=== PATIENT | female | born 1940 | race Asian ===

== ENCOUNTER 2019-08-12 13:37 | Emergency (ER) | payer MEDICARE, OTHER, SELFPAY ==
--- NOTE | 2019-08-12 13:52 | DI.RAD.S_ITS ---
PROCEDURE: XR KNEE LT 3V INDICATIONS: knee pain TECHNIQUE: 3 views of the knee were acquired. COMPARISON: None. FINDINGS: Bones: No fractures or dislocations. No suspicious bony lesions. There is a moderate-sized enthesophyte at the quadriceps tendon insertion onto the patella. No significant degenerative changes of the left knee are evident. Soft tissues: No joint effusion. No suspicious soft tissue calcifications. Vascular calcifications on the posterior thigh are present. IMPRESSION: No acute fracture of the left knee. Dictated by: Ronn Rodríguez M.D. on 08/12/2019 at 14:34 Approved by: Ronn Rodríguez M.D. on 08/12/2019 at 14:34
[2019-08-12 13:59] VITALS: BP 196/82; PULSE 79; RESP 16; TEMP 36.4; O2SAT 96; BMI 20.2
--- NOTE | 2019-08-12 14:02 | PC.NURSE ---
Pt denies injury. Pt has had left knee pain for 3 weeks,no swelling noted on exam. Pt able to bear weight
[2019-08-12] MEDS: ACETAMINOPHEN 325 MG TABLET 650 MG PO (14:13)
--- NOTE | 2019-08-12 14:14 | ED.LOWEXIN ---
HPI - Extremity Injury (Lower) General Chief Complaint: Extremity Injury, Lower Stated Complaint: Left knee pain Time Seen by Provider: 08/12/19 13:46 Source: patient and family Mode of arrival: Ambulatory Limitations: no limitations History of Present Illness HPI Narrative: 78-year-old female nonsmoker with noncontributory medical history presents with a few weeks of gradually worsening left knee pain. 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 It is entirely possible that she may have twisted her knee during transfers with him. She has increased pain with motion and improvement with rest. She denies any fever chills. She has no redness, swelling or pinpoint tenderness. MD complaint: knee injury Onset (ago): week(s) Type of Injury: unknown Place: home Severity: moderate Relieving factors: rest Exacerbating factors: movement Associated symptoms: ambulatory Other symptoms: none Related Data Allergies Allergy/AdvReac Type Severity Reaction Status Date / Time No Known Drug Allergies Allergy Verified 08/12/19 13:59 Review of Systems Constitutional Constitutional: Denies chills, Denies fatigue, Denies fever(s), Denies frequent falls, Denies lethargy and Denies weakness Eyes Eyes: Denies change in vision, Denies eye discharge, Denies irritation and Denies loss of vision ENT Ears, Nose, Mouth, and Throat: Denies change in voice, Denies dizziness, Denies neck pain, Denies sore throat and Denies throat swelling Cardiovascular Cardiovascular: Denies chest pain, Denies irregular heart rhythm, Denies lightheadedness, Denies palpitations, Denies dyspnea, Denies dyspnea on exertion and Denies orthopnea Respiratory Respiratory: Denies cough, Denies dyspnea, Denies dyspnea on exertion and Denies wheezing Gastrointestinal Gastrointestinal: Denies abdominal pain, Denies change in bowel habits, Denies diarrhea, Denies nausea and Denies vomiting Genitourinary Genitourinary: Denies hematuria, Denies flank pain, Denies urinary incontinence and Denies urinary urgency Musculoskeletal Musculoskeletal: Denies back pain, Denies muscle weakness, Denies neck pain, Denies numbness and Denies tingling Integumentary/Breasts Skin/Breast: Denies pruritus, Denies erythema, Denies rash and Denies wounds Neurologic Neurologic: Denies behavioral changes, Denies confusion, Denies dizziness, Denies frequent falls, Denies loss of vision, Denies numbness, Denies tingling and Denies weakness Psychiatric Psychiatric: Denies anxiety, Denies behavioral changes, Denies confusion, Denies depression, Denies homicidal ideation and Denies suicidal ideation Endocrine Endocrine: Denies fatigue, Denies flushing and Denies palpitations Hematologic/Lymphatic Hematologic/Lymphatic: Denies easy bruising Allergic/Immunologic Allergic/Immunologic: Denies urticaria, Denies throat swelling and Denies wheezing Patient History Social History Smoking Status: Never smoker Substance Use Type: does not use Exam Narrative Exam Narrative: GEN: AOx3 and in mild distress EYES: Pupils are equal, round, and reactive to light and accommodation. Extraoccular muscles are intact bilaterally. There is no subconjunctival hemorrhage or exudate. CHEST: Lungs are clear to auscultation bilaterally and free of wheezes, rales, or rhonchi. Heart rate is regular rhythm, there are no murmurs, clicks, rubs, or gallops. There is no chest wall tenderness. ABD: Abdomen is soft and nontender. There is no guarding or rebound. Bowel sounds are normal in all 4 quadrants. There is no mass or organomegaly. EXT: Full painless ROM of all extremities with no loss of sensation or strength. No redness, swelling or warmth. No bony point tenderness, patient points to the entire knee. SKIN: Warm, pink, and dry. No erythema or rash Initial Vital Signs Initial Vital Signs: Vital Signs Temperature 97.5 F L 08/12/19 13:59 Pulse Rate 79 08/12/19 13:59 Respiratory Rate 16 08/12/19 13:59 Blood Pressure 196/82 H 08/12/19 13:59 Pulse Oximetry 96 08/12/19 13:59 Course Orders Ordered: ED Orders 08/12/19 13:52 XR knee LT 3V Stat Discontinued Medications Acetaminophen (Tylenol) 650 mg PO NOW ONE Stop: 08/12/19 13:56 Last Admin: 08/12/19 14:13 Dose: 650 mg Documented by: KAMRON Vital Signs Vital signs: Vital Signs - 8 hr 08/12/19 13:59 08/12/19 14:43 Temperature 97.5 F L Pulse Rate 79 61 Respiratory Rate 16 Blood Pressure 196/82 H 185/75 H Pulse Oximetry 96 MDM - Extremity Injury (Lower) Imaging Data Knee Xray: Radiologist's impression: Deja Gee 78 F [address] [address] XRay Report Signed Patient: Deja GeeMR#: [id number] : 1940cct:[id number] Age/Sex: 78 / FDate of Service: 08/12/19 Loc: ED Accession Number: [id number] Procedure: XR knee LT 3V Ordering Provider: Jimy Gamboa D.O. PROCEDURE: XR KNEE LT 3V INDICATIONS: knee pain TECHNIQUE: 3 views of the knee were acquired. COMPARISON: None. FINDINGS: Bones: No fractures or dislocations. No suspicious bony lesions. There is a moderate-sized enthesophyte at the quadriceps tendon insertion onto the patella. No significant degenerative changes of the left knee are evident. Soft tissues: No joint effusion. No suspicious soft tissue calcifications. Vascular calcifications on the posterior thigh are present. IMPRESSION: No acute fracture of the left knee. Dictated by: Ronn Rodríguez M.D. on 08/12/2019 at 14:34 Approved by: Ronn Rodríguez M.D. on 08/12/2019 at 14:34 Discharge Plan Departure Patient Disposition: Home Clinical Impression: Chronic pain of left knee Discharge Date/Time: 08/12/19 14:43 Instructions: DI for Knee Pain Activity Restrictions/Additional Instructions: *You have been diagnosed with [chronic left knee pain, reassuring physical exam and x-ray] *What to do: *Take medications as directed: Tylenol and Motrin for aches and pain *Follow up with your primary care provider in 2-3 days, call for an appointment. Let them know you were seen in the Emergency Department and that we ask that you be seen in follow up *Return to ER if you should have any new, worsening or concerning symptoms Referrals: [facility] [Outside]
[2019-08-12 14:43] VITALS: BP 185/75; PULSE 61
== END 2019-08-12 14:43 | disposition home or self-care (01) ==
PROVIDERS: Emergency Provider Emergency Medicine
DX: M25.562 Pain in left knee (principal)
CPT/HCPCS: 73562; 99282; 99283

== ENCOUNTER 2020-12-24 10:30 | Outpatient (RCR) | payer MEDICARE, OTHER, SELFPAY ==
--- NOTE | 2020-11-08 14:30 | OT.OP.EVAL ---
Visit Care Team Role Provider Type Kelsi Rosado MD Attending Provider Non-Staff Primary Care Provider Referring Provider Specialty: Family Practice Address: [address] [place] [address], [place], [address] Email: Occupational Therapy Initial Evaluation OT Outpatient Adult Evaluation Start: 11/08/20 13:20 Freq: Status: Active Protocol: Document 11/08/20 13:23 AMS (Rec: 11/08/20 14:10 AMS [id number]) General Information Visit Start Time 13:30 Visit Stop Time 14:20 Total Visit Minutes 50 Visit Number 10/06 Plan of Care Dates 11/08/20-01/31/21 Insurance Information Medicare Treatment Setting Outpatient Care Note Type Initial Evaluation Goals Long-Term Goals 1. Patient will be modified independent with execution of home exercise program utilizing provided written and visual instructions from therapist. 2. Patient will report increased success with active engagement in meaningful activities secondary to increased R UE strength with reduced/or no complaints of weakness (e.g., meal preparation); this will be evidenced by increased strength found with right shoulder and elbow strengthening. 5/5 MMT for R sh flex, R sh ext, R sh abd and 5/5 MMT for R elbow flex/ ext. 3. Patient will present with improved fine motor coordination which will support success in day-to-day life tasks with small object manipulation; this will be evidenced by Deja completing 9 Hole Peg Test in < 25.0 seconds. Assessment/Plan Treatment Assessment Patient is a 79 year-old female referred to outpatient OT secondary to L CVA. Deja resides with her daughter, Criss, in [place], [place] who is her primary caregiver. Deja was hospitalized for almost 4 days at [facility] and 2 weeks at [facility] ([facility] she received PT/OT 2 x per day while hospitalized at [facility]. Deja was d/c to home w/ support of daughter. She had home health therapy thru [facility]. HEP recommendations included: theraputty strengthening exercises w/ up to green theraputty and other activities: scissoring; buttering bread or equivalent; baking tasks; working w/ beads; peeling fruit/ vegetables; shoe tying. [facility] instructed her in UE PNF diagonals as well. Deja has a treadmill, stationary bike, 3# weights/ dumbbells. PMH: Significant for arthritis, back pain, diabetes II, hearing problems, stroke PLOF: Deja was independent will all BADLS and IADLS; she prefers an active life style. Patient Goals: Address R hand abilities. Evaluation Findings: Patient arrived ambulating w/ SPC. She is receiving outpatient PT. Modified independent with bathing; utilizing a tub bench in one bathroom and a shower stool in the shower stall. She reported modified independence with dressing; she is able to manage zippers but reports increased difficulty w/ managing buttons. 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 She was able to oppose thumb to each digit pad without errors w/ eyes open; errors w/ opposition task with eyes closed (ulnar side - 4th and 5th digit differentiation). Dynamometer II Testing Results : avg R ingredient handler 30# of force; avg L ingredient handler 31# of force. WFL AROM shoulder. AROM Shoulder ROM Measurements: 0-137 R sh flex; 0-153 L sh flex; 0-130 R sh abd; 0-130 L sh abd; 0-45 R sh ext; 0-50 L sh ext; 0-70 R ER; 0-70 L ER; B IR WNL; B sh elbow flex and ext WNL; B forearm sup/pron WNL; 0-75 R wrist ext; 0-60 L wrist ext; B wrist flex WNL; B wrist RD/UD WNL. 4/5 MMT R sh flex; 5/5 MMT L sh flex; 4+/5 MMT R sh ext; 5/5 MMT L sh ext; 4+/5 MMT R sh abd; 5/5 MMT L sh abd ; 4+/5 MMT R sh add; 5/5 MMT L sh add; 4+/5 MMT R elbow flex ; 4+/5 MMT R elbow ext; 5/5 MMT L elbow flex; 5/5 MMT L elbow ext. 9-Hole Peg Test: Dominant R hand = 35.5 seconds . Non-dominant L hand = 24.3 seconds. Pain Assessment Grid completed; significant for pain of right hand 3 out of 10 on Pain Scale; pain also indicated in lower back and bilateral knees 2 out of 10. Outpatient OT is recommended to address R UE AROM, R UE strength, and R UE motor planning to support Deja's success w/ active participation in meaningful activities in a variety of environments. Comment 12 weeks Treatment Frequency Once a Week Therapeutic Contents Active Range of Motion, Adaptive Equipment Education, Client Education,Cognitive Skills Development,Functional Activities,Home Exercise Program,Joint Protection, Education,Neurodevelopment Treatment,Neuromuscular Re- Education,Self-Care,Stretching /Flexibility Activities, Therapeutic Activities, Therapeutic Exercises, Modalities Modalities As Needed,As Prescribed
--- NOTE | 2020-11-12 11:36 | OT.OP.TRT ---
Visit Care Team Role Provider Type Kelsi Rosado MD Attending Provider Non-Staff Primary Care Provider Referring Provider Specialty: Family Practice Address: [address] [place] [address], [place], [address] Email: Occupational Therapy Treatment Note OT Outpatient Treatment Note - Adult Start: 11/08/20 13:20 Freq: Status: Active Protocol: Document 11/12/20 11:22 AMS (Rec: 11/12/20 11:35 AMS [id number]) OT Outpatient Adult Treatment Note Session Time Visit Start Time 10:30 Visit Stop Time 11:15 Total Visit Minutes 45 Visit Information Visit Number 11/06 Plan of Care Dates 11/08/20-01/31/21 Insurance Information Medicare Setting Treatment Setting Outpatient Care Visit Type Note Type Treatment Note General Information General Information Patient is a 79 year-old female referred to outpatient OT secondary to L CVA. Deja resides with her daughter, Criss, in [place], [place] who is her primary caregiver. Deja was hospitalized for almost 4 days at [facility] and 2 weeks at [facility] ([facility]); she received PT/OT 2 x per day while hospitalized at [facility]. Deja was d/c to home w/ support of daughter. She had home health therapy thru [facility]. HEP recommendations included: theraputty strengthening exercises w/ up to green theraputty and other activities: scissoring; buttering bread or equivalent; baking tasks; working w/ beads; peeling fruit/ vegetables; shoe tying. [facility] instructed her in UE PNF diagonals as well. Deja has a treadmill, stationary bike, 3# weights/ dumbbells. PMH: Significant for arthritis, back pain, diabetes II, hearing problems, stroke - Subjective Identification Type Name Identification Reconciled With Medical Record Observations Deja reported practicing at home with the 'pennies' and that she prepared 2 different items without 'any trouble'. Patient/Caregiver Compliance with Home Excellent Exercise Program - Objective Objective Measurements Please refer to below for progress towards meeting established OT goals. Wringer Operator Goals 1. Patient will be modified independent with execution of home exercise program utilizing provided written and visual instructions from therapist. 2. Patient will report increased success with active engagement in meaningful activities secondary to increased R UE strength with reduced/or no complaints of weakness (e.g., meal preparation); this will be evidenced by increased strength found with right shoulder and elbow strengthening. 5/5 MMT for R sh flex, R sh ext, R sh abd and 5/5 MMT for R elbow flex/ ext. 3. Patient will present with improved fine motor coordination which will support success in day-to-day life tasks with small object manipulation; this will be evidenced by Deja completing 9 Hole Peg Test in < 25.0 seconds. - Treatment 1 Descriptor In-hand manipulation skills. Fine motor coordination. R hand. Get-a-senior recruiter (x 1 placed in palm at a time). Buttons (3-4 placed in palm at a time). Small pegs w/ pegboard (3-4 placed in palm at a time). Miniature pegs w/ pegboard. Exercises 2 Descriptor Finger/Hand strengthening exercises. Resistant clothespins R hand. x 49 reps w/ placement on vertical dowel; x 49 reps w/ removal from horizontal dowel above head. 1 Descriptor UEB. x 10 min. Seated. - Assessment Assessment of Improvement Deja actively participated in all activities; she arrived utilizing SPC w/ ambulation. Request for condensing of schedule given commute/at patient request. Collaborated w/ senior front end engineer staff to determine if additional changes could be made based on patient request. Patient to follow-up w/ senior front end engineer staff post- PT outpatient treatment session. Based on self-report, Deja is carrying over home recommendations and staying active with day-to-day participation in ADLs/IADLs, including meal preparation. Deja inquired about return to driving; therapist recommended that she follow-up w/ PCP at upcoming appointment given that this therapist has only seen her x 2 appointments; Deja denied having NEUROLOGY PHYSICIAN and has denied any difficulties w/ meal preparation or light house cleaning duties. Use of visual feedback to support fine motor manipulation given impaired sensation without cueing; min cueing to avoid use of compensatory strategies (e.g., use of contra hand/use of tables/surfaces to support rotation/translation) initially. However, post- cueing/recommendations increased effort by Deja was observed to complete skills without compensatory strategies. Based on observations, progress is being made relative to fine motor/in-hand manipulation abilities. Continued outpatient OT is recommended to address R UE AROM, R UE strength, and R UE motor planning to support Deja's success w/ active participation in meaningful activities in a variety of environments. Home Exercise Program Recommended carry-over of toothpicks, buttons, clothespins as able/based on availability of items within the home. - Plan Therapy Recommendations Continue with Current Program, Advance per Rehabilitation Protocol
--- NOTE | 2020-11-20 13:53 | OT.OP.TRT ---
Visit Care Team Role Provider Type Kelsi Rosado MD Attending Provider Non-Staff Primary Care Provider Referring Provider Specialty: Family Practice Address: [address] [place] [address], [place], [address] Email: Occupational Therapy Treatment Note OT Outpatient Treatment Note - Adult Start: 11/08/20 13:20 Freq: Status: Active Protocol: Document 11/20/20 13:44 AMS (Rec: 11/20/20 13:53 AMS [id number]) OT Outpatient Adult Treatment Note Session Time Visit Start Time 12:30 Visit Stop Time 13:15 Total Visit Minutes 45 Visit Information Visit Number 12/04 Plan of Care Dates 11/08/20-01/31/21 Insurance Information Medicare Setting Treatment Setting Outpatient Care Visit Type Note Type Treatment Note General Information General Information Patient is a 79 year-old female referred to outpatient OT secondary to L CVA. Deja resides with her daughter, Criss, in [place], [place] who is her primary caregiver. Deja was hospitalized for almost 4 days at [facility] and 2 weeks at [facility] ([facility]); she received PT/OT 2 x per day while hospitalized at [facility]. Deja was d/c to home w/ support of daughter. She had home health therapy thru [facility]. HEP recommendations included: theraputty strengthening exercises w/ up to green theraputty and other activities: scissoring; buttering bread or equivalent; baking tasks; working w/ beads; peeling fruit/ vegetables; shoe tying. [facility] instructed her in UE PNF diagonals as well. Deja has a treadmill, stationary bike, 3# weights/ dumbbells. PMH: Significant for arthritis, back pain, diabetes II, hearing problems, stroke - Subjective Identification Type Name Identification Reconciled With Medical Record Observations I have been practicing at home per Deja. Patient/Caregiver Compliance with Home Excellent Exercise Program - Objective Objective Measurements Please refer to below for progress towards meeting established OT goals. Snf Goals 1. Patient will be modified independent with execution of home exercise program utilizing provided written and visual instructions from therapist. 2. Patient will report increased success with active engagement in meaningful activities secondary to increased R UE strength with reduced/or no complaints of weakness (e.g., meal preparation); this will be evidenced by increased strength found with right shoulder and elbow strengthening. 5/5 MMT for R sh flex, R sh ext, R sh abd and 5/5 MMT for R elbow flex/ ext. 3. Patient will present with improved fine motor coordination which will support success in day-to-day life tasks with small object manipulation; this will be evidenced by Deja completing 9 Hole Peg Test in < 25.0 seconds. - Treatment 1 Descriptor In-hand manipulation skills. Fine motor coordination. R hand. Get-a-artillery meteorological man (transfer TT --> vertical board R hand). Purdue Pegboard - pegs, washers, collars. Exercises 2 Descriptor Finger/Hand strengthening exercises. Resistant clothespins R hand. x 49 reps w/ placement on vertical dowel; x 49 reps w/ removal from horizontal dowel above head. 1 Descriptor UEB. x 10 min. Seated. - Assessment Assessment of Improvement Deja actively participated in all activities; she arrived utilizing SPC w/ ambulation. Based on self-report, Deja is carrying over home recommendations and staying active including using theraputty and personal weight /dumbbell. She also reported that her PCP did not clear her for return to driving which she agrees on given worry about managing gas and brake of personal car w/ R LE. Therapist continues to reduce size of objects to challenge Deja's FM abilities; she is demonstrating improving speed and efficiency with rotational abilities w/ R hand w/ picking up items from TT. Deja does prefer to chart picker objects from TT if permitted and/or place item an item on table in order to rotate it if other items are in her hand; she will also utilize L hand to support R handed obj manipulation. Thus, recommend challenging translational and rotational abilities of the hand and separation of the 2 sides of her hand. Based on reduced size of objects that Deja is able to manipulate, progress is being made relative to fine motor/in-hand manipulation abilities. Continued outpatient OT is recommended to address R UE AROM, R UE strength, and R UE motor planning to support Deja's success w/ active participation in meaningful activities in a variety of environments. Home Exercise Program No new changes were made on this date to HEP/POC. - Plan Therapy Recommendations Continue with Current Program, Advance per Rehabilitation Protocol
--- NOTE | 2020-11-26 15:30 | OT.OP.TRT ---
Visit Care Team Role Provider Type Kelsi Rosado MD Attending Provider Non-Staff Primary Care Provider Referring Provider Specialty: Family Practice Address: [address] [place] [address], [place], [address] Email: Occupational Therapy Treatment Note OT Outpatient Treatment Note - Adult Start: 11/08/20 13:20 Freq: Status: Active Protocol: Document 11/26/20 15:30 AMS (Rec: 11/27/20 13:51 AMS [id number]) OT Outpatient Adult Treatment Note Session Time Visit Start Time 10:30 Visit Stop Time 11:15 Total Visit Minutes 45 Visit Information Visit Number 01/04 Plan of Care Dates 11/08/20-01/31/21 Insurance Information Medicare Setting Treatment Setting Outpatient Care Visit Type Note Type Treatment Note General Information General Information Patient is a 79 year-old female referred to outpatient OT secondary to L CVA. Deja resides with her daughter, Criss, in [place], [place] who is her primary caregiver. Deja was hospitalized for almost 4 days at [facility] and 2 weeks at [facility] ([facility]); she received PT/OT 2 x per day while hospitalized at [facility]. Deja was d/c to home w/ support of daughter. She had home health therapy thru [facility]. HEP recommendations included: theraputty strengthening exercises w/ up to green theraputty and other activities: scissoring; buttering bread or equivalent; baking tasks; working w/ beads; peeling fruit/ vegetables; shoe tying. [facility] instructed her in UE PNF diagonals as well. Deja has a treadmill, stationary bike, 3# weights/ dumbbells. PMH: Significant for arthritis, back pain, diabetes II, hearing problems, stroke - Subjective Identification Type Name Identification Reconciled With Medical Record Observations I have been doing all my exercises at home per Deja . Patient/Caregiver Compliance with Home Excellent Exercise Program - Objective Objective Measurements Please refer to below for progress towards meeting established OT goals. Processing Operator Goals 1. Patient will be modified independent with execution of home exercise program utilizing provided written and visual instructions from therapist. 2. Patient will report increased success with active engagement in meaningful activities secondary to increased R UE strength with reduced/or no complaints of weakness (e.g., meal preparation); this will be evidenced by increased strength found with right shoulder and elbow strengthening. 5/5 MMT for R sh flex, R sh ext, R sh abd and 5/5 MMT for R elbow flex/ ext. 3. Patient will present with improved fine motor coordination which will support success in day-to-day life tasks with small object manipulation; this will be evidenced by Deja completing 9 Hole Peg Test in < 25.0 seconds. - Treatment 1 Descriptor In-hand manipulation skills. Fine motor coordination. R hand. Get-a-supervisor specialty plant (transfer TT --> vertical board R hand). Purdue Pegboard - pegs, washers, collars. Exercises 3 Descriptor Theraband Sh Strengthening Sh flexion. TB #2. 2x10. Seated. Sh hor abd. TB #2. 2x10. Seated. Sh PNF D2. TB #2. 2x10. Seated . 2 Descriptor Finger/Hand strengthening exercises. Resistant clothespins R hand. x 49 reps w/ placement on vertical dowel; x 49 reps w/ removal from horizontal dowel above head. 1 Descriptor UEB. x 10 min. Seated. - Assessment Assessment of Improvement Deja actively participated in all activities; she arrived utilizing [facility] w/ ambulation. Based on self-report, Deja is carrying over home recommendations and staying active. Upgraded UE home exercises and provided TB #2 for home use. Improving speed and efficiency with object manipulation; able to appropriately grade force with tweezers placed in preferred hand with small object transfer. Denied h/o use of chopsticks. Progress is being made. Continued outpatient OT is recommended to address R UE AROM, R UE strength, and R UE motor planning to support Deja's success w/ active participation in meaningful activities in a variety of environments. Home Exercise Program Provided with personal TB #2 for home use. Provided written and visual instructions for new exercises with use of TB. All questions were answered. - Plan Therapy Recommendations Continue with Current Program, Advance per Rehabilitation Protocol
--- NOTE | 2020-12-04 14:18 | OT.OP.TRT ---
Visit Care Team Role Provider Type Kelsi Rosado MD Attending Provider Non-Staff Primary Care Provider Referring Provider Specialty: Family Practice Address: [address] [place] [address], [id number], [place], [address] Email: Occupational Therapy Treatment Note OT Outpatient Treatment Note - Adult Start: 11/08/20 13:20 Freq: Status: Active Protocol: Document 12/04/20 13:19 AMS (Rec: 12/04/20 14:18 AMS [id number]) OT Outpatient Adult Treatment Note Session Time Visit Start Time 13:20 Visit Stop Time 14:05 Total Visit Minutes 45 Visit Information Visit Number 02/03 Plan of Care Dates 11/08/20-01/31/21 Insurance Information Medicare Setting Treatment Setting Outpatient Care Visit Type Note Type Treatment Note General Information General Information Patient is a 79 year-old female referred to outpatient OT secondary to L CVA. Deja resides with her daughter, Criss, in [place], [place] who is her primary caregiver. Deja was hospitalized for almost 4 days at [facility] and 2 weeks at [facility] ([facility]); she received PT/OT 2 x per day while hospitalized at [facility]. Deja was d/c to home w/ support of daughter. She had home health therapy thru [facility]. HEP recommendations included: theraputty strengthening exercises w/ up to green theraputty and other activities: scissoring; buttering bread or equivalent; baking tasks; working w/ beads; peeling fruit/ vegetables; shoe tying. [facility] instructed her in UE PNF diagonals as well. Deja has a treadmill, stationary bike, 3# weights/ dumbbells. PMH: Significant for arthritis, back pain, diabetes II, hearing problems, stroke - Subjective Identification Type Name Identification Reconciled With Medical Record Observations I woke up last night at 2:00 in the morning. I couldn't go back to sleep. Ever since I had my stroke, my sleep has been messed up per Deja. Patient/Caregiver Compliance with Home Excellent Exercise Program - Objective Objective Measurements Please refer to below for progress towards meeting established OT goals. Group Home Goals 1. Patient will be modified independent with execution of home exercise program utilizing provided written and visual instructions from therapist. 2. Patient will report increased success with active engagement in meaningful activities secondary to increased R UE strength with reduced/or no complaints of weakness (e.g., meal preparation); this will be evidenced by increased strength found with right shoulder and elbow strengthening. 5/5 MMT for R sh flex, R sh ext, R sh abd and 5/5 MMT for R elbow flex/ ext. 3. Patient will present with improved fine motor coordination which will support success in day-to-day life tasks with small object manipulation; this will be evidenced by Deja completing 9 Hole Peg Test in < 25.0 seconds. - Treatment 1 Descriptor In-hand manipulation skills. Fine motor coordination. R hand. Get-a-horse trainer (transfer TT --> vertical board R hand). Purdue Pegboard - pegs, washers, collars. Exercises 3 Descriptor Theraband Sh Strengthening Sh flexion. TB #2. 2x10. Seated. Sh hor abd. TB #2. 2x10. Seated. Sh PNF D2. TB #2. 2x10. Seated . 2 Descriptor Finger/Hand strengthening exercises. Resistant clothespins R hand. x 49 reps w/ placement on vertical dowel; x 49 reps w/ removal from horizontal dowel above head. 1 Descriptor UEB. x 10 min. Seated. - Assessment Assessment of Improvement Deja arrived utilizing SPC w/ ambulation. Deja reported fatigue d/t poor night's sleep; she also indicated that she was tired from previous day's PT treatment session. She presented with decreased efficiency with object manipulation; however, she had good effort and completed all activities. She is also actively carrying over recommendations/completing HEP . Continued outpatient OT is recommended to address R UE AROM, R UE strength, and R UE motor planning to support Deja's success w/ active participation in meaningful activities in a variety of environments. - Plan Therapy Recommendations Continue with Current Program, Advance per Rehabilitation Protocol
--- NOTE | 2020-12-10 11:25 | OT.OP.TRT ---
Visit Care Team Role Provider Type Kelsi Rosado MD Attending Provider Non-Staff Primary Care Provider Referring Provider Specialty: Family Practice Address: [address] [place] [address], [id number], [place], [address] Email: Occupational Therapy Treatment Note OT Outpatient Treatment Note - Adult Start: 11/08/20 13:20 Freq: Status: Active Protocol: Document 12/10/20 11:20 AMS (Rec: 12/10/20 11:25 AMS [id number]) OT Outpatient Adult Treatment Note Session Time Visit Start Time 10:30 Visit Stop Time 11:15 Total Visit Minutes 45 Visit Information Visit Number 03/06 Plan of Care Dates 11/08/20-01/31/21 Insurance Information Medicare Setting Treatment Setting Outpatient Care Visit Type Note Type Treatment Note General Information General Information Patient is a 79 year-old female referred to outpatient OT secondary to L CVA. Deja resides with her daughter, Criss, in [place], [place] who is her primary caregiver. Deja was hospitalized for almost 4 days at [facility] and 2 weeks at [facility] ([facility]); she received PT/OT 2 x per day while hospitalized at [facility]. Deja was d/c to home w/ support of daughter. She had home health therapy thru [facility]. HEP recommendations included: theraputty strengthening exercises w/ up to green theraputty and other activities: scissoring; buttering bread or equivalent; baking tasks; working w/ beads; peeling fruit/ vegetables; shoe tying. [facility] instructed her in UE PNF diagonals as well. Deja has a treadmill, stationary bike, 3# weights/ dumbbells. PMH: Significant for arthritis, back pain, diabetes II, hearing problems, stroke - Subjective Identification Type Name Identification Reconciled With Medical Record Observations I woke up last night at 1:00 in the morning. I couldn't go back to sleep. I am going to see my doctor this afternoon about my sleep per Deja. Patient/Caregiver Compliance with Home Excellent Exercise Program Comment w/ referencing of visual/ written instructions - Objective Objective Measurements Please refer to below for progress towards meeting established OT goals. 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 Patient will be modified independent with execution of home exercise program utilizing provided written and visual instructions from therapist. 2. Patient will report increased success with active engagement in meaningful activities secondary to increased R UE strength with reduced/or no complaints of weakness (e.g., meal preparation); this will be evidenced by increased strength found with right shoulder and elbow strengthening. 5/5 MMT for R sh flex, R sh ext, R sh abd and 5/5 MMT for R elbow flex/ ext. 3. Patient will present with improved fine motor coordination which will support success in day-to-day life tasks with small object manipulation; this will be evidenced by Deja completing 9 Hole Peg Test in < 25.0 seconds. - Treatment 1 Descriptor In-hand manipulation skills. Fine motor coordination. R hand. Get-a-oil well gun perforator operator (transfer TT --> vertical board R hand). Purdue Pegboard - pegs, washers, collars. Exercises 4 Descriptor Shoulder ROM. Sh flexion wall. 1 x 20 sec. Sh abd/snow angels. 1 x 3. Sh hor abd --> shoulder press. 1 x 3. 2 Descriptor Finger/Hand strengthening exercises. Resistant clothespins R hand. x 49 reps w/ placement on vertical dowel; x 49 reps w/ removal from horizontal dowel above head. 1 Descriptor UEB. x 10 min. Seated. - Assessment Assessment of Improvement Deja arrived utilizing SPC w/ ambulation. Deja reported fatigue d/t poor night's sleep; she stated that she is seeing her PCP this afternoon in re: sleep. (+) carry-over of HEP; (+) request of visual and written instructions to support carry- over. Upgraded HEP w/ inclusion of ROM exercises; tendency towards R shoulder elevation w/ above sh manipulation. Consider incorporating prone exercises d/t compensatory strategies being observed w/ R UE motor planning/use. Deja reports ability to complete all tasks in the home without difficulty , including cleaning bathtub, floors. Continued outpatient OT is recommended to address R UE AROM, R UE strength, and R UE motor planning to support Deja's success w/ active participation in meaningful activities in a variety of environments. Home Exercise Program Written and visual instructions were provided. Sh abd/snow angels and hor abd w / press at wall. Patient denied questions. - Plan Therapy Recommendations Continue with Current Program, Advance per Rehabilitation Protocol
--- NOTE | 2020-12-24 11:27 | OT.OP.DC ---
Visit Care Team Role Provider Type Kelsi Rosado MD Attending Provider Non-Staff Primary Care Provider Referring Provider Address: [address] [place] [address], [id number], [place], [address] Email: OT Outpatient OT Outpatient Adult Evaluation Start: 11/08/20 13:20 Freq: Status: Active Protocol: Document 11/08/20 13:23 AMS (Rec: 11/08/20 14:10 AMS [id number]) General Information Session Time Visit Start Time 13:30 Visit Stop Time 14:20 Total Visit Minutes 50 Visit Information Visit Number 10/06 Plan of Care Dates 11/08/20-01/31/21 Insurance Information Medicare Setting Treatment Setting Outpatient Care Visit Type Note Type Initial Evaluation Goals Usp Goals Usp Goals 1. Patient will be modified independent with execution of home exercise program utilizing provided written and visual instructions from therapist. 2. Patient will report increased success with active engagement in meaningful activities secondary to increased R UE strength with reduced/or no complaints of weakness (e.g., meal preparation); this will be evidenced by increased strength found with right shoulder and elbow strengthening. 5/5 MMT for R sh flex, R sh ext, R sh abd and 5/5 MMT for R elbow flex/ ext. 3. Patient will present with improved fine motor coordination which will support success in day-to-day life tasks with small object manipulation; this will be evidenced by Deja completing 9 Hole Peg Test in < 25.0 seconds. Assessment/Plan Assessment Treatment Assessment Patient is a 79 year-old female referred to outpatient OT secondary to L CVA. Deja resides with her daughter, Criss, in [place], [place] who is her primary caregiver. Deja was hospitalized for almost 4 days at [facility] and 2 weeks at [facility] ([facility]); she received PT/OT 2 x per day while hospitalized at [facility]. Deja was d/c to home w/ support of daughter. She had home health therapy thru [facility]. HEP recommendations included: theraputty strengthening exercises w/ up to green theraputty and other activities: scissoring; buttering bread or equivalent; baking tasks; working w/ beads; peeling fruit/ vegetables; shoe tying. [facility] instructed her in UE PNF diagonals as well. Deja has a treadmill, stationary bike, 3# weights/ dumbbells. PMH: Significant for arthritis, back pain, diabetes II, hearing problems, stroke PLOF: Deja was independent will all BADLS and IADLS; she prefers an active life style. Patient Goals: Address R hand abilities. Evaluation Findings: Patient arrived ambulating w/ SPC. She is receiving outpatient PT. Modified independent with bathing; utilizing a tub bench in one bathroom and a shower stool in the shower stall. She reported modified independence with dressing; she is able to manage zippers but reports increased difficulty w/ managing buttons. 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 She was able to oppose thumb to each digit pad without errors w/ eyes open; errors w/ opposition task with eyes closed (ulnar side - 4th and 5th digit differentiation). Dynamometer II Testing Results : avg R brush worker 30# of force; avg L brush worker 31# of force. WFL AROM shoulder. AROM Shoulder ROM Measurements: 0-137 R sh flex; 0-153 L sh flex; 0-130 R sh abd; 0-130 L sh abd; 0-45 R sh ext; 0-50 L sh ext; 0-70 R ER; 0-70 L ER; B IR WNL; B sh elbow flex and ext WNL; B forearm sup/pron WNL; 0-75 R wrist ext; 0-60 L wrist ext; B wrist flex WNL; B wrist RD/UD WNL. 4/5 MMT R sh flex; 5/5 MMT L sh flex; 4+/5 MMT R sh ext; 5/5 MMT L sh ext; 4+/5 MMT R sh abd; 5/5 MMT L sh abd ; 4+/5 MMT R sh add; 5/5 MMT L sh add; 4+/5 MMT R elbow flex ; 4+/5 MMT R elbow ext; 5/5 MMT L elbow flex; 5/5 MMT L elbow ext. 9-Hole Peg Test: Dominant R hand = 35.5 seconds . Non-dominant L hand = 24.3 seconds. Pain Assessment Grid completed; significant for pain of right hand 3 out of 10 on Pain Scale; pain also indicated in lower back and bilateral knees 2 out of 10. Outpatient OT is recommended to address R UE AROM, R UE strength, and R UE motor planning to support Deja's success w/ active participation in meaningful activities in a variety of environments. Plan Comment 12 weeks Treatment Frequency Once a Week Therapeutic Contents Active Range of Motion, Adaptive Equipment Education, Client Education,Cognitive Skills Development,Functional Activities,Home Exercise Program,Joint Protection, Education,Neurodevelopment Treatment,Neuromuscular Re- Education,Self-Care,Stretching /Flexibility Activities, Therapeutic Activities, Therapeutic Exercises, Modalities Modalities As Needed,As Prescribed Sensory Assessment Sensory Profile2 Functional Wrist/Hand Scan Hand Side OT Outpatient Treatment Note - Adult Start: 11/08/20 13:20 Freq: Status: Active Protocol: Document 12/24/20 10:41 AMS (Rec: 12/24/20 11:27 AMS [id number]) OT Outpatient Adult Treatment Note Session Time Visit Start Time 10:30 Visit Stop Time 11:15 Total Visit Minutes 45 Visit Information Visit Number 04/05 Plan of Care Dates 11/08/20-01/31/21 Insurance Information Medicare Setting Treatment Setting Outpatient Care Visit Type Note Type Treatment Note General Information General Information Patient is a 79 year-old female referred to outpatient OT secondary to L CVA. Deja resides with her daughter, Criss, in [place], [place] who is her primary caregiver. Deja was hospitalized for almost 4 days at [facility] and 2 weeks at [facility] ([facility]); she received PT/OT 2 x per day while hospitalized at [facility]. Deja was d/c to home w/ support of daughter. She had home health therapy thru [facility]. HEP recommendations included: theraputty strengthening exercises w/ up to green theraputty and other activities: scissoring; buttering bread or equivalent; baking tasks; working w/ beads; peeling fruit/ vegetables; shoe tying. [facility] instructed her in UE PNF diagonals as well. Deja has a treadmill, stationary bike, 3# weights/ dumbbells. PMH: Significant for arthritis, back pain, diabetes II, hearing problems, stroke - Subjective Identification Type Name Identification Reconciled With Medical Record Observations I am doing everything at home per Deja. Deja completed QuickDASH UE Outcome Measure; obtained a score of 0. Patient/Caregiver Compliance with Home Excellent Exercise Program Comment w/ referencing of visual/ written instructions - Objective Objective Measurements Please refer to below for progress towards meeting established OT goals. Usp Goals ALL GOALS MET OF 12/24/20 Patient will be modified independent with execution of home exercise program utilizing provided written and visual instructions from therapist. Patient will report increased success with active engagement in meaningful activities secondary to increased R UE strength with reduced/or no complaints of weakness (e.g., meal preparation); this will be evidenced by increased strength found with right shoulder and elbow strengthening. 5/5 MMT for R sh flex, R sh ext, R sh abd and 5/5 MMT for R elbow flex/ ext. Patient will present with improved fine motor coordination which will support success in day-to-day life tasks with small object manipulation; this will be evidenced by Deja completing 9 Hole Peg Test in < 25.0 seconds. - Treatment 1 Descriptor In-hand manipulation skills. Fine motor coordination. R hand. Get-a-brush worker (transfer TT --> vertical board R hand). Purdue Pegboard - pegs, washers, collars. Exercises 4 Descriptor Shoulder ROM. Sh flexion wall. 1 x 20 sec. Sh abd/snow angels. 1 x 3. Sh hor abd --> shoulder press. 1 x 3. 3 Descriptor Theraband Sh Strengthening Sh flexion. TB #2. 2x10. Seated. Sh hor abd. TB #2. 2x10. Seated. Sh PNF D2. TB #2. 2x10. Seated . 2 Descriptor Finger/Hand strengthening exercises. Resistant clothespins R hand. x 49 reps w/ placement on vertical dowel; x 49 reps w/ removal from horizontal dowel above head. 1 Descriptor UEB. x 8 min. Seated. - Assessment Assessment of Improvement Deja has met all correction goals with outpatient OT. She is modified independent with execution of home exercise program referencing provided written and visual instructions from therapist. She denies any additional concerns; however, she would like to return to driving to maintain her independence. She plans on going to her local [facility] to ensure that she is safe to return. No further need for outpatient OT at this time . - Plan Therapy Recommendations Discharge from Occupational Therapy
== END 2021-01-02 09:52 | disposition home or self-care (01) ==
LOC: OT 10:30
PROVIDERS: PCP Family Medicine; Referring Provider Family Medicine; Visit Provider Family Medicine
DX: I63.9 Cerebral infarction, unspecified (principal); R27.8 Other lack of coordination; R53.1 Weakness
CPT/HCPCS: 97110; 97112; 97165; 97530

== ENCOUNTER 2020-12-27 08:15 | Outpatient (RCR) | payer MEDICARE, OTHER, SELFPAY ==
--- NOTE | 2020-10-31 16:30 | PT.OIE ---
Current Diagnoses Cerebral infarction, unspecified (10/31/20) Muscle weakness (generalized) (10/31/20) Unsteadiness on feet (10/31/20) Other reduced mobility (10/31/20) Visit Care Team Role Provider Type Kelsi Rosado MD Attending Provider Non-Staff Referring Provider Specialty: Family Practice Address: [address] [place] [address], [place], [address] Email: Physical Therapy Initial Evaluation PT-OP-A Visit Information Start: 10/29/20 16:50 Freq: Status: Active Protocol: Document 10/31/20 12:50 LRN (Rec: 10/31/20 13:45 LRN [id number]) Out-Patient Physical Therapy Visit Information Visit Information Visit Type Initial Evaluation Visit Start Time 12:50 Visit Stop Time 13:40 Total Visit Minutes 50 Visit Number 1 Evaluation Information Evaluation Date 10/31/20 Precautions Precautions Arthritis, uncontrolled HBP, uncontrolled Diabetes type II, Depression, headaches, dizziness occasionally, 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 PT-OP-B Current Condition Start: 10/29/20 16:50 Freq: Status: Active Protocol: Document 10/31/20 12:50 LRN (Rec: 10/31/20 13:45 LRN [id number]) Current Condition History of Current Condition Onset Date 08/13/2020 Current Complaints L CVA History of Current Condition Pt lives in [place] and is accompanied by her daughter Criss, who is her caregiver, and that lives with her. Pt was hospitalized almost 4 days at [facility] and 2 weeks at [facility] an acute rehab , and PT/OT 2x/day. Released home 08/27/20 with daughter. Had home health until 2 weeks ago (~10/23/20 was last day), then requested outpatient physical and occupational therapy. Pt has 1 step at home and multiple grab bars in her home . Prior Treatments and Tests See above. Future Testing and Treatments Planned Occupational Therapy Evaluation. Colonoscopy in the future. Follow up with Dr. Gale Developmental History Developmental History Lives [place]. Treatment Goals Patient/Caregiver Goals Pt goal is strength R LE to walk and get back to normal, and resume exercise walking without walker, & improve balance. Pt goal is to use the R hand and will be scheduling for an occupational therapy evaluation. Prior Functional Status Baseline Function- ADL's Independent Baseline Function- Mobility Independent Baseline Function- Gait Walked in [employer], walked daily at [facility] 30' . Amb w/o AD. 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 Hold R leg stiff with gait and minimal R arm swing. Not walking for exercise activity outside. 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 PT-OP-C Subjective Start: 10/29/20 16:50 Freq: Status: Active Protocol: Document 10/31/20 12:50 LRN (Rec: 10/31/20 13:45 LRN [id number]) OP-PT Subjective Patient Comments Patient Comments Forgets to bend the R knee when walking. Patient Questionnaires ABC- Activity Specific Balance Confidence Scale ABC Score 60 ABC Functional Impairment 40 to <60% Impaired (Score 41- 60) OP-PT Pain Assessment Pain Assessment Grid Paper Pain Assessment Grid Completed Yes Location Bilateral knee pain Pain Location Details Anterior knees Intensity 3 Scale Used Numeric (0 - 10) Description Aching Description- Other Arthritis Frequency Occasional Other Pain Alleviating Factors Soft knee brace x 1 PT-OP-D Balance Start: 10/29/20 16:50 Freq: Status: Active Protocol: Document 10/31/20 12:50 LRN (Rec: 10/31/20 13:45 LRN [id number]) OP-PT Balance Assessment Sitting Balance Static Sitting Balance Ability Normal Balance Tests Romberg Romberg EC, 25 secs Tandem Tandem Standing EO: L LE behind: 27.75 secs, R LE behind: 0 secs. Stevenson Fall Scale Copyright Permission PT-OP-E Functional Tests Start: 10/29/20 16:50 Freq: Status: Active Protocol: Document 10/31/20 12:50 LRN (Rec: 10/31/20 13:45 LRN [id number]) Functional Tests 30 Second Sit to Stand Test Score 8 x Five Times Sit to Stand Test Score 19.17 secs Timed Up and Go (TUG) Score 19.17 TUG Impairment Rating 80 to <100% Impaired (Score 18 -19) PT-OP-J Posture/Palpation/Skin Start: 10/29/20 16:50 Freq: Status: Active Protocol: Document 10/31/20 12:50 LRN (Rec: 10/31/20 13:45 LRN [id number]) Posture Evaluation Position Standing L-Spine Posture Decreased Lordosis,Shifted Right Scapula Posture (R) Protracted,(R) Winged PT-OP-M Strength Start: 10/29/20 16:50 Freq: Status: Active Protocol: Document 10/31/20 12:50 LRN (Rec: 10/31/20 13:45 LRN [id number]) Hip Strength Hip Manual Muscle Testing Left Flexion (L2) 5 Normal Right Flexion (L2) 3+ Fair+ Knee Strength Knee Manual Muscle Testing Left Flexion (S2) 5 Normal Extension (L3) 5 Normal Right Flexion (S2) 3+ Fair+ Extension (L3) 5 Normal Ankle/Foot Strength Ankle and Foot Manual Muscle Testing Left Comments Generally 5/5 Right Eversion (S1) 3 Fair Comments 5/5 except as indicated above PT-OP-Q Treatments Start: 10/29/20 16:50 Freq: Status: Active Protocol: Document 10/31/20 12:50 LRN (Rec: 10/31/20 13:45 LRN [id number]) Self-Care/Home Management Treatment Education Patient Education Home Exercise Program Activities Self-Care/Home Management Activities I/S pt/caregiver DA in Tandem balance in corner. PT-OP-T Assessment and Plan Start: 10/29/20 16:50 Freq: Status: Active Protocol: Document 10/31/20 12:50 LRN (Rec: 10/31/20 13:45 LRN [id number]) Physical Therapy Assessment Rehab Potential Rehabilitation Potential Good Evaluation Complexity Number of Personal Factors/Comorbidities 3 or More Number of Body Systems Impaired 4 or More Clinical Presentation at Evaluation Evolving Impairments Impairments Activity Tolerance,Balance, Gait,Strength Goals Four Impairment Decreased endurance per 5xSTS (5xsit to stand) = 19.17 secs Short Term Goal (STG) Pt will demonstrate improved endurance by a decreased time with 5xSTS test (norms: ages 70-79 is 12.6 secs, ages 80-89 is 14.8 secs). Search Specialist Goal (LTG) Pt will be able to tolerate return to walking at her prior location ([facility]) for exercise. Three Impairment Decreased R LE strength Short Term Goal (STG) Improve R LE strength in areas of weakness to at least 4/5. Fci Goal (LTG) Strengthen R LE for normal walking (with mild deficit). Two Impairment Balance deficit(Rhomberg EC: 25; Tandem: LE Behind: 0R, 27.75L, TUG 19) Short Term Goal (STG) Improve Balance per Rhomberg Score, Tandem Score or TUG score Fci Goal (LTG) Pt will be able to walk safetly without use of a walker per TUG score of 11-13. 6 secs. One Impairment Lacks appropriate self care HEP Fci Goal (LTG) Pt will be independent in a self care HEP of LE strengthening and balance exercises appropriate for her status at discharge. Assessment Summary Assessment Pt is a 79 yo female who suffered a L CVA and has residual RLE/UE impairments. She walks independently with use of a FWW although requires cuing to not veer left. She demonstrates fair RLE strength . During gait with a FWW she demonstrates a stiff RLE and a slight R foot drop during swing through phase of gait. The pt demonstrates poor R arm swing. She is alert and oriented and answers questions appropriately. Her daughter is quite attentive and supportive. The daughter states she has an occupational therapy referral and hopes to get scheduled with Occupational Therapy today. The pt will benefit from skilled physical therapy to improve RLE strength and balance, to improve gait mechanics to safety without use of an assistive device and to improve her aerobic capacity/endurance to return her to a prior function of walking for her health and endurance in a safe manner. Physical Therapy Plan Frequency and Duration Frequency of Treatment 2x/Week Plan of Care Start Date 10/31/20 Plan of Care End Date 01/29/21 Therapeutic Interventions Therapeutic Interventions Balance Training,Gait Training ,Home Exercise Program,Manual Therapy,Neuromuscular Re- education,Patient/Caregiver Education,Self-Care/Home Management,Soft Tissue Mobilization,Taping, Therapeutic Activities, Therapeutic Exercises Modalities Cold Pack/Ice Massage,Electric Stimulation,Hot Packs Next Visit Focus/Plan Next Note Type Treatment Note Next Visit Plan Review pt's current HEP, complete hip strength test, initiate LE/core strengthening and progress her HEP as needed, Balance training, Gait training, and aerobic exercise at a level appropriate for 50% max HR to start.
--- NOTE | 2020-10-31 16:30 | PT.OPPOC ---
Physical, Occupational & Speech Therapy At [facility] Current Diagnoses Cerebral infarction, unspecified (10/31/20) Muscle weakness (generalized) (10/31/20) Unsteadiness on feet (10/31/20) Other reduced mobility (10/31/20) Visit Care Team Role Provider Type Kelsi Rosado MD Attending Provider Non-Staff Referring Provider Specialty: [facility] Address: [address] [place] [address], [place], [address] Email: Plan Of Care PT-OP-T Assessment and Plan Start: 10/29/20 16:50 Freq: Status: Active Protocol: Document 10/31/20 12:50 LRN (Rec: 10/31/20 13:45 LRN [id number]) Physical Therapy Assessment Rehab Potential Rehabilitation Potential Good Evaluation Complexity Number of Personal Factors/Comorbidities 3 or More Number of Body Systems Impaired 4 or More Clinical Presentation at Evaluation Evolving Impairments Impairments Activity Tolerance,Balance, Gait,Strength Goals Four Impairment Decreased endurance per 5xSTS (5xsit to stand) = 19.17 secs Short Term Goal (STG) Pt will demonstrate improved endurance by a decreased time with 5xSTS test (norms: ages 70-79 is 12.6 secs, ages 80-89 is 14.8 secs). [facility] Goal (LTG) Pt will be able to tolerate return to walking at her prior location ([facility]) for exercise. Three Impairment Decreased R LE strength Short Term Goal (STG) Improve R LE strength in areas of weakness to at least 4/5. Carbonation Tester Goal (LTG) Strengthen R LE for normal walking (with mild deficit). Two Impairment Balance deficit(Rhomberg EC: 25; Tandem: LE Behind: 0R, 27.75L, TUG 19) Short Term Goal (STG) Improve Balance per Rhomberg Score, Tandem Score or TUG score Carbonation Tester Goal (LTG) Pt will be able to walk safetly without use of a walker per TUG score of 11-13. 6 secs. One Impairment Lacks appropriate self care HEP Carbonation Tester Goal (LTG) Pt will be independent in a self care HEP of LE strengthening and balance exercises appropriate for her status at discharge. Assessment Summary Assessment Pt is a 79 yo female who suffered a L CVA and has residual RLE/UE impairments. She walks independently with use of a FWW although requires cuing to not veer left. She demonstrates fair RLE strength . During gait with a FWW she demonstrates a stiff RLE and a slight R foot drop during swing through phase of gait. The pt demonstrates poor R arm swing. She is alert and oriented and answers questions appropriately. Her daughter is quite attentive and supportive. The daughter states she has an occupational therapy referral and hopes to get scheduled with Occupational Therapy today. The pt will benefit from skilled physical therapy to improve RLE strength and balance, to improve gait mechanics to safety without use of an assistive device and to improve her aerobic capacity/endurance to return her to a prior function of walking for her health and endurance in a safe manner. Physical Therapy Plan Frequency and Duration Frequency of Treatment 2x/Week Plan of Care Start Date 10/31/20 Plan of Care End Date 01/29/21 Therapeutic Interventions Therapeutic Interventions Balance Training,Gait Training ,Home Exercise Program,Manual Therapy,Neuromuscular Re- education,Patient/Caregiver Education,Self-Care/Home Management,Soft Tissue Mobilization,Taping, Therapeutic Activities, Therapeutic Exercises Modalities Cold Pack/Ice Massage,Electric Stimulation,Hot Packs Next Visit Focus/Plan Next Note Type Treatment Note Next Visit Plan Review pt's current HEP, complete hip strength test, initiate LE/core strengthening and progress her HEP as needed, Balance training, Gait training, and aerobic exercise at a level appropriate for 50% max HR to start. Plan of Care Dates Plan of Care Start Date 10/31/20 Plan of Care End Date 01/29/21 Electronically Signed by: Anya Mott, PT 11/04/20 [id number] Please Sign and Return: I have reviewed this Plan of Care and certify that the skilled therapy services above are required to meet the patient?s needs. Physician Signature Date Printed Name and Credentials Clinical Instructor Signature Printed Name and Credentials
--- NOTE | 2020-11-05 15:23 | PT.OTN ---
Current Diagnoses Cerebral infarction, unspecified (11/05/20) Muscle weakness (generalized) (11/05/20) Unsteadiness on feet (11/05/20) Other reduced mobility (11/05/20) Physical Therapy Treatment Note PT-OP-A Visit Information Start: 10/29/20 16:50 Freq: Status: Active Protocol: Document 11/05/20 14:23 LRN (Rec: 11/05/20 15:22 LRN [id number]) Out-Patient Physical Therapy Visit Information Visit Information Visit Type Progress Note Visit Start Time 14:23 Visit Stop Time 15:03 Total Visit Minutes 40 Visit Number 2 Evaluation Information Evaluation Date 10/31/20 Precautions Precautions Arthritis, uncontrolled HBP, uncontrolled Diabetes type II, Depression, headaches, dizziness occasionally, 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 PT-OP-B Current Condition Start: 10/29/20 16:50 Freq: Status: Active Protocol: Document 10/31/20 12:50 LRN (Rec: 10/31/20 13:45 LRN [id number]) Current Condition History of Current Condition Onset Date 08/13/2020 Current Complaints L CVA History of Current Condition Pt lives in [place] and is accompanied by her daughter Criss, who is her caregiver, and that lives with her. Pt was hospitalized almost 4 days at [facility] and 2 weeks at [facility] ([facility]), an acute rehab , and PT/OT 2x/day. Released home 08/27/20 with daughter. Had home health until 2 weeks ago (~10/23/20 was last day), then requested outpatient physical and occupational therapy. Pt has 1 step at home and multiple grab bars in her home . Prior Treatments and Tests See above. Future Testing and Treatments Planned Occupational Therapy Evaluation. Colonoscopy in the future. Follow up with Dr. Gale Developmental History Developmental History Lives [place]. Treatment Goals Patient/Caregiver Goals Pt goal is strength R LE to walk and get back to normal, and resume exercise walking without walker, & improve balance. Pt goal is to use the R hand and will be scheduling for an occupational therapy evaluation. Prior Functional Status Baseline Function- ADL's Independent Baseline Function- Mobility Independent Baseline Function- Gait Walked in [employer], walked daily at [facility] 30' . Amb w/o AD. 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 Hold R leg stiff with gait and minimal R arm swing. Not walking for exercise activity outside. 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 PT-OP-C Subjective Start: 10/29/20 16:50 Freq: Status: Active Protocol: Document 11/05/20 14:23 LRN (Rec: 11/05/20 15:22 LRN [id number]) OP-PT Subjective Patient Comments Patient Comments Bikes for 20' and walks TM for 10' PT-OP-D Balance Start: 10/29/20 16:50 Freq: Status: Active Protocol: Document 10/31/20 12:50 LRN (Rec: 10/31/20 13:45 LRN [id number]) OP-PT Balance Assessment Sitting Balance Static Sitting Balance Ability Normal Balance Tests Romberg Romberg EC, 25 secs Tandem Tandem Standing EO: L LE behind: 27.75 secs, R LE behind: 0 secs. Stevenson Fall Scale Copyright Permission PT-OP-E Functional Tests Start: 10/29/20 16:50 Freq: Status: Active Protocol: Document 10/31/20 12:50 LRN (Rec: 10/31/20 13:45 LRN [id number]) Functional Tests 30 Second Sit to Stand Test Score 8 x Five Times Sit to Stand Test Score 19.17 secs Timed Up and Go (TUG) Score 19.17 TUG Impairment Rating 80 to <100% Impaired (Score 18 -19) PT-OP-J Posture/Palpation/Skin Start: 10/29/20 16:50 Freq: Status: Active Protocol: Document 10/31/20 12:50 LRN (Rec: 10/31/20 13:45 LRN [id number]) Posture Evaluation Position Standing L-Spine Posture Decreased Lordosis,Shifted Right Scapula Posture (R) Protracted,(R) Winged PT-OP-M Strength Start: 10/29/20 16:50 Freq: Status: Active Protocol: Document 11/05/20 14:23 LRN (Rec: 11/05/20 15:22 LRN [id number]) Hip Strength Hip Manual Muscle Testing Left Flexion (L2) 5 Normal Extension (S1) 3 Fair Abduction 5 Normal Adduction 2 Poor External Rotation 4+ Good+ Internal Rotation 4+ Good+ Right Flexion (L2) 3+ Fair+ Extension (S1) 3 Fair Abduction 5 Normal Adduction 2 Poor External Rotation 4+ Good+ Internal Rotation 4 Good PT-OP-Q Treatments Start: 10/29/20 16:50 Freq: Status: Active Protocol: Document 11/05/20 14:23 LRN (Rec: 11/05/20 15:22 LRN [id number]) Cardio Equipment Recumbent Bicycle Duration (Minutes) 10 Resistance 0 Seat Position 1 Other Backward cycle: DF pull of R side. Extra time for set up and training Gym Equipment Shuttle Recovery Bilateral Squats Details Josemanuel Squat Resistance 50# Reps/Time 30x 2 Unilateral Squats Details R LE squat Resistance 37# Reps/Time 30x Therapeutic Exercises Prone Exercises Hip Ext Prone Exercise Name Active Hip ext Side bilateral Reps/Minutes 20x each Sitting Exercises Hip IR Sitting Exercise Name Hip IR Side bilateral Reps/Minutes 15s BKFO Sitting Exercise Name Josemanuel BKFO w/core stab Resistance Lev 1 Reps/Minutes 30x Comments Pivoting on heels Gait Training Gait Activity Ambulation w/cane Description Amb w/SPC Level of Assistance Indep Surface Level Distance/Duration 3' Treatment Focus Heel strike, knee flex Self-Care/Home Management Treatment Education Patient Education Home Exercise Program Activities Self-Care/Home Management Activities Reviewed previous HEP. Issued & reviewed HEP: Prone hip ext & sitting hip BKFO/hip IR. PT-OP-T Assessment and Plan Start: 10/29/20 16:50 Freq: Status: Active Protocol: Document 11/05/20 14:23 LRN (Rec: 11/05/20 15:22 LRN [id number]) Physical Therapy Assessment Rehab Potential Rehabilitation Potential Good Evaluation Complexity Number of Personal Factors/Comorbidities 3 or More Number of Body Systems Impaired 4 or More Clinical Presentation at Evaluation Evolving Impairments Impairments Activity Tolerance,Balance, Gait,Strength Goals Four Impairment Decreased endurance per 5xSTS (5xsit to stand) = 19.17 secs Short Term Goal (STG) Pt will demonstrate improved endurance by a decreased time with 5xSTS test (norms: ages 70-79 is 12.6 secs, ages 80-89 is 14.8 secs). STG Duration 12/12/20 [facility] Goal (LTG) Pt will be able to tolerate return to walking at her prior location ([facility]) for exercise. LTG Duration 01/29/21 Three Impairment Decreased R LE strength Short Term Goal (STG) Improve R LE strength in areas of weakness to at least 4/5. STG Duration 12/12/20 Fpc Goal (LTG) Strengthen R LE for normal walking (with mild deficit). LTG Duration 01/29/21 Two Impairment Balance deficit(Rhomberg EC: 25; Tandem: LE Behind: 0R, 27.75L, TUG 19) Short Term Goal (STG) Improve Balance per Rhomberg Score, Tandem Score or TUG score STG Duration 12/12/20 Fpc Goal (LTG) Pt will be able to walk safetly without use of a walker per TUG score of 11-13. 6 secs. LTG Duration 01/29/21 One Impairment Lacks appropriate self care HEP Fpc Goal (LTG) Pt will be independent in a self care HEP of LE strengthening and balance exercises appropriate for her status at discharge. (Issued HEP: STRENGTHENING: Prone hip ext & sitting hip BKFO/hip IR.) LTG Duration 01/29/21 (11/05/20: Progressed ) Progress Towards Goals Progress Comments Added to HEP: hip ex's. Assessment Summary Assessment Pt is a 79 yo female who suffered a L CVA and has residual RLE/UE impairments. With amb, cane is in LUE, R LE is held in AB and R foot in ER, and step length with RLE is long; pt able to mostly correct with v. cuing. Weakness with R LE except with AB. Pt is very driven and does well with home exercises. Goals to be met with timeline added. The pt will benefit from skilled physical therapy to improve RLE strength and balance, to improve gait mechanics to safety without use of an assistive device and to improve her aerobic capacity/ endurance to return her to a prior function of walking for her health and endurance in a safe manner. Physical Therapy Plan Frequency and Duration Frequency of Treatment 2x/Week Plan of Care Start Date 10/31/20 Plan of Care End Date 01/29/21 Therapeutic Interventions Therapeutic Interventions Balance Training,Gait Training ,Home Exercise Program,Manual Therapy,Neuromuscular Re- education,Patient/Caregiver Education,Self-Care/Home Management,Soft Tissue Mobilization,Taping, Therapeutic Activities, Therapeutic Exercises Modalities Cold Pack/Ice Massage,Electric Stimulation,Hot Packs Next Visit Focus/Plan Next Note Type Treatment Note Next Visit Plan Progress LE/core strengthening (add Dual Saritha for hamstring curl only), sit to stand ex, and progress her HEP as needed, Balance training, Gait training, and aerobic exercise at a level appropriate for 50% max HR to start.
--- NOTE | 2020-11-05 15:25 | PT.OPPOC ---
Physical, Occupational & Speech Therapy At [facility] Current Diagnoses Cerebral infarction, unspecified (11/05/20) Muscle weakness (generalized) (11/05/20) Unsteadiness on feet (11/05/20) Other reduced mobility (11/05/20) Visit Care Team Role Provider Type Kelsi Rosado MD Attending Provider Non-Staff Referring Provider Specialty: [facility] Address: [address] [place] [address], [place], [address] Email: Plan Of Care PT-OP-T Assessment and Plan Start: 10/29/20 16:50 Freq: Status: Active Protocol: Document 11/05/20 14:23 LRN (Rec: 11/05/20 15:22 LRN [id number]) Physical Therapy Assessment Rehab Potential Rehabilitation Potential Good Evaluation Complexity Number of Personal Factors/Comorbidities 3 or More Number of Body Systems Impaired 4 or More Clinical Presentation at Evaluation Evolving Impairments Impairments Activity Tolerance,Balance, Gait,Strength Goals Four Impairment Decreased endurance per 5xSTS (5xsit to stand) = 19.17 secs Short Term Goal (STG) Pt will demonstrate improved endurance by a decreased time with 5xSTS test (norms: ages 70-79 is 12.6 secs, ages 80-89 is 14.8 secs). STG Duration 12/12/20 [employer] Goal (LTG) Pt will be able to tolerate return to walking at her prior location ([facility]) for exercise. LTG Duration 01/29/21 Three Impairment Decreased R LE strength Short Term Goal (STG) Improve R LE strength in areas of weakness to at least 4/5. STG Duration 12/12/20 [employer] Goal (LTG) Strengthen R LE for normal walking (with mild deficit). LTG Duration 01/29/21 Two Impairment Balance deficit(Rhomberg EC: 25; Tandem: LE Behind: 0R, 27.75L, TUG 19) Short Term Goal (STG) Improve Balance per Rhomberg Score, Tandem Score or TUG score STG Duration 12/12/20 [employer] Goal (LTG) Pt will be able to walk safetly without use of a walker per TUG score of 11-13. 6 secs. LTG Duration 01/29/21 One Impairment Lacks appropriate self care HEP [employer] Goal (LTG) Pt will be independent in a self care HEP of LE strengthening and balance exercises appropriate for her status at discharge. (Issued HEP: STRENGTHENING: Prone hip ext & sitting hip BKFO/hip IR.) LTG Duration 01/29/21 (11/05/20: Progressed ) Progress Towards Goals Progress Comments Added to HEP: hip ex's. Assessment Summary Assessment Pt is a 79 yo female who suffered a L CVA and has residual RLE/UE impairments. With amb, cane is in LUE, R LE is held in AB and R foot in ER, and step length with RLE is long; pt able to mostly correct with v. cuing. Weakness with R LE except with AB. Pt is very driven and does well with home exercises. Goals to be met with timeline added. The pt will benefit from skilled physical therapy to improve RLE strength and balance, to improve gait mechanics to safety without use of an assistive device and to improve her aerobic capacity/ endurance to return her to a prior function of walking for her health and endurance in a safe manner. Physical Therapy Plan Frequency and Duration Frequency of Treatment 2x/Week Plan of Care Start Date 10/31/20 Plan of Care End Date 01/29/21 Therapeutic Interventions Therapeutic Interventions Balance Training,Gait Training ,Home Exercise Program,Manual Therapy,Neuromuscular Re- education,Patient/Caregiver Education,Self-Care/Home Management,Soft Tissue Mobilization,Taping, Therapeutic Activities, Therapeutic Exercises Modalities Cold Pack/Ice Massage,Electric Stimulation,Hot Packs Next Visit Focus/Plan Next Note Type Treatment Note Next Visit Plan Progress LE/core strengthening (add Dual Saritha for hamstring curl only), sit to stand ex, and progress her HEP as needed, Balance training, Gait training, and aerobic exercise at a level appropriate for 50% max HR to start. Plan of Care Dates Plan of Care Start Date 10/31/20 Plan of Care End Date 01/29/21 Electronically Signed by: Anya Mott, PT 11/05/20 [id number] Please Sign and Return: I have reviewed this Plan of Care and certify that the skilled therapy services above are required to meet the patient?s needs. Physician Signature Date Printed Name and Credentials Clinical Instructor [facility] Printed Name and Credentials
--- NOTE | 2020-11-08 15:24 | PT.OTN ---
Current Diagnoses Cerebral infarction, unspecified (11/08/20) Muscle weakness (generalized) (11/08/20) Unsteadiness on feet (11/08/20) Other reduced mobility (11/08/20) Physical Therapy Treatment Note PT-OP-A Visit Information Start: 10/29/20 16:50 Freq: Status: Active Protocol: Document 11/08/20 14:35 LD (Rec: 11/08/20 15:47 LD [id number]) Out-Patient Physical Therapy Visit Information Visit Information Visit Type Treatment Note Visit Note SPTA co led tx w/ FIELD ENGINEER Josephine. 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 PT-OP-B Current Condition Start: 10/29/20 16:50 Freq: Status: Active Protocol: Document 10/31/20 12:50 LRN (Rec: 10/31/20 13:45 LRN [id number]) Current Condition History of Current Condition Onset Date 08/13/2020 Current Complaints L CVA History of Current Condition Pt lives in [place] and is accompanied by her daughter Criss, who is her caregiver, and that lives with her. Pt was hospitalized almost 4 days at [facility] and 2 weeks at [facility] ([facility]), an acute rehab , and PT/OT 2x/day. Released home 08/27/20 with daughter. Had home health until 2 weeks ago (~10/23/20 was last day), then requested outpatient physical and occupational therapy. Pt has 1 step at home and multiple grab bars in her home . Prior Treatments and Tests See above. Future Testing and Treatments Planned Occupational Therapy Evaluation. Colonoscopy in the future. Follow up with Dr. Gale Developmental History Developmental History Lives [place]. Treatment Goals Patient/Caregiver Goals Pt goal is strength R LE to walk and get back to normal, and resume exercise walking without walker, & improve balance. Pt goal is to use the R hand and will be scheduling for an occupational therapy evaluation. Prior Functional Status Baseline Function- ADL's Independent Baseline Function- Mobility Independent Baseline Function- Gait Walked in [employer], walked daily at [facility] 30' . Amb w/o AD. 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 Hold R leg stiff with gait and minimal R arm swing. Not walking for exercise activity outside. 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 PT-OP-C Subjective Start: 10/29/20 16:50 Freq: Status: Active Protocol: Document 11/08/20 14:35 LD (Rec: 11/08/20 15:47 LD [id number]) OP-PT Subjective Patient Comments Patient Comments Pt reported was not able to bike today, walked for 15' on TM at home. Patient Reported Progress Improving PT-OP-D Balance Start: 10/29/20 16:50 Freq: Status: Active Protocol: Document 10/31/20 12:50 LRN (Rec: 10/31/20 13:45 LRN [id number]) OP-PT Balance Assessment Sitting Balance Static Sitting Balance Ability Normal Balance Tests Romberg Romberg EC, 25 secs Tandem Tandem Standing EO: L LE behind: 27.75 secs, R LE behind: 0 secs. Stevenson Fall Scale Copyright Permission PT-OP-E Functional Tests Start: 10/29/20 16:50 Freq: Status: Active Protocol: Document 10/31/20 12:50 LRN (Rec: 10/31/20 13:45 LRN [id number]) Functional Tests 30 Second Sit to Stand Test Score 8 x Five Times Sit to Stand Test Score 19.17 secs Timed Up and Go (TUG) Score 19.17 TUG Impairment Rating 80 to <100% Impaired (Score 18 -19) PT-OP-J Posture/Palpation/Skin Start: 10/29/20 16:50 Freq: Status: Active Protocol: Document 10/31/20 12:50 LRN (Rec: 10/31/20 13:45 LRN [id number]) Posture Evaluation Position Standing L-Spine Posture Decreased Lordosis,Shifted Right Scapula Posture (R) Protracted,(R) Winged PT-OP-M Strength Start: 10/29/20 16:50 Freq: Status: Active Protocol: Document 11/05/20 14:23 LRN (Rec: 11/05/20 15:22 LRN [id number]) Hip Strength Hip Manual Muscle Testing Left Flexion (L2) 5 Normal Extension (S1) 3 Fair Abduction 5 Normal Adduction 2 Poor External Rotation 4+ Good+ Internal Rotation 4+ Good+ Right Flexion (L2) 3+ Fair+ Extension (S1) 3 Fair Abduction 5 Normal Adduction 2 Poor External Rotation 4+ Good+ Internal Rotation 4 Good PT-OP-Q Treatments Start: 10/29/20 16:50 Freq: Status: Active Protocol: Document 11/08/20 14:35 LD (Rec: 11/08/20 15:47 LD [id number]) Cardio Equipment Recumbent Bicycle Duration (Minutes) 10 Resistance forward res: 5 backward: 0 Seat Position 1 Other Backward cycle: DF pull of R side. BPM: 77/141 Gym Equipment Shuttle Recovery Bilateral Squats Details Josemanuel Squat Resistance 50# Reps/Time 30x 2 Unilateral Squats Details R LE squat Resistance 37# Reps/Time 30x Therapeutic Exercises Prone Exercises Hip Ext Prone Exercise Name Active Hip ext Side bilateral Reps/Minutes 20x each Sitting Exercises sit to stand Reps/Minutes 8 reps per 20 sec Comments upright posture w/ hip hindge Hip IR Sitting Exercise Name Hip IR Side bilateral Reps/Minutes 15s: 13 reps L, 14 reps R BKFO Sitting Exercise Name Josemanuel BKFO w/core stab Resistance Lev 1 Reps/Minutes 30x Comments Pivoting on heels Standing Exercises hip abd Side bilateral Resistance 2# Reps/Minutes 15x Comments neutral pelvic alignment w/ slow control Gait Training Gait Activity Ambulation w/cane Description Amb w/SPC Level of Assistance Indep Surface Level Distance/Duration 2' Treatment Focus Heel strike, knee flex Comments cued long stride w/ body weight shifted forward, heel to toe. PT-OP-T Assessment and Plan Start: 10/29/20 16:50 Freq: Status: Active Protocol: Document 11/08/20 14:35 LD (Rec: 11/08/20 15:47 LD [id number]) Physical Therapy Assessment Goals Four Impairment Decreased endurance per 5xSTS (5xsit to stand) = 19.17 secs Short Term Goal (STG) Pt will demonstrate improved endurance by a decreased time with 5xSTS test (norms: ages 70-79 is 12.6 secs, ages 80-89 is 14.8 secs). STG Duration 12/12/20 Bottling Room Worker Goal (LTG) Pt will be able to tolerate return to walking at her prior location ([facility]) for exercise. LTG Duration 01/29/21 Three Impairment Decreased R LE strength Short Term Goal (STG) Improve R LE strength in areas of weakness to at least 4/5. 11/08: increased leg weight 2# hip abd. STG Duration 12/12/20 Penitentiary Goal (LTG) Strengthen R LE for normal walking (with mild deficit). LTG Duration 01/29/21 Two Impairment Balance deficit(Rhomberg EC: 25; Tandem: LE Behind: 0R, 27.75L, TUG 19) Short Term Goal (STG) Improve Balance per Rhomberg Score, Tandem Score or TUG score STG Duration 12/12/20 Penitentiary Goal (LTG) Pt will be able to walk safetly without use of a walker per TUG score of 11-13. 6 secs. LTG Duration 01/29/21 One Impairment Lacks appropriate self care HEP Penitentiary Goal (LTG) Pt will be independent in a self care HEP of LE strengthening and balance exercises appropriate for her status at discharge. (Issued HEP: STRENGTHENING: Prone hip ext & sitting hip BKFO/hip IR.) LTG Duration 01/29/21 (11/05/20: Progressed ) Assessment Summary Assessment Pt is motivated and worked hard during tx, requiring verbal cues for proper alignment. Added sit to stand reps for time for HEP. Tolerated HS curl cables, w/ good effort and no adverse effects. Pt demonstrated an improvement in increased stride gait patterning when leaving tx. Continue to improve quality gait next tx. Physical Therapy Plan Frequency and Duration Frequency of Treatment 2x/Week Plan of Care Start Date 10/31/20 Plan of Care End Date 01/29/21 Therapeutic Interventions Therapeutic Interventions Balance Training,Gait Training ,Home Exercise Program,Manual Therapy,Neuromuscular Re- education,Patient/Caregiver Education,Self-Care/Home Management,Soft Tissue Mobilization,Taping, Therapeutic Activities, Therapeutic Exercises Modalities Cold Pack/Ice Massage,Electric Stimulation,Hot Packs Next Visit Focus/Plan Next Note Type Treatment Note Next Visit Plan Assess response to last tx: hamstring curl, sit to stand and HEP review. Continue to spend more time on quality gait. Progress LE/core strengthening, and progress her HEP as needed, Balance training, Gait training, and aerobic exercise at a level appropriate for 50% max HR to start.
--- NOTE | 2020-11-12 12:25 | PT.OTN ---
Current Diagnoses Cerebral infarction, unspecified (11/12/20) Muscle weakness (generalized) (11/12/20) Unsteadiness on feet (11/12/20) Other reduced mobility (11/12/20) Physical Therapy Treatment Note PT-OP-A Visit Information Start: 10/29/20 16:50 Freq: Status: Active Protocol: Document 11/12/20 10:52 LRN (Rec: 11/12/20 12:23 LRN [id number]) Out-Patient Physical Therapy Visit Information Visit Information Visit Type Treatment Note Visit Start Time 11:18 Visit Stop Time 12:00 Total Visit Minutes 42 Visit Number 4 Evaluation Information Evaluation Date 10/31/20 Precautions Precautions Arthritis, uncontrolled HBP, uncontrolled Diabetes type II, Depression, headaches, dizziness occasionally, 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 PT-OP-B Current Condition Start: 10/29/20 16:50 Freq: Status: Active Protocol: Document 10/31/20 12:50 LRN (Rec: 10/31/20 13:45 LRN [id number]) Current Condition History of Current Condition Onset Date 08/13/2020 Current Complaints L CVA History of Current Condition Pt lives in [place] and is accompanied by her daughter Criss, who is her caregiver, and that lives with her. Pt was hospitalized almost 4 days at [facility] and 2 weeks at [facility] ([facility]), an acute rehab , and PT/OT 2x/day. Released home 08/27/20 with daughter. Had home health until 2 weeks ago (~10/23/20 was last day), then requested outpatient physical and occupational therapy. Pt has 1 step at home and multiple grab bars in her home . Prior Treatments and Tests See above. Future Testing and Treatments Planned Occupational Therapy Evaluation. Colonoscopy in the future. Follow up with Dr. Gale Developmental History Developmental History Lives [place]. Treatment Goals Patient/Caregiver Goals Pt goal is strength R LE to walk and get back to normal, and resume exercise walking without walker, & improve balance. Pt goal is to use the R hand and will be scheduling for an occupational therapy evaluation. Prior Functional Status Baseline Function- ADL's Independent Baseline Function- Mobility Independent Baseline Function- Gait Walked in [employer], walked daily at [facility] 30' . Amb w/o AD. 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 Hold R leg stiff with gait and minimal R arm swing. Not walking for exercise activity outside. 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 PT-OP-C Subjective Start: 10/29/20 16:50 Freq: Status: Active Protocol: Document 11/12/20 10:52 LRN (Rec: 11/12/20 12:23 LRN [id number]) OP-PT Subjective Patient Comments Patient Comments States she does a recumbent bike daily. Does reverse cycle for toe lifts and cydcles forward 10' Also walke on TM. PT-OP-D Balance Start: 10/29/20 16:50 Freq: Status: Active Protocol: Document 10/31/20 12:50 LRN (Rec: 10/31/20 13:45 LRN [id number]) OP-PT Balance Assessment Sitting Balance Static Sitting Balance Ability Normal Balance Tests Romberg Romberg EC, 25 secs Tandem Tandem Standing EO: L LE behind: 27.75 secs, R LE behind: 0 secs. Stevenson Fall Scale Copyright Permission PT-OP-E Functional Tests Start: 10/29/20 16:50 Freq: Status: Active Protocol: Document 10/31/20 12:50 LRN (Rec: 10/31/20 13:45 LRN [id number]) Functional Tests 30 Second Sit to Stand Test Score 8 x Five Times Sit to Stand Test Score 19.17 secs Timed Up and Go (TUG) Score 19.17 TUG Impairment Rating 80 to <100% Impaired (Score 18 -19) PT-OP-J Posture/Palpation/Skin Start: 10/29/20 16:50 Freq: Status: Active Protocol: Document 10/31/20 12:50 LRN (Rec: 10/31/20 13:45 LRN [id number]) Posture Evaluation Position Standing L-Spine Posture Decreased Lordosis,Shifted Right Scapula Posture (R) Protracted,(R) Winged PT-OP-M Strength Start: 10/29/20 16:50 Freq: Status: Active Protocol: Document 11/05/20 14:23 LRN (Rec: 11/05/20 15:22 LRN [id number]) Hip Strength Hip Manual Muscle Testing Left Flexion (L2) 5 Normal Extension (S1) 3 Fair Abduction 5 Normal Adduction 2 Poor External Rotation 4+ Good+ Internal Rotation 4+ Good+ Right Flexion (L2) 3+ Fair+ Extension (S1) 3 Fair Abduction 5 Normal Adduction 2 Poor External Rotation 4+ Good+ Internal Rotation 4 Good PT-OP-Q Treatments Start: 10/29/20 16:50 Freq: Status: Active Protocol: Document 11/12/20 10:52 LRN (Rec: 11/12/20 12:23 LRN [id number]) Cardio Equipment Recumbent Bicycle Duration (Minutes) 10 Resistance Cardio program working fairly light to somewhat hard Seat Position 1 Other Backward cycle: DF pull of R side. HR 87 after exer (max HR is 141 @ 100%) Gym Equipment Shuttle Recovery Bilateral Squats Details Josemanuel Squat Resistance 50# Reps/Time 30x 2 Unilateral Squats Details R LE squat Resistance 37# Reps/Time 15x 2 Therapeutic Exercises Standing Exercises hip abd Standing Exercise Name Hip AB (limited reps when standing on RLE due to knee buckling) Side bilateral Resistance 2# on RLE, 0# LLE Reps/Minutes 15x Comments neutral pelvic alignment w/ slow control Gait Training Gait Activity Ambulation w/cane Description Motor control learning of R Stance phase > toe off. Level of Assistance Railing, manual assist training Surface Level Distance/Duration 8' Treatment Focus R knee flex, toe WBing, (heel strike position on LLE) Self-Care/Home Management Treatment Education Other Education Pt educated in HR max working between level 8 (very light = 60% max HR) to max of 11 ( fairly light = 80% max HR) Activities Self-Care/Home Management Activities Issued handout for BÁRBARA Perceived Exertion Scale. PT-OP-T Assessment and Plan Start: 10/29/20 16:50 Freq: Status: Active Protocol: Document 11/12/20 10:52 LRN (Rec: 11/12/20 12:23 LRN [id number]) Physical Therapy Assessment Goals Four Impairment Decreased endurance per 5xSTS (5xsit to stand) = 19.17 secs Short Term Goal (STG) Pt will demonstrate improved endurance by a decreased time with 5xSTS test (norms: ages 70-79 is 12.6 secs, ages 80-89 is 14.8 secs). STG Duration 12/12/20 Shelter Goal (LTG) Pt will be able to tolerate return to walking at her prior location ([facility]) for exercise. LTG Duration 01/29/21 Three Impairment Decreased R LE strength Short Term Goal (STG) Improve R LE strength in areas of weakness to at least 4/5. 11/08: increased leg weight 2# hip abd. STG Duration 12/12/20 Babcock Tester Goal (LTG) Strengthen R LE for normal walking (with mild deficit). LTG Duration 01/29/21 Two Impairment Balance deficit(Rhomberg EC: 25; Tandem: LE Behind: 0R, 27.75L, TUG 19) Short Term Goal (STG) Improve Balance per Rhomberg Score, Tandem Score or TUG score STG Duration 12/12/20 Babcock Tester Goal (LTG) Pt will be able to walk safetly without use of a walker per TUG score of 11-13. 6 secs. LTG Duration 01/29/21 One Impairment Lacks appropriate self care HEP Shelter Goal (LTG) Pt will be independent in a self care HEP of LE strengthening and balance exercises appropriate for her status at discharge. (Issued HEP: EDUC: BÁRBARA Perceived Exertion Scale STRENGTHENING: *Prone hip ext, *sitting hip BKFO/hip IR) LTG Duration 01/29/21 (11/05/20: Progressed ) Assessment Summary Assessment 79 yo female who suffered a L CVA with residual RLE/UE. Pt tolerated last treatment without complaints. Pt not yet doing sit to stands consistently at home, therefore endurance progression is slow. Hamstring curl not reviewed. She worked at hard level on recumbent bike, higher than directed fairly light to somewhat hard level. She exercised at ~60% max HR (HR 87). Pt is very motivated and works hard. Not able to recall pattern for motor control learning with gait, further repetition needed. Pt fatigued after shuttle, R knee buckling with L hip AB lifts. Physical Therapy Plan Frequency and Duration Frequency of Treatment 2x/Week Plan of Care Start Date 10/31/20 Plan of Care End Date 01/29/21 Next Visit Focus/Plan Next Note Type Treatment Note Next Visit Plan Review hamstring curl ex. Cont pt education training on endurance exercising within 60 -70% max HR. Continue to spend more time on quality gait. Progress LE/core strengthening, and progress her HEP as needed, Balance training, Gait training, and aerobic exercise at a level appropriate for 50% max HR to start.
--- NOTE | 2020-11-15 14:17 | PT.OTN ---
Current Diagnoses Cerebral infarction, unspecified (11/15/20) Muscle weakness (generalized) (11/15/20) Unsteadiness on feet (11/15/20) Other reduced mobility (11/15/20) Physical Therapy Treatment Note PT-OP-A Visit Information Start: 10/29/20 16:50 Freq: Status: Active Protocol: Document 11/15/20 13:26 LRN (Rec: 11/15/20 14:16 LRN [id number]) Out-Patient Physical Therapy Visit Information Visit Information Visit Type Treatment Note Visit Start Time 13:26 Visit Stop Time 14:09 Total Visit Minutes 43 Visit Number 5 Evaluation Information Evaluation Date 10/31/20 Precautions Precautions Arthritis, uncontrolled HBP, uncontrolled Diabetes type II, Depression, headaches, dizziness occasionally, 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 PT-OP-B Current Condition Start: 10/29/20 16:50 Freq: Status: Active Protocol: Document 10/31/20 12:50 LRN (Rec: 10/31/20 13:45 LRN [id number]) Current Condition History of Current Condition Onset Date 08/13/2020 Current Complaints L CVA History of Current Condition Pt lives in [place] and is accompanied by her daughter Criss, who is her caregiver, and that lives with her. Pt was hospitalized almost 4 days at [facility] and 2 weeks at [facility] ([facility] an acute rehab , and PT/OT 2x/day. Released home 08/27/20 with daughter. Had home health until 2 weeks ago (~10/23/20 was last day), then requested outpatient physical and occupational therapy. Pt has 1 step at home and multiple grab bars in her home . Prior Treatments and Tests See above. Future Testing and Treatments Planned Occupational Therapy Evaluation. Colonoscopy in the future. Follow up with Dr. Gale Developmental History Developmental History Lives [place]. Treatment Goals Patient/Caregiver Goals Pt goal is strength R LE to walk and get back to normal, and resume exercise walking without walker, & improve balance. Pt goal is to use the R hand and will be scheduling for an occupational therapy evaluation. Prior Functional Status Baseline Function- ADL's Independent Baseline Function- Mobility Independent Baseline Function- Gait Walked in [employer], walked daily at [facility] 30' . Amb w/o AD. 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 Hold R leg stiff with gait and minimal R arm swing. Not walking for exercise activity outside. 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 PT-OP-C Subjective Start: 10/29/20 16:50 Freq: Status: Active Protocol: Document 11/15/20 13:26 LRN (Rec: 11/15/20 14:16 LRN [id number]) OP-PT Subjective Patient Comments Patient Comments Doing good, no complaints. PT-OP-D Balance Start: 10/29/20 16:50 Freq: Status: Active Protocol: Document 10/31/20 12:50 LRN (Rec: 10/31/20 13:45 LRN [id number]) OP-PT Balance Assessment Sitting Balance Static Sitting Balance Ability Normal Balance Tests Romberg Romberg EC, 25 secs Tandem Tandem Standing EO: L LE behind: 27.75 secs, R LE behind: 0 secs. Stevenson Fall Scale Copyright Permission PT-OP-E Functional Tests Start: 10/29/20 16:50 Freq: Status: Active Protocol: Document 10/31/20 12:50 LRN (Rec: 10/31/20 13:45 LRN [id number]) Functional Tests 30 Second Sit to Stand Test Score 8 x Five Times Sit to Stand Test Score 19.17 secs Timed Up and Go (TUG) Score 19.17 TUG Impairment Rating 80 to <100% Impaired (Score 18 -19) PT-OP-J Posture/Palpation/Skin Start: 10/29/20 16:50 Freq: Status: Active Protocol: Document 10/31/20 12:50 LRN (Rec: 10/31/20 13:45 LRN [id number]) Posture Evaluation Position Standing L-Spine Posture Decreased Lordosis,Shifted Right Scapula Posture (R) Protracted,(R) Winged PT-OP-M Strength Start: 10/29/20 16:50 Freq: Status: Active Protocol: Document 11/05/20 14:23 LRN (Rec: 11/05/20 15:22 LRN [id number]) Hip Strength Hip Manual Muscle Testing Left Flexion (L2) 5 Normal Extension (S1) 3 Fair Abduction 5 Normal Adduction 2 Poor External Rotation 4+ Good+ Internal Rotation 4+ Good+ Right Flexion (L2) 3+ Fair+ Extension (S1) 3 Fair Abduction 5 Normal Adduction 2 Poor External Rotation 4+ Good+ Internal Rotation 4 Good PT-OP-Q Treatments Start: 10/29/20 16:50 Freq: Status: Active Protocol: Document 11/15/20 13:26 LRN (Rec: 11/15/20 14:16 LRN [id number]) Cardio Equipment Recumbent Bicycle Duration (Minutes) 10 Resistance Cardio program working fairly light to somewhat hard Seat Position 1 Other Backward cycle: DF pull of R side. HR 87 after exer (max HR is 141 @ 100%) Gym Equipment Cable Column (Body Solid) Leg Curl Details Attempted 1 leg at time, ended w/both legs Resistance 12# Reps/Time 10' Much phys & v. cuing needed to promote proper sitting posture &control Shuttle Recovery Bilateral Squats Details Josemanuel Squat Resistance 50# Reps/Time 30x 2 Unilateral Squats Details R LE squat Resistance 37# Reps/Time 15x 2 Gait Training Gait Activity Ambulation w/cane Description Motor control learning of R Stance phase > heel strike. Level of Assistance Railing, manual assist training Surface Level Distance/Duration 12' Treatment Focus R knee flex, toe WBing, heel strike Neuro Re-Education Treatment Balance Activities EO Feet together Details EO Feet together balancing Surface Level Reps/Duration 2' PT-OP-T Assessment and Plan Start: 10/29/20 16:50 Freq: Status: Active Protocol: Document 11/15/20 13:26 LRN (Rec: 11/15/20 14:16 LRN [id number]) Physical Therapy Assessment Goals Four Impairment Decreased endurance per 5xSTS (5xsit to stand) = 19.17 secs Short Term Goal (STG) Pt will demonstrate improved endurance by a decreased time with 5xSTS test (norms: ages 70-79 is 12.6 secs, ages 80-89 is 14.8 secs). STG Duration 12/12/20 Longterm Goal (LTG) Pt will be able to tolerate return to walking at her prior location ([facility]) for exercise. LTG Duration 01/29/21 Three Impairment Decreased R LE strength Short Term Goal (STG) Improve R LE strength in areas of weakness to at least 4/5. 11/08: increased leg weight 2# hip abd. STG Duration 12/12/20 Longterm Goal (LTG) Strengthen R LE for normal walking (with mild deficit). LTG Duration 01/29/21 Two Impairment Balance deficit(Rhomberg EC: 25; Tandem: LE Behind: 0R, 27.75L, TUG 19) Short Term Goal (STG) Improve Balance per Rhomberg Score, Tandem Score or TUG score STG Duration 12/12/20 Longterm Goal (LTG) Pt will be able to walk safetly without use of a walker per TUG score of 11-13. 6 secs. LTG Duration 01/29/21 One Impairment Lacks appropriate self care HEP Longterm Goal (LTG) Pt will be independent in a self care HEP of LE strengthening and balance exercises appropriate for her status at discharge. (Issued HEP: EDUC: BÁRBARA Perceived Exertion Scale STRENGTHENING: *Prone hip ext, *sitting hip BKFO/hip IR) LTG Duration 01/29/21 (11/05/20: Progressed ) Assessment Summary Assessment 79 yo female who suffered a L CVA with residual RLE/UE. Pt did very well with motor control learning of previoius session training. Pt was able to advance to adding R swing through with heel strike while holding onto railing for balance, by end of treatment with only v. cuing being given (didn't need phys cuing by end). Pt is very very motivated. Pt appeared to be exercising within endurance parameter fairly light to somewhat hard level. Physical Therapy Plan Frequency and Duration Frequency of Treatment 2x/Week Plan of Care Start Date 10/31/20 Plan of Care End Date 01/29/21 Next Visit Focus/Plan Next Note Type Treatment Note Next Visit Plan Review hamstring curl ex. with TBand. Cont pt education training on endurance exercising within 60-70% max HR. Continue to spend more time on quality gait. Progress LE/ add core strengthening, and progress her HEP as needed , Balance training, Gait training, and aerobic exercise at a level appropriate for 50 % max HR to start.
--- NOTE | 2020-11-19 15:19 | PT.OTN ---
Current Diagnoses Cerebral infarction, unspecified (11/19/20) Muscle weakness (generalized) (11/19/20) Unsteadiness on feet (11/19/20) Other reduced mobility (11/19/20) Physical Therapy Treatment Note PT-OP-A Visit Information Start: 10/29/20 16:50 Freq: Status: Active Protocol: Document 11/19/20 14:17 LRN (Rec: 11/19/20 15:17 LRN [id number]) Out-Patient Physical Therapy Visit Information Visit Information Visit Type Treatment Note Visit Start Time 14:17 Visit Stop Time 15:00 Total Visit Minutes 43 Visit Number 6 Evaluation Information Evaluation Date 10/31/20 Precautions Precautions Arthritis, uncontrolled HBP, uncontrolled Diabetes type II, Depression, headaches, dizziness occasionally, 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 PT-OP-B Current Condition Start: 10/29/20 16:50 Freq: Status: Active Protocol: Document 10/31/20 12:50 LRN (Rec: 10/31/20 13:45 LRN [id number]) Current Condition History of Current Condition Onset Date 08/13/2020 Current Complaints L CVA History of Current Condition Pt lives in [place] and is accompanied by her daughter Criss, who is her caregiver, and that lives with her. Pt was hospitalized almost 4 days at [facility] and 2 weeks at [facility] ([facility]), an acute rehab , and PT/OT 2x/day. Released home 08/27/20 with daughter. Had home health until 2 weeks ago (~10/23/20 was last day), then requested outpatient physical and occupational therapy. Pt has 1 step at home and multiple grab bars in her home . Prior Treatments and Tests See above. Future Testing and Treatments Planned Occupational Therapy Evaluation. Colonoscopy in the future. Follow up with Dr. Gale Developmental History Developmental History Lives [place]. Treatment Goals Patient/Caregiver Goals Pt goal is strength R LE to walk and get back to normal, and resume exercise walking without walker, & improve balance. Pt goal is to use the R hand and will be scheduling for an occupational therapy evaluation. Prior Functional Status Baseline Function- ADL's Independent Baseline Function- Mobility Independent Baseline Function- Gait Walked in [employer], walked daily at [facility] 30' . Amb w/o AD. 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 Hold R leg stiff with gait and minimal R arm swing. Not walking for exercise activity outside. 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 PT-OP-C Subjective Start: 10/29/20 16:50 Freq: Status: Active Protocol: Document 11/19/20 14:17 LRN (Rec: 11/19/20 15:17 LRN [id number]) OP-PT Subjective Patient Comments Patient Comments Doing good. No changes. PT-OP-D Balance Start: 10/29/20 16:50 Freq: Status: Active Protocol: Document 10/31/20 12:50 LRN (Rec: 10/31/20 13:45 LRN [id number]) OP-PT Balance Assessment Sitting Balance Static Sitting Balance Ability Normal Balance Tests Romberg Romberg EC, 25 secs Tandem Tandem Standing EO: L LE behind: 27.75 secs, R LE behind: 0 secs. Stevenson Fall Scale Copyright Permission PT-OP-E Functional Tests Start: 10/29/20 16:50 Freq: Status: Active Protocol: Document 10/31/20 12:50 LRN (Rec: 10/31/20 13:45 LRN [id number]) Functional Tests 30 Second Sit to Stand Test Score 8 x Five Times Sit to Stand Test Score 19.17 secs Timed Up and Go (TUG) Score 19.17 TUG Impairment Rating 80 to <100% Impaired (Score 18 -19) PT-OP-J Posture/Palpation/Skin Start: 10/29/20 16:50 Freq: Status: Active Protocol: Document 10/31/20 12:50 LRN (Rec: 10/31/20 13:45 LRN [id number]) Posture Evaluation Position Standing L-Spine Posture Decreased Lordosis,Shifted Right Scapula Posture (R) Protracted,(R) Winged PT-OP-M Strength Start: 10/29/20 16:50 Freq: Status: Active Protocol: Document 11/05/20 14:23 LRN (Rec: 11/05/20 15:22 LRN [id number]) Hip Strength Hip Manual Muscle Testing Left Flexion (L2) 5 Normal Extension (S1) 3 Fair Abduction 5 Normal Adduction 2 Poor External Rotation 4+ Good+ Internal Rotation 4+ Good+ Right Flexion (L2) 3+ Fair+ Extension (S1) 3 Fair Abduction 5 Normal Adduction 2 Poor External Rotation 4+ Good+ Internal Rotation 4 Good PT-OP-Q Treatments Start: 10/29/20 16:50 Freq: Status: Active Protocol: Document 11/19/20 14:17 LRN (Rec: 11/19/20 15:17 LRN [id number]) Cardio Equipment Recumbent Elliptical ([employer]k) Duration (Minutes) 8 Resistance 1 Seat Position 0 Other R LE: 2' lift (from little toe) 2' push Gym Equipment Cable Column (Body Solid) Leg Curl Details R knee flex w/assist of LLE at 90+ deg's, R ankle taped in DF/EV Resistance 20# Reps/Time 10' (15x 2) Extra time to tape R foot in DF/EV position for exercise. Therapeutic Exercises Sitting Exercises Knee flex Sitting Exercise Name Knee flex - Ankle DF's Side right Equipment Used L2 TBand Reps/Minutes 10 x 3 Comments V & sometimes phys help needed to keep foot moving in line of pull back sit to stand Sitting Exercise Name Sit to Stand Reps/Minutes 10x 3 with rests between bouts Self-Care/Home Management Treatment Education Patient Education Home Exercise Program Activities Self-Care/Home Management Activities Issued & reviewed: HEP: Sitting knee flexion with TBand resistance. Issued Lev 1 & Lev 2 TBand for pt's HEP. PT-OP-T Assessment and Plan Start: 10/29/20 16:50 Freq: Status: Active Protocol: Document 11/19/20 14:17 LRN (Rec: 11/19/20 15:17 LRN [id number]) Physical Therapy Assessment Goals Four Impairment Decreased endurance per 5xSTS (5xsit to stand) = 19.17 secs Short Term Goal (STG) Pt will demonstrate improved endurance by a decreased time with 5xSTS test (norms: ages 70-79 is 12.6 secs, ages 80-89 is 14.8 secs). 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 LTG Duration 01/29/21 Three Impairment Decreased R LE strength Short Term Goal (STG) Improve R LE strength in areas of weakness to at least 4/5. 11/08: increased leg weight 2# hip abd. STG Duration 12/12/20 Skilled Nursing Goal (LTG) Strengthen R LE for normal walking (with mild deficit). LTG Duration 01/29/21 Two Impairment Balance deficit(Rhomberg EC: 25; Tandem: LE Behind: 0R, 27.75L, TUG 19) Short Term Goal (STG) Improve Balance per Rhomberg Score, Tandem Score or TUG score STG Duration 12/12/20 Skilled Nursing Goal (LTG) Pt will be able to walk safetly without use of a walker per TUG score of 11-13. 6 secs. LTG Duration 01/29/21 One Impairment Lacks appropriate self care HEP Skilled Nursing Goal (LTG) Pt will be independent in a self care HEP of LE strengthening and balance exercises appropriate for her status at discharge. (HEP ISSUED TO DATE: EDUC: BÁRBARA Perceived Exertion Scale STRENGTHENING: Prone: *hip ext, Sitting: *hip BKFO/hip IR, *knee flexion w/TB) LTG Duration 01/29/21 (11/19/20: Progressed) Assessment Summary Assessment 79 yo female who suffered a L CVA with residual RLE/UE. Pt appeared to walk with improved mechanics of R foot after [employer] when working ankle DF/ EV. Pt very motiviated. Physical Therapy Plan Frequency and Duration Frequency of Treatment 2x/Week Plan of Care Start Date 10/31/20 Plan of Care End Date 01/29/21 Next Visit Focus/Plan Next Note Type Treatment Note Next Visit Plan Review HEP previously issued ( knee flex w/TBand). Cont pt education training on endurance exercising within 60 -70% max HR. Increase speed of sit to stands to improve endurance. Continue to spend more time on quality gait. Progress LE/core (add) strengthening, and progress her HEP as needed, Balance training, Gait training, and aerobic exercise at a level appropriate for 50% max HR to start.
--- NOTE | 2020-11-22 16:33 | PT.OTN ---
Current Diagnoses Cerebral infarction, unspecified (11/22/20) Muscle weakness (generalized) (11/22/20) Unsteadiness on feet (11/22/20) Other reduced mobility (11/22/20) Physical Therapy Treatment Note PT-OP-A Visit Information Start: 10/29/20 16:50 Freq: Status: Active Protocol: Document 11/22/20 13:30 LRN (Rec: 11/22/20 14:17 LRN [id number]) Out-Patient Physical Therapy Visit Information Visit Information Visit Type Treatment Note Visit Start Time 13:30 Visit Stop Time 14:13 Total Visit Minutes 43 Visit Number 7 Evaluation Information Evaluation Date 10/31/20 Precautions Precautions Arthritis, uncontrolled HBP, uncontrolled Diabetes type II, Depression, headaches, dizziness occasionally, 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 PT-OP-B Current Condition Start: 10/29/20 16:50 Freq: Status: Active Protocol: Document 10/31/20 12:50 LRN (Rec: 10/31/20 13:45 LRN [id number]) Current Condition History of Current Condition Onset Date 08/13/2020 Current Complaints L CVA History of Current Condition Pt lives in [place] and is accompanied by her daughter Criss, who is her caregiver, and that lives with her. Pt was hospitalized almost 4 days at [facility] and 2 weeks at [facility] ([facility]), an acute rehab , and PT/OT 2x/day. Released home 08/27/20 with daughter. Had home health until 2 weeks ago (~10/23/20 was last day), then requested outpatient physical and occupational therapy. Pt has 1 step at home and multiple grab bars in her home . Prior Treatments and Tests See above. Future Testing and Treatments Planned Occupational Therapy Evaluation. Colonoscopy in the future. Follow up with Dr. Gale Developmental History Developmental History Lives [place]. Treatment Goals Patient/Caregiver Goals Pt goal is strength R LE to walk and get back to normal, and resume exercise walking without walker, & improve balance. Pt goal is to use the R hand and will be scheduling for an occupational therapy evaluation. Prior Functional Status Baseline Function- ADL's Independent Baseline Function- Mobility Independent Baseline Function- Gait Walked in [facility] [employer] [facility]formerly [employer]), walked daily at [facility] 30' . Amb w/o AD. 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 Hold R leg stiff with gait and minimal R arm swing. Not walking for exercise activity outside. 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 PT-OP-C Subjective Start: 10/29/20 16:50 Freq: Status: Active Protocol: Document 11/22/20 13:30 LRN (Rec: 11/22/20 14:17 LRN [id number]) OP-PT Subjective Patient Comments Patient Comments States sometimes she forgets to lift her R leg when first up in the morning. PT-OP-D Balance Start: 10/29/20 16:50 Freq: Status: Active Protocol: Document 10/31/20 12:50 LRN (Rec: 10/31/20 13:45 LRN [id number]) OP-PT Balance Assessment Sitting Balance Static Sitting Balance Ability Normal Balance Tests Romberg Romberg EC, 25 secs Tandem Tandem Standing EO: L LE behind: 27.75 secs, R LE behind: 0 secs. Stevenson Fall Scale Copyright Permission PT-OP-E Functional Tests Start: 10/29/20 16:50 Freq: Status: Active Protocol: Document 10/31/20 12:50 LRN (Rec: 10/31/20 13:45 LRN [id number]) Functional Tests 30 Second Sit to Stand Test Score 8 x Five Times Sit to Stand Test Score 19.17 secs Timed Up and Go (TUG) Score 19.17 TUG Impairment Rating 80 to <100% Impaired (Score 18 -19) PT-OP-J Posture/Palpation/Skin Start: 10/29/20 16:50 Freq: Status: Active Protocol: Document 10/31/20 12:50 LRN (Rec: 10/31/20 13:45 LRN [id number]) Posture Evaluation Position Standing L-Spine Posture Decreased Lordosis,Shifted Right Scapula Posture (R) Protracted,(R) Winged PT-OP-M Strength Start: 10/29/20 16:50 Freq: Status: Active Protocol: Document 11/05/20 14:23 LRN (Rec: 11/05/20 15:22 LRN [id number]) Hip Strength Hip Manual Muscle Testing Left Flexion (L2) 5 Normal Extension (S1) 3 Fair Abduction 5 Normal Adduction 2 Poor External Rotation 4+ Good+ Internal Rotation 4+ Good+ Right Flexion (L2) 3+ Fair+ Extension (S1) 3 Fair Abduction 5 Normal Adduction 2 Poor External Rotation 4+ Good+ Internal Rotation 4 Good PT-OP-Q Treatments Start: 10/29/20 16:50 Freq: Status: Active Protocol: Document 11/22/20 13:30 LRN (Rec: 11/22/20 14:17 LRN [id number]) Cardio Equipment Recumbent Elliptical ([employer]) Duration (Minutes) 10 Resistance 1 Seat Position 0 Other R foot strapped in. R LE: 2' lift (from little toe) 2' push Gym Equipment Cable Column (Body Solid) Leg Curl Details R knee flex w/assist of LLE at 90+ deg's, R ankle taped in DF/EV Resistance 20# Reps/Time 10x, 15x 2 Pt holding R ankle in DF Shuttle Recovery Bilateral Squats Details Josemanuel Squat Resistance 62# Joseamnuel legs, 25# alt legs Reps/Time 10x 2, alt legs w/rest-4' Unilateral Squats Details R LE squat Resistance 37# Reps/Time 15x 2, 10x Therapeutic Exercises Sitting Exercises Knee flex Sitting Exercise Name Knee flex - Ankle DF's Side right Equipment Used L2 TBand Reps/Minutes 10 x 3 Comments V & sometimes phys help needed to keep foot moving in line of pull back Gait Training Gait Activity Ambulation w/cane Description Motor control learning of R Stance phase > heel strike. Level of Assistance Railing, manual assist training Surface Level Distance/Duration 4' Treatment Focus R knee flex, toe WBing, heel strike PT-OP-T Assessment and Plan Start: 10/29/20 16:50 Freq: Status: Active Protocol: Document 11/22/20 13:30 LRN (Rec: 11/22/20 14:17 LRN [id number]) Physical Therapy Assessment Goals Four Impairment Decreased endurance per 5xSTS (5xsit to stand) = 19.17 secs Short Term Goal (STG) Pt will demonstrate improved endurance by a decreased time with 5xSTS test (norms: ages 70-79 is 12.6 secs, ages 80-89 is 14.8 secs). STG Duration 12/12/20 Slate Mixer Goal (LTG) Pt will be able to tolerate return to walking at her prior location ([facility]) for exercise. LTG Duration 01/29/21 Three Impairment Decreased R LE strength Short Term Goal (STG) Improve R LE strength in areas of weakness to at least 4/5. 11/08: increased leg weight 2# hip abd. STG Duration 12/12/20 Slate Mixer Goal (LTG) Strengthen R LE for normal walking (with mild deficit). LTG Duration 01/29/21 Two Impairment Balance deficit(Rhomberg EC: 25; Tandem: LE Behind: 0R, 27.75L, TUG 19) Short Term Goal (STG) Improve Balance per Rhomberg Score, Tandem Score or TUG score STG Duration 12/12/20 Prison Goal (LTG) Pt will be able to walk safetly without use of a walker per TUG score of 11-13. 6 secs. LTG Duration 01/29/21 One Impairment Lacks appropriate self care HEP Prison Goal (LTG) Pt will be independent in a self care HEP of LE strengthening and balance exercises appropriate for her status at discharge. (HEP ISSUED TO DATE: EDUC: BÁRBARA Perceived Exertion Scale STRENGTHENING: Prone: *hip ext, Sitting: *hip BKFO/hip IR, *knee flexion w/TB) LTG Duration 01/29/21 (11/19/20: Progressed) Assessment Summary Assessment Pt doing well with new home ex of TBand knee flex strengthening. Phys cuing needed for [employer] for R ankle DF when lifting. Pt weak at end range knee flex TBand strengthening with loss of leg control at end movement. On shuttle for CKC R knee ext , the pt shows good knee control moving slowly, no hyperextending of the knee. Coordination of difficulty when alternating legs with extension on Shuttle. Physical Therapy Plan Frequency and Duration Frequency of Treatment 2x/Week Plan of Care Start Date 10/31/20 Plan of Care End Date 01/29/21 Next Visit Focus/Plan Next Note Type Treatment Note Next Visit Plan Start balance training. Cont pt education training on endurance exercising within 60 -70% max HR. Increase speed of sit to stands to improve endurance. Continue to spend more time on quality gait. Progress LE/core (add) strengthening, and progress her HEP as needed, Balance training, Gait training, and aerobic exercise at a level appropriate for 50% max HR to start.
--- NOTE | 2020-11-26 17:10 | PT.OTN ---
Current Diagnoses Cerebral infarction, unspecified (11/26/20) Muscle weakness (generalized) (11/26/20) Unsteadiness on feet (11/26/20) Other reduced mobility (11/26/20) Physical Therapy Treatment Note PT-OP-A Visit Information Start: 10/29/20 16:50 Freq: Status: Active Protocol: Document 11/26/20 12:40 LRN (Rec: 11/26/20 15:03 LRN [id number]) Out-Patient Physical Therapy Visit Information Visit Information Visit Type Treatment Note Visit Start Time 14:15 Visit Stop Time 14:59 Total Visit Minutes 44 Visit Number 8 Evaluation Information Evaluation Date 10/31/20 Precautions Precautions Arthritis, uncontrolled HBP, uncontrolled Diabetes type II, Depression, headaches, dizziness occasionally, 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 PT-OP-B Current Condition Start: 10/29/20 16:50 Freq: Status: Active Protocol: Document 10/31/20 12:50 LRN (Rec: 10/31/20 13:45 LRN [id number]) Current Condition History of Current Condition Onset Date 08/13/2020 Current Complaints L CVA History of Current Condition Pt lives in [place] and is accompanied by her daughter Criss, who is her caregiver, and that lives with her. Pt was hospitalized almost 4 days at [facility] and 2 weeks at [facility]), an acute rehab , and PT/OT 2x/day. Released home 08/27/20 with daughter. Had home health until 2 weeks ago (~10/23/20 was last day), then requested outpatient physical and occupational therapy. Pt has 1 step at home and multiple grab bars in her home . Prior Treatments and Tests See above. Future Testing and Treatments Planned Occupational Therapy Evaluation. Colonoscopy in the future. Follow up with Dr. Gale Developmental History Developmental History Lives [place]. Treatment Goals Patient/Caregiver Goals Pt goal is strength R LE to walk and get back to normal, and resume exercise walking without walker, & improve balance. Pt goal is to use the R hand and will be scheduling for an occupational therapy evaluation. Prior Functional Status Baseline Function- ADL's Independent Baseline Function- Mobility Independent Baseline Function- Gait Walked in [employer], walked daily at [facility] 30' . Amb w/o AD. 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 Hold R leg stiff with gait and minimal R arm swing. Not walking for exercise activity outside. 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 PT-OP-C Subjective Start: 10/29/20 16:50 Freq: Status: Active Protocol: Document 11/26/20 12:40 LRN (Rec: 11/26/20 15:03 LRN [id number]) OP-PT Subjective Patient Comments Patient Comments Taking out her garbage. PT-OP-D Balance Start: 10/29/20 16:50 Freq: Status: Active Protocol: Document 10/31/20 12:50 LRN (Rec: 10/31/20 13:45 LRN [id number]) OP-PT Balance Assessment Sitting Balance Static Sitting Balance Ability Normal Balance Tests Romberg Romberg EC, 25 secs Tandem Tandem Standing EO: L LE behind: 27.75 secs, R LE behind: 0 secs. Stevenson Fall Scale Copyright Permission PT-OP-E Functional Tests Start: 10/29/20 16:50 Freq: Status: Active Protocol: Document 11/26/20 12:40 LRN (Rec: 11/26/20 15:03 LRN [id number]) Functional Tests 30 Second Sit to Stand Test Score 12 Comments Std chair as in treatment room Five Times Sit to Stand Test Score 13 secss Comments Std chair as in treatment room PT-OP-J Posture/Palpation/Skin Start: 10/29/20 16:50 Freq: Status: Active Protocol: Document 10/31/20 12:50 LRN (Rec: 10/31/20 13:45 LRN [id number]) Posture Evaluation Position Standing L-Spine Posture Decreased Lordosis,Shifted Right Scapula Posture (R) Protracted,(R) Winged PT-OP-M Strength Start: 10/29/20 16:50 Freq: Status: Active Protocol: Document 11/05/20 14:23 LRN (Rec: 11/05/20 15:22 LRN [id number]) Hip Strength Hip Manual Muscle Testing Left Flexion (L2) 5 Normal Extension (S1) 3 Fair Abduction 5 Normal Adduction 2 Poor External Rotation 4+ Good+ Internal Rotation 4+ Good+ Right Flexion (L2) 3+ Fair+ Extension (S1) 3 Fair Abduction 5 Normal Adduction 2 Poor External Rotation 4+ Good+ Internal Rotation 4 Good PT-OP-Q Treatments Start: 10/29/20 16:50 Freq: Status: Active Protocol: Document 11/26/20 12:40 LRN (Rec: 11/26/20 15:03 LRN [id number]) Cardio Equipment Recumbent Elliptical ([employer]) Duration (Minutes) 10 Resistance 1 Seat Position 1, with back rest Other R foot strapped in. R LE: 2' lift (from little toe) 2' push Gym Equipment Cable Column (Body Solid) Leg Curl Details R knee flex w/assist of LLE at 90+ deg's, R ankle taped in DF/EV Resistance 20# Reps/Time 10x, 15x 2 Pt holding R ankle in DF/EV Shuttle Recovery Bilateral Squats Details Josemanuel Squat Resistance 75# Josemanuel legs, 37# alt legs Reps/Time 10x 3, alt legs 1'=23 reps Unilateral Squats Details R LE squat with LLE on platform for asst if needed Resistance 50# Reps/Time 20x Therapeutic Exercises Sitting Exercises sit to stand Sitting Exercise Name Sit to Stand Reps/Minutes 30 secs Comments 5XSTS was done in 13 secs. Standing Exercises Wall slides Standing Exercise Name Wall slide (45-50 deg squat) Side bilateral Reps/Minutes 3' Comments Gait Belt for CGA PT-OP-T Assessment and Plan Start: 10/29/20 16:50 Freq: Status: Active Protocol: Document 11/26/20 12:40 LRN (Rec: 11/26/20 15:03 LRN [id number]) Physical Therapy Assessment Goals Four Impairment Decreased endurance per 5xSTS (5xsit to stand) = 19.17 secs Short Term Goal (STG) Pt will demonstrate improved endurance by a decreased time with 5xSTS test (norms: ages 70-79 is 12.6 secs, ages 80-89 is 14.8 secs). (11/26/20: 5xSTS is 13 secs) STG Duration 12/12/20 (11/26/20: Progressing ) Architectural Practice Manager Goal (LTG) Pt will be able to tolerate return to walking at her prior location ([facility]) for exercise. (11/26/20: Walked 1/4 of what she normally does) LTG Duration 01/29/21 (11/26/20: Progressing) Three Impairment Decreased R LE strength Short Term Goal (STG) Improve R LE strength in areas of weakness to at least 4/5. 11/08: increased leg weight 2# hip abd. STG Duration 12/12/20 Architectural Practice Manager Goal (LTG) Strengthen R LE for normal walking (with mild deficit). LTG Duration 01/29/21 Two Impairment Balance deficit(Rhomberg EC: 25; Tandem: LE Behind: 0R, 27.75L, TUG 19) Short Term Goal (STG) Improve Balance per Rhomberg Score, Tandem Score or TUG score STG Duration 12/12/20 Intermediate Goal (LTG) Pt will be able to walk safetly without use of a walker per TUG score of 11-13. 6 secs. LTG Duration 01/29/21 One Impairment Lacks appropriate self care HEP Intermediate Goal (LTG) Pt will be independent in a self care HEP of LE strengthening and balance exercises appropriate for her status at discharge. (HEP ISSUED TO DATE: EDUC: BÁRBARA Perceived Exertion Scale STRENGTHENING: Prone: *hip ext, Sitting: *hip BKFO/hip IR, *knee flexion w/TB) LTG Duration 01/29/21 (11/19/20: Progressed) Progress Towards Goals Progress Comments Improved edurance: 5xSTS was done in 13 secs (initially was 19.17 secs). 30 sec sit to stand was done with 12 reps (initially did 8 reps) Assessment Summary Assessment 79 yo femwho suffered a L CVA with residual RLE/UE weakness. Pt able to do 10' on bike with reverse cycling with HR ~ 73bpm. Endurance improving ( see above). Physical Therapy Plan Frequency and Duration Frequency of Treatment 2x/Week Plan of Care Start Date 10/31/20 Plan of Care End Date 01/29/21 Next Visit Focus/Plan Next Note Type Treatment Note Next Visit Plan Start balance training. Increase speed of sit to stands to improve endurance. Continue to spend more time on quality gait. Progress LE/ core (add) strengthening, and progress her HEP as needed, Balance training, Gait training, and aerobic exercise at a level appropriate for 50 % max HR to start.
--- NOTE | 2020-11-29 15:25 | PT.OTN ---
Current Diagnoses Cerebral infarction, unspecified (11/29/20) Muscle weakness (generalized) (11/29/20) Unsteadiness on feet (11/29/20) Other reduced mobility (11/29/20) Physical Therapy Treatment Note PT-OP-A Visit Information Start: 10/29/20 16:50 Freq: Status: Active Protocol: Document 11/29/20 14:39 SP (Rec: 11/29/20 15:57 SP [id number]) Out-Patient Physical Therapy Visit Information Visit Information Visit Type Treatment Note Visit Start Time 14:39 Visit Stop Time 15:25 Total Visit Minutes 46 Visit Number 9 Number of WARDROBE CUSTODIAN Visits 1 PT-OP-B Current Condition Start: 10/29/20 16:50 Freq: Status: Active Protocol: Document 10/31/20 12:50 LRN (Rec: 10/31/20 13:45 LRN [id number]) Current Condition History of Current Condition Onset Date 08/13/2020 Current Complaints L CVA History of Current Condition Pt lives in [place] and is accompanied by her daughter Criss, who is her caregiver, and that lives with her. Pt was hospitalized almost 4 days at [facility] and 2 weeks at [facility] ([facility]), an acute rehab , and PT/OT 2x/day. Released home 08/27/20 with daughter. Had home health until 2 weeks ago (~10/23/20 was last day), then requested outpatient physical and occupational therapy. Pt has 1 step at home and multiple grab bars in her home . Prior Treatments and Tests See above. Future Testing and Treatments Planned Occupational Therapy Evaluation. Colonoscopy in the future. Follow up with Dr. Gale Developmental History Developmental History Lives [place]. Treatment Goals Patient/Caregiver Goals Pt goal is strength R LE to walk and get back to normal, and resume exercise walking without walker, & improve balance. Pt goal is to use the R hand and will be scheduling for an occupational therapy evaluation. Prior Functional Status Baseline Function- ADL's Independent Baseline Function- Mobility Independent Baseline Function- Gait Walked in [employer] & [employer], walked daily at [facility]' . Amb w/o AD. 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 Hold R leg stiff with gait and minimal R arm swing. Not walking for exercise activity outside. 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 PT-OP-C Subjective Start: 10/29/20 16:50 Freq: Status: Active Protocol: Document 11/29/20 14:39 SP (Rec: 11/29/20 15:57 SP [id number]) OP-PT Subjective Patient Comments Patient Comments Pt reported was tired after last tx. PT-OP-D Balance Start: 10/29/20 16:50 Freq: Status: Active Protocol: Document 10/31/20 12:50 LRN (Rec: 10/31/20 13:45 LRN [id number]) OP-PT Balance Assessment Sitting Balance Static Sitting Balance Ability Normal Balance Tests Romberg Romberg EC, 25 secs Tandem Tandem Standing EO: L LE behind: 27.75 secs, R LE behind: 0 secs. Stevenson Fall Scale Copyright Permission PT-OP-E Functional Tests Start: 10/29/20 16:50 Freq: Status: Active Protocol: Document 11/26/20 12:40 LRN (Rec: 11/26/20 15:03 LRN [id number]) Functional Tests 30 Second Sit to Stand Test Score 12 Comments Std chair as in treatment room Five Times Sit to Stand Test Score 13 secss Comments Std chair as in treatment room PT-OP-J Posture/Palpation/Skin Start: 10/29/20 16:50 Freq: Status: Active Protocol: Document 10/31/20 12:50 LRN (Rec: 10/31/20 13:45 LRN [id number]) Posture Evaluation Position Standing L-Spine Posture Decreased Lordosis,Shifted Right Scapula Posture (R) Protracted,(R) Winged PT-OP-M Strength Start: 10/29/20 16:50 Freq: Status: Active Protocol: Document 11/05/20 14:23 LRN (Rec: 11/05/20 15:22 LRN [id number]) Hip Strength Hip Manual Muscle Testing Left Flexion (L2) 5 Normal Extension (S1) 3 Fair Abduction 5 Normal Adduction 2 Poor External Rotation 4+ Good+ Internal Rotation 4+ Good+ Right Flexion (L2) 3+ Fair+ Extension (S1) 3 Fair Abduction 5 Normal Adduction 2 Poor External Rotation 4+ Good+ Internal Rotation 4 Good PT-OP-Q Treatments Start: 10/29/20 16:50 Freq: Status: Active Protocol: Document 11/29/20 14:39 SP (Rec: 11/29/20 15:57 SP [id number]) Cardio Equipment Recumbent Elliptical ([employer]) Duration (Minutes) 5 Resistance 1 Seat Position 1,w /back rest Other ? Gym Equipment Cable Column (Body Solid) Leg Curl Details R knee flex w/assist of LLE at 90+ deg's, R ankle taped in DF/EV Resistance 20# Reps/Time 10x, 15x 2 Pt holding R ankle in DF/EV Shuttle Recovery Bilateral Squats Details Josemanuel Squat (DF on 09/28 foam roller Resistance 75# Josemanuel legs, 37# alt legs Reps/Time 10x 3, alt legs 1'=23 reps Therapeutic Exercises Sitting Exercises sit to stand Sitting Exercise Name Sit to Stand Reps/Minutes x10 reps, 18 reps in 30 secs Comments occasional hip hinge, knee behind toes Standing Exercises Wall slides Standing Exercise Name Wall slide (45-50 deg squat) Side bilateral Reps/Minutes 2 sets of 30 reps in 47 sec each (3 min total) Comments Gait Belt for CGA, cued slow pacing control hip abd Standing Exercise Name Hip AB (limited reps when standing on RLE due to knee buckling) Side bilateral Resistance 2# on RLE, 1# LLE Reps/Minutes 20x Comments neutral pelvic alignment, elevated ribcage w/ slow control Manual Therapy Treatment Taping R ankle DF/ EV Treatment Focus facilitation positioning HS curl machine and Leg press Type of Tape Kinesio Tape Skin Inspection intact, normal color PT-OP-T Assessment and Plan Start: 10/29/20 16:50 Freq: Status: Active Protocol: Document 11/29/20 14:39 SP (Rec: 11/29/20 15:57 SP [id number]) Physical Therapy Assessment Goals Four Impairment Decreased endurance per 5xSTS (5xsit to stand) = 19.17 secs Short Term Goal (STG) Pt will demonstrate improved endurance by a decreased time with 5xSTS test (norms: ages 70-79 is 12.6 secs, ages 80-89 is 14.8 secs). (11/26/20: 5xSTS is 13 secs) STG Duration 12/12/20 (11/26/20: Progressing ) Retirement Goal (LTG) Pt will be able to tolerate return to walking at her prior location ([facility]) for exercise. (11/26/20: Walked 1/4 of what she normally does) LTG Duration 01/29/21 (11/26/20: Progressing) Three Impairment Decreased R LE strength Short Term Goal (STG) Improve R LE strength in areas of weakness to at least 4/5. 11/08: increased leg weight 2# hip abd. STG Duration 12/12/20 Retirement Goal (LTG) Strengthen R LE for normal walking (with mild deficit). LTG Duration 01/29/21 Two Impairment Balance deficit(Rhomberg EC: 25; Tandem: LE Behind: 0R, 27.75L, TUG 19) Short Term Goal (STG) Improve Balance per Rhomberg Score, Tandem Score or TUG score STG Duration 12/12/20 Retirement Goal (LTG) Pt will be able to walk safetly without use of a walker per TUG score of 11-13. 6 secs. LTG Duration 01/29/21 One Impairment Lacks appropriate self care HEP Retirement Goal (LTG) Pt will be independent in a self care HEP of LE strengthening and balance exercises appropriate for her status at discharge. (HEP ISSUED TO DATE: EDUC: BÁRBARA Perceived Exertion Scale STRENGTHENING: Prone: *hip ext, Sitting: *hip BKFO/hip IR, *knee flexion w/TB) LTG Duration 01/29/21 (11/19/20: Progressed) Assessment Summary Assessment Pt tolerated tx well, cuing for DF/EV on R LE with Ktaping to assist facilitation then added 1/2 foam roller to encourage ankle ROM, glut and quad facilitation during shuttle recovery knee alignment w/ toes occasional cuing and good self corrections. Pt improved endurance sit to stands by 5 reps, 18 reps in 30 sec today. Physical Therapy Plan Frequency and Duration Frequency of Treatment 2x/Week Plan of Care Start Date 10/31/20 Plan of Care End Date 01/29/21 Therapeutic Interventions Therapeutic Interventions Balance Training,Gait Training ,Home Exercise Program,Manual Therapy,Neuromuscular Re- education,Patient/Caregiver Education,Self-Care/Home Management,Soft Tissue Mobilization,Taping, Therapeutic Activities, Therapeutic Exercises Modalities Cold Pack/Ice Massage,Electric Stimulation,Hot Packs Next Visit Focus/Plan Next Note Type Treatment Note Next Visit Plan Start balance training. Continue to spend more time on quality gait. Progress LE/ core (add) strengthening, and progress her HEP as needed, Balance training, Gait training, and aerobic exercise at a level appropriate for 50 % max HR to start.
--- NOTE | 2020-12-03 16:47 | PT.OTN ---
Current Diagnoses Cerebral infarction, unspecified (12/03/20) Muscle weakness (generalized) (12/03/20) Unsteadiness on feet (12/03/20) Other reduced mobility (12/03/20) Physical Therapy Treatment Note PT-OP-A Visit Information Start: 10/29/20 16:50 Freq: Status: Active Protocol: Document 12/03/20 14:20 LRN (Rec: 12/03/20 15:03 LRN [id number]) Out-Patient Physical Therapy Visit Information Visit Information Visit Type Progress Note Visit Start Time 14:20 Visit Stop Time 15:00 Total Visit Minutes 40 Visit Number 10 Evaluation Information Evaluation Date 10/31/20 Precautions Precautions Arthritis, uncontrolled HBP, uncontrolled Diabetes type II, Depression, headaches, dizziness occasionally, 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 PT-OP-B Current Condition Start: 10/29/20 16:50 Freq: Status: Active Protocol: Document 10/31/20 12:50 LRN (Rec: 10/31/20 13:45 LRN [id number]) Current Condition History of Current Condition Onset Date 08/13/2020 Current Complaints L CVA History of Current Condition Pt lives in [place] and is accompanied by her daughter Criss, who is her caregiver, and that lives with her. Pt was hospitalized almost 4 days at [facility] and 2 weeks at [facility] ([facility]), an acute rehab , and PT/OT 2x/day. Released home 08/27/20 with daughter. Had home health until 2 weeks ago (~10/23/20 was last day), then requested outpatient physical and occupational therapy. Pt has 1 step at home and multiple grab bars in her home . Prior Treatments and Tests See above. Future Testing and Treatments Planned Occupational Therapy Evaluation. Colonoscopy in the future. Follow up with Dr. Gale Developmental History Developmental History Lives [place]. Treatment Goals Patient/Caregiver Goals Pt goal is strength R LE to walk and get back to normal, and resume exercise walking without walker, & improve balance. Pt goal is to use the R hand and will be scheduling for an occupational therapy evaluation. Prior Functional Status Baseline Function- ADL's Independent Baseline Function- Mobility Independent Baseline Function- Gait Walked in [employer] & [employer], [facility] Amb w/o AD. 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 Hold R leg stiff with gait and minimal R arm swing. Not walking for exercise activity outside. 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 PT-OP-C Subjective Start: 10/29/20 16:50 Freq: Status: Active Protocol: Document 12/03/20 14:20 LRN (Rec: 12/03/20 15:03 LRN [id number]) OP-PT Subjective Patient Comments Patient Comments Did weed eating yesterday. Patient Questionnaires ABC- Activity Specific Balance Confidence Scale ABC Score ......... PT-OP-D Balance Start: 10/29/20 16:50 Freq: Status: Active Protocol: Document 10/31/20 12:50 LRN (Rec: 10/31/20 13:45 LRN [id number]) OP-PT Balance Assessment Sitting Balance Static Sitting Balance Ability Normal Balance Tests Romberg Romberg EC, 25 secs Tandem Tandem Standing EO: L LE behind: 27.75 secs, R LE behind: 0 secs. Stevenson Fall Scale Copyright Permission PT-OP-E Functional Tests Start: 10/29/20 16:50 Freq: Status: Active Protocol: Document 11/26/20 12:40 LRN (Rec: 11/26/20 15:03 LRN [id number]) Functional Tests 30 Second Sit to Stand Test Score 12 Comments Std chair as in treatment room Five Times Sit to Stand Test Score 13 secss Comments Std chair as in treatment room PT-OP-J Posture/Palpation/Skin Start: 10/29/20 16:50 Freq: Status: Active Protocol: Document 10/31/20 12:50 LRN (Rec: 10/31/20 13:45 LRN [id number]) Posture Evaluation Position Standing L-Spine Posture Decreased Lordosis,Shifted Right Scapula Posture (R) Protracted,(R) Winged PT-OP-M Strength Start: 10/29/20 16:50 Freq: Status: Active Protocol: Document 12/03/20 14:20 LRN (Rec: 12/03/20 15:03 LRN [id number]) Hip Strength Hip Manual Muscle Testing Left Flexion (L2) 5 Normal Extension (S1) 4+ Good+ Abduction 4 Good Adduction 4 Good External Rotation 3+ Fair+ Internal Rotation 4+ Good+ Right Flexion (L2) 4- Good- Extension (S1) 4- Good- Abduction 3 Fair Adduction 4- Good- External Rotation 3+ Fair+ Internal Rotation 4+ Good+ PT-OP-Q Treatments Start: 10/29/20 16:50 Freq: Status: Active Protocol: Document 12/03/20 14:20 LRN (Rec: 12/03/20 15:03 LRN [id number]) Cardio Equipment Recumbent Elliptical ([employer]oxo) Duration (Minutes) 10 Resistance 2 Seat Position Full forward Other R foot strapped in. R LE: 2' lift (from little toe) 2' push Therapeutic Exercises Supine Exercises SLR Supine Exercise Name SLR Side right Equipment Used 3#, 2# Reps/Minutes 8x, 10x 2 respectively Prone Exercises Hip Ext Prone Exercise Name Hip Ext Side right Equipment Used 3#, 2# Reps/Minutes 8x, 10x 2 respectively Comments Cuing needed to keep hips from rotating Sidelying Exercises Hip AB Sidelying Exercise Name Hip AB Side right Equipment Used 3#, 2# Reps/Minutes 8x, 10x 2 respectively Comments Guidance needed for leg movement Hip AD Sidelying Exercise Name Hip AD Side right Equipment Used 3#, 2# Reps/Minutes 8x, 10x 2 respectively Comments Guidance needed for leg movement Sitting Exercises Hip ER Sitting Exercise Name Hip ER Side right Equipment Used 3#, 2# Reps/Minutes 8x, 10x 2 respectively Comments Cuing needed to keep core upright. Knee flex Sitting Exercise Name Active Knee flex Side right Comments MMT taken sit to stand Sitting Exercise Name Sit to Stand Reps/Minutes 5x 4 sets Gait Training Gait Activity Ambulation w/cane Description Gait without and with SPC. Level of Assistance SBA Surface Level Distance/Duration 20' x 3 Treatment Focus Safe balance. PT-OP-T Assessment and Plan Start: 10/29/20 16:50 Freq: Status: Active Protocol: Document 12/03/20 14:20 LRN (Rec: 12/03/20 15:03 LRN [id number]) Physical Therapy Assessment Rehab Potential Rehabilitation Potential Good Evaluation Complexity Number of Personal Factors/Comorbidities 3 or More Number of Body Systems Impaired 4 or More Clinical Presentation at Evaluation Evolving Impairments Impairments Activity Tolerance,Balance, Gait,Strength Goals Four Impairment Decreased endurance per 5xSTS (5xsit to stand) = 19.17 secs Short Term Goal (STG) Pt will demonstrate improved endurance by a decreased time with 5xSTS test (norms: ages 70-79 is 12.6 secs, ages 80-89 is 14.8 secs). (12/03/20: 5xSTS is 10 secs) STG Duration 12/12/20 (12/03/20: MET GOAL) Insurance Representative Goal (LTG) Pt will be able to tolerate return to walking at her prior location ([facility]) for exercise. (11/26/20: Walked 1/4 of what she normally does) LTG Duration 01/29/21 (11/26/20: Progressing) Three Impairment Decreased R LE strength Short Term Goal (STG) Improve R LE strength in areas of weakness to at least 4/5 ( Initial: R knee: flexion 3+/5, R Hip: flex 3+/5, Ext 3/5, AD 2/5, ER 4+/5, IR 4/5, AB 5/5) . (12/03/20: R Hip: Flex & Ext 4-/ 5, AB 3/5, AD 4-/5, ER 3+/5, IR 4+/5) STG Duration 12/12/20 (12/03/20: Progressing ) Insurance Representative Goal (LTG) Strengthen R LE for normal walking (with mild deficit). LTG Duration 01/29/21 Two Impairment Balance deficit(Rhomberg EC: 25; Tandem: LE Behind: 0R, 27.75L, TUG 19) Short Term Goal (STG) Improve Balance per Rhomberg Score, Tandem Score or TUG score (12/03/20: TU secs) STG Duration 12/12/20 (12/03/20: Progressing , TUG improved) Insurance Representative Goal (LTG) Pt will be able to walk safetly without use of a walker per TUG score of 11-13. 6 secs. (12/03/20: 16.49 secs without assistive device, 15.43 secs with cane) LTG Duration 01/29/21 One Impairment Lacks appropriate self care HEP Insurance Representative Goal (LTG) Pt will be independent in a self care HEP of LE strengthening and balance exercises appropriate for her status at discharge. (HEP ISSUED TO DATE: EDUC: BÁRBRAA Perceived Exertion Scale STRENGTHENING: Prone: *hip ext, Sitting: *hip BKFO/hip IR, *knee flexion w/TB) LTG Duration 01/29/21 (11/19/20: Progressed) Progress Towards Goals Progress Comments STG #4 GOAL MET. 5XSTS in 10 secs (Initial was 19.17 secs). STG #2 Progressing. TU secs (was 19 secs). R LE strength is improving. Assessment Summary Assessment 79 yo female who suffered a L CVA with residual RLE/UE. Pt is progressing quite well with improved balance score (TUG) and improved endurance (5xSTS Test). The pt has progressed from a walker to a cane and sometimes she forgets her cane due to her feeling safe without. The pt continues to need an assistive device for safety with gait. The pt would benefit from continued physical therapy to improve balance, gait mechanics, core strength, and L LE strength. Physical Therapy Plan Frequency and Duration Frequency of Treatment 2x/Week Plan of Care Start Date 10/31/20 Plan of Care End Date 01/29/21 Therapeutic Interventions Therapeutic Interventions Balance Training,Coordination Training,Gait Training,Home Exercise Program,Manual Therapy,Neuromuscular Re- education,Patient/Caregiver Education,Self-Care/Home Management,Soft Tissue Mobilization,Taping, Therapeutic Activities, Therapeutic Exercises Modalities Cold Pack/Ice Massage,Hot Packs Next Visit Focus/Plan Next Note Type Treatment Note Next Visit Plan Add to HEP L hip strengthening ex's with ankle wgts as pt is interested in doing the same at home. Start balance training and core strengthening. Continue to spend more time on quality gait. Progress her HEP as needed, Balance training, Gait training, and aerobic exercise at a level appropriate for 50% max HR to start.
--- NOTE | 2020-12-03 16:54 | PT.OTN ---
Current Diagnoses Cerebral infarction, unspecified (12/03/20) Muscle weakness (generalized) (12/03/20) Unsteadiness on feet (12/03/20) Other reduced mobility (12/03/20) Physical Therapy Treatment Note PT-OP-A Visit Information Start: 10/29/20 16:50 Freq: Status: Active Protocol: Document 12/03/20 14:20 LRN (Rec: 12/03/20 15:03 LRN [id number]) Out-Patient Physical Therapy Visit Information Visit Information Visit Type Progress Note Visit Start Time 14:20 Visit Stop Time 15:00 Total Visit Minutes 40 Visit Number 10 Evaluation Information Evaluation Date 10/31/20 Precautions Precautions Arthritis, uncontrolled HBP, uncontrolled Diabetes type II, Depression, headaches, dizziness occasionally, 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 PT-OP-B Current Condition Start: 10/29/20 16:50 Freq: Status: Active Protocol: Document 10/31/20 12:50 LRN (Rec: 10/31/20 13:45 LRN [id number]) Current Condition History of Current Condition Onset Date 08/13/2020 Current Complaints L CVA History of Current Condition Pt lives in [place] and is accompanied by her daughter Criss, who is her caregiver, and that lives with her. Pt was hospitalized almost 4 days at [facility] and 2 weeks at [facility] ([facility]), an acute rehab , and PT/OT 2x/day. Released home 08/27/20 with daughter. Had home health until 2 weeks ago (~10/23/20 was last day), then requested outpatient physical and occupational therapy. Pt has 1 step at home and multiple grab bars in her home . Prior Treatments and Tests See above. Future Testing and Treatments Planned Occupational Therapy Evaluation. Colonoscopy in the future. Follow up with Dr. Gale Developmental History Developmental History Lives [place]. Treatment Goals Patient/Caregiver Goals Pt goal is strength R LE to walk and get back to normal, and resume exercise walking without walker, & improve balance. Pt goal is to use the R hand and will be scheduling for an occupational therapy evaluation. Prior Functional Status Baseline Function- ADL's Independent Baseline Function- Mobility Independent Baseline Function- Gait Walked in [employer] & [employer], walked daily at [facility] 30' . Amb w/o AD. 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 Hold R leg stiff with gait and minimal R arm swing. Not walking for exercise activity outside. 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 PT-OP-C Subjective Start: 10/29/20 16:50 Freq: Status: Active Protocol: Document 12/03/20 14:20 LRN (Rec: 12/03/20 15:03 LRN [id number]) OP-PT Subjective Patient Comments Patient Comments Did weed eating yesterday. Patient Questionnaires ABC- Activity Specific Balance Confidence Scale ABC Score 62.81 ABC Functional Impairment 20 to <40% Impaired (Score 61- 80) PT-OP-D Balance Start: 10/29/20 16:50 Freq: Status: Active Protocol: Document 10/31/20 12:50 LRN (Rec: 10/31/20 13:45 LRN [id number]) OP-PT Balance Assessment Sitting Balance Static Sitting Balance Ability Normal Balance Tests Romberg Romberg EC, 25 secs Tandem Tandem Standing EO: L LE behind: 27.75 secs, R LE behind: 0 secs. Stevenson Fall Scale Copyright Permission PT-OP-E Functional Tests Start: 10/29/20 16:50 Freq: Status: Active Protocol: Document 11/26/20 12:40 LRN (Rec: 11/26/20 15:03 LRN [id number]) Functional Tests 30 Second Sit to Stand Test Score 12 Comments Std chair as in treatment room Five Times Sit to Stand Test Score 13 secss Comments Std chair as in treatment room PT-OP-J Posture/Palpation/Skin Start: 10/29/20 16:50 Freq: Status: Active Protocol: Document 10/31/20 12:50 LRN (Rec: 10/31/20 13:45 LRN [id number]) Posture Evaluation Position Standing L-Spine Posture Decreased Lordosis,Shifted Right Scapula Posture (R) Protracted,(R) Winged PT-OP-M Strength Start: 10/29/20 16:50 Freq: Status: Active Protocol: Document 12/03/20 14:20 LRN (Rec: 12/03/20 15:03 LRN [id number]) Hip Strength Hip Manual Muscle Testing Left Flexion (L2) 5 Normal Extension (S1) 4+ Good+ Abduction 4 Good Adduction 4 Good External Rotation 3+ Fair+ Internal Rotation 4+ Good+ Right Flexion (L2) 4- Good- Extension (S1) 4- Good- Abduction 3 Fair Adduction 4- Good- External Rotation 3+ Fair+ Internal Rotation 4+ Good+ PT-OP-Q Treatments Start: 10/29/20 16:50 Freq: Status: Active Protocol: Document 12/03/20 14:20 LRN (Rec: 12/03/20 15:03 LRN [id number]) Cardio Equipment Recumbent Elliptical ([employer]) Duration (Minutes) 10 Resistance 2 Seat Position Full forward Other R foot strapped in. R LE: 2' lift (from little toe) 2' push Therapeutic Exercises Supine Exercises SLR Supine Exercise Name SLR Side right Equipment Used 3#, 2# Reps/Minutes 8x, 10x 2 respectively Prone Exercises Hip Ext Prone Exercise Name Hip Ext Side right Equipment Used 3#, 2# Reps/Minutes 8x, 10x 2 respectively Comments Cuing needed to keep hips from rotating Sidelying Exercises Hip AB Sidelying Exercise Name Hip AB Side right Equipment Used 3#, 2# Reps/Minutes 8x, 10x 2 respectively Comments Guidance needed for leg movement Hip AD Sidelying Exercise Name Hip AD Side right Equipment Used 3#, 2# Reps/Minutes 8x, 10x 2 respectively Comments Guidance needed for leg movement Sitting Exercises Hip ER Sitting Exercise Name Hip ER Side right Equipment Used 3#, 2# Reps/Minutes 8x, 10x 2 respectively Comments Cuing needed to keep core upright. Knee flex Sitting Exercise Name Active Knee flex Side right Comments MMT taken sit to stand Sitting Exercise Name Sit to Stand Reps/Minutes 5x 4 sets Gait Training Gait Activity Ambulation w/cane Description Gait without and with SPC. Level of Assistance SBA Surface Level Distance/Duration 20' x 3 Treatment Focus Safe balance. PT-OP-T Assessment and Plan Start: 10/29/20 16:50 Freq: Status: Active Protocol: Document 12/03/20 14:20 LRN (Rec: 12/03/20 15:03 LRN [id number]) Physical Therapy Assessment Rehab Potential Rehabilitation Potential Good Evaluation Complexity Number of Personal Factors/Comorbidities 3 or More Number of Body Systems Impaired 4 or More Clinical Presentation at Evaluation Evolving Impairments Impairments Activity Tolerance,Balance, Gait,Strength Goals Four Impairment Decreased endurance per 5xSTS (5xsit to stand) = 19.17 secs Short Term Goal (STG) Pt will demonstrate improved endurance by a decreased time with 5xSTS test (norms: ages 70-79 is 12.6 secs, ages 80-89 is 14.8 secs). (12/03/20: 5xSTS is 10 secs) STG Duration 12/12/20 (12/03/20: MET GOAL) Milk Deliverer Goal (LTG) Pt will be able to tolerate return to walking at her prior location ([facility]) for exercise. (11/26/20: Walked 1/4 of what she normally does) LTG Duration 01/29/21 (11/26/20: Progressing) Three Impairment Decreased R LE strength Short Term Goal (STG) Improve R LE strength in areas of weakness to at least 4/5 ( Initial: R knee: flexion 3+/5, R Hip: flex 3+/5, Ext 3/5, AD 2/5, ER 4+/5, IR 4/5, AB 5/5) . (12/03/20: R Hip: Flex & Ext 4-/ 5, AB 3/5, AD 4-/5, ER 3+/5, IR 4+/5) STG Duration 12/12/20 (12/03/20: Progressing ) Milk Deliverer Goal (LTG) Strengthen R LE for normal walking (with mild deficit). LTG Duration 01/29/21 Two Impairment Balance deficit(Rhomberg EC: 25; Tandem: LE Behind: 0R, 27.75L, TUG 19) Short Term Goal (STG) Improve Balance per Rhomberg Score, Tandem Score or TUG score (12/03/20: TU secs) STG Duration 12/12/20 (12/03/20: Progressing , TUG improved) Milk Deliverer Goal (LTG) Pt will be able to walk safetly without use of a walker per TUG score of 11-13. 6 secs. (12/03/20: 16.49 secs without assistive device, 15.43 secs with cane) LTG Duration 05/05/21 One Impairment Lacks appropriate self care HEP Milk Deliverer Goal (LTG) Pt will be independent in a self care HEP of LE strengthening and balance exercises appropriate for her status at discharge. (HEP ISSUED TO DATE: EDUC: BÁRBARA Perceived Exertion Scale STRENGTHENING: Prone: *hip ext, Sitting: *hip BKFO/hip IR, *knee flexion w/TB) LTG Duration 01/29/21 (11/19/20: Progressed) Progress Towards Goals Progress Comments STG #4 GOAL MET. 5XSTS in 10 secs (Initial was 19.17 secs). STG #2 Progressing. TU secs (was 19 secs). R LE strength is improving. Assessment Summary Assessment 79 yo female who suffered a L CVA with residual RLE/UE. Pt is progressing quite well with improved balance score (TUG) and improved endurance (5xSTS Test). The pt has progressed from a walker to a cane and sometimes she forgets her cane due to her feeling safe without. The pt continues to need an assistive device for safety with gait. The pt would benefit from continued physical therapy to improve balance, gait mechanics, core strength, and L LE strength. Function improved per ABC Scale. Physical Therapy Plan Frequency and Duration Frequency of Treatment 2x/Week Plan of Care Start Date 10/31/20 Plan of Care End Date 01/29/21 Therapeutic Interventions Therapeutic Interventions Balance Training,Coordination Training,Gait Training,Home Exercise Program,Manual Therapy,Neuromuscular Re- education,Patient/Caregiver Education,Self-Care/Home Management,Soft Tissue Mobilization,Taping, Therapeutic Activities, Therapeutic Exercises Modalities Cold Pack/Ice Massage,Hot Packs Next Visit Focus/Plan Next Note Type Treatment Note Next Visit Plan Add to HEP L hip strengthening ex's with ankle wgts as pt is interested in doing the same at home. Start balance training and core strengthening. Continue to spend more time on quality gait. Progress her HEP as needed, Balance training, Gait training, and aerobic exercise at a level appropriate for 50% max HR to start.
--- NOTE | 2020-12-06 16:17 | PT.OTN ---
Current Diagnoses Cerebral infarction, unspecified (12/06/20) Muscle weakness (generalized) (12/06/20) Unsteadiness on feet (12/06/20) Other reduced mobility (12/06/20) Physical Therapy Treatment Note PT-OP-A Visit Information Start: 10/29/20 16:50 Freq: Status: Active Protocol: Document 12/06/20 14:23 LRN (Rec: 12/06/20 15:07 LRN [id number]) Out-Patient Physical Therapy Visit Information Visit Information Visit Type Treatment Note Visit Start Time 14:32 Visit Stop Time 15:12 Total Visit Minutes 40 Visit Number 11 Evaluation Information Evaluation Date 10/31/20 Precautions Precautions Arthritis, uncontrolled HBP, uncontrolled Diabetes type II, Depression, headaches, dizziness occasionally, 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 PT-OP-B Current Condition Start: 10/29/20 16:50 Freq: Status: Active Protocol: Document 10/31/20 12:50 LRN (Rec: 10/31/20 13:45 LRN [id number]) Current Condition History of Current Condition Onset Date 08/13/2020 Current Complaints L CVA History of Current Condition Pt lives in [place] and is accompanied by her daughter Criss, who is her caregiver, and that lives with her. Pt was hospitalized almost 4 days at [facility] and 2 weeks at [facility] ([facility]), an acute rehab , and PT/OT 2x/day. Released home 08/27/20 with daughter. Had home health until 2 weeks ago (~10/23/20 was last day), then requested outpatient physical and occupational therapy. Pt has 1 step at home and multiple grab bars in her home . Prior Treatments and Tests See above. Future Testing and Treatments Planned Occupational Therapy Evaluation. Colonoscopy in the future. Follow up with Dr. Gale Developmental History Developmental History Lives [place]. Treatment Goals Patient/Caregiver Goals Pt goal is strength R LE to walk and get back to normal, and resume exercise walking without walker, & improve balance. Pt goal is to use the R hand and will be scheduling for an occupational therapy evaluation. Prior Functional Status Baseline Function- ADL's Independent Baseline Function- Mobility Independent Baseline Function- Gait Walked in [employer], walked daily at [facility] 30' . Amb w/o AD. 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 Hold R leg stiff with gait and minimal R arm swing. Not walking for exercise activity outside. 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 PT-OP-C Subjective Start: 10/29/20 16:50 Freq: Status: Active Protocol: Document 12/06/20 14:23 LRN (Rec: 12/06/20 15:07 LRN [id number]) OP-PT Subjective Patient Comments Patient Comments Tired today. PT-OP-D Balance Start: 10/29/20 16:50 Freq: Status: Active Protocol: Document 10/31/20 12:50 LRN (Rec: 10/31/20 13:45 LRN [id number]) OP-PT Balance Assessment Sitting Balance Static Sitting Balance Ability Normal Balance Tests Romberg Romberg EC, 25 secs Tandem Tandem Standing EO: L LE behind: 27.75 secs, R LE behind: 0 secs. Stevenson Fall Scale Copyright Permission PT-OP-E Functional Tests Start: 10/29/20 16:50 Freq: Status: Active Protocol: Document 11/26/20 12:40 LRN (Rec: 11/26/20 15:03 LRN [id number]) Functional Tests 30 Second Sit to Stand Test Score 12 Comments Std chair as in treatment room Five Times Sit to Stand Test Score 13 secss Comments Std chair as in treatment room PT-OP-J Posture/Palpation/Skin Start: 10/29/20 16:50 Freq: Status: Active Protocol: Document 10/31/20 12:50 LRN (Rec: 10/31/20 13:45 LRN [id number]) Posture Evaluation Position Standing L-Spine Posture Decreased Lordosis,Shifted Right Scapula Posture (R) Protracted,(R) Winged PT-OP-M Strength Start: 10/29/20 16:50 Freq: Status: Active Protocol: Document 12/03/20 14:20 LRN (Rec: 12/03/20 15:03 LRN [id number]) Hip Strength Hip Manual Muscle Testing Left Flexion (L2) 5 Normal Extension (S1) 4+ Good+ Abduction 4 Good Adduction 4 Good External Rotation 3+ Fair+ Internal Rotation 4+ Good+ Right Flexion (L2) 4- Good- Extension (S1) 4- Good- Abduction 3 Fair Adduction 4- Good- External Rotation 3+ Fair+ Internal Rotation 4+ Good+ PT-OP-Q Treatments Start: 10/29/20 16:50 Freq: Status: Active Protocol: Document 12/06/20 14:23 LRN (Rec: 12/06/20 15:07 LRN [id number]) Cardio Equipment Recumbent Elliptical ([employer]) Duration (Minutes) 10 Resistance Lev 2 working fairly light to somewhat hard Seat Position Full forward & seat 5 for last 3 minutes Other R foot strapped in. R LE: lift (from little toe) Therapeutic Exercises Supine Exercises Bridge Supine Exercise Name Bridge w/maximal lift Reps/Minutes 10x 3 SLR Supine Exercise Name SLR Side right Equipment Used 1# Reps/Minutes 10x 3 Prone Exercises Hip Ext Prone Exercise Name Hip Ext Side right Equipment Used 1#, 2# Reps/Minutes 10x 2 respectively Comments Cuing needed to keep hips from rotating Sidelying Exercises Hip AB Sidelying Exercise Name Hip AB Side right Equipment Used 1#, 2# Reps/Minutes 10x 2, 10x, respectively Comments Guidance needed for leg movement Hip AD Sidelying Exercise Name Hip AD Side right Equipment Used 1# Reps/Minutes 2x 2 respectively Comments Pt able to lift confidently Gait Training Gait Activity Ambulation Description Motor control learning of steps of gait Device Used Handrailing Level of Assistance SBA>CGA Surface Level Distance/Duration 10' Self-Care/Home Management Treatment Education Patient Education Home Exercise Program Activities Self-Care/Home Management Activities Issued & reviewed HEP: STRENGTHENING: *SLR, *Sidelye Hip AB, *Prone hip extension. PT-OP-T Assessment and Plan Start: 10/29/20 16:50 Freq: Status: Active Protocol: Document 12/06/20 14:23 LRN (Rec: 12/06/20 15:07 LRN [id number]) Physical Therapy Assessment Goals Four Impairment Decreased endurance per 5xSTS (5xsit to stand) = 19.17 secs Short Term Goal (STG) Pt will demonstrate improved endurance by a decreased time with 5xSTS test (norms: ages 70-79 is 12.6 secs, ages 80-89 is 14.8 secs). (12/03/20: 5xSTS is 10 secs) STG Duration 12/12/20 (12/03/20: MET GOAL) Wet Finisher Wool Goal (LTG) Pt will be able to tolerate return to walking at her prior location ([facility]) for exercise. (11/26/20: Walked 1/4 of what she normally does) LTG Duration 01/29/21 (11/26/20: Progressing) Three Impairment Decreased R LE strength Short Term Goal (STG) Improve R LE strength in areas of weakness to at least 4/5 ( Initial: R knee: flexion 3+/5, R Hip: flex 3+/5, Ext 3/5, AD 2/5, ER 4+/5, IR 4/5, AB 5/5) . (12/03/20: R Hip: Flex & Ext 4-/ 5, AB 3/5, AD 4-/5, ER 3+/5, IR 4+/5) STG Duration 12/12/20 (12/03/20: Progressing ) Penitentiary Goal (LTG) Strengthen R LE for normal walking (with mild deficit). LTG Duration 01/29/21 Two Impairment Balance deficit(Rhomberg EC: 25; Tandem: LE Behind: 0R, 27.75L, TUG 19) Short Term Goal (STG) Improve Balance per Rhomberg Score, Tandem Score or TUG score (12/03/20: TU secs) STG Duration 12/12/20 (12/03/20: Progressing , TUG improved) Wet Finisher Wool Goal (LTG) Pt will be able to walk safetly without use of a walker per TUG score of 11-13. 6 secs. (12/03/20: 16.49 secs without assistive device, 15.43 secs with cane) LTG Duration 01/29/21 One Impairment Lacks appropriate self care HEP Penitentiary Goal (LTG) Pt will be independent in a self care HEP of LE strengthening and balance exercises appropriate for her status at discharge. (HEP ISSUED TO DATE: EDUC: BÁRBARA Perceived Exertion Scale STRENGTHENING: PRONE: *hip ext, SITTING: * hip BKFO/hip IR, *knee flexion w/TB), SUPINE: *SLR, SIDLYE: *Hip AB. LTG Duration 01/29/21 (11/19/20: Progressed) Assessment Summary Assessment 79 yo female who suffered a L CVA with residual RLE/UE. Progressing with strengthening of LE's. Need to further promote pattern of hip/knee flex & ankle DF strength and gait. Pt has good HEP. Physical Therapy Plan Frequency and Duration Frequency of Treatment 2x/Week Plan of Care Start Date 10/31/20 Plan of Care End Date 01/29/21 Next Visit Focus/Plan Next Note Type Treatment Note Next Visit Plan Review issued HEP L hip strengthening ex's. Start balance training and core strengthening. Spend time on quality gait. Progress her HEP as needed, Balance training, Gait training, and aerobic exercise at appropriate level.
--- NOTE | 2020-12-10 10:01 | PT.OTN ---
Current Diagnoses Cerebral infarction, unspecified (12/10/20) Muscle weakness (generalized) (12/10/20) Unsteadiness on feet (12/10/20) Other reduced mobility (12/10/20) Physical Therapy Treatment Note PT-OP-A Visit Information Start: 10/29/20 16:50 Freq: Status: Active Protocol: Document 12/10/20 09:08 LRN (Rec: 12/10/20 09:56 LRN [id number]) Out-Patient Physical Therapy Visit Information Visit Information Visit Type Treatment Note Visit Start Time 09:08 Visit Stop Time 09:46 Total Visit Minutes 38 Visit Number 12 PT-OP-B Current Condition Start: 10/29/20 16:50 Freq: Status: Active Protocol: Document 10/31/20 12:50 LRN (Rec: 10/31/20 13:45 LRN [id number]) Current Condition History of Current Condition Onset Date 08/13/2020 Current Complaints L CVA History of Current Condition Pt lives in [place] and is accompanied by her daughter Criss, who is her caregiver, and that lives with her. Pt was hospitalized almost 4 days at [facility] and 2 weeks at [facility]), an acute rehab , and PT/OT 2x/day. Released home 08/27/20 with daughter. Had home health until 2 weeks ago (~10/23/20 was last day), then requested outpatient physical and occupational therapy. Pt has 1 step at home and multiple grab bars in her home . Prior Treatments and Tests See above. Future Testing and Treatments Planned Occupational Therapy Evaluation. Colonoscopy in the future. Follow up with Dr. Gale Developmental History Developmental History Lives [place]. Treatment Goals Patient/Caregiver Goals Pt goal is strength R LE to walk and get back to normal, and resume exercise walking without walker, & improve balance. Pt goal is to use the R hand and will be scheduling for an occupational therapy evaluation. Prior Functional Status Baseline Function- ADL's Independent Baseline Function- Mobility Independent Baseline Function- Gait Walked in stores & [employer], walked daily at [facility] 30' . Amb w/o AD. 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 Hold R leg stiff with gait and minimal R arm swing. Not walking for exercise activity outside. 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 PT-OP-C Subjective Start: 10/29/20 16:50 Freq: Status: Active Protocol: Document 12/10/20 09:08 LRN (Rec: 12/10/20 09:56 LRN [id number]) OP-PT Subjective Patient Comments Patient Comments Fatigued, is planning on seeing her physician as to why she is so tired. Also will request to resume driving. PT-OP-D Balance Start: 10/29/20 16:50 Freq: Status: Active Protocol: Document 10/31/20 12:50 LRN (Rec: 10/31/20 13:45 LRN [id number]) OP-PT Balance Assessment Sitting Balance Static Sitting Balance Ability Normal Balance Tests Romberg Romberg EC, 25 secs Tandem Tandem Standing EO: L LE behind: 27.75 secs, R LE behind: 0 secs. Stevenson Fall Scale Copyright Permission PT-OP-E Functional Tests Start: 10/29/20 16:50 Freq: Status: Active Protocol: Document 11/26/20 12:40 LRN (Rec: 11/26/20 15:03 LRN [id number]) Functional Tests 30 Second Sit to Stand Test Score 12 Comments Std chair as in treatment room Five Times Sit to Stand Test Score 13 secss Comments Std chair as in treatment room PT-OP-J Posture/Palpation/Skin Start: 10/29/20 16:50 Freq: Status: Active Protocol: Document 10/31/20 12:50 LRN (Rec: 10/31/20 13:45 LRN [id number]) Posture Evaluation Position Standing L-Spine Posture Decreased Lordosis,Shifted Right Scapula Posture (R) Protracted,(R) Winged PT-OP-M Strength Start: 10/29/20 16:50 Freq: Status: Active Protocol: Document 12/03/20 14:20 LRN (Rec: 12/03/20 15:03 LRN [id number]) Hip Strength Hip Manual Muscle Testing Left Flexion (L2) 5 Normal Extension (S1) 4+ Good+ Abduction 4 Good Adduction 4 Good External Rotation 3+ Fair+ Internal Rotation 4+ Good+ Right Flexion (L2) 4- Good- Extension (S1) 4- Good- Abduction 3 Fair Adduction 4- Good- External Rotation 3+ Fair+ Internal Rotation 4+ Good+ PT-OP-Q Treatments Start: 10/29/20 16:50 Freq: Status: Active Protocol: Document 12/10/20 09:08 LRN (Rec: 12/10/20 09:56 LRN [id number]) Gym Equipment Cable Column (Body Solid) Leg Curl Details R knee flex w/assist of LLE at 90+ deg's, R ankle taped in DF/EV Resistance 20# Reps/Time 10x 3 Pt holding R ankle in DF/EV Shuttle Recovery Bilateral Squats Details Josemanuel Squat (DF on / foam roller Resistance 50#, 62# Josemanuel legs, 37# alt legs Reps/Time 10x, 10x 2, alt legs 1'=23 reps Unilateral Squats Details R LE squat with LLE on platform for asst if needed Resistance 37# Reps/Time 10x Therapeutic Exercises Supine Exercises Bridge Supine Exercise Name Bridge w/maximal lift Reps/Minutes 10x 3 SLR Supine Exercise Name SLR Side right Equipment Used 2#, 1#, 0# Reps/Minutes 10x each Prone Exercises Hip Ext Prone Exercise Name Hip Ext Side bilateral Equipment Used 0# Reps/Minutes 8' Comments Much Cuing needed to keep hips from rotating Sidelying Exercises Hip AB Sidelying Exercise Name Hip AB Side right Equipment Used 1#, 2# Reps/Minutes 10x 2, 10x, respectively Comments Guidance needed for leg movement Standing Exercises Hip Ext Standing Exercise Name Hip Ext Side right Reps/Minutes 1' Comments Review w/cuing of upright posturing of trunk Ankle EV Standing Exercise Name Ankle EV Side right Reps/Minutes 2' Comments Manual assist and cuing needed to stabilize LE from ER. hip abd Standing Exercise Name Hip AB Side bilateral Reps/Minutes 1' Comments Review for pt to focus on SLS on R side. Gait Training Gait Activity Ambulation Description SLS on RLE mostly, & Motor control learning of steps of gait Device Used Handrailing Level of Assistance SBA>CGA Surface Level Distance/Duration 8' PT-OP-T Assessment and Plan Start: 10/29/20 16:50 Freq: Status: Active Protocol: Document 12/10/20 09:08 LRN (Rec: 12/10/20 09:56 LRN [id number]) Physical Therapy Assessment Goals Four Impairment Decreased endurance per 5xSTS (5xsit to stand) = 19.17 secs Short Term Goal (STG) Pt will demonstrate improved endurance by a decreased time with 5xSTS test (norms: ages 70-79 is 12.6 secs, ages 80-89 is 14.8 secs). (12/03/20: 5xSTS is 10 secs) STG Duration 12/12/20 (12/03/20: MET GOAL) Information Technology Teacher Goal (LTG) Pt will be able to tolerate return to walking at her prior location ([facility]) for exercise. (11/26/20: Walked 1/4 of what she normally does) LTG Duration 01/29/21 (11/26/20: Progressing) Three Impairment Decreased R LE strength Short Term Goal (STG) Improve R LE strength in areas of weakness to at least 4/5 ( Initial: R knee: flexion 3+/5, R Hip: flex 3+/5, Ext 3/5, AD 2/5, ER 4+/5, IR 4/5, AB 5/5) . (12/03/20: R Hip: Flex & Ext 4-/ 5, AB 3/5, AD 4-/5, ER 3+/5, IR 4+/5) STG Duration 12/12/20 (12/03/20: Progressing ) Information Technology Teacher Goal (LTG) Strengthen R LE for normal walking (with mild deficit). LTG Duration 01/29/21 Two Impairment Balance deficit(Rhomberg EC: 25; Tandem: LE Behind: 0R, 27.75L, TUG 19) Short Term Goal (STG) Improve Balance per Rhomberg Score, Tandem Score or TUG score (12/03/20: TU secs) STG Duration 12/12/20 (12/03/20: Progressing , TUG improved) Correction Goal (LTG) Pt will be able to walk safetly without use of a walker per TUG score of 11-13. 6 secs. (12/03/20: 16.49 secs without assistive device, 15.43 secs with cane) LTG Duration 01/29/21 One Impairment Lacks appropriate self care HEP Information Technology Teacher Goal (LTG) Pt will be independent in a self care HEP of LE strengthening and balance exercises appropriate for her status at discharge. (HEP ISSUED TO DATE: EDUC: BÁRBARA Perceived Exertion Scale STRENGTHENING: PRONE: *hip ext, SITTING: * hip BKFO/hip IR, *knee flexion w/TB), SUPINE: *SLR, SIDLYE: *Hip AB. LTG Duration 01/29/21 (11/19/20: Progressed) Progress Towards Goals Progress Comments Strengthening progressed. Assessment Summary Assessment 79 yo female who suffered a L CVA with residual RLE/UE. Pt fatigued and weak in R leg after therapy. Pt has good recall of home ex's but needs help with hip AB & ext for range and proper movement. Pt more tired today, fatigued more quickly, lower tolerance to exercise. Physical Therapy Plan Frequency and Duration Frequency of Treatment 2x/Week Plan of Care Start Date 10/31/20 Plan of Care End Date 01/29/21 Next Visit Focus/Plan Next Note Type Treatment Note Next Visit Plan Start with balance training activities, core strengthening , and end with LE strengthening. Add ankle EV strengthening. Spend time on quality gait. Gait training, and aerobic exercise at appropriate level. Progress her HEP as needed.
--- NOTE | 2020-12-13 13:02 | PT.OTN ---
Current Diagnoses Cerebral infarction, unspecified (12/13/20) Muscle weakness (generalized) (12/13/20) Unsteadiness on feet (12/13/20) Other reduced mobility (12/13/20) Physical Therapy Treatment Note PT-OP-A Visit Information Start: 10/29/20 16:50 Freq: Status: Active Protocol: Document 12/13/20 12:14 SP (Rec: 12/13/20 14:02 SP [id number]) Out-Patient Physical Therapy Visit Information Visit Information Visit Type Treatment Note Visit Start Time 12:15 Visit Stop Time 13:02 Total Visit Minutes 47 Visit Number 13 Number of PROPERTY CLAIMS ADJUSTER Visits 1 Precautions Precautions Arthritis, uncontrolled HBP, uncontrolled Diabetes type II, Depression, headaches, dizziness occasionally, 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 PT-OP-B Current Condition Start: 10/29/20 16:50 Freq: Status: Active Protocol: Document 10/31/20 12:50 LRN (Rec: 10/31/20 13:45 LRN [id number]) Current Condition History of Current Condition Onset Date 08/13/2020 Current Complaints L CVA History of Current Condition Pt lives in [place] and is accompanied by her daughter Criss, who is her caregiver, and that lives with her. Pt was hospitalized almost 4 days at [facility] and 2 weeks at [facility] ([facility]), an acute rehab , and PT/OT 2x/day. Released home 08/27/20 with daughter. Had home health until 2 weeks ago (~10/23/20 was last day), then requested outpatient physical and occupational therapy. Pt has 1 step at home and multiple grab bars in her home . Prior Treatments and Tests See above. Future Testing and Treatments Planned Occupational Therapy Evaluation. Colonoscopy in the future. Follow up with Dr. Gale Developmental History Developmental History Lives [place]. Treatment Goals Patient/Caregiver Goals Pt goal is strength R LE to walk and get back to normal, and resume exercise walking without walker, & improve balance. Pt goal is to use the R hand and will be scheduling for an occupational therapy evaluation. Prior Functional Status Baseline Function- ADL's Independent Baseline Function- Mobility Independent Baseline Function- Gait Walked in [employer] & [employer], walked daily at [facility] 30' . Amb w/o AD. 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 Hold R leg stiff with gait and minimal R arm swing. Not walking for exercise activity outside. 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 PT-OP-C Subjective Start: 10/29/20 16:50 Freq: Status: Active Protocol: Document 12/13/20 12:14 SP (Rec: 12/13/20 14:05 SP [id number]) OP-PT Subjective Patient Comments Patient Comments Pt stated I am little tired, trying to do all the exercises learned and feel am getting stronger. I want to get a rowing machine. PT-OP-D Balance Start: 10/29/20 16:50 Freq: Status: Active Protocol: Document 10/31/20 12:50 LRN (Rec: 10/31/20 13:45 LRN [id number]) OP-PT Balance Assessment Sitting Balance Static Sitting Balance Ability Normal Balance Tests Romberg Romberg EC, 25 secs Tandem Tandem Standing EO: L LE behind: 27.75 secs, R LE behind: 0 secs. Stevenson Fall Scale Copyright Permission PT-OP-E Functional Tests Start: 10/29/20 16:50 Freq: Status: Active Protocol: Document 11/26/20 12:40 LRN (Rec: 11/26/20 15:03 LRN [id number]) Functional Tests 30 Second Sit to Stand Test Score 12 Comments Std chair as in treatment room Five Times Sit to Stand Test Score 13 secss Comments Std chair as in treatment room PT-OP-J Posture/Palpation/Skin Start: 10/29/20 16:50 Freq: Status: Active Protocol: Document 10/31/20 12:50 LRN (Rec: 10/31/20 13:45 LRN [id number]) Posture Evaluation Position Standing L-Spine Posture Decreased Lordosis,Shifted Right Scapula Posture (R) Protracted,(R) Winged PT-OP-M Strength Start: 10/29/20 16:50 Freq: Status: Active Protocol: Document 12/03/20 14:20 LRN (Rec: 03/09/21 15:03 LRN [id number]) Hip Strength Hip Manual Muscle Testing Left Flexion (L2) 5 Normal Extension (S1) 4+ Good+ Abduction 4 Good Adduction 4 Good External Rotation 3+ Fair+ Internal Rotation 4+ Good+ Right Flexion (L2) 4- Good- Extension (S1) 4- Good- Abduction 3 Fair Adduction 4- Good- External Rotation 3+ Fair+ Internal Rotation 4+ Good+ PT-OP-Q Treatments Start: 10/29/20 16:50 Freq: Status: Active Protocol: Document 12/13/20 12:14 SP (Rec: 12/13/20 14:02 SP [id number]) Gym Equipment Cable Column (Body Solid) Leg Curl Details R knee flex w/assist of LLE at 90+ deg's Resistance 20# Reps/Time 20x 3 cued pt holding R ankle in DF/EV Shuttle Recovery Bilateral Squats Details Josemanuel Squat (DF on 1/2 foam roller Resistance 62# Josemanuel legs Shuttle Recovery Platform Stable Reps/Time 2x30 Unilateral Squats Details alternate LE (DF on 1/2 foam roller) Resistance 37# R, 50 # L Shuttle Recovery Platform Stable Reps/Time 30x each Therapeutic Exercises Supine Exercises SLR Supine Exercise Name SLR Side right Equipment Used AROM Reps/Minutes x15 each Prone Exercises Hip Ext Prone Exercise Name Hip Ext Side bilateral Equipment Used AROM Reps/Minutes x15 each Comments Much Cuing needed to keep hips from rotating Sidelying Exercises Hip AB Sidelying Exercise Name Hip AB Side bilateral Equipment Used AROM Reps/Minutes x15 each Comments Guidance needed for leg movement Standing Exercises Hip Ext Standing Exercise Name Hip Ext Side right Reps/Minutes 1' (20 reps) Comments Review w/cuing of upright posturing of trunk, relax shlds Ankle EV Standing Exercise Name Ankle EV Side right Reps/Minutes 2' Comments occasional manual assist Wall slides Standing Exercise Name Wall slide (45-50 deg squat)- discussed/not performed Side bilateral Reps/Minutes 2 sets of 30 reps in 47 sec each (3 min total) Comments Gait Belt for CGA, cued slow pacing control hip abd Standing Exercise Name Hip AB Side bilateral Reps/Minutes 1' ( 20 reps) Comments Review for pt to focus on SLS on R side. PT-OP-T Assessment and Plan Start: 10/29/20 16:50 Freq: Status: Active Protocol: Document 12/13/20 12:14 SP (Rec: 12/13/20 14:02 SP [id number]) Physical Therapy Assessment Goals Four Impairment Decreased endurance per 5xSTS (5xsit to stand) = 19.17 secs Short Term Goal (STG) Pt will demonstrate improved endurance by a decreased time with 5xSTS test (norms: ages 70-79 is 12.6 secs, ages 80-89 is 14.8 secs). (12/03/20: 5xSTS is 10 secs) STG Duration 12/12/20 (12/03/20: MET GOAL) Penitentiary Goal (LTG) Pt will be able to tolerate return to walking at her prior location ([facility]) for exercise. (11/26/20: Walked 1/4 of what she normally does) LTG Duration 01/29/21 (11/26/20: Progressing) Three Impairment Decreased R LE strength Short Term Goal (STG) Improve R LE strength in areas of weakness to at least 4/5 ( Initial: R knee: flexion 3+/5, R Hip: flex 3+/5, Ext 3/5, AD 2/5, ER 4+/5, IR 4/5, AB 5/5) . (12/03/20: R Hip: Flex & Ext 4-/ 5, AB 3/5, AD 4-/5, ER 3+/5, IR 4+/5) STG Duration 12/12/20 (12/03/20: Progressing ) Bagger Meat Goal (LTG) Strengthen R LE for normal walking (with mild deficit). LTG Duration 01/29/21 Two Impairment Balance deficit(Rhomberg EC: 25; Tandem: LE Behind: 0R, 27.75L, TUG 19) Short Term Goal (STG) Improve Balance per Rhomberg Score, Tandem Score or TUG score (12/03/20: TU secs) STG Duration 12/12/20 (12/03/20: Progressing , TUG improved) Penitentiary Goal (LTG) Pt will be able to walk safetly without use of a walker per TUG score of 11-13. 6 secs. (12/03/20: 16.49 secs without assistive device, 15.43 secs with cane) LTG Duration 01/29/21 One Impairment Lacks appropriate self care HEP Penitentiary Goal (LTG) Pt will be independent in a self care HEP of LE strengthening and balance exercises appropriate for her status at discharge. (HEP ISSUED TO DATE: EDUC: BÁRBARA Perceived Exertion Scale STRENGTHENING: PRONE: *hip ext, SITTING: * hip BKFO/hip IR, *knee flexion w/TB), SUPINE: *SLR, SIDLYE: *Hip AB. LTG Duration 01/29/21 (11/19/20: Progressed) Assessment Summary Assessment Pt improving in HEP, only occasional cuing for RLE EV neutral ankle during HS curl, hip abd, hip ext good self correction post cue. Provided HO for standing exercises for form and HEP recall. Physical Therapy Plan Frequency and Duration Frequency of Treatment 2x/Week Plan of Care Start Date 10/31/20 Plan of Care End Date 01/29/21 Therapeutic Interventions Therapeutic Interventions Balance Training,Coordination Training,Gait Training,Home Exercise Program,Manual Therapy,Neuromuscular Re- education,Patient/Caregiver Education,Self-Care/Home Management,Soft Tissue Mobilization,Taping, Therapeutic Activities, Therapeutic Exercises Modalities Cold Pack/Ice Massage,Hot Packs Next Visit Focus/Plan Next Note Type Treatment Note Next Visit Plan Start with quality gait, balance training activities next tx, then core strengthening, and end with LE strengthening. Add ankle EV strengthening. Gait training, and aerobic exercise at appropriate level. Progress her HEP as needed.
--- NOTE | 2020-12-17 15:21 | PT.OTN ---
Current Diagnoses Cerebral infarction, unspecified (12/17/20) Muscle weakness (generalized) (12/17/20) Unsteadiness on feet (12/17/20) Other reduced mobility (12/17/20) Physical Therapy Treatment Note PT-OP-A Visit Information Start: 10/29/20 16:50 Freq: Status: Active Protocol: Document 12/17/20 14:19 LRN (Rec: 12/17/20 15:19 LRN [id number]) Out-Patient Physical Therapy Visit Information Visit Information Visit Type Treatment Note Visit Start Time 14:20 Visit Stop Time 15:04 Total Visit Minutes 44 Visit Number 14 PT-OP-B Current Condition Start: 10/29/20 16:50 Freq: Status: Active Protocol: Document 10/31/20 12:50 LRN (Rec: 10/31/20 13:45 LRN [id number]) Current Condition History of Current Condition Onset Date 08/13/2020 Current Complaints L CVA History of Current Condition Pt lives in [place] and is accompanied by her daughter Criss, who is her caregiver, and that lives with her. Pt was hospitalized almost 4 days at [facility] and 2 weeks at [facility]), an acute rehab , and PT/OT 2x/day. Released home 08/27/20 with daughter. Had home health until 2 weeks ago (~10/23/20 was last day), then requested outpatient physical and occupational therapy. Pt has 1 step at home and multiple grab bars in her home . Prior Treatments and Tests See above. Future Testing and Treatments Planned Occupational Therapy Evaluation. Colonoscopy in the future. Follow up with Dr. Gale Developmental History Developmental History Lives [place]. Treatment Goals Patient/Caregiver Goals Pt goal is strength R LE to walk and get back to normal, and resume exercise walking without walker, & improve balance. Pt goal is to use the R hand and will be scheduling for an occupational therapy evaluation. Prior Functional Status Baseline Function- ADL's Independent Baseline Function- Mobility Independent Baseline Function- Gait Walked in stores & [employer], walked daily at [facility] 30' . Amb w/o AD. 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 Hold R leg stiff with gait and minimal R arm swing. Not walking for exercise activity outside. 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 PT-OP-C Subjective Start: 10/29/20 16:50 Freq: Status: Active Protocol: Document 12/13/20 12:14 SP (Rec: 12/13/20 14:05 SP [id number]) OP-PT Subjective Patient Comments Patient Comments Pt stated I am little tired, trying to do all the exercises learned and feel am getting stronger. I want to get a rowing machine. PT-OP-D Balance Start: 10/29/20 16:50 Freq: Status: Active Protocol: Document 10/31/20 12:50 LRN (Rec: 10/31/20 13:45 LRN [id number]) OP-PT Balance Assessment Sitting Balance Static Sitting Balance Ability Normal Balance Tests Romberg Romberg EC, 25 secs Tandem Tandem Standing EO: L LE behind: 27.75 secs, R LE behind: 0 secs. Stevenson Fall Scale Copyright Permission PT-OP-E Functional Tests Start: 10/29/20 16:50 Freq: Status: Active Protocol: Document 11/26/20 12:40 LRN (Rec: 11/26/20 15:03 LRN [id number]) Functional Tests 30 Second Sit to Stand Test Score 12 Comments Std chair as in treatment room Five Times Sit to Stand Test Score 13 secss Comments Std chair as in treatment room PT-OP-J Posture/Palpation/Skin Start: 10/29/20 16:50 Freq: Status: Active Protocol: Document 10/31/20 12:50 LRN (Rec: 10/31/20 13:45 LRN [id number]) Posture Evaluation Position Standing L-Spine Posture Decreased Lordosis,Shifted Right Scapula Posture (R) Protracted,(R) Winged PT-OP-M Strength Start: 10/29/20 16:50 Freq: Status: Active Protocol: Document 12/03/20 14:20 LRN (Rec: 12/03/20 15:03 LRN [id number]) Hip Strength Hip Manual Muscle Testing Left Flexion (L2) 5 Normal Extension (S1) 4+ Good+ Abduction 4 Good Adduction 4 Good External Rotation 3+ Fair+ Internal Rotation 4+ Good+ Right Flexion (L2) 4- Good- Extension (S1) 4- Good- Abduction 3 Fair Adduction 4- Good- External Rotation 3+ Fair+ Internal Rotation 4+ Good+ PT-OP-Q Treatments Start: 10/29/20 16:50 Freq: Status: Active Protocol: Document 12/17/20 14:19 LRN (Rec: 12/17/20 15:19 LRN [id number]) Cardio Equipment Recumbent Elliptical ([employer]) Duration (Minutes) 10 Resistance Lev 2 working fairly light to somewhat hard Seat Position Full forward & seat 5 for last 3 minutes Other R foot strapped in. R LE: lift (from little toe) Neuro Re-Education Treatment Balance Activities Corner balance ex's Details EC: 15-30 Hand hovering or across chest; EO toe/heel raises & marching Surface Level Equipment Corner/chair in front Comments Progressed from holding chair >Hands hovering>hands crossed on chest. Tandem stance Details Tandem Stance Surface Level Reps/Duration 4' Comments R foot behind is more unsteady Balance step up and down Details Step up and down, leading RLE Surface 6 step Equipment // bars, 6 step Reps/Duration 8' Comments LOB, pt used railing for stability Balance 1 foot Details Balance R foot Surface Level Equipment // bars Reps/Duration 5' Comments LOB, pt used railing for stability Swing Leg back Details Swiing leg back Surface Level Equipment // bars Reps/Duration 5' Toe Raises Details Toe Raises w/o hand assist Surface Level Equipment // bars Reps/Duration 10x each Comments No LOB Step outs Details Step out to side and back w/o hand hold Surface Level Equipment // bars Reps/Duration 10x each Comments No LOB Self-Care/Home Management Treatment Activities Self-Care/Home Management Activities Discussed Plan of Care and decided to increase time between therapy for pt to work on improving endurance at self pace around park at home. PT-OP-T Assessment and Plan Start: 10/29/20 16:50 Freq: Status: Active Protocol: Document 12/17/20 14:19 LRN (Rec: 12/17/20 15:19 LRN [id number]) Physical Therapy Assessment Goals Four Impairment Decreased endurance per 5xSTS (5xsit to stand) = 19.17 secs Short Term Goal (STG) Pt will demonstrate improved endurance by a decreased time with 5xSTS test (norms: ages 70-79 is 12.6 secs, ages 80-89 is 14.8 secs). (12/03/20: 5xSTS is 10 secs) STG Duration 12/12/20 (12/03/20: MET GOAL) Sap Project Manager Goal (LTG) Pt will be able to tolerate return to walking at her prior location ([facility]) for exercise. (11/26/20: Walked 1/4 of what she normally does) LTG Duration 01/29/21 (11/26/20: Progressing) Three Impairment Decreased R LE strength Short Term Goal (STG) Improve R LE strength in areas of weakness to at least 4/5 ( Initial: R knee: flexion 3+/5, R Hip: flex 3+/5, Ext 3/5, AD 2/5, ER 4+/5, IR 4/5, AB 5/5) . (12/03/20: R Hip: Flex & Ext 4-/ 5, AB 3/5, AD 4-/5, ER 3+/5, IR 4+/5) STG Duration 12/12/20 (12/03/20: Progressing ) Sap Project Manager Goal (LTG) Strengthen R LE for normal walking (with mild deficit). LTG Duration 01/29/21 Two Impairment Balance deficit(Rhomberg EC: 25; Tandem: LE Behind: 0R, 27.75L, TUG 19) Short Term Goal (STG) Improve Balance per Rhomberg Score, Tandem Score or TUG score (12/03/20: TU secs) STG Duration 12/12/20 (12/03/20: Progressing , TUG improved) Sap Project Manager Goal (LTG) Pt will be able to walk safetly without use of a walker per TUG score of 11-13. 6 secs. (12/03/20: 16.49 secs without assistive device, 15.43 secs with cane) LTG Duration 01/29/21 One Impairment Lacks appropriate self care HEP Retirement Goal (LTG) Pt will be independent in a self care HEP of LE strengthening and balance exercises appropriate for her status at discharge. (HEP ISSUED TO DATE: EDUC: BÁRBARA Perceived Exertion Scale STRENGTHENING: PRONE: *hip ext, SITTING: * hip BKFO/hip IR, *knee flexion w/TB), SUPINE: *SLR, SIDLYE: *Hip AB. BALANCE: SLS, step up/downs, tandem, corner balance ex's ( EC standing, EO toe/heel raises & marching). LTG Duration 01/29/21 (12/17/20: Progressed) Progress Towards Goals Progress Comments Progressed HEP with balance exercises. Assessment Summary Assessment Pt able to balance with side step, toe ups and kick backs, and marching. She was not able to consistently balance with SLS, step up/downs and tandem stance with UE support available. Pt was mildly decreased in corner balance ex 's of eyes closed standing and eyes open toe/heel raises/ marching. Physical Therapy Plan Frequency and Duration Frequency of Treatment 2x/Week Plan of Care Start Date 10/31/20 Plan of Care End Date 01/29/21 Next Visit Focus/Plan Next Note Type Treatment Note Next Visit Plan DC in 2 visits. Next visit, review balance HEP. Assess LE strength; TUG, Rhomberg, or Tandem stance. Pt to work on increasing walking distance; recheck endurance per subjective report of walking in 3 weeks with expected DC.
--- NOTE | 2020-12-23 17:47 | PT.OTN ---
Current Diagnoses Cerebral infarction, unspecified (12/23/20) Muscle weakness (generalized) (12/23/20) Unsteadiness on feet (12/23/20) Other reduced mobility (12/23/20) Physical Therapy Treatment Note PT-OP-A Visit Information Start: 10/29/20 16:50 Freq: Status: Active Protocol: Document 12/23/20 10:32 LRN (Rec: 12/23/20 11:22 LRN [id number]) Out-Patient Physical Therapy Visit Information Visit Information Visit Type Treatment Note Visit Start Time 10:32 Visit Stop Time 11:21 Total Visit Minutes 49 Visit Number 15 Evaluation Information Evaluation Date 10/31/20 Precautions Precautions Arthritis, uncontrolled HBP, uncontrolled Diabetes type II, Depression, headaches, dizziness occasionally, 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 PT-OP-B Current Condition Start: 10/29/20 16:50 Freq: Status: Active Protocol: Document 10/31/20 12:50 LRN (Rec: 10/31/20 13:45 LRN [id number]) Current Condition History of Current Condition Onset Date 08/13/2020 Current Complaints L CVA History of Current Condition Pt lives in [place] and is accompanied by her daughter Criss, who is her caregiver, and that lives with her. Pt was hospitalized almost 4 days at [facility] and 2 weeks at [facility] an acute rehab , and PT/OT 2x/day. Released home 08/27/20 with daughter. Had home health until 2 weeks ago (~10/23/20 was last day), then requested outpatient physical and occupational therapy. Pt has 1 step at home and multiple grab bars in her home . Prior Treatments and Tests See above. Future Testing and Treatments Planned Occupational Therapy Evaluation. Colonoscopy in the future. Follow up with Dr. Gale Developmental History Developmental History Lives [place]. Treatment Goals Patient/Caregiver Goals Pt goal is strength R LE to walk and get back to normal, and resume exercise walking without walker, & improve balance. Pt goal is to use the R hand and will be scheduling for an occupational therapy evaluation. Prior Functional Status Baseline Function- ADL's Independent Baseline Function- Mobility Independent Baseline Function- Gait Walked in [employer], walked daily at [facility] 30' . Amb w/o AD. 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 Hold R leg stiff with gait and minimal R arm swing. Not walking for exercise activity outside. 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 PT-OP-C Subjective Start: 10/29/20 16:50 Freq: Status: Active Protocol: Document 12/23/20 10:32 LRN (Rec: 12/23/20 11:22 LRN [id number]) OP-PT Subjective Patient Comments Patient [place] and feels she has achieved the goal of walking that she wanted to. She is concerned though that she is feeling so tired all the time. This morning she is tired and feels weak. PT-OP-D Balance Start: 10/29/20 16:50 Freq: Status: Active Protocol: Document 10/31/20 12:50 LRN (Rec: 10/31/20 13:45 LRN [id number]) OP-PT Balance Assessment Sitting Balance Static Sitting Balance Ability Normal Balance Tests Romberg Romberg EC, 25 secs Tandem Tandem Standing EO: L LE behind: 27.75 secs, R LE behind: 0 secs. Stevenson Fall Scale Copyright Permission PT-OP-E Functional Tests Start: 10/29/20 16:50 Freq: Status: Active Protocol: Document 12/23/20 10:32 LRN (Rec: 12/23/20 11:22 LRN [id number]) Functional Tests 30 Second Sit to Stand Test Score 15x Comments Webbed chair (18 high seat) Five Times Sit to Stand Test Score 9 sec Comments Webbed chair (18 high seat). Timed Up and Go (TUG) Score 17 Comments No AD TUG Impairment Rating 60 to <80% Impaired (Score 16- 17) PT-OP-J Posture/Palpation/Skin Start: 10/29/20 16:50 Freq: Status: Active Protocol: Document 10/31/20 12:50 LRN (Rec: 10/31/20 13:45 LRN [id number]) Posture Evaluation Position Standing L-Spine Posture Decreased Lordosis,Shifted Right Scapula Posture (R) Protracted,(R) Winged PT-OP-M Strength Start: 10/29/20 16:50 Freq: Status: Active Protocol: Document 12/23/20 10:32 LRN (Rec: 12/23/20 11:22 LRN [id number]) Hip Strength Hip Manual Muscle Testing Left Flexion (L2) 5 Normal Abduction 5 Normal Adduction 4- Good- External Rotation 4 Good Internal Rotation 4 Good Right Flexion (L2) 5 Normal Extension (S1) 4- Good- Abduction 4+ Good+ Adduction 4 Good External Rotation 3 Fair Internal Rotation 3+ Fair+ Knee Strength Knee Manual Muscle Testing Left Flexion (S2) 5 Normal Extension (L3) 5 Normal Right Flexion (S2) 5 Normal Extension (L3) 5 Normal Ankle/Foot Strength Ankle and Foot Manual Muscle Testing Left Dorsiflexion (L4) 5 Normal Plantarflexion (S1) 5 Normal Inversion 5 Normal Eversion (S1) 5 Normal Right Dorsiflexion (L4) 4+ Good+ Plantarflexion (S1) 5 Normal Inversion 5 Normal Eversion (S1) 5 Normal PT-OP-Q Treatments Start: 10/29/20 16:50 Freq: Status: Active Protocol: Document 12/23/20 10:32 LRN (Rec: 12/23/20 11:22 LRN [id number]) Cardio Equipment Recumbent Elliptical ([employer]) Duration (Minutes) 10 Resistance Lev 2 working fairly light to somewhat hard Seat Position Full forward Other R foot strapped in. R LE: lift (from little toe) Therapeutic Exercises Prone Exercises Hip Ext Prone Exercise Name Hip ext Side right Reps/Minutes 15x 2 Comments Phys cuing needed to keep core stable, MMT taken Sidelying Exercises Hip AB Sidelying Exercise Name Hip AB Side right Reps/Minutes 15x2 Comments Guidance needed for leg movement, MMT taken Hip AD Sidelying Exercise Name Hip AD Side right Reps/Minutes 14x2 Comments Phys cuing needed, MMT taken Sitting Exercises Hip ER Sitting Exercise Name Hip ER Side right Comments MMT taken Hip IR Sitting Exercise Name Hip IR Side bilateral Comments MMT taken Gait Training Gait Activity Ambulation Description Gait training for heel strike on L side. Device Used With and without a cane Level of Assistance CGA Surface Level Distance/Duration 8' Treatment Focus Heel strike strong on strong leg (L) Self-Care/Home Management Treatment Education Patient Education Home Exercise Program Activities Self-Care/Home Management Activities Issued & reviewed HEP: Hip AD . Reviewed Hip Ext & ER/IR of HEP. PT-OP-T Assessment and Plan Start: 10/29/20 16:50 Freq: Status: Active Protocol: Document 12/23/20 10:32 LRN (Rec: 12/23/20 11:22 LRN [id number]) Physical Therapy Assessment Goals Four Impairment Decreased endurance per 5xSTS (5xsit to stand) = 19.17 secs Short Term Goal (STG) Pt will demonstrate improved endurance by a decreased time with 5xSTS test (norms: ages 70-79 is 12.6 secs, ages 80-89 is 14.8 secs). (12/23/20: 5xSTS is 10 secs) STG Duration 12/12/20 (12/03/20: MET GOAL) Care Home Goal (LTG) Pt will be able to tolerate return to walking at her prior location ([facility]) for exercise. (12/23/20: Walked normal route over weekend) LTG Duration 01/29/21 (12/23/20: MET GOAL) Three Impairment Decreased R LE strength Short Term Goal (STG) Improve R LE strength in areas of weakness to at least 4/5 ( Initial: R knee: flexion 3+/5, R Hip: flex 3+/5, Ext 3/5, AD 2/5, ER 4+/5, IR 4/5, AB 5/5) . (12/23/20: R Hip: Flex 5/5, Ext 4-/5, AD 4/5, ER 3/5, IR 3+/5 , AB 4+/5) STG Duration 12/12/20 (12/23/20: Improved flex,ext, & AD) Care Home Goal (LTG) Strengthen R LE for normal walking (with mild deficit). LTG Duration 01/29/21 Two Impairment Balance deficit(Rhomberg EC: 25; Tandem: LE Behind: 0R, 27.75L, TUG 19) Short Term Goal (STG) Improve Balance per Rhomberg Score, Tandem Score or TUG score (initial 19.17 secs) (12/23/20: TU secs) STG Duration 12/12/20 (12/23/20: MET GOAL: TUG improved) Care Home Goal (LTG) Pt will be able to walk safetly without use of a walker per TUG score of 11-13. 6 secs. (12/03/20: 16.49 secs without assistive device, 15.43 secs with cane) LTG Duration 01/29/21 One Impairment Lacks appropriate self care HEP Care Home Goal (LTG) Pt will be independent in a self care HEP of LE strengthening and balance exercises appropriate for her status at discharge. (HEP ISSUED TO DATE: EDUC: BÁRBARA Perceived Exertion Scale STRENGTHENING: PRONE: *hip ext, SITTING: * hip BKFO/hip IR, *knee flexion w/TB), SUPINE: *SLR, SIDLYE: *Hip AB. *Hip AD BALANCE: SLS, step up/downs, tandem, corner balance ex's ( EC standing, EO toe/heel raises & marching). LTG Duration 01/29/21 (12/17/20: Progressed) Progress Towards Goals Progress Comments LTG #4 MET. Endurance has improved: 5xSTS improved from taking 10 secs to 9 secs & 30 sec sit<>stand improved from 12 to 15 times. Goal #3 Progressing with improved R hip strength in flex, ext, & AD. Progressed HEP: Added hip AD strengthening. 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 Her R hip strength has improved in flex, ext & AD. Weakness is present with R hip AB, ER/IR. Pt is able walk her [employer] route x1. Her gait improved with training of heel strike on the L side (normal side). Physical Therapy Plan Frequency and Duration Frequency of Treatment 2x/Week Plan of Care Start Date 10/31/20 Plan of Care End Date 01/29/21 Next Visit Focus/Plan Next Note Type Treatment Note Next Visit Plan DC in 1 visit. Next visit, review balance HEP. Assess Rhomberg, or Tandem stance. Gait training without use of cane.
--- NOTE | 2020-12-27 16:13 | PT.OTN ---
Current Diagnoses Cerebral infarction, unspecified (12/27/20) Muscle weakness (generalized) (12/27/20) Unsteadiness on feet (12/27/20) Other reduced mobility (12/27/20) Physical Therapy Treatment Note PT-OP-A Visit Information Start: 10/29/20 16:50 Freq: Status: Active Protocol: Document 12/27/20 08:16 LRN (Rec: 12/27/20 09:05 LRN [id number]) Out-Patient Physical Therapy Visit Information Visit Information Visit Type Treatment Note Visit Start Time 08:15 Visit Stop Time 08:55 Total Visit Minutes 40 Visit Number 26 Evaluation Information Evaluation Date 10/31/20 Precautions Precautions Arthritis, uncontrolled HBP, uncontrolled Diabetes type II, Depression, headaches, dizziness occasionally, 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 PT-OP-B Current Condition Start: 10/29/20 16:50 Freq: Status: Active Protocol: Document 10/31/20 12:50 LRN (Rec: 10/31/20 13:45 LRN [id number]) Current Condition History of Current Condition Onset Date 08/13/2020 Current Complaints L CVA History of Current Condition Pt lives in [place] and is accompanied by her daughter Criss, who is her caregiver, and that lives with her. Pt was hospitalized almost 4 days at [facility] and 2 weeks at [facility] ([facility]), an acute rehab , and PT/OT 2x/day. Released home 08/27/20 with daughter. Had home health until 2 weeks ago (~10/23/20 was last day), then requested outpatient physical and occupational therapy. Pt has 1 step at home and multiple grab bars in her home . Prior Treatments and Tests See above. Future Testing and Treatments Planned Occupational Therapy Evaluation. Colonoscopy in the future. Follow up with Dr. Gale Developmental History Developmental History Lives [place]. Treatment Goals Patient/Caregiver Goals Pt goal is strength R LE to walk and get back to normal, and resume exercise walking without walker, & improve balance. Pt goal is to use the R hand and will be scheduling for an occupational therapy evaluation. Prior Functional Status Baseline Function- ADL's Independent Baseline Function- Mobility Independent Baseline Function- Gait Walked in [place] [employer], walked daily at [facility] 30' . Amb w/o AD. 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 Hold R leg stiff with gait and minimal R arm swing. Not walking for exercise activity outside. 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 PT-OP-C Subjective Start: 10/29/20 16:50 Freq: Status: Active Protocol: Document 12/27/20 08:16 LRN (Rec: 12/27/20 09:05 LRN [id number]) OP-PT Subjective Patient Comments [place] Ready for [place] and will continue walking and exercising at home. No complaints of pain. PT-OP-D Balance Start: 10/29/20 16:50 Freq: Status: Active Protocol: Document 12/27/20 08:16 LRN (Rec: 12/27/20 09:05 LRN [id number]) Balance Tests Romberg Romberg EC, 60+ secs Tandem Tandem Standing EO: L LE behind: 47.29 secs, R LE behind: 10 secs. PT-OP-E Functional Tests Start: 10/29/20 16:50 Freq: Status: Active Protocol: Document 12/27/20 08:16 LRN (Rec: 12/27/20 09:05 LRN [id number]) Functional Tests 30 Second Sit to Stand Test Score 14x Comments Webbed chair (18 high seat) Five Times Sit to Stand Test Score 10 secs Comments Webbed chair (18 high seat). Timed Up and Go (TUG) Score 15 secs Comments No AD TUG Impairment Rating 40 to <60% Impaired (Score 14- 15) PT-OP-J Posture/Palpation/Skin Start: 10/29/20 16:50 Freq: Status: Active Protocol: Document 10/31/20 12:50 LRN (Rec: 10/31/20 13:45 LRN [id number]) Posture Evaluation Position Standing L-Spine Posture Decreased Lordosis,Shifted Right Scapula Posture (R) Protracted,(R) Winged PT-OP-M Strength Start: 10/29/20 16:50 Freq: Status: Active Protocol: Document 12/23/20 10:32 LRN (Rec: 12/23/20 11:22 LRN [id number]) Hip Strength Hip Manual Muscle Testing Left Flexion (L2) 5 Normal Abduction 5 Normal Adduction 4- Good- External Rotation 4 Good Internal Rotation 4 Good Right Flexion (L2) 5 Normal Extension (S1) 4- Good- Abduction 4+ Good+ Adduction 4 Good External Rotation 3 Fair Internal Rotation 3+ Fair+ Knee Strength Knee Manual Muscle Testing Left Flexion (S2) 5 Normal Extension (L3) 5 Normal Right Flexion (S2) 5 Normal Extension (L3) 5 Normal Ankle/Foot Strength Ankle and Foot Manual Muscle Testing Left Dorsiflexion (L4) 5 Normal Plantarflexion (S1) 5 Normal Inversion 5 Normal Eversion (S1) 5 Normal Right Dorsiflexion (L4) 4+ Good+ Plantarflexion (S1) 5 Normal Inversion 5 Normal Eversion (S1) 5 Normal PT-OP-Q Treatments Start: 10/29/20 16:50 Freq: Status: Active Protocol: Document 12/27/20 08:16 LRN (Rec: 12/27/20 09:05 LRN [id number]) Therapeutic Exercises Sitting Exercises Ankle EV Sitting Exercise Name Ankle EV Side bilateral Equipment Used TBand Reps/Minutes 15x Ankle DF Sitting Exercise Name Ankle DF Side bilateral Equipment Used TBand Reps/Minutes 15x Standing Exercises SLS with opposite leg swings Standing Exercise Name SLS w/opposite leg swings Side bilateral Hip Ext Standing Exercise Name Hip Ext Side right Reps/Minutes 1' (20 reps) Comments Review w/cuing of upright posturing of trunk, relax shlds Ankle EV Standing Exercise Name Ankle EV Side bilateral hip abd Standing Exercise Name Hip AB Side bilateral Reps/Minutes 1' ( 20 reps) Comments Review for pt to focus on SLS on R side. Gait Training Gait Activity Ambulation Description Gait training for heel strike es & Not locking L knee on HS /stance. Device Used With cane assist for arm swing /without a cane Level of Assistance CGA with canse Surface Level Distance/Duration 10' Treatment Focus Heel strike, NOT locking L knee & normal arm swings Self-Care/Home Management Treatment Education Patient Education Home Exercise Program Activities Self-Care/Home Management Activities Issued & reviewed HEP: *Ankle EV & DF strengthening with TBand. Issued Lev 2 TBand. PT-OP-T Assessment and Plan Start: 10/29/20 16:50 Freq: Status: Active Protocol: Document 12/27/20 08:16 LRN (Rec: 12/27/20 09:05 LRN [id number]) Physical Therapy Assessment Goals Four Impairment Decreased endurance per 5xSTS (5xsit to stand) = 19.17 secs Short Term Goal (STG) Pt will demonstrate improved endurance by a decreased time with 5xSTS test (norms: ages 70-79 is 12.6 secs, ages 80-89 is 14.8 secs). (12/23/20: 5xSTS is 10 secs) STG Duration 12/12/20 (12/03/20: MET GOAL) Group Home Goal (LTG) Pt will be able to tolerate return to walking at her prior location ([facility]) for exercise. (12/23/20: Walked normal route over weekend) LTG Duration 01/29/21 (12/23/20: MET GOAL) Three Impairment Decreased R LE strength Short Term Goal (STG) Improve R LE strength in areas of weakness to at least 4/5 ( Initial: R knee: flexion 3+/5, R Hip: flex 3+/5, Ext 3/5, AD 2/5, ER 4+/5, IR 4/5, AB 5/5) . (12/23/20: R Hip: Flex 5/5, Ext 4-/5, AD 4/5, ER 3/5, IR 3+/5 , AB 4+/5) STG Duration 12/12/20 (12/23/20: Improved flex,ext, & AD) Group Home Goal (LTG) Strengthen R LE for normal walking (with mild deficit). LTG Duration 01/29/21 Two Impairment Balance deficit(Rhomberg EC: 25; Tandem: LE Behind: 0R, 27.75L, TUG 19) Short Term Goal (STG) Improve Balance per Rhomberg Score, Tandem Score or TUG score (initial 19.17 secs) (12/23/20: TU secs) STG Duration 12/12/20 (12/23/20: MET GOAL: TUG improved) Medical Record Assistant Goal (LTG) Pt will be able to walk safetly without use of a walker per TUG score of 11-13. 6 secs. (12/03/20: 16.49 secs without assistive device, 15.43 secs with cane) LTG Duration 01/29/21 One Impairment Lacks appropriate self care HEP Medical Record Assistant Goal (LTG) Pt will be independent in a self care HEP of LE strengthening and balance exercises appropriate for her status at discharge. (HEP ISSUED TO DATE: EDUC: BÁRBARA Perceived Exertion Scale STRENGTHENING: PRONE: *hip ext, SITTING: * hip BKFO/hip IR, *knee flexion w/TB, *Ankle EV & DF strengthening with TB SUPINE: *SLR, SIDLYE: *Hip AB. *Hip AD BALANCE: SLS, step up/downs, tandem, corner balance ex's ( EC standing, EO toe/heel raises & marching). LTG Duration 01/29/21 (12/17/20: Progressed) Progress Towards Goals Progress Comments Improved TUG score of 15 secs (was 17 secs), 40 to <60% Impaired (Score 14-15). Rhomberg: able to stand 60+ secs (was initially 25 secs). Tandem: EO: L LE behind: 47. 29 secs, R LE behind: 10 secs (was initially: L LE behind: 27.75 secs, R LE behind: 0 secs. 30 Second Sit to Stand improved from: 9 times to 14 times. 5 Times Sit to Stand improved from: 19 secs to 10 secs. Assessment Summary Assessment Pt has progressed well with PT . She shows improved stability with gait & balance per TUG score and balance testing (see above). Pt has done well with therapy but it looks like her endurance is a little less today as noted by the 30 sec sit to stand and 5 Times Sit to Stand scores (see above), also by her subjective complaints of increasing daily fatigue. Pt is ready to be placed on her independent HEP, but would also benefit at a later date when her endurance has improved to further work on improving gait mechanics and balance. Physical Therapy Plan Discharge Physical Therapy Discharge Reasons Goals Met Discharge Comments Thank you for your referral.
--- NOTE | 2020-12-27 16:22 | PT.OTN ---
Current Diagnoses Cerebral infarction, unspecified (12/27/20) Muscle weakness (generalized) (12/27/20) Unsteadiness on feet (12/27/20) Other reduced mobility (12/27/20) Physical Therapy Treatment Note PT-OP-A Visit Information Start: 10/29/20 16:50 Freq: Status: Active Protocol: Document 12/27/20 08:16 LRN (Rec: 12/27/20 09:05 LRN [id number]) Out-Patient Physical Therapy Visit Information Visit Information Visit Type Treatment Note Visit Start Time 08:15 Visit Stop Time 08:55 Total Visit Minutes 40 Visit Number 26 Evaluation Information Evaluation Date 10/31/20 Precautions Precautions Arthritis, uncontrolled HBP, uncontrolled Diabetes type II, Depression, headaches, dizziness occasionally, 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 PT-OP-B Current Condition Start: 10/29/20 16:50 Freq: Status: Active Protocol: Document 10/31/20 12:50 LRN (Rec: 10/31/20 13:45 LRN [id number]) Current Condition History of Current Condition Onset Date 08/13/2020 Current Complaints L CVA History of Current Condition Pt lives in [place] and is accompanied by her daughter Criss, who is her caregiver, and that lives with her. [facility] [address] [facility] ([facility] an acute rehab , and PT/OT 2x/day. Released home 08/27/20 with daughter. Had home health until 2 weeks ago (~10/23/20 was last day), then requested outpatient physical and occupational therapy. Pt has 1 step at home and multiple grab bars in her home . Prior Treatments and Tests See above. Future Testing and Treatments Planned Occupational Therapy Evaluation. Colonoscopy in the future. Follow up with Dr. Gale Developmental History Developmental History Lives [place]. Treatment Goals Patient/Caregiver Goals Pt goal is strength R LE to walk and get back to normal, and resume exercise walking without walker, & improve balance. Pt goal is to use the R hand and will be scheduling for an occupational therapy evaluation. Prior Functional Status Baseline Function- ADL's Independent Baseline Function- Mobility Independent Baseline Function- Gait Walked in [employer], walked daily at [facility] 30' . Amb w/o AD. 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 Hold R leg stiff with gait and minimal R arm swing. Not walking for exercise activity outside. 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 PT-OP-C Subjective Start: 10/29/20 16:50 Freq: Status: Active Protocol: Document 12/27/20 08:16 LRN (Rec: 12/27/20 09:05 LRN [id number]) OP-PT Subjective Patient Comments [place] Ready [place] and will continue walking and exercising at home. No complaints of pain. PT-OP-D Balance Start: 10/29/20 16:50 Freq: Status: Active Protocol: Document 12/27/20 08:16 LRN (Rec: 12/27/20 09:05 LRN [id number]) Balance Tests Romberg Romberg EC, 60+ secs Tandem Tandem Standing EO: L LE behind: 47.29 secs, R LE behind: 10 secs. PT-OP-E Functional Tests Start: 10/29/20 16:50 Freq: Status: Active Protocol: Document 12/27/20 08:16 LRN (Rec: 12/27/20 09:05 LRN [id number]) Functional Tests 30 Second Sit to Stand Test Score 14x Comments Webbed chair (18 high seat) Five Times Sit to Stand Test Score 10 secs Comments Webbed chair (18 high seat). Timed Up and Go (TUG) Score 15 secs Comments No AD TUG Impairment Rating 40 to <60% Impaired (Score 14- 15) PT-OP-J Posture/Palpation/Skin Start: 10/29/20 16:50 Freq: Status: Active Protocol: Document 10/31/20 12:50 LRN (Rec: 10/31/20 13:45 LRN [id number]) Posture Evaluation Position Standing L-Spine Posture Decreased Lordosis,Shifted Right Scapula Posture (R) Protracted,(R) Winged PT-OP-M Strength Start: 10/29/20 16:50 Freq: Status: Active Protocol: Document 12/23/20 10:32 LRN (Rec: 12/23/20 11:22 LRN [id number]) Hip Strength Hip Manual Muscle Testing Left Flexion (L2) 5 Normal Abduction 5 Normal Adduction 4- Good- External Rotation 4 Good Internal Rotation 4 Good Right Flexion (L2) 5 Normal Extension (S1) 4- Good- Abduction 4+ Good+ Adduction 4 Good External Rotation 3 Fair Internal Rotation 3+ Fair+ Knee Strength Knee Manual Muscle Testing Left Flexion (S2) 5 Normal Extension (L3) 5 Normal Right Flexion (S2) 5 Normal Extension (L3) 5 Normal Ankle/Foot Strength Ankle and Foot Manual Muscle Testing Left Dorsiflexion (L4) 5 Normal Plantarflexion (S1) 5 Normal Inversion 5 Normal Eversion (S1) 5 Normal Right Dorsiflexion (L4) 4+ Good+ Plantarflexion (S1) 5 Normal Inversion 5 Normal Eversion (S1) 5 Normal PT-OP-Q Treatments Start: 10/29/20 16:50 Freq: Status: Active Protocol: Document 12/27/20 08:16 LRN (Rec: 12/27/20 09:05 LRN [id number]) Therapeutic Exercises Sitting Exercises Ankle EV Sitting Exercise Name Ankle EV Side bilateral Equipment Used TBand Reps/Minutes 15x Ankle DF Sitting Exercise Name Ankle DF Side bilateral Equipment Used TBand Reps/Minutes 15x Standing Exercises SLS with opposite leg swings Standing Exercise Name SLS w/opposite leg swings Side bilateral Hip Ext Standing Exercise Name Hip Ext Side right Reps/Minutes 1' (20 reps) Comments Review w/cuing of upright posturing of trunk, relax shlds Ankle EV Standing Exercise Name Ankle EV Side bilateral hip abd Standing Exercise Name Hip AB Side bilateral Reps/Minutes 1' ( 20 reps) Comments Review for pt to focus on SLS on R side. Gait Training Gait Activity Ambulation Description Gait training for heel strike es & Not locking L knee on HS /stance. Device Used With cane assist for arm swing /without a cane Level of Assistance CGA with canse Surface Level Distance/Duration 10' Treatment Focus Heel strike, NOT locking L knee & normal arm swings Self-Care/Home Management Treatment Education Patient Education Home Exercise Program Activities Self-Care/Home Management Activities Issued & reviewed HEP: *Ankle EV & DF strengthening with TBand. Issued Lev 2 TBand. PT-OP-T Assessment and Plan Start: 10/29/20 16:50 Freq: Status: Active Protocol: Document 12/27/20 08:16 LRN (Rec: 12/27/20 09:05 LRN [id number]) Physical Therapy Assessment Goals Four Impairment Decreased endurance per 5xSTS (5xsit to stand) = 19.17 secs Short Term Goal (STG) Pt will demonstrate improved endurance by a decreased time with 5xSTS test (norms: ages 70-79 is 12.6 secs, ages 80-89 is 14.8 secs). (12/23/20: 5xSTS is 10 secs) STG Duration 12/12/20 (12/03/20: MET GOAL) Group Home Goal (LTG) Pt will be able to tolerate return to walking [facility] for [facility]. (12/23/20: Walked normal route over weekend) LTG Duration 01/29/21 (12/23/20: MET GOAL) Three Impairment Decreased R LE strength Short Term Goal (STG) Improve R LE strength in areas of weakness to at least 4/5 ( Initial: R knee: flexion 3+/5, R Hip: flex 3+/5, Ext 3/5, AD 2/5, ER 4+/5, IR 4/5, AB 5/5) . (12/23/20: R Hip: Flex 5/5, Ext 4-/5, AD 4/5, ER 3/5, IR 3+/5 , AB 4+/5) STG Duration 12/12/20 (12/23/20: Improved flex,ext, & AD) Group Home Goal (LTG) Strengthen R LE for normal walking (with mild deficit). LTG Duration 01/29/21 (12/27/20: MET GOAL) Two Impairment Balance deficit(Rhomberg EC: 25; Tandem: LE Behind: 0R, 27.75L, TUG 19) Short Term Goal (STG) Improve Balance per Rhomberg Score, Tandem Score or TUG score (initial 19.17 secs) (12/27/20: TU secs) STG Duration 12/12/20 (12/23/20: MET GOAL) Group Home Goal (LTG) Pt will be able to walk safely without use of a walker per TUG score of 11-13.6 secs. (12/27/20: TUG score is 15 secs without assistive device. Pt walks safely) LTG Duration 01/29/21 (12/27/20: TUG score NOT MET) One Impairment Lacks appropriate self care HEP Group Home Goal (LTG) Pt will be independent in a self care HEP of LE strengthening and balance exercises appropriate for her status at discharge. (HEP ISSUED TO DATE: EDUC: BÁRBARA Perceived Exertion Scale STRENGTHENING: PRONE: *hip ext, SITTING: * hip BKFO/hip IR, *knee flexion w/TB, *Ankle EV & DF strengthening with TB SUPINE: *SLR, SIDLYE: *Hip AB. *Hip AD BALANCE: SLS, step up/downs, tandem, corner balance ex's ( EC standing, EO toe/heel raises & marching). LTG Duration 01/29/21 (12/27/20: MET GOAL) Progress Towards Goals Progress Comments Improved TUG score of 15 secs (was 17 secs), 40 to <60% Impaired (Score 14-15). Rhomberg: able to stand 60+ secs (was initially 25 secs). Tandem: EO: L LE behind: 47. 29 secs, R LE behind: 10 secs (was initially: L LE behind: 27.75 secs, R LE behind: 0 secs. 30 Second Sit to Stand improved from: 9 times to 14 times. 5 Times Sit to Stand improved from: 19 secs to 10 secs. Assessment Summary Assessment Pt has progressed well with PT . She shows improved stability with gait & balance per TUG score and balance testing (see above). Pt has done well with therapy but it looks like her endurance is a little less today as noted by the 30 sec sit to stand and 5 Times Sit to Stand scores (see above), also by her subjective complaints of increasing daily fatigue. Pt is ready to be placed on her independent HEP, but would also benefit at a later date when her endurance has improved to further work on improving gait mechanics and balance. Physical Therapy Plan Discharge Physical Therapy Discharge Comments Pt met her goals except for TUG score of 11-13.6 secs (Her TUG score was 15 secs). Pt is able to walk safely and feels ready to be placed on an independent HEP. Pt is aware that if she needs further balance, gait or aerobic strengthening she will seek a new referral. Thank you for your referral.
== END 2021-01-02 11:41 | disposition home or self-care (01) ==
LOC: PHYS 08:15
PROVIDERS: PCP Family Medicine; Referring Provider Family Medicine; Visit Provider Family Medicine
DX: I63.9 Cerebral infarction, unspecified (principal); M62.81 Muscle weakness (generalized); R26.81 Unsteadiness on feet; Z74.09 Other reduced mobility
CPT/HCPCS: 97110; 97112; 97116; 97162; 97535

== ENCOUNTER → 2022-04-14 07:29 | Outpatient (CLI) | payer MEDICARE, OTHER, SELFPAY ==
--- NOTE | 2022-04-14 | DI.NM.S_ITS ---
PROCEDURE: NM HIDA WITH CCK PHARMACEUTICAL: 5 mCi Tc-99m mebrofenin IV; 0.9 mcg CCK IV. INDICATIONS: RUQ PAIN TECHNIQUE: Following intravenous administration of Tc-99m mebrofenin, sequential anterior abdominal images were obtained. To evaluate the contractile response of the gallbladder in response to Cholecystokinin (CCK), sincalide (0.02 ?g/kg) was administered by slow intravenous infusion approximately 60 minutes after the administration of the radiopharmaceutical. Sequential imaging was continued for 30 minutes after the start of CCK infusion. Gallbladder ejection fraction was calculated. COMPARISON: None. FINDINGS: Biliary scan: There is normal tracer uptake and excretion by the liver. There is normal visualization of the intrahepatic ducts, common bile duct, and gallbladder. There is normal tracer transit into the duodenum. CCK stimulation: There is a painless contractile response of the gallbladder to CCK infusion. The calculated gallbladder ejection fraction is 64% ; normal values are above 35%. It has been shown that any patient abdominal pain after CCK administration is related to the rate of CCK injection, rather than to any underlying gallbladder disease (Clinical Nuclear Medicine 2012; 37: 63-70. Journal of Nuclear Medicine 2014; 55: 1-9). IMPRESSION: Unremarkable exam. Dictated by: Naomi Rob M.D. on 04/14/2022 at 13:44 Approved by: Naomi Rob M.D. on 04/14/2022 at 14:00
== END ==
PROVIDERS: PCP Internal Medicine; Referring Provider Internal Medicine; Visit Provider Internal Medicine
DX: R10.11 Right upper quadrant pain (principal)
CPT/HCPCS: 78227; A9537; J2805

== ENCOUNTER 2022-11-09 10:29 | Emergency (ER) | payer MEDICARE, OTHER, SELFPAY ==
[2022-11-09] VITALS (12 sets, daily range): BP systolic 114–173; BP diastolic 56–78; PULSE 66–76; RESP 18–32; TEMP 35.8; O2SAT 95–98; BMI 20.1
--- NOTE | 2022-11-09 10:48 | DI.CT.S_ITS ---
PROCEDURE: CT HEAD/BRAIN WO CON INDICATIONS: occasional left sided weakness TECHNIQUE: Noncontrast 4.5 mm thick angled axial sections acquired from the foramen magnum to the vertex, with coronal and sagittal reformats. For radiation dose reduction, the following was used: automated exposure control, adjustment of mA and/or kV according to patient size. COMPARISON: None. FINDINGS: Image quality: Excellent. CSF spaces: Basal cisterns are patent. No extra-axial fluid collections. The ventricles are symmetric in size and shape. Brain: No intracranial bleeds or masses. There is cerebral volume loss for age, with resultant ventricular and sulcal prominence. There are periventricular and deep white matter chronic small vessel ischemic changes. There is intracranial internal carotid artery atherosclerosis. Skull and face: Calvarium and visualized facial bones appear intact, without suspicious lesions. Sinuses: Visualized sinuses and mastoids are clear. IMPRESSION: No acute finding. Dictated by: Darian Brennan M.D. on 11/09/2022 at 11:12 Approved by: Darian Brennan M.D. on 11/09/2022 at 11:13
--- NOTE | 2022-11-09 10:48 | DI.RAD.S_ITS ---
PROCEDURE: XR CHEST 1V INDICATIONS: chest pain TECHNIQUE: One view of the chest was acquired. COMPARISON: None. FINDINGS: Lungs and pleura: Lungs are clear. No pleural effusions or pneumothorax. Mediastinum: Mediastinal contours appear normal. Heart size is normal. Bones and chest wall: No suspicious bony lesions. Overlying soft tissues appear unremarkable. IMPRESSION: No acute finding. Dictated by: Darian Brennan M.D. on 11/09/2022 at 11:13 Approved by: Darian Brennan M.D. on 11/09/2022 at 11:13
[2022-11-09 11:10] LABS: Add Manual Diff / Slide Review NO; Basophils Absolute Auto 100 /uL (0-100); Basophils Percent Auto 1.2 % (0-2); Eosinophils Absolute Auto 100 /uL (0-450); Eosinophils Percent Auto 1.7 % (2-4); Hematocrit 36.7 % (36-46); Hemoglobin 12.2 g/dL (12.0-16.0); Lymphocytes Absolute Auto 1100 /uL (1100-4500); Lymphocytes Percent Auto 15.9 % (25-40); Mean Corpuscular HGB Conc 33.3 % (30-36); Mean Corpuscular Hemoglobin 30.7 PG (26-34); Mean Corpuscular Volume 92.1 fL (80-100); Monocytes Absolute Auto 900 /uL (0-900); Monocytes Percent Auto 13.1 % (3-14); Neutrophils Absolute Auto 4900 /uL (1500-7000); Neutrophils Percent Auto 68.1 % (50-75); Platelet Count 414 X10^3/uL (150-400); Red Blood Cell Count 3.98 X10^6/uL (4.0-5.2); White Blood Cell Count 7.2 X10^3/uL (4.5-11.0)
[2022-11-09 11:15] LABS: Alanine Aminotransferase 23 IU/L (<35); Albumin 4.7 g/dL (3.5-5.0); Albumin Globulin Ratio 1.3 (1.0-2.8); Alkaline Phosphatase 74 U/L (38-126); Aspartate Aminotransferase 36 IU/L (14-36); BUN Creatinine Ratio 19.4 (6-22); Bilirubin Total 0.3 mg/dL (0.2-1.3); Blood Urea Nitrogen 18 mg/dL (7-17); Calcium 8.8 mg/dL (8.4-10.2); Carbon Dioxide 16 mmol/L (22-32); Chloride 100 mmol/L (98-107); Creatine Kinase 38 U/L (30-135); Estimated Glomerular Filt Rate > 60 mL/min (>60); Globulin 3.7 g/dL (1.7-4.1); Glucose 173 mg/dL (80-110); HEMOLYSIS 16 (0-50); Lipase 247 U/L (23-300); Potassium 5.3 mmol/L (3.4-5.1); Sodium 134 mmol/L (137-145); Total Protein 8.4 g/dL (6.3-8.2)
[2022-11-09 11:17] LABS: INR 1.2 (0.9-1.3); Prothrombin Time 13.2 SECONDS (10.1-12.7)
[2022-11-09 11:20] LABS: PTT Partial Thromboplastin Tim 35 SECONDS (26-36)
[2022-11-09 11:23] LABS: NT-proBNP (BNP-Adult 18+) 312 pg/mL (<450)
[2022-11-09 11:26] LABS: Troponin I < 0.012 ng/mL (0.01-0.034)
--- NOTE | 2022-11-09 11:51 | ED_ITS ---
HPI - Headache General Chief Complaint: Headache Stated Complaint: head pain today, winded easy when moving Time Seen by Provider: 11/09/22 10:47 Mode of arrival: Ambulatory Related Data Home Medications Medication Instructions Recorded Confirmed acetaminophen 325 mg capsule 650 mg PO TID PRN Pain (Scale 11/09/22 11/09/22 Score 1-3) aspirin 81 mg tablet,delayed 81 mg PO DAILY 11/09/22 11/09/22 release atorvastatin 80 mg tablet 80 mg PO DAILY 11/09/22 11/09/22 cetirizine 10 mg tablet 10 mg PO BID 11/09/22 11/09/22 felodipine 5 mg tablet,extended 10 mg PO DAILY 11/09/22 11/09/22 release 24 hr glimepiride 2 mg tablet 2 mg PO DAILY 11/09/22 11/09/22 isosorbide mononitrate 60 mg 60 mg PO DAILY 11/09/22 11/09/22 tablet,extended release 24 hr meclizine 12.5 mg tablet 12.5 mg PO TID PRN Vertigo 11/09/22 11/09/22 metformin 850 mg tablet 850 mg PO BID 11/09/22 11/09/22 metoprolol succinate 100 mg 100 mg PO DAILY 11/09/22 11/09/22 tablet,extended release 24 hr nitroglycerin 0.4 mg sublingual 0.4 mg sublingual Q5-15M PRN Chest 11/09/22 11/09/22 tablet Pain potassium chloride 10 mEq 10 meq PO Q2D 11/09/22 11/09/22 tablet,extended release(part/cryst) ranolazine 500 mg tablet,extended 500 mg PO BID 11/09/22 11/09/22 release,12 hr (Ranexa) sertraline 50 mg tablet 50 mg PO DAILY 11/09/22 11/09/22 sulfamethoxazole 800 1 tab PO BID 11/09/22 11/09/22 mg-trimethoprim 160 mg tablet Allergies Allergy/AdvReac Type Severity Reaction Status Date / Time hydrocodone [From Lortab] Allergy Unknown Verified 11/09/22 10:52 paroxetine [From Paxil] Allergy Unknown Verified 11/09/22 10:52 Patient History Social History Smoking Status: Never smoker Smoking Status: Never smoker alcohol intake frequency: other Substance Use Type: does not use Exam Initial Vital Signs Initial Vital Signs: Vital Signs Temperature 96.5 F L 11/09/22 10:36 Pulse Rate 76 11/09/22 10:36 Respiratory Rate 18 11/09/22 10:36 Blood Pressure 141/63 H 11/09/22 10:36 Pulse Oximetry 95 11/09/22 10:36 Oxygen Delivery Method 11/09/22 10:36 Course Orders Ordered: Discontinued Medications Acetaminophen (Acetaminophen 325 Mg Tablet) 975 mg PO NOW ONE Stop: 11/09/22 12:51 Last Admin: 11/09/22 13:20 Dose: 975 mg Documented By: AT Diphenhydramine HCl (Diphenhydramine 50 Mg/Ml Vial) 25 mg IV NOW ONE Stop: 11/09/22 12:51 Last Admin: 11/09/22 13:22 Dose: 25 mg Documented By: AT Sodium Chloride (Normal Saline 0.9%) 1,000 mls @ 150 mls/hr IV CONT MADDI Last Infusion: 11/09/22 15:22 Dose: 0 mls/hr Documented By: Admin: 11/09/22 11:53 Dose: 150 mls/hr Documented By: KM Ketorolac Tromethamine (Ketorolac 30 Mg/Ml Vial) 15 mg IV NOW ONE Stop: 11/09/22 12:51 Last Admin: 11/09/22 13:20 Dose: 15 mg Documented By: AT Metoclopramide HCl (Metoclopramide 10 Mg/2 Ml Inj) 10 mg IV NOW ONE Stop: 11/09/22 12:51 Last Admin: 11/09/22 13:20 Dose: 10 mg Documented By: AT Vital Signs Vital signs: Vital Signs - 8 hr 11/09/22 10:36 11/09/22 11:15 11/09/22 11:16 Temperature 96.5 F L Pulse Rate 76 70 Respiratory Rate 18 29 H Blood Pressure 141/63 H 121/57 L Pulse Oximetry 95 Oxygen Delivery Method Room Air 11/09/22 11:16 11/09/22 11:30 11/09/22 11:30 Temperature Pulse Rate 69 69 Respiratory Rate 31 H 31 H Blood Pressure 114/56 L Pulse Oximetry 95 96 Oxygen Delivery Method Room Air Room Air MDM - Headache Lab Data 11/09/22 10:53 11/09/22 10:53 Labs: Lab Results 11/09/22 11/09/22 11/09/22 Range/Units 10:53 10:53 10:53 WBC 7.2 (4.5-11.0) X10^3/uL RBC 3.98 L (4.0-5.2) X10^6/uL Hgb 12.2 (12.0-16.0) g/dL Hct 36.7 (36-46) % MCV 92.1 (80-100) fL MCH 30.7 (26-34) PG MCHC 33.3 (30-36) % RDW 14.0 (11.6-14.8) % Plt Count 414 H (150-400) X10^3/uL Neut % (Auto) 68.1 (50-75) % Lymph % (Auto) 15.9 L (25-40) % Hitchcock % (Auto) 13.1 (3-14) % Eos % (Auto) 1.7 L (2-4) % Baso % (Auto) 1.2 (0-2) % Neut # (Auto) 4900 (5004-0258) /uL Lymph # (Auto) 1100 (4482-8118) /uL Hitchcock # (Auto) 900 (0-900) /uL Eos # (Auto) 100 (0-450) /uL Baso # (Auto) 100 (0-100) /uL PT 13.2 H (10.1-12.7) SECONDS INR 1.2 (0.9-1.3) APTT 35 (26-36) SECONDS Sodium 134 L (137-145) mmol/L Potassium 5.3 H (3.4-5.1) mmol/L Chloride 100 (98-107) mmol/L Carbon Dioxide 16 L (22-32) mmol/L BUN 18 H (7-17) mg/dL Creatinine 0.93 (0.52-1.04) mg/dL Estimated GFR > 60 (>60) mL/min BUN/Creatinine Ratio 19.4 (6-22) Glucose 173 H (80-110) mg/dL Calcium 8.8 (8.4-10.2) mg/dL Total Bilirubin 0.3 (0.2-1.3) mg/dL AST 36 (14-36) IU/L ALT 23 (<35) IU/L Alkaline Phosphatase 74 (38-126) U/L Total Creatine Kinase 38 (30-135) U/L CK-MB (CK-2) TNP CK-MB (CK-2) Rel Index TNP Troponin I < 0.012 (0.01-0.034) ng/mL NT-Pro-B Natriuret Pep (<450) pg/mL Total Protein 8.4 H (6.3-8.2) g/dL Albumin 4.7 (3.5-5.0) g/dL Globulin 3.7 (1.7-4.1) g/dL Albumin/Globulin Ratio 1.3 (1.0-2.8) Lipase 247 (23-300) U/L Urine RBC (0-5/HPF) Urine WBC (0-5/HPF) Ur Squamous Epith Cells (0-5/HPF) Ur Transition Epith Cell (0-5/HPF) Urine Bacteria (None) Hyaline Casts (None) Ur Culture Indicated? 11/09/22 11/09/22 Range/Units 10:53 13:17 WBC (4.5-11.0) X10^3/uL RBC (4.0-5.2) X10^6/uL Hgb (12.0-16.0) g/dL Hct (36-46) % MCV (80-100) fL MCH (26-34) PG MCHC (30-36) % RDW (11.6-14.8) % Plt Count (150-400) X10^3/uL Neut % (Auto) (50-75) % Lymph % (Auto) (25-40) % Hitchcock % (Auto) (3-14) % Eos % (Auto) (2-4) % Baso % (Auto) (0-2) % Neut # (Auto) (7570-1829) /uL Lymph # (Auto) (0878-9843) /uL Hitchcock # (Auto) (0-900) /uL Eos # (Auto) (0-450) /uL Baso # (Auto) (0-100) /uL PT (10.1-12.7) SECONDS INR (0.9-1.3) APTT (26-36) SECONDS Sodium (137-145) mmol/L Potassium (3.4-5.1) mmol/L Chloride (98-107) mmol/L Carbon Dioxide (22-32) mmol/L BUN (7-17) mg/dL Creatinine (0.52-1.04) mg/dL Estimated GFR (>60) mL/min BUN/Creatinine Ratio (6-22) Glucose (80-110) mg/dL Calcium (8.4-10.2) mg/dL Total Bilirubin (0.2-1.3) mg/dL AST (14-36) IU/L ALT (<35) IU/L Alkaline Phosphatase (38-126) U/L Total Creatine Kinase (30-135) U/L CK-MB (CK-2) CK-MB (CK-2) Rel Index Troponin I (0.01-0.034) ng/mL NT-Pro-B Natriuret Pep 312 (<450) pg/mL Total Protein (6.3-8.2) g/dL Albumin (3.5-5.0) g/dL Globulin (1.7-4.1) g/dL Albumin/Globulin Ratio (1.0-2.8) Lipase (23-300) U/L Urine RBC 0-1/hpf (0-5/HPF) Urine WBC 0-1/hpf (0-5/HPF) Ur Squamous Epith Cells 1-5 /hpf (0-5/HPF) Ur Transition Epith Cell 1-5/hpf (0-5/HPF) Urine Bacteria Few (2-10) H (None) Hyaline Casts 1-5/lpf (None) Ur Culture Indicated? Cult not indicated Urine Dip Bedside Urine Glucose Negative Bedside Urine Bilirubin - Negative Bedside Urine Ketone - Negative Urine Specific Roby 1.020 Bedside Urine Occult Blood - Negative Bedside Urine pH 6.0 Bedside Urine Protein + 30 Bedside Urine Urobilinogen - Negative Bedside Urine Nitrite - Negative Bedside Urine Leukocytes - Negative Esterase Discharge Plan Departure Patient Disposition: Home Clinical Impression: Headache Instructions: DI for Headache Activity Restrictions/Additional Instructions: You were evaluated in the ED today for a headache, dizziness, nausea. Your CT head, CT C-spine, labs were normal. Your symptoms are likely due to a primary headache, which responded well to Tylenol, Toradol, Reglan, Benadryl. Please follow-up with your PCP as soon as possible for further evaluation of the vertigo and headaches. Please continue to stay well hydrated. You may take Tylenol, ibuprofen if your headache recurs. Return to the ED if your symptoms worsen, you are experiencing chest pain or shortness of breath, or you are persistently vomiting. Prescriptions: No Action atorvastatin 80 mg tablet 80 mg PO DAILY cetirizine 10 mg Tablet 10 mg PO BID felodipine 5 mg tablet extended release 24 hr 10 mg PO DAILY metformin 850 mg tablet 850 mg PO BID sulfamethoxazole-trimethoprim 800-160 mg tablet 1 tab PO BID Label Comments: TAKE 1 TABLET BY MOUTH TWICE DAILY x 7 days, started 11/04 glimepiride 2 mg tablet 2 mg PO DAILY Label Comments: TAKE 1 TABLET BY MOUTH EVERY MORNING. REPLACES GLIPIZIDE isosorbide mononitrate 60 mg tablet extended release 24 hr 60 mg PO DAILY nitroglycerin 0.4 mg Tablet, Sublingual 0.4 mg SUBLINGUAL Q5-15M PRN (Reason: Chest Pain) Rx Instructions: do not exceed 3 doses per episode sertraline 50 mg tablet 50 mg PO DAILY ranolazine [Ranexa] 500 mg tablet extended release 12 hr 500 mg PO BID Label Comments: Take 1 tablet by mouth twice a day meclizine 12.5 mg Tablet 12.5 mg PO TID PRN (Reason: Vertigo) potassium chloride 10 mEq tablet,ER particles/crystals 10 meq PO Q2D Label Comments: Take 1 tablet by mouth every other day metoprolol succinate 100 mg tablet extended release 24 hr 100 mg PO DAILY Label Comments: Take 1 tablet by mouth once a day aspirin [Adult Aspirin EC Low Strength] 81 mg Tablet,Delayed Release (Dr/Ec) 81 mg PO DAILY acetaminophen 325 mg Capsule 650 mg PO TID PRN (Reason: Pain (Scale Score 1-3)) Referrals: Seymour Gale MD [Primary Care Provider] - Stand Alone Forms: Patient Portal/API
[2022-11-09] MEDS: SODIUM CHLORIDE 0.9% 1,000 ML 150 ML IV (11:53)
--- NOTE | 2022-11-09 12:54 | ED_ITS ---
HPI - Headache <Liana Forde PA-C - Last Filed: 11/09/22 15:18> General Chief Complaint: Headache Stated Complaint: head pain today, winded easy when moving Time Seen by Provider: 11/09/22 10:47 Mode of arrival: Ambulatory History of Present Illness HPI Narrative: 81-year-old female with past medical history diabetes, stroke, some cardiac history, vertigo presents to the ED with 2 weeks of generalized headache, nausea. Patient states that she has also had dizziness which is very similar to her bouts of vertigo for which she has been prescribed meclizine. Patient last took Tylenol and meclizine 3 days ago. Patient states that the meclizine does help with the vertigo, however the Tylenol has been ineffective for her headache. Patient states that she has not been eating very much due to the nausea. Patient denies any focal weakness, numbness, tingling, visual disturbances, photophobia, phonophobia. Patient does endorse some neck pain along with a headache. Patient denies trauma. Related Data Home Medications Medication Instructions Recorded Confirmed acetaminophen 325 mg capsule 650 mg PO TID PRN Pain (Scale 11/09/22 11/09/22 Score 1-3) aspirin 81 mg tablet,delayed 81 mg PO DAILY 11/09/22 11/09/22 release atorvastatin 80 mg tablet 80 mg PO DAILY 11/09/22 11/09/22 cetirizine 10 mg tablet 10 mg PO BID 11/09/22 11/09/22 felodipine 5 mg tablet,extended 10 mg PO DAILY 11/09/22 11/09/22 release 24 hr glimepiride 2 mg tablet 2 mg PO DAILY 11/09/22 11/09/22 isosorbide mononitrate 60 mg 60 mg PO DAILY 11/09/22 11/09/22 tablet,extended release 24 hr meclizine 12.5 mg tablet 12.5 mg PO TID PRN Vertigo 11/09/22 11/09/22 metformin 850 mg tablet 850 mg PO BID 11/09/22 11/09/22 metoprolol succinate 100 mg 100 mg PO DAILY 11/09/22 11/09/22 tablet,extended release 24 hr nitroglycerin 0.4 mg sublingual 0.4 mg sublingual Q5-15M PRN Chest 11/09/22 11/09/22 tablet Pain potassium chloride 10 mEq 10 meq PO Q2D 11/09/22 11/09/22 tablet,extended release(part/cryst) ranolazine 500 mg tablet,extended 500 mg PO BID 11/09/22 11/09/22 release,12 hr (Ranexa) sertraline 50 mg tablet 50 mg PO DAILY 11/09/22 11/09/22 sulfamethoxazole 800 1 tab PO BID 11/09/22 11/09/22 mg-trimethoprim 160 mg tablet Allergies Allergy/AdvReac Type Severity Reaction Status Date / Time hydrocodone [From Lortab] Allergy Unknown Verified 11/09/22 10:52 paroxetine [From Paxil] Allergy Unknown Verified 11/09/22 10:52 Review of Systems <Liana Forde PA-C - Last Filed: 11/09/22 15:18> Review of Systems ROS Unobtainable: All systems reviewed & are unremarkable except as noted in HPI and below Constitutional Constitutional: Denies chills, Denies fatigue, Denies fever(s), Denies frequent falls, Reports headache(s), Denies lethargy, Reports poor appetite and Denies weakness Eyes Eyes: Denies change in vision, Denies eye discharge, Denies irritation and Denies loss of vision ENT Ears, Nose, Mouth, and Throat: Denies change in voice, Reports dizziness, Reports headache(s), Reports neck pain, Denies sore throat and Denies throat swelling Cardiovascular Cardiovascular: Denies chest pain, Denies irregular heart rhythm, Denies lightheadedness, Denies palpitations, Denies dyspnea, Reports dyspnea on exertion and Denies orthopnea Respiratory Respiratory: Denies cough, Denies dyspnea, Reports dyspnea on exertion and Denies wheezing Gastrointestinal Gastrointestinal: Denies abdominal pain, Denies change in bowel habits, Denies diarrhea, Reports nausea and Denies vomiting Genitourinary Genitourinary: Denies hematuria, Denies flank pain, Denies urinary incontinence and Denies urinary urgency Musculoskeletal Musculoskeletal: Denies back pain, Denies muscle weakness, Reports neck pain, Denies numbness and Denies tingling Integumentary/Breasts Skin/Breast: Denies pruritus, Denies erythema, Denies rash and Denies wounds Neurologic Neurologic: Denies behavioral changes, Denies confusion, Reports dizziness, Denies frequent falls, Reports headache(s), Denies loss of vision, Denies numbness, Denies tingling and Denies weakness Psychiatric Psychiatric: Denies anxiety, Denies behavioral changes, Denies confusion, Denies depression, Denies homicidal ideation and Denies suicidal ideation Endocrine Endocrine: Denies fatigue, Denies flushing and Denies palpitations Hematologic/Lymphatic Hematologic/Lymphatic: Denies easy bruising Allergic/Immunologic Allergic/Immunologic: Denies urticaria, Denies throat swelling and Denies wheezing Patient History <Liana Forde PA-C - Last Filed: 11/09/22 15:18> Social History Smoking Status: Never smoker Smoking Status: Never smoker alcohol intake frequency: other Substance Use Type: does not use Exam <Liana Forde PA-C - Last Filed: 11/09/22 15:18> Narrative Exam Narrative: Const General:?cooperative, healthy appearing and comfortable HENPR Head:?normal to inspection Ears:?hearing grossly normal bilaterally Nose:?external nose normal Face and sinus:?normal facial exam and sinuses nontender Mouth:?oral mucosae normal Throat:?posterior oropharynx normal Eyes General:?appearance normal, both eyes and all related structures Neck Neck:?normal visual inspection and no lymphadenopathy noted Resp Effort & Inspection:?normal respiratory effort Auscultation:?clear to auscultation bilaterally Cardio Rate:?regular rate Rhythm:?regular rhythm Musculoskeletal No midline tenderness to palpation. No paraspinal tenderness to palpation; no meningeal symptoms Neuro General:?patient alert, patient awake and patient oriented x3; gait normal; CN 1 through 12 intact bilaterally; negative pronator drift; negative [id number]. Initial Vital Signs Initial Vital Signs: Vital Signs Temperature 96.5 F L 11/09/22 10:36 Pulse Rate 76 11/09/22 10:36 Respiratory Rate 18 11/09/22 10:36 Blood Pressure 141/63 H 11/09/22 10:36 Pulse Oximetry 95 11/09/22 10:36 Oxygen Delivery Method 11/09/22 10:36 <Jimy Gamboa DO - Last Filed: 11/10/22 08:17> Initial Vital Signs Initial Vital Signs: Vital Signs Temperature 96.5 F L 11/09/22 10:36 Pulse Rate 76 11/09/22 10:36 Respiratory Rate 18 11/09/22 10:36 Blood Pressure 141/63 H 11/09/22 10:36 Pulse Oximetry 95 11/09/22 10:36 Oxygen Delivery Method 11/09/22 10:36 Course <Liana Forde PA-C - Last Filed: 11/09/22 15:18> Orders Ordered: Discontinued Medications Acetaminophen (Acetaminophen 325 Mg Tablet) 975 mg PO NOW ONE Stop: 11/09/22 12:51 Last Admin: 11/09/22 13:20 Dose: 975 mg Documented By: AT Diphenhydramine HCl (Diphenhydramine 50 Mg/Ml Vial) 25 mg IV NOW ONE Stop: 11/09/22 12:51 Last Admin: 11/09/22 13:22 Dose: 25 mg Documented By: AT Sodium Chloride (Normal Saline 0.9%) 1,000 mls @ 150 mls/hr IV CONT MADDI Last Infusion: 11/09/22 15:22 Dose: 0 mls/hr Documented By: Admin: 11/09/22 11:53 Dose: 150 mls/hr Documented By: KM Ketorolac Tromethamine (Ketorolac 30 Mg/Ml Vial) 15 mg IV NOW ONE Stop: 11/09/22 12:51 Last Admin: 11/09/22 13:20 Dose: 15 mg Documented By: AT Metoclopramide HCl (Metoclopramide 10 Mg/2 Ml Inj) 10 mg IV NOW ONE Stop: 11/09/22 12:51 Last Admin: 11/09/22 13:20 Dose: 10 mg Documented By: AT Vital Signs Vital signs: Vital Signs - 8 hr 11/09/22 10:36 11/09/22 11:15 11/09/22 11:16 Temperature 96.5 F L Pulse Rate 76 70 Respiratory Rate 18 29 H Blood Pressure 141/63 H 121/57 L Pulse Oximetry 95 Oxygen Delivery Method Room Air 11/09/22 11:16 11/09/22 11:30 11/09/22 11:30 Temperature Pulse Rate 69 69 Respiratory Rate 31 H 31 H Blood Pressure 114/56 L Pulse Oximetry 95 96 Oxygen Delivery Method Room Air Room Air 11/09/22 12:00 11/09/22 12:00 11/09/22 12:30 Temperature Pulse Rate 70 Respiratory Rate 29 H Blood Pressure 131/65 135/66 Pulse Oximetry Oxygen Delivery Method 11/09/22 12:30 11/09/22 13:00 11/09/22 13:00 Temperature Pulse Rate 70 66 Respiratory Rate 25 H 28 H Blood Pressure 146/69 H Pulse Oximetry 95 96 Oxygen Delivery Method 11/09/22 13:19 11/09/22 13:19 11/09/22 13:30 Temperature Pulse Rate 73 Respiratory Rate 31 H Blood Pressure 173/76 H 158/75 H Pulse Oximetry 98 Oxygen Delivery Method 11/09/22 13:30 Temperature Pulse Rate 71 Respiratory Rate 32 H Blood Pressure Pulse Oximetry 96 Oxygen Delivery Method Room Air <Jimy Gamboa DO - Last Filed: 11/10/22 08:17> Orders Ordered: Discontinued Medications Acetaminophen (Acetaminophen 325 Mg Tablet) 975 mg PO NOW ONE Stop: 11/09/22 12:51 Last Admin: 11/09/22 13:20 Dose: 975 mg Documented By: AT Diphenhydramine HCl (Diphenhydramine 50 Mg/Ml Vial) 25 mg IV NOW ONE Stop: 11/09/22 12:51 Last Admin: 11/09/22 13:22 Dose: 25 mg Documented By: AT Sodium Chloride (Normal Saline 0.9%) 1,000 mls @ 150 mls/hr IV CONT MADDI Last Infusion: 11/09/22 15:22 Dose: 0 mls/hr Documented By: Admin: 11/09/22 11:53 Dose: 150 mls/hr Documented By: KM Ketorolac Tromethamine (Ketorolac 30 Mg/Ml Vial) 15 mg IV NOW ONE Stop: 11/09/22 12:51 Last Admin: 11/09/22 13:20 Dose: 15 mg Documented By: AT Metoclopramide HCl (Metoclopramide 10 Mg/2 Ml Inj) 10 mg IV NOW ONE Stop: 11/09/22 12:51 Last Admin: 11/09/22 13:20 Dose: 10 mg Documented By: AT Vital Signs Vital signs: Vital Signs - 8 hr 11/09/22 10:36 11/09/22 11:15 11/09/22 11:16 Temperature 96.5 F L Pulse Rate 76 70 Respiratory Rate 18 29 H Blood Pressure 141/63 H 121/57 L Pulse Oximetry 95 Oxygen Delivery Method Room Air 11/09/22 11:16 11/09/22 11:30 11/09/22 11:30 Temperature Pulse Rate 69 69 Respiratory Rate 31 H 31 H Blood Pressure 114/56 L Pulse Oximetry 95 96 Oxygen Delivery Method Room Air Room Air 11/09/22 12:00 11/09/22 12:00 11/09/22 12:30 Temperature Pulse Rate 70 Respiratory Rate 29 H Blood Pressure 131/65 135/66 Pulse Oximetry Oxygen Delivery Method 11/09/22 12:30 11/09/22 13:00 11/09/22 13:00 Temperature Pulse Rate 70 66 Respiratory Rate 25 H 28 H Blood Pressure 146/69 H Pulse Oximetry 95 96 Oxygen Delivery Method 11/09/22 13:19 11/09/22 13:19 11/09/22 13:30 Temperature Pulse Rate 73 Respiratory Rate 31 H Blood Pressure 173/76 H 158/75 H Pulse Oximetry 98 Oxygen Delivery Method 11/09/22 13:30 Temperature Pulse Rate 71 Respiratory Rate 32 H Blood Pressure Pulse Oximetry 96 Oxygen Delivery Method Room Air MDM - Headache <Liana Forde PA-C - Last Filed: 11/09/22 15:18> Lab Data 11/09/22 10:53 11/09/22 10:53 Labs: Lab Results 11/09/22 11/09/22 11/09/22 Range/Units 10:53 10:53 10:53 WBC 7.2 (4.5-11.0) X10^3/uL RBC 3.98 L (4.0-5.2) X10^6/uL Hgb 12.2 (12.0-16.0) g/dL Hct 36.7 (36-46) % MCV 92.1 (80-100) fL MCH 30.7 (26-34) PG MCHC 33.3 (30-36) % RDW 14.0 (11.6-14.8) % Plt Count 414 H (150-400) X10^3/uL Neut % (Auto) 68.1 (50-75) % Lymph % (Auto) 15.9 L (25-40) % [place] % (Auto) 13.1 (3-14) % Eos % (Auto) 1.7 L (2-4) % Baso % (Auto) 1.2 (0-2) % Neut # (Auto) 4900 (6533-1151) /uL Lymph # (Auto) 1100 (7039-3990) /uL [place] # (Auto) 900 (0-900) /uL Eos # (Auto) 100 (0-450) /uL Baso # (Auto) 100 (0-100) /uL PT 13.2 H (10.1-12.7) SECONDS INR 1.2 (0.9-1.3) APTT 35 (26-36) SECONDS Sodium 134 L (137-145) mmol/L Potassium 5.3 H (3.4-5.1) mmol/L Chloride 100 (98-107) mmol/L Carbon Dioxide 16 L (22-32) mmol/L BUN 18 H (7-17) mg/dL Creatinine 0.93 (0.52-1.04) mg/dL Estimated GFR > 60 (>60) mL/min BUN/Creatinine Ratio 19.4 (6-22) Glucose 173 H (80-110) mg/dL Calcium 8.8 (8.4-10.2) mg/dL Total Bilirubin 0.3 (0.2-1.3) mg/dL AST 36 (14-36) IU/L ALT 23 (<35) IU/L Alkaline Phosphatase 74 (38-126) U/L Total Creatine Kinase 38 (30-135) U/L CK-MB (CK-2) TNP CK-MB (CK-2) Rel Index TNP Troponin I < 0.012 (0.01-0.034) ng/mL NT-Pro-B Natriuret Pep (<450) pg/mL Total Protein 8.4 H (6.3-8.2) g/dL Albumin 4.7 (3.5-5.0) g/dL Globulin 3.7 (1.7-4.1) g/dL Albumin/Globulin Ratio 1.3 (1.0-2.8) Lipase 247 (23-300) U/L Urine RBC (0-5/HPF) Urine WBC (0-5/HPF) Ur Squamous Epith Cells (0-5/HPF) Ur Transition Epith Cell (0-5/HPF) Urine Bacteria (None) Hyaline Casts (None) Ur Culture Indicated? 11/09/22 11/09/22 Range/Units 10:53 13:17 WBC (4.5-11.0) X10^3/uL RBC (4.0-5.2) X10^6/uL Hgb (12.0-16.0) g/dL Hct (36-46) % MCV (80-100) fL MCH (26-34) PG MCHC (30-36) % RDW (11.6-14.8) % Plt Count (150-400) X10^3/uL Neut % (Auto) (50-75) % Lymph % (Auto) (25-40) % [place] % (Auto) (3-14) % Eos % (Auto) (2-4) % Baso % (Auto) (0-2) % Neut # (Auto) (5736-4386) /uL Lymph # (Auto) (0390-4909) /uL Traverse # (Auto) (0-900) /uL Eos # (Auto) (0-450) /uL Baso # (Auto) (0-100) /uL PT (10.1-12.7) SECONDS INR (0.9-1.3) APTT (26-36) SECONDS Sodium (137-145) mmol/L Potassium (3.4-5.1) mmol/L Chloride (98-107) mmol/L Carbon Dioxide (22-32) mmol/L BUN (7-17) mg/dL Creatinine (0.52-1.04) mg/dL Estimated GFR (>60) mL/min BUN/Creatinine Ratio (6-22) Glucose (80-110) mg/dL Calcium (8.4-10.2) mg/dL Total Bilirubin (0.2-1.3) mg/dL AST (14-36) IU/L ALT (<35) IU/L Alkaline Phosphatase (38-126) U/L Total Creatine Kinase (30-135) U/L CK-MB (CK-2) CK-MB (CK-2) Rel Index Troponin I (0.01-0.034) ng/mL NT-Pro-B Natriuret Pep 312 (<450) pg/mL Total Protein (6.3-8.2) g/dL Albumin (3.5-5.0) g/dL Globulin (1.7-4.1) g/dL Albumin/Globulin Ratio (1.0-2.8) Lipase (23-300) U/L Urine RBC 0-1/hpf (0-5/HPF) Urine WBC 0-1/hpf (0-5/HPF) Ur Squamous Epith Cells 1-5 /hpf (0-5/HPF) Ur Transition Epith Cell 1-5/hpf (0-5/HPF) Urine Bacteria Few (2-10) H (None) Hyaline Casts 1-5/lpf (None) Ur Culture Indicated? Cult not indicated Urine Dip Bedside Urine Glucose Negative Bedside Urine Bilirubin - Negative Bedside Urine Ketone - Negative Urine Specific [place] 1.020 Bedside Urine Occult Blood - Negative Bedside Urine pH 6.0 Bedside Urine Protein + 30 Bedside Urine Urobilinogen - Negative Bedside Urine Nitrite - Negative Bedside Urine Leukocytes - Negative Esterase MDM Narrative Medical decision making narrative: 81-year-old female with past medical history diabetes, stroke, some cardiac history, vertigo presents to the ED with 2 weeks of generalized headache, nausea. Concern for primary headache versus CVA versus intracranial hemorrhage versus BPPV versus dehydration versus other. Physical exam is reassuring for no focal deficits. Will obtain labs, CT head, CT C-spine. Labs show slightly elevated potassium at 5.3 and elevated glucose to 173, no other abnormalities. CT head, CT C-spine without acute findings. Patient's symptoms are likely due to a primary headache and vertigo. Will treat with IV fluids, Tylenol, ketorolac, Reglan, Benadryl. Will reassess. Patient's symptoms resolved with the medications. Recommend PCP follow-up as soon as possible for further evaluation of the vertigo and headaches. ED return precautions were discussed with patient and patient's daughter. They verbalized understanding. Medical records reviewed: Yes <Jimy Gamboa DO - Last Filed: 11/10/22 08:17> Lab Data Labs: Lab Results 11/09/22 11/09/22 11/09/22 Range/Units 10:53 10:53 10:53 WBC 7.2 (4.5-11.0) X10^3/uL RBC 3.98 L (4.0-5.2) X10^6/uL Hgb 12.2 (12.0-16.0) g/dL Hct 36.7 (36-46) % MCV 92.1 (80-100) fL MCH 30.7 (26-34) PG MCHC 33.3 (30-36) % RDW 14.0 (11.6-14.8) % Plt Count 414 H (150-400) X10^3/uL Neut % (Auto) 68.1 (50-75) % Lymph % (Auto) 15.9 L (25-40) % Traverse % (Auto) 13.1 (3-14) % Eos % (Auto) 1.7 L (2-4) % Baso % (Auto) 1.2 (0-2) % Neut # (Auto) 4900 (7274-4975) /uL Lymph # (Auto) 1100 (0738-7199) /uL [place] # (Auto) 900 (0-900) /uL Eos # (Auto) 100 (0-450) /uL Baso # (Auto) 100 (0-100) /uL PT 13.2 H (10.1-12.7) SECONDS INR 1.2 (0.9-1.3) APTT 35 (26-36) SECONDS Sodium 134 L (137-145) mmol/L Potassium 5.3 H (3.4-5.1) mmol/L Chloride 100 (98-107) mmol/L Carbon Dioxide 16 L (22-32) mmol/L BUN 18 H (7-17) mg/dL Creatinine 0.93 (0.52-1.04) mg/dL Estimated GFR > 60 (>60) mL/min BUN/Creatinine Ratio 19.4 (6-22) Glucose 173 H (80-110) mg/dL Calcium 8.8 (8.4-10.2) mg/dL Total Bilirubin 0.3 (0.2-1.3) mg/dL AST 36 (14-36) IU/L ALT 23 (<35) IU/L Alkaline Phosphatase 74 (38-126) U/L Total Creatine Kinase 38 (30-135) U/L CK-MB (CK-2) TNP CK-MB (CK-2) Rel Index TNP Troponin I < 0.012 (0.01-0.034) ng/mL NT-Pro-B Natriuret Pep (<450) pg/mL Total Protein 8.4 H (6.3-8.2) g/dL Albumin 4.7 (3.5-5.0) g/dL Globulin 3.7 (1.7-4.1) g/dL Albumin/Globulin Ratio 1.3 (1.0-2.8) Lipase 247 (23-300) U/L Urine RBC (0-5/HPF) Urine WBC (0-5/HPF) Ur Squamous Epith Cells (0-5/HPF) Ur Transition Epith Cell (0-5/HPF) Urine Bacteria (None) Hyaline Casts (None) Ur Culture Indicated? 11/09/22 11/09/22 Range/Units 10:53 13:17 WBC (4.5-11.0) X10^3/uL RBC (4.0-5.2) X10^6/uL Hgb (12.0-16.0) g/dL Hct (36-46) % MCV (80-100) fL MCH (26-34) PG MCHC (30-36) % RDW (11.6-14.8) % Plt Count (150-400) X10^3/uL Neut % (Auto) (50-75) % Lymph % (Auto) (25-40) % [place] % (Auto) (3-14) % Eos % (Auto) (2-4) % Baso % (Auto) (0-2) % Neut # (Auto) (7376-0818) /uL Lymph # (Auto) (5028-7204) /uL [place] # (Auto) (0-900) /uL Eos # (Auto) (0-450) /uL Baso # (Auto) (0-100) /uL PT (10.1-12.7) SECONDS INR (0.9-1.3) APTT (26-36) SECONDS Sodium (137-145) mmol/L Potassium (3.4-5.1) mmol/L Chloride (98-107) mmol/L Carbon Dioxide (22-32) mmol/L BUN (7-17) mg/dL Creatinine (0.52-1.04) mg/dL Estimated GFR (>60) mL/min BUN/Creatinine Ratio (6-22) Glucose (80-110) mg/dL Calcium (8.4-10.2) mg/dL Total Bilirubin (0.2-1.3) mg/dL AST (14-36) IU/L ALT (<35) IU/L Alkaline Phosphatase (38-126) U/L Total Creatine Kinase (30-135) U/L CK-MB (CK-2) CK-MB (CK-2) Rel Index Troponin I (0.01-0.034) ng/mL NT-Pro-B Natriuret Pep 312 (<450) pg/mL Total Protein (6.3-8.2) g/dL Albumin (3.5-5.0) g/dL Globulin (1.7-4.1) g/dL Albumin/Globulin Ratio (1.0-2.8) Lipase (23-300) U/L Urine RBC 0-1/hpf (0-5/HPF) Urine WBC 0-1/hpf (0-5/HPF) Ur Squamous Epith Cells 1-5 /hpf (0-5/HPF) Ur Transition Epith Cell 1-5/hpf (0-5/HPF) Urine Bacteria Few (2-10) H (None) Hyaline Casts 1-5/lpf (None) Ur Culture Indicated? Cult not indicated Urine Dip Bedside Urine Glucose Negative Bedside Urine Bilirubin - Negative Bedside Urine Ketone - Negative Urine Specific [place] 1.020 Bedside Urine Occult Blood - Negative Bedside Urine pH 6.0 Bedside Urine Protein + 30 Bedside Urine Urobilinogen - Negative Bedside Urine Nitrite - Negative Bedside Urine Leukocytes - Negative Esterase Discharge Plan Departure Patient Disposition: Home Clinical Impression: Headache Instructions: DI for Headache Activity Restrictions/Additional Instructions: You were evaluated in the ED today for a headache, dizziness, nausea. Your CT head, CT C-spine, labs were normal. Your symptoms are likely due to a primary headache, which responded well to Tylenol, Toradol, Reglan, Benadryl. Please follow-up with your PCP as soon as possible for further evaluation of the vertigo and headaches. Please continue to stay well hydrated. You may take Tylenol, ibuprofen if your headache recurs. Return to the ED if your symptoms worsen, you are experiencing chest pain or shortness of breath, or you are pers istently vomiting. Prescriptions: No Action atorvastatin 80 mg tablet 80 mg PO DAILY cetirizine 10 mg Tablet 10 mg PO BID felodipine 5 mg tablet extended release 24 hr 10 mg PO DAILY metformin 850 mg tablet 850 mg PO BID sulfamethoxazole-trimethoprim 800-160 mg tablet 1 tab PO BID Label Comments: TAKE 1 TABLET BY MOUTH TWICE DAILY x 7 days, started 11/04 glimepiride 2 mg tablet 2 mg PO DAILY Label Comments: TAKE 1 TABLET BY MOUTH EVERY MORNING. REPLACES GLIPIZIDE isosorbide mononitrate 60 mg tablet extended release 24 hr 60 mg PO DAILY nitroglycerin 0.4 mg Tablet, Sublingual 0.4 mg SUBLINGUAL Q5-15M PRN (Reason: Chest Pain) Rx Instructions: do not exceed 3 doses per episode sertraline 50 mg tablet 50 mg PO DAILY ranolazine [Ranexa] 500 mg tablet extended release 12 hr 500 mg PO BID Label Comments: Take 1 tablet by mouth twice a day meclizine 12.5 mg Tablet 12.5 mg PO TID PRN (Reason: Vertigo) potassium chloride 10 mEq tablet,ER particles/crystals 10 meq PO Q2D Label Comments: Take 1 tablet by mouth every other day metoprolol succinate 100 mg tablet extended release 24 hr 100 mg PO DAILY Label Comments: Take 1 tablet by mouth once a day aspirin [Adult Aspirin EC Low Strength] 81 mg Tablet,Delayed Release (Dr/Ec) 81 mg PO DAILY acetaminophen 325 mg Capsule 650 mg PO TID PRN (Reason: Pain (Scale Score 1-3)) Referrals: Seymour Gale MD [Primary Care Provider] - Stand Alone Forms: Patient Portal/API <Jimy Gamboa DO - Last Filed: 11/10/22 08:17> Cosign ED Attending Cosignature Attestation: I was immediately available in the department for consultation. This documentation has been reviewed and I agree with assessment and plan. Supervised by Jimy Gamboa DO
--- NOTE | 2022-11-09 13:03 | DI.CT.S_ITS ---
PROCEDURE: CT CERVICAL SPINE WO CON INDICATIONS: neck pain TECHNIQUE: Noncontrast 3 mm thick sections acquired from the skull base to the T4 level. Sagittal and coronal reformats were then constructed. For radiation dose reduction, the following was used: automated exposure control, adjustment of mA and/or kV according to patient size. COMPARISON: None. FINDINGS: Degenerative straightening of the usual cervical lordosis. Retrolisthesis of C4 on C5 measuring 2 mm. Vertebral body heights maintained. No suspicious lytic or blastic osseous lesion. Overall moderate cervical spine degenerative changes from C3-C4 through C6-C7 characterized by disc height loss with posterior osteophytic ridging of the endplates and posterior disc bulges along with facet and uncovertebral hypertrophy. IMPRESSION: No acute finding. Moderate degenerative change. Dictated by: Darian Brennan M.D. on 11/09/2022 at 13:22 Approved by: Darian Brennan M.D. on 11/09/2022 at 13:23
[2022-11-09] MEDS: KETOROLAC 30 MG/ML VIAL 15 MG IV (13:20)
[2022-11-09] MEDS: METOCLOPRAMIDE 10 MG/2 ML INJ IV (13:20)
[2022-11-09] MEDS: ACETAMINOPHEN 325 MG TABLET 975 MG PO (13:20)
[2022-11-09] MEDS: diphenhydrAMINE 50 MG/ML VIAL 25 MG IV (13:22)
[2022-11-09 13:40] LABS: Bacteria Urine Few (2-10); Culture Indicated Urine Cult Not Indicated; Hyaline Casts Urine 1-5/LPF; RBC Urine 0-1/HPF (0-5/HPF); Squamous Epithelial Cell Urine 1-5 /HPF (0-5/HPF); Transitional Epi Cells Urine 1-5/HPF (0-5/HPF); WBC Urine 0-1/HPF (0-5/HPF)
--- NOTE | 2022-11-09 14:38 | PC.NURSE ---
Patient denies headache since medication administration.
--- NOTE | 2022-11-09 15:23 | PC.NURSE ---
Maurisio NINO aware of vitals including blood pressures during visit, no new orders, pt okay to discharge.
== END 2022-11-09 15:26 | disposition home or self-care (01) ==
PROVIDERS: Emergency Medicine; Emergency Provider Student in an Organized Health Care Education/Training Program; PCP Internal Medicine
DX: R51.9 Headache, unspecified (principal)
CPT/HCPCS: 70450; 71045; 72125; 80053; 81003; 81015; 82550; 83690; 83880; 84484; 85025; 85610; 85730; 93005; 93010; 96361; 96374; 96375; 99284; J1200; J1885; J2765

== ENCOUNTER 2022-11-11 07:33 | Inpatient (IN) | payer MEDICARE, OTHER, SELFPAY ==
[2022-11-11] VITALS (51 sets, daily range): BP systolic 60–201; BP diastolic 37–76; PULSE 59–98; RESP 13–33; TEMP 36–36.8; O2SAT 96–100; BMI 20.8
--- NOTE | 2022-11-11 07:38 | ED_ITS ---
HPI - GI Bleed General Chief complaint: GI Bleed Stated complaint: black vomit/stool abd pain Time Seen by Provider: 11/11/22 07:36 History of Present Illness HPI Narrative: 81-year-old female with past medical history diabetes, stroke, some cardiac history, vertigo presents to the ED, brought in by ambulance from home, for 1 episode of dark hematemesis and dark stool this morning. Patient states she was dizzy and nauseous when this occurred. Patient just seen here 2 days ago for v lindsey and had been discharged after reassuring workup. Today patient complains of right lower quadrant discomfort. Has had colonoscopies in the past, no known history of colon cancer. Is not on any blood thinners. No chest pain no dyspnea. No syncope. No back pain. Related Data Home Medications Medication Instructions Recorded Confirmed acetaminophen 325 mg capsule 650 mg PO TID PRN Pain (Scale 11/09/22 11/11/22 Score 1-3) atorvastatin 80 mg tablet 80 mg PO DAILY 11/09/22 11/11/22 cetirizine 10 mg tablet 10 mg PO BID 11/09/22 11/11/22 felodipine 5 mg tablet,extended 10 mg PO DAILY 11/09/22 11/11/22 release 24 hr glimepiride 2 mg tablet 2 mg PO DAILY 11/09/22 11/11/22 isosorbide mononitrate 60 mg 60 mg PO DAILY 11/09/22 11/11/22 tablet,extended release 24 hr meclizine 12.5 mg tablet 12.5 mg PO TID PRN Vertigo 11/09/22 11/11/22 metformin 850 mg tablet 850 mg PO BID 11/09/22 11/11/22 metoprolol succinate 100 mg 100 mg PO DAILY 11/09/22 11/11/22 tablet,extended release 24 hr nitroglycerin 0.4 mg sublingual 0.4 mg sublingual Q5-15M PRN Chest 11/09/22 11/11/22 tablet Pain potassium chloride 10 mEq 10 meq PO Q2D 11/09/22 11/11/22 tablet,extended release(part/cryst) ranolazine 500 mg tablet,extended 500 mg PO BID 11/09/22 11/11/22 release,12 hr (Ranexa) sertraline 50 mg tablet 50 mg PO DAILY 11/09/22 11/11/22 Previous Rx's Medication Instructions Recorded clopidogrel 75 mg tablet (Plavix) 75 mg PO DAILY #90 tabs 11/12/22 pantoprazole 40 mg tablet,delayed 40 mg PO BID #60 tabs 11/12/22 release (Protonix) prenat.vits,angela,nhb-uzax-wcjog 1 tab PO DAILY #90 tabs 11/12/22 Allergies Allergy/AdvReac Type Severity Reaction Status Date / Time hydrocodone [From Lortab] Allergy Unknown Verified 11/09/22 10:52 paroxetine [From Paxil] Allergy Unknown Verified 11/09/22 10:52 Review of Systems Review of Systems Narrative: GENERAL: negative chills, fatigue, malaise, fever, sweats. HEENT: negative sinus pain, ear pain, sore throat RESPIRATORY: negative dyspnea, cough CARDIOVASCULAR: negative chest pain, palpitations GASTROINTESTINAL: Positive hemoptysis, nausea, vomiting, GI bleed, abdominal pain : negative dysuria, frequency, hematuria MUSCULOSKELETAL: negative muscle or bony pain SKIN: negative rash, skin lesions NEUROLOGIC: negative weakness, numbness ROS Unobtainable: All systems reviewed & are unremarkable except as noted in HPI and below Patient History Social History household members: family Smoking Status: Never smoker Smoking Status: Never smoker alcohol intake frequency: other Substance Use Type: does not use Exam Narrative Exam Narrative: GENERAL: in no distress, not toxic not dyspneic HEAD: Normocephalic. EYES: Pupils equal round ENT: Mucous membranes moist. NECK: Trachea midline. CARDIOVASCULAR: Regular rate and rhythm without murmurs RESPIRATORY: Clear to auscultation. Breath sounds equal bilaterally. No wheezes, rales, or rhonchi. GASTROINTESTINAL: Abdomen soft, mild right lower quadrant tenderness no peritoneal signs bowel sounds are present, no CVA tenderness EXTREMITIES: No gross deformities. BACK: No flank tenderness. NEURO: AOx4. SKIN: Warm and dry PSYCH: Not anxious, is cooperative Initial Vital Signs Initial Vital Signs: Vital Signs Temperature 97.8 F 11/11/22 07:38 Pulse Rate 98 H 11/11/22 07:38 Respiratory Rate 14 11/11/22 07:38 Blood Pressure 134/61 11/11/22 07:38 Pulse Oximetry 98 11/11/22 07:38 Oxygen Delivery Method 11/11/22 07:38 Course Orders Ordered: Discontinued Medications Acetaminophen (Acetaminophen 325 Mg Tablet) 650 mg PO Q6H PRN PRN Reason: Fever/Mild Pain (1-3) Amlodipine Besylate (Amlodipine 5 Mg Tablet) 10 mg PO DAILY [facility] Last Admin: 11/12/22 10:06 Dose: 10 mg Documented By: JEANNE Atorvastatin Calcium (Atorvastatin 20 Mg Tablet) 80 mg PO BEDTIME [facility] Last Admin: 11/11/22 21:27 Dose: 80 mg Documented By: GABY Dextrose (Dextrose 50 % In Water 25 Gm/50 Ml Syringe) 25 gm IV PRN PRN PRN Reason: Hypoglycemia Sodium Chloride (Normal Saline 0.9%) 500 mls @ 1,000 mls/hr IV BOLUS ONE Stop: 11/11/22 09:06 Last Infusion: 11/11/22 09:22 Dose: 0 mls/hr Documented By: Admin: 11/11/22 08:56 Dose: 1,000 mls/hr Documented By: LAUREN Sodium Chloride (Normal Saline 0.9%) 1,000 mls @ 100 mls/hr IV CONT MADDI Stop: 11/11/22 20:59 Last Infusion: 11/11/22 17:47 Dose: 0 mls/hr Documented By: Admin: 11/11/22 09:43 Dose: 100 mls/hr Documented By: TUYET Magnesium Sulfate (Magnesium Sulfate) 4 gm in 100 mls @ 25 mls/hr IV NOW ONE Stop: 11/11/22 13:13 Last Admin: 11/11/22 09:43 Dose: 25 mls/hr Documented By: TUYET Co-signed By: JEANNE Sodium Chloride (Normal Saline 0.9%) 1,000 mls @ 1,000 mls/hr IV BOLUS ONE Stop: 11/11/22 10:59 Last Infusion: 11/11/22 11:35 Dose: 1,000 mls/hr Documented By: Admin: 11/11/22 09:45 Dose: 1,000 mls/hr Documented By: TUYET Sodium Chloride (Normal Saline 0.9%) 1,000 mls @ 1,000 mls/hr IV BOLUS ONE Stop: 11/11/22 17:54 Last Infusion: 11/11/22 17:04 Dose: 0 mls/hr Documented By: Admin: 11/11/22 15:30 Dose: 1,000 mls/hr Documented By: JEANNE Lactated Ringer's (Lactated Ringers) 1,000 mls @ 100 mls/hr IV NOW ONE Stop: 11/12/22 18:28 Last Admin: 11/12/22 08:30 Dose: 100 mls/hr Documented By: MAURI Insulin Human Regular (Insulin Regular 100 Unit/Ml 3 Ml Vial) 0 unit SUBCUT ACHS [facility]; Protocol Last Admin: 11/12/22 11:38 Dose: 2 unit Documented By: JEANNE Co-signed By: FRANSICO Admin: 11/12/22 07:45 Dose: Not Given Documented By: Admin: 11/11/22 21:14 Dose: 3 unit Documented By: GABY Co-signed By: ZACHARY Admin: 11/11/22 17:00 Dose: 2 unit Documented By: JEANNE Co-signed By: JOCELYNE Admin: 11/11/22 12:20 Dose: 2 unit Documented By: TUYET Co-signed By: JOCELYNE Isosorbide Mononitrate (Isosorbide Mononitrate Er 30 Mg Tablet) 60 mg PO NOW ONE Stop: 11/12/22 09:59 Last Admin: 11/12/22 10:06 Dose: 60 mg Documented By: JEANNE Loratadine (Loratadine 10 Mg Tablet) 10 mg PO BID [facility] Last Admin: 11/12/22 08:54 Dose: 10 mg Documented By: Admin: 11/11/22 21:27 Dose: 10 mg Documented By: GABY Melatonin (Melatonin 3 Mg Tablet) 6 mg PO BEDTIME PRN PRN Reason: Insomnia Metoprolol Succinate (Metoprolol Er 50 Mg Tablet) 100 mg PO DAILY [facility] Last Admin: 11/12/22 10:06 Dose: 100 mg Documented By: JEANNE Naloxone HCl (Naloxone 0.4 Mg/Ml Vial) 0.2 mg IV Q2MIN PRN PRN Reason: Opiate Reversal Ondansetron HCl (Ondansetron 4 Mg/2 Ml Inj) 4 mg IV NOW PRN PRN Reason: Nausea And Vomiting Pantoprazole Sodium (Pantoprazole 40 Mg Vial) 80 mg IV NOW ONE Stop: 11/11/22 08:39 Last Admin: 11/11/22 08:57 Dose: 80 mg Documented By: LAUREN Pantoprazole Sodium (Pantoprazole 40 Mg Vial) 40 mg IV BID [facility] Last Admin: 11/12/22 08:54 Dose: 40 mg Documented By: Admin: 11/11/22 21:27 Dose: 40 mg Documented By: GABY Polyethylene Glycol (Polyethylene Glycol 3350 17 Gm Powd.Pack) 17 gm PO DAILY P RN PRN Reason: Constipation Polyethylene Glycol/Electrolytes (Gdn4613/Sod Sulf,Bicarb,Cl/Kcl 4,000 Ml Solution) 2,000 ml PO NOW ONE Stop: 11/11/22 10:19 Last Admin: 11/11/22 11:24 Dose: 2,000 ml Documented By: TUYET Potassium Chloride (Potassium Chloride 20 Meq/15 Ml Udc) 40 meq PO NOW ONE Stop: 11/12/22 09:46 Last Admin: 11/12/22 10:07 Dose: 40 meq Documented By: JEANNE Vit/Calcium/Iron/Folic Ac ( Vit,Calc/Iron/Folic 1 Tablet) 1 tab PO DAILY [facility] Last Admin: 11/12/22 08:54 Dose: 1 tab Documented By: JEANNE Sennosides (Sennosides 8.6 Mg Tablet) 8.6 mg PO BID PRN PRN Reason: Constipation Sertraline HCl (Sertraline 50 Mg Tablet) 50 mg PO DAILY [facility] Last Admin: 11/12/22 08:54 Dose: 50 mg Documented By: Admin: 11/11/22 10:33 Dose: 50 mg Documented By: TUYET Vital Signs Vital signs: Vital Signs - 8 hr 11/11/22 07:38 Temperature 97.8 F Pulse Rate 98 H Respiratory Rate 14 Blood Pressure 134/61 Pulse Oximetry 98 Oxygen Delivery Method Room Air MDM - GI Bleed Lab Data 11/11/22 07:41 11/11/22 07:41 Labs: Lab Results 11/11/22 11/11/22 11/11/22 Range/Units 07:41 07:41 07:41 WBC 4.7 (4.5-11.0) X10^3/uL RBC 3.36 L (4.0-5.2) X10^6/uL Hgb 10.4 L (12.0-16.0) g/dL Hct 30.8 L (36-46) % MCV 91.6 (80-100) fL MCH 30.9 (26-34) PG MCHC 33.8 (30-36) % RDW 13.7 (11.6-14.8) % Plt Count 350 (150-400) X10^3/uL Neut % (Auto) 60.8 (50-75) % Lymph % (Auto) 28.4 (25-40) % [place] % (Auto) 8.6 (3-14) % Eos % (Auto) 1.7 L (2-4) % Baso % (Auto) 0.5 (0-2) % Neut # (Auto) 2900 (7351-0094) /uL Lymph # (Auto) 1300 (6779-1298) /uL [place] # (Auto) 400 (0-900) /uL Eos # (Auto) 100 (0-450) /uL Baso # (Auto) 0 (0-100) /uL PT 15.0 H (10.1-12.7) SECONDS INR 1.3 (0.9-1.3) APTT 33 (26-36) SECONDS Sodium 130 L (137-145) mmol/L Potassium 5.1 (3.4-5.1) mmol/L Chloride 97 L (98-107) mmol/L Carbon Dioxide 20 L (22-32) mmol/L BUN 41 H (7-17) mg/dL Creatinine 0.89 (0.52-1.04) mg/dL Estimated GFR > 60 (>60) mL/min BUN/Creatinine Ratio 46.1 H (6-22) Glucose 250 H (80-110) mg/dL Hemoglobin A1c (4.0-6.0) % Calcium 8.2 L (8.4-10.2) mg/dL Magnesium (1.6-2.3) mg/dL Total Bilirubin 0.2 (0.2-1.3) mg/dL AST 30 (14-36) IU/L ALT 20 (<35) IU/L Alkaline Phosphatase 44 (38-126) U/L Total Protein 6.7 (6.3-8.2) g/dL Albumin 3.8 (3.5-5.0) g/dL Globulin 2.9 (1.7-4.1) g/dL Albumin/Globulin Ratio 1.3 (1.0-2.8) Blood Type Antibody Screen Crossmatch 11/11/22 11/11/22 11/11/22 Range/Units 07:41 07:41 07:41 WBC (4.5-11.0) X10^3/uL RBC (4.0-5.2) X10^6/uL Hgb (12.0-16.0) g/dL Hct (36-46) % MCV (80-100) fL MCH (26-34) PG MCHC (30-36) % RDW (11.6-14.8) % Plt Count (150-400) X10^3/uL Neut % (Auto) (50-75) % Lymph % (Auto) (25-40) % [place] % (Auto) (3-14) % Eos % (Auto) (2-4) % Baso % (Auto) (0-2) % Neut # (Auto) (7903-8207) /uL Lymph # (Auto) (7515-7483) /uL [place] # (Auto) (0-900) /uL Eos # (Auto) (0-450) /uL Baso # (Auto) (0-100) /uL PT (10.1-12.7) SECONDS INR (0.9-1.3) APTT (26-36) SECONDS Sodium (137-145) mmol/L Potassium (3.4-5.1) mmol/L Chloride (98-107) mmol/L Carbon Dioxide (22-32) mmol/L BUN (7-17) mg/dL Creatinine (0.52-1.04) mg/dL Estimated GFR (>60) mL/min BUN/Creatinine Ratio (6-22) Glucose (80-110) mg/dL Hemoglobin A1c 7.5 H (4.0-6.0) % Calcium (8.4-10.2) mg/dL Magnesium 1.3 L (1.6-2.3) mg/dL Total Bilirubin (0.2-1.3) mg/dL AST (14-36) IU/L ALT (<35) IU/L Alkaline Phosphatase (38-126) U/L Total Protein (6.3-8.2) g/dL Albumin (3.5-5.0) g/dL Globulin (1.7-4.1) g/dL Albumin/Globulin Ratio (1.0-2.8) Blood Type O Positive Antibody Screen Negative Crossmatch See Detail Urine Dip Bedside Urine Glucose 250 mg/dl Bedside Urine Bilirubin - Negative Bedside Urine Ketone - Negative Urine Specific [place] 1.020 Bedside Urine Occult Blood - Negative Bedside Urine pH 6.0 Bedside Urine Protein + 30 Bedside Urine Urobilinogen - Negative Bedside Urine Nitrite - Negative Bedside Urine Leukocytes - Negative Esterase Imaging Data CT scan - abdomen/pelvis: Radiologist's Impression: [address] [address] [address] Scan Report Signed Patient: Deja Gee MR#: [id number] : 1940 Acct:[id number] Age/Sex: 81 / F Date of Service: 11/11/22 Loc: ED Accession Number: [id number] ?? Procedure: CT abdomen pelvis w con Ordering Provider: Seymour Sanchez MD PROCEDURE:? CT ABDOMEN PELVIS W CON ? INDICATIONS:? IV contrast only/right lower quadrant pain/GI bleed ? TECHNIQUE:? After the administration of oral and intravenous contrast, axial sections were acquired from the lung bases to the pubic symphysis.? Coronal and sagittal reformats were performed.? For radiation dose reduction, the following was used:? automated exp osure control, adjustment of mA and/or kV according to patient size.? ? COMPARISON:None. ? FINDINGS:? Image quality:? Excellent.? ? Lung bases:? Unremarkable.? ? Heart:? No significant findings. ? ? ABDOMEN: Liver:? Unremarkable.? ? Gallbladder:? Unremarkable.? ? Biliary ducts:? Unremarkable.? ? Pancreas:? Unremarkable.? ? Spleen:? Surgically absent.? ? Adrenal Glands:? Unremarkable.? ? Kidneys and Ureters:? Unremarkable.? ? ? Stomach and Bowel:? Stomach, small bowel loops, and colon are unremarkable.? Peritoneum:? No abnormal intraperitoneal fluid.? No free air.? ? Ventral Wall: ? No hernia.? Abdominal Nodes:? No retroperitoneal or mesenteric adenopathy by size criteria.? Vessels:? Aorta and inferior vena cava are normal in size.? ? PELVIS: Pelvic Organs:? Uterus is surgically absent..? ? Bladder:? Unremarkable.? ? Pelvic Nodes: No enlarged lymph nodes.? Miscellaneous: No inguinal hernias are seen. ? ? ? Bones: Lumbar degenerative change.? No lytic or blastic bony lesions.? No compression fractures. ? ? IMPRESSION:? ? 1. No evidence acute abdominal process. ? 2. Remote splenectomy and hysterectomy. ? 3. Mild diffuse hepatic steatosis.? ? ? Dictated by: Luther Arechiga M.D. on 11/11/2022 at 8:04 ? ? Approved by: Luther Arechiga M.D. on 11/11/2022 at 8:09 ? [facility] Narrative Medical decision making narrative: 81-year-old female with past medical history diabetes, stroke, some cardiac history, vertigo presents to the ED, brought in by ambulance from home, for 1 episode of dark hematemesis and dark stool this morning. Patient states she was dizzy and nauseous when this occurred. Patient just seen here 2 days ago for vertigo and had been discharged after reassuring workup. Today patient complains of right lower quadrant discomfort. Has had colonoscopies in the past, no known history of colon cancer. Is not on any blood thinners. No chest pain no dyspnea. No syncope. No back pain. After history and exam CBC CMP PT PTT EKG heart monitor IV have been ordered. CT abdomen pelvis have been ordered [facility] CC: Hematemesis/abdominal pain/black stool Complicating co-morbidities: History of stroke/vertigo Data collected from: Patient and EMS Medical records reviewed: Patient records visit here 2 days ago for vertigo/dizziness Differential considered: Includes but not limited to Enllie Arana syndrome/colon cancer/colitis/diverticulosis/esophageal varices/diverticulitis Exam documented above, pertinent findings include: Lab Test results independently reviewed as above. Pertinent findings: Independently reviewed EKG as above normal sinus rhythm rate [address] elevation or depression Imaging studies independently reviewed: CT abdomen pelvis no acute process Consultations: 8:40 a.m.. Spoke with General surgery Dr. Matthews, will follow as consult, will consider endoscopy 8:53 a.m., spoke with hospitalist, Dr. Guillen, he will admit patient Treatments: Normal saline/Protonix Re-evaluations: Reviewed results with patient. Agrees for admission. Will ne ed on monitoring for repeat CBC is and possible endoscopy. Discussion: Appropriate for admission. Patient hemoglobin has dropped since 48 hours ago visit here. Is hemodynamically stable. Will need repeat serial CBCs and possible endoscopy. I did review with patient and hospitalist and general surgeon, agree for admit. Discharge Plan Departure Patient Disposition: Admitted as Observation Clinical Impression: Upper gastrointestinal hemorrhage Admit Date/Time: 11/11/22 08:53 Admit Provider: Catrachito Guillen
--- NOTE | 2022-11-11 07:51 | DI.CT.S_ITS ---
PROCEDURE: CT ABDOMEN PELVIS W CON INDICATIONS: IV contrast only/right lower quadrant pain/GI bleed TECHNIQUE: After the administration of oral and intravenous contrast, axial sections were acquired from the lung bases to the pubic symphysis. Coronal and sagittal reformats were performed. For radiation dose reduction, the following was used: automated exposure control, adjustment of mA and/or kV according to patient size. COMPARISON:None. FINDINGS: Image quality: Excellent. Lung bases: Unremarkable. Heart: No significant findings. ABDOMEN: Liver: Unremarkable. Gallbladder: Unremarkable. Biliary ducts: Unremarkable. Pancreas: Unremarkable. Spleen: Surgically absent. Adrenal Glands: Unremarkable. Kidneys and Ureters: Unremarkable. Stomach and Bowel: Stomach, small bowel loops, and colon are unremarkable. Peritoneum: No abnormal intraperitoneal fluid. No free air. Ventral Wall: No hernia. Abdominal Nodes: No retroperitoneal or mesenteric adenopathy by size criteria. Vessels: Aorta and inferior vena cava are normal in size. PELVIS: Pelvic Organs: Uterus is surgically absent.. Bladder: Unremarkable. Pelvic Nodes: No enlarged lymph nodes. Miscellaneous: No inguinal hernias are seen. Bones: Lumbar degenerative change. No lytic or blastic bony lesions. No compression fractures. IMPRESSION: 1. No evidence acute abdominal process. 2. Remote splenectomy and hysterectomy. 3. Mild diffuse hepatic steatosis. Dictated by: Luther Arechiga M.D. on 11/11/2022 at 8:04 Approved by: Luther Arechiga M.D. on 11/11/2022 at 8:09
[2022-11-11 08:06] LABS: Add Manual Diff / Slide Review NO; Basophils Absolute Auto 0 /uL (0-100); Basophils Percent Auto 0.5 % (0-2); Eosinophils Absolute Auto 100 /uL (0-450); Eosinophils Percent Auto 1.7 % (2-4); Hematocrit 30.8 % (36-46); Hemoglobin 10.4 g/dL (12.0-16.0); Lymphocytes Absolute Auto 1300 /uL (1100-4500); Lymphocytes Percent Auto 28.4 % (25-40); Mean Corpuscular HGB Conc 33.8 % (30-36); Mean Corpuscular Hemoglobin 30.9 PG (26-34); Mean Corpuscular Volume 91.6 fL (80-100); Monocytes Absolute Auto 400 /uL (0-900); Monocytes Percent Auto 8.6 % (3-14); Neutrophils Absolute Auto 2900 /uL (1500-7000); Neutrophils Percent Auto 60.8 % (50-75); Platelet Count 350 X10^3/uL (150-400); Red Blood Cell Count 3.36 X10^6/uL (4.0-5.2); Red Cell Distribution Width 13.7 % (11.6-14.8); White Blood Cell Count 4.7 X10^3/uL (4.5-11.0)
[2022-11-11 08:11] LABS: INR 1.3 (0.9-1.3)
[2022-11-11 08:14] LABS: PTT Partial Thromboplastin Tim 33 SECONDS (26-36)
[2022-11-11 08:15] LABS: Alanine Aminotransferase 20 IU/L (<35); Albumin 3.8 g/dL (3.5-5.0); Albumin Globulin Ratio 1.3 (1.0-2.8); Alkaline Phosphatase 44 U/L (38-126); Aspartate Aminotransferase 30 IU/L (14-36); BUN Creatinine Ratio 46.1 (6-22); Bilirubin Total 0.2 mg/dL (0.2-1.3); Blood Urea Nitrogen 41 mg/dL (7-17); Calcium 8.2 mg/dL (8.4-10.2); Carbon Dioxide 20 mmol/L (22-32); Chloride 97 mmol/L (98-107); Estimated Glomerular Filt Rate > 60 mL/min (>60); Globulin 2.9 g/dL (1.7-4.1); Glucose 250 mg/dL (80-110); HEMOLYSIS < 15 (0-50); Potassium 5.1 mmol/L (3.4-5.1); Sodium 130 mmol/L (137-145); Total Protein 6.7 g/dL (6.3-8.2)
[2022-11-11] MEDS: SODIUM CHLORIDE 0.9% 500 ML 1000 ML IV (08:56)
[2022-11-11] MEDS: PANTOPRAZOLE 40 MG VIAL 80 MG IV (08:57)
--- NOTE | 2022-11-11 08:58 | P.HP_ITS ---
History of Present Illness History of Present Illness Date Patient Seen: 11/11/22 Chief complaint: black vomit/stool abd pain Narrative: Deja Gee is an 81yo F with PMH of who presents with acute coffee-ground emesis and anemia concerning for upper GI bleed. Patient had initially presented to the ED on 11/09 for vertigo and had reassuring workup so was sent home on meclizine. She then developed worsening dizziness and nausea and then vomited dark emesis and had melena earlier the morning of 11/11. She does not take NSAIDs and does not drink alcohol. Has never had black stools or vomiting before. Was due for a colonoscopy in [address] Byron cadena surg consulted from ED and will take for double scope tomorrow. Once on the flood patient had BP of 66/43 after using the commode. She likely vasovagaled as her BP increased quickly to 110's and a 1L bolus was given. She became more conversant and perked up shortly after. She denies any chest pain, abd pain, dysuria or LE edema. Patient History Family & Social History Safety & Behavioral: Feels Safe in Current Yes Environment Been Physically Hurt or No Threatened By a Person Tobacco & Substance use: Smoking Status Never smoker alcohol intake frequency other Substance Use Type does not use Meds Home Medications and Allergies Home Medications Medication Instructions Recorded Confirmed Type acetaminophen 325 mg capsule 650 mg PO TID PRN Pain (Scale 11/09/22 11/11/22 History Score 1-3) aspirin 81 mg tablet,delayed 81 mg PO DAILY 11/09/22 11/11/22 History release atorvastatin 80 mg tablet 80 mg PO DAILY 11/09/22 11/11/22 History cetirizine 10 mg tablet 10 mg PO BID 11/09/22 11/11/22 History felodipine 5 mg tablet,extended 10 mg PO DAILY 11/09/22 11/11/22 History release 24 hr glimepiride 2 mg tablet 2 mg PO DAILY 11/09/22 11/11/22 History isosorbide mononitrate 60 mg 60 mg PO DAILY 11/09/22 11/11/22 History tablet,extended release 24 hr meclizine 12.5 mg tablet 12.5 mg PO TID PRN Vertigo 11/09/22 11/11/22 History metformin 850 mg tablet 850 mg PO BID 11/09/22 11/11/22 History metoprolol succinate 100 mg 100 mg PO DAILY 11/09/22 11/11/22 History tablet,extended release 24 hr nitroglycerin 0.4 mg sublingual 0.4 mg sublingual Q5-15M PRN Chest 11/09/22 11/11/22 History tablet Pain potassium chloride 10 mEq 10 meq PO Q2D 11/09/22 11/11/22 History tablet,extended release(part/cryst) ranolazine 500 mg tablet,extended 500 mg PO BID 11/09/22 11/11/22 History release,12 hr (Ranexa) sertraline 50 mg tablet 50 mg PO DAILY 11/09/22 11/11/22 History sulfamethoxazole 800 1 tab PO BID 11/09/22 11/11/22 History mg-trimethoprim 160 mg tablet Allergies Allergy/AdvReac Type Severity Reaction Status Date / Time hydrocodone [From Lortab] Allergy Unknown Verified 11/09/22 10:52 paroxetine [From Paxil] Allergy Unknown Verified 11/09/22 10:52 Review of Systems Review of Systems Narrative: All other systems reviewed with the patient and are negative unless otherwise stated. Exam Vital Signs (past 8 hours): - 11/11/22 07:38 Temperature 97.8 F Pulse Rate 98 H Respiratory Rate 14 Blood Pressure 134/61 Pulse Oximetry 98 Oxygen Delivery Method Room Air Oxygen Delivery Method Room Air Narrative Exam Narrative: GEN: no acute distress, petite HEENT: moist mucous membranes, PERRL NECK: trachea midline, no JVD CV: regular rate and rhythm, no murmurs PULM: clear bilaterally ABD: soft, nontender, nondistended, no organomegaly EXT: warm and well perfused with no edema NEURO: awake, alert, oriented, no focal deficits Objective Labs 11/11/22 07:41 11/11/22 07:41 Labs: Laboratory Results - last 24 hr 11/11/22 11/11/22 11/11/22 07:41 07:41 07:41 WBC 4.7 RBC 3.36 L Hgb 10.4 L Hct 30.8 L MCV 91.6 MCH 30.9 MCHC 33.8 RDW 13.7 Plt Count 350 Neut % (Auto) 60.8 Lymph % (Auto) 28.4 [place] % (Auto) 8.6 Eos % (Auto) 1.7 L Baso % (Auto) 0.5 Neut # (Auto) 2900 Lymph # (Auto) 1300 [place] # (Auto) 400 Eos # (Auto) 100 Baso # (Auto) 0 PT 15.0 H INR 1.3 APTT 33 Sodium 130 L Potassium 5.1 Chloride 97 L Carbon Dioxide 20 L BUN 41 H Creatinine 0.89 Estimated GFR > 60 BUN/Creatinine Ratio 46.1 H Glucose 250 H Calcium 8.2 L Total Bilirubin 0.2 AST 30 ALT 20 Alkaline Phosphatase 44 Total Protein 6.7 Albumin 3.8 Globulin 2.9 Albumin/Globulin Ratio 1.3 Assessment & Plan Assessment & Plan narrative: # acute upper GI bleed with acute blood loss anemia -patient with 1 episode of hematemesis and melena. CXR and CT abd pelvis unremarkable. -hemoglobin dipped from 12 to 10 in 2 days -elevated BUN to creatinine ratio suggest upper GI source -PPI BID -Dr. Matthews gen surg consulted from ED, will take for EGD/colonoscopy on 11/12 -clear liquid diet for prep today, NPO at midnight -transfuse Hgb <7 # CAD -hold home aspirin, metoprolol, imdur ranolazine and felodipine -continue statin # mild hyponatremia -continue IVF # DM2, chronic -holding home metformin -regular insulin sliding scale while NPO -check A1c # depression, chronic -continue home zoloft Code status is Full code. COVID negative. DVT prophylaxis with SCDs. Proxy is daughter Criss. I have reviewed home meds and used all available resources to reconcile the home meds. This patient will be admitted as inpatient and will require greater than 2 midnights of hospital time to treat upper GI bleed. Time Spent With Patient Critical Care time: I spent a total of [] minutes of critical care time on this patient's care today; this time is exclusive of procedural time.
[2022-11-11 09:10] LABS: Magnesium 1.3 mg/dL (1.6-2.3)
[2022-11-11 09:12] LABS: Hemoglobin A1C% w Est Avg Glu 7.5 % (4.0-6.0)
[2022-11-11 09:26] LABS: COVID19 -Nasal RAPID Negative (Negative)
[2022-11-11] MEDS: SODIUM CHLORIDE 0.9% 1,000 ML 100 ML IV (09:43)
[2022-11-11] MEDS: MAGNESIUM SULFATE 4 GM/100 ML PIGGYBACK IV (09:43)
[2022-11-11] MEDS: SODIUM CHLORIDE 0.9% 1,000 ML 1000 ML IV ×2 (09:45→15:30)
--- NOTE | 2022-11-11 10:19 | PM.CN ---
History of Present Illness Consult details Date Patient Seen: 11/11/22 Time Patient Seen: 10:19 Chief complaint: black vomit/stool abd pain Reason for consult: GI bleed Requesting provider: Seymour Sanchez Narrative: Dark emesis and dark stool with drop in hgb since seen 2 days ago. Has not had her screening colonoscopy scheduled 2 years ago due to a stroke. Stroke symptoms still affect her walking. Passed out on the toilet just now, likely vagal. Stable now. No abdominal pain no h/o of colon cancer or polyp. Started on PPI does not take anticoagulants. Meds Home Medications and Allergies Home Medications Medication Instructions Recorded Confirmed Type acetaminophen 325 mg capsule 650 mg PO TID PRN Pain (Scale 11/09/22 11/09/22 History Score 1-3) aspirin 81 mg tablet,delayed 81 mg PO DAILY 11/09/22 11/09/22 History release atorvastatin 80 mg tablet 80 mg PO DAILY 11/09/22 11/09/22 History cetirizine 10 mg tablet 10 mg PO BID 11/09/22 11/09/22 History felodipine 5 mg tablet,extended 10 mg PO DAILY 11/09/22 11/09/22 History release 24 hr glimepiride 2 mg tablet 2 mg PO DAILY 11/09/22 11/09/22 History isosorbide mononitrate 60 mg 60 mg PO DAILY 11/09/22 11/09/22 History tablet,extended release 24 hr meclizine 12.5 mg tablet 12.5 mg PO TID PRN Vertigo 11/09/22 11/09/22 History metformin 850 mg tablet 850 mg PO BID 11/09/22 11/09/22 History metoprolol succinate 100 mg 100 mg PO DAILY 11/09/22 11/09/22 History tablet,extended release 24 hr nitroglycerin 0.4 mg sublingual 0.4 mg sublingual Q5-15M PRN Chest 11/09/22 11/09/22 History tablet Pain potassium chloride 10 mEq 10 meq PO Q2D 11/09/22 11/09/22 History tablet,extended release(part/cryst) ranolazine 500 mg tablet,extended 500 mg PO BID 11/09/22 11/09/22 History release,12 hr (Ranexa) sertraline 50 mg tablet 50 mg PO DAILY 11/09/22 11/09/22 History sulfamethoxazole 800 1 tab PO BID 11/09/22 11/09/22 History mg-trimethoprim 160 mg tablet Allergies Allergy/AdvReac Type Severity Reaction Status Date / Time hydrocodone [From Lortab] Allergy Unknown Verified 11/09/22 10:52 paroxetine [From Paxil] Allergy Unknown Verified 11/09/22 10:52 Review of Systems Review of Systems ROS: Yes All systems reviewed with the patient and are negative except as otherwise documented Exam Vital Signs (past 8 hours): - 11/11/22 07:38 11/11/22 07:43 11/11/22 07:43 Temperature 97.8 F Pulse Rate 98 H 95 H Respiratory Rate 14 Blood Pressure 134/61 102/60 Pulse Oximetry 98 98 Oxygen Delivery Method Room Air Oxygen Flow Rate 11/11/22 07:45 11/11/22 07:45 11/11/22 08:05 Temperature Pulse Rate 94 H 90 Respiratory Rate Blood Pressure 100/55 L Pulse Oximetry 98 99 Oxygen Delivery Method Oxygen Flow Rate 11/11/22 08:08 11/11/22 08:08 11/11/22 08:15 Temperature Pulse Rate 84 84 Respiratory Rate 26 H 31 H Blood Pressure 131/64 Pulse Oximetry 97 99 Oxygen Delivery Method Oxygen Flow Rate 11/11/22 08:15 11/11/22 08:30 11/11/22 08:30 Temperature Pulse Rate 86 Respiratory Rate 30 H Blood Pressure 124/62 118/61 Pulse Oximetry 100 Oxygen Delivery Method Oxygen Flow Rate 11/11/22 08:45 11/11/22 08:45 11/11/22 09:35 Temperature Pulse Rate 90 74 Respiratory Rate 28 H Blood Pressure 108/57 L 60/44 L Pulse Oximetry 100 Oxygen Delivery Method Oxygen Flow Rate 11/11/22 09:40 11/11/22 09:45 11/11/22 10:01 Temperature 96.8 F L Pulse Rate 76 72 72 Respiratory Rate 24 Blood Pressure 91/51 L 110/56 L 112/56 L Pulse Oximetry 96 96 Oxygen Delivery Method Oxygen Flow Rate 0 Oxygen Delivery Method Room Air Oxygen Flow Rate 0 Const General: cooperative and frail appearing Nutritional Appearance: average body habitus HENMA Head: normocephalic and atraumatic Eyes Eyelids: eyelid abnormality left upper eyelid erythema and swelling Sclera: sclerae normal Neck Neck: trachea midline Resp Effort & Inspection: normal respiratory effort and able to speak in complete sentences Cardio Rate: regular rate Rhythm: regular rhythm GI Palpation: soft Skin General: atrophy Neuro General: patient alert, patient awake and patient oriented x3 Psych Appearance: grossly normal Judgment: judgment good Objective Labs 11/11/22 07:41 11/11/22 07:41 Labs: Laboratory Results - last 24 hr 11/11/22 11/11/22 11/11/22 07:41 07:41 07:41 WBC 4.7 RBC 3.36 L Hgb 10.4 L Hct 30.8 L MCV 91.6 MCH 30.9 MCHC 33.8 RDW 13.7 Plt Count 350 Neut % (Auto) 60.8 Lymph % (Auto) 28.4 [place] % (Auto) 8.6 Eos % (Auto) 1.7 L Baso % (Auto) 0.5 Neut # (Auto) 2900 Lymph # (Auto) 1300 [place] # (Auto) 400 Eos # (Auto) 100 Baso # (Auto) 0 PT 15.0 H INR 1.3 APTT 33 Sodium 130 L Potassium 5.1 Chloride 97 L Carbon Dioxide 20 L BUN 41 H Creatinine 0.89 Estimated GFR > 60 BUN/Creatinine Ratio 46.1 H Glucose 250 H Hemoglobin A1c Calcium 8.2 L Magnesium Total Bilirubin 0.2 AST 30 ALT 20 Alkaline Phosphatase 44 Total Protein 6.7 Albumin 3.8 Globulin 2.9 Albumin/Globulin Ratio 1.3 SARS-CoV-2 (PCR) Blood Type Antibody Screen 11/11/22 11/11/22 11/11/22 07:41 07:41 07:41 WBC RBC Hgb Hct MCV MCH MCHC RDW Plt Count Neut % (Auto) Lymph % (Auto) [place] % (Auto) Eos % (Auto) Baso % (Auto) Neut # (Auto) Lymph # (Auto) [place] # (Auto) Eos # (Auto) Baso # (Auto) PT INR APTT Sodium Potassium Chloride Carbon Dioxide BUN Creatinine Estimated GFR BUN/Creatinine Ratio Glucose Hemoglobin A1c 7.5 H Calcium Magnesium 1.3 L Total Bilirubin AST ALT Alkaline Phosphatase Total Protein Albumin Globulin Albumin/Globulin Ratio SARS-CoV-2 (PCR) Blood Type O Positive Antibody Screen Negative 11/11/22 09:00 WBC RBC Hgb Hct MCV MCH MCHC RDW Plt Count Neut % (Auto) Lymph % (Auto) [place] % (Auto) Eos % (Auto) Baso % (Auto) Neut # (Auto) Lymph # (Auto) [place] # (Auto) Eos # (Auto) Baso # (Auto) PT INR APTT Sodium Potassium Chloride Carbon Dioxide BUN Creatinine Estimated GFR BUN/Creatinine Ratio Glucose Hemoglobin A1c Calcium Magnesium Total Bilirubin AST ALT Alkaline Phosphatase Total Protein Albumin Globulin Albumin/Globulin Ratio SARS-CoV-2 (PCR) Negative Blood Type Antibody Screen [facility] Tobacco & Substance Use Smoking Status: Never smoker Assessment & Plan Assessment & Plan narrative: GI bleed, likely upper. Over due colon cancer screening anemia, acute Plan: EGD and colonoscopy with MAC tomorrow. COVID-19 COVID-19 status: Negative Time Spent With Patient Time with patient: less than 30 minutes Critical Care time: I spent a total of [] minutes of critical care time on this patient's care today; this time is exclusive of procedural time.
[2022-11-11] MEDS: SERTRALINE 50 MG TABLET PO (10:33)
[2022-11-11] MEDS: PEG3350/SOD SULF,BICARB,CL/KCL 4,000 ML SOLUTION 2000 ML PO (11:24)
[2022-11-11] MEDS: INSULIN REGULAR 100 UNIT/ML 3 ML VIAL SUBCUT ×3 (12:20→21:14)
[2022-11-11 16:21] LABS: Alanine Aminotransferase 17 IU/L (<35); Albumin 2.9 g/dL (3.5-5.0); Albumin Globulin Ratio 1.2 (1.0-2.8); Alkaline Phosphatase 40 U/L (38-126); Aspartate Aminotransferase 23 IU/L (14-36); BUN Creatinine Ratio 48.2 (6-22); Blood Urea Nitrogen 40 mg/dL (7-17); Calcium 7.1 mg/dL (8.4-10.2); Carbon Dioxide 17 mmol/L (22-32); Chloride 104 mmol/L (98-107); Estimated Glomerular Filt Rate > 60 mL/min (>60); Globulin 2.5 g/dL (1.7-4.1); Glucose 206 mg/dL (80-110); HEMOLYSIS < 15 (0-50); Sodium 133 mmol/L (137-145)
[2022-11-11 16:25] LABS: Bilirubin Total < 0.1 mg/dL (0.2-1.3)
--- NOTE | 2022-11-11 16:30 | PC.NURSE ---
@1455 Pt was seen walking in room w/ bloody loose stool on the floor. Pt was taken to bathroom for cleaning and started getting weak, w/continued blood loose stool coming out. Pt was tranferred to bed put in trundelenburg @1505 and vitals were taken Q5(SEE MEDITECH). Dr chan was alerted and ordered 1000 ml BOLUS of NS, and stat CBC and ordered Pt to be tranferred to ICU. Transfer to ICU was done at 1525 and Pt has stable vital signs.
[2022-11-11 16:32] LABS: Potassium 3.9 mmol/L (3.4-5.1); Total Protein 5.4 g/dL (6.3-8.2)
[2022-11-11 17:02] LABS: Hematocrit 23.6 % (36-46); Hemoglobin 7.9 g/dL (12.0-16.0); Mean Corpuscular HGB Conc 33.3 % (30-36); Mean Corpuscular Hemoglobin 30.5 PG (26-34); Mean Corpuscular Volume 91.5 fL (80-100); Platelet Count 273 X10^3/uL (150-400); Red Blood Cell Count 2.58 X10^6/uL (4.0-5.2); Red Cell Distribution Width 13.5 % (11.6-14.8)
[2022-11-11 17:08] LABS: Add Manual Diff / Slide Review YES
[2022-11-11 17:30] LABS: Neutrophils Absolute Manual 880 /uL (3000-5900); Total Cells Counted 100
[2022-11-11 17:31] LABS: Acanthocytes 2+; Poikilocytosis 2+
[2022-11-11] MEDS: ATORVASTATIN 20 MG TABLET 80 MG PO (21:27)
[2022-11-11] MEDS: PANTOPRAZOLE 40 MG VIAL IV (21:27)
[2022-11-11] MEDS: LORATADINE 10 MG TABLET PO (21:27)
[2022-11-12] VITALS (17 sets, daily range): BP systolic 89–199; BP diastolic 46–103; PULSE 59–79; RESP 14–26; TEMP 35.9–36.6; O2SAT 96–100; BMI 20.8
[2022-11-12 03:52] LABS: Mean Corpuscular HGB Conc 34.3 % (30-36); Mean Corpuscular Hemoglobin 30.4 PG (26-34); Mean Corpuscular Volume 88.6 fL (80-100); Platelet Count 244 X10^3/uL (150-400); Red Blood Cell Count 3.28 X10^6/uL (4.0-5.2); Red Cell Distribution Width 14.7 % (11.6-14.8); White Blood Cell Count 5.8 X10^3/uL (4.5-11.0)
[2022-11-12 03:56] LABS: Add Manual Diff / Slide Review YES; Hematocrit 29.1 % (36-46)
[2022-11-12 03:58] LABS: Magnesium 2.2 mg/dL (1.6-2.3)
[2022-11-12 03:59] LABS: BUN Creatinine Ratio 31.3 (6-22); Blood Urea Nitrogen 21 mg/dL (7-17); Calcium 7.5 mg/dL (8.4-10.2); Carbon Dioxide 22 mmol/L (22-32); Chloride 110 mmol/L (98-107); Estimated Glomerular Filt Rate > 60 mL/min (>60); Glucose 113 mg/dL (80-110); HEMOLYSIS < 15 (0-50); Potassium 3.4 mmol/L (3.4-5.1); Sodium 139 mmol/L (137-145)
--- NOTE | 2022-11-12 06:50 | PC.NURSE ---
pt given 1 unit PRBCs and labs drawn; hgb 10.[address] Hanson notified; will not give 2nd unit; pt for EGD/colonoscopy this morning
--- NOTE | 2022-11-12 07:24 | PM.PREOP ---
Pre-operative Note COVID-19 COVID-19 status: Negative Criteria for continued procedure: Possibility delay results in more complex future surgery or treatment Interval Note History & Physical reviewed/Exam performed by Physician: Yes Changes to H&P: No
[2022-11-12 07:58] LABS: Neutrophils Absolute Manual 812 /uL (3000-5900); Total Cells Counted 50
[2022-11-12 07:59] LABS: RBC Morphology Normal Morphology; Smudge Cells 2+
--- NOTE | 2022-11-12 08:11 | PM.OP.EC ---
Operative Date/Time/Diagnoses Date of procedure: 11/12/22 Time of procedure: 08:12 Pre-op diagnosis: GI bleed Post-op diagnosis: same Procedure & Clinicians Study performed: EGD and colonoscopy with MAC Same procedure as scheduled: Yes Indications: GI bleed Surgeon: Cecelia Matthews Procedure Notes Procedure in detail: Prep diagnosis: GI bleed likely upper, overdue colonoscopy for screening Postop diagnosis: Same Operative procedure: EGD and colonoscopy using MAC Surgeon: Marika Matthews MD Findings: Mild duodenitis. Ulceration with nonbleeding visible ulcer at pylorus, moderate hiatal hernia. On the colonoscopy. Prep was poor. No masses identified, no polyps. No significant diverticulosis seen Procedure: Patient placed in a supine position. Scope inserted into her mouth and advanced down through the esophagus into the stomach. I identified the pylorus and intubated into the duodenum. Insufflation extraction of the scope had the above findings. This involved a retroflex as well. And duodenum was scoped to the 3rd portion Patient was turned to a lateral position. Colonoscopy was carried out starting with a rectal exam showing normal tone no masses. Colonoscope inserted into the rectum and advanced to ileocecal valve with minimal difficulty. Insufflation extraction scope and the above findings. Retroflex was included but not well visualized due to inability to retain insufflation. Thorough physical exam digitally was performed again with no masses Impression: Bleeding source upper GI, duodenitis, ulceration with visible vessel at pylorus. Moderate hiatal hernia. Colonoscopy showed no significant pathology. However was a poor prep Plan: Continue on b.i.d. PPI. Restart diet. Consider repeat colonoscopy in 10 years unless otherwise indicated by change in clinical condition Findings: gastric ulcer, hiatal hernia and other findings (mild duodenitis) Specimen(s): none sent Complications: none Impression: Bleeding source gastric ulcer and duodenitis. Colonoscopy had poor prep but no obvious bleeding source or mass. Post-procedure Recommendations: Colonscopy in 10 years, Prescription for (PPI) and Continue medication(s) Follow up: as needed Disposition: PACU
[2022-11-12] MEDS: LACTATED RINGERS 1,000 ML 100 ML IV (08:30)
--- NOTE | 2022-11-12 08:31 | SUR.PHASEI ---
return to ICU, no belongings, report to Kirk BRYANT
--- NOTE | 2022-11-12 08:32 | P.PN_ITS ---
Exam Vital Signs (past 8 hours): - 11/12/22 02:20 11/12/22 02:00 11/12/22 02:23 Temperature 96.7 F L Pulse Rate 65 59 L Respiratory Rate 20 17 Blood Pressure 173/77 H 199/78 H Pulse Oximetry Oxygen Delivery Method 11/12/22 02:23 11/12/22 02:24 11/12/22 02:24 Temperature Pulse Rate 64 66 Respiratory Rate 26 H 23 Blood Pressure 173/77 H Pulse Oximetry Oxygen Delivery Method 11/12/22 03:20 11/12/22 03:20 11/12/22 04:00 Temperature Pulse Rate 63 Respiratory Rate 14 Blood Pressure 169/74 H 174/72 H Pulse Oximetry Oxygen Delivery Method 11/12/22 04:00 11/12/22 07:15 11/12/22 07:31 Temperature 97.2 F L 97.2 F L Pulse Rate 63 71 76 Respiratory Rate 17 24 20 Blood Pressure 139/103 H 183/76 H Pulse Oximetry 100 99 Oxygen Delivery Method Room Air 11/12/22 08:12 11/12/22 08:17 11/12/22 08:22 Temperature 98 F Pulse Rate 72 74 76 Respiratory Rate 15 16 16 Blood Pressure 89/46 L 114/51 L 136/52 L Pulse Oximetry 97 98 96 Oxygen Delivery Method Room Air Room Air Room Air 11/12/22 08:28 Temperature 98 F Pulse Rate 77 Respiratory Rate 15 Blood Pressure 151/63 H Pulse Oximetry 96 Oxygen Delivery Method Room Air Oxygen Delivery Method Room Air Oxygen Flow Rate 0 Narrative Exam Narrative: GEN: no acute distress, petite HEENT: moist mucous membranes, PERRL NECK: trachea midline, no JVD CV: regular rate and rhythm, no murmurs PULM: clear bilaterally ABD: soft, nontender, nondistended, no organomegaly EXT: warm and well perfused with no edema NEURO: awake, alert, oriented, no focal deficits Objective Labs 11/12/22 03:39 11/12/22 03:39 Labs: Laboratory Results - last 24 hr 11/11/22 11/11/22 11/11/22 07:41 07:41 07:41 WBC RBC Hgb Hct MCV MCH MCHC RDW Plt Count Neut % (Auto) Lymph % (Auto) [place] % (Auto) Eos % (Auto) Baso % (Auto) Lymph # (Auto) [place] # (Auto) Baso # (Auto) Total Counted Seg Neutrophils % Lymphocytes % (Manual) Atypical Lymphs % Monocytes % (Manual) Eosinophils % (Manual) Neutrophils # (Manual) Smudge Cells RBC Morphology Poikilocytosis Acanthocytes (Spur) Sodium Potassium Chloride Carbon Dioxide BUN Creatinine Estimated GFR BUN/Creatinine Ratio Glucose Hemoglobin A1c 7.5 H Lactate Calcium Magnesium 1.3 L Total Bilirubin AST ALT Alkaline Phosphatase Total Protein Albumin Globulin Albumin/Globulin Ratio Nasal Screen MRSA (PCR) SARS-CoV-2 (PCR) Blood Type O Positive Antibody Screen Negative Crossmatch See Detail 11/11/22 11/11/22 11/11/22 09:00 15:38 15:38 WBC RBC Hgb Hct MCV MCH MCHC RDW Plt Count Neut % (Auto) Lymph % (Auto) [place] % (Auto) Eos % (Auto) Baso % (Auto) Lymph # (Auto) [place] # (Auto) Baso # (Auto) Total Counted Seg Neutrophils % Lymphocytes % (Manual) Atypical Lymphs % Monocytes % (Manual) Eosinophils % (Manual) Neutrophils # (Manual) Smudge Cells RBC Morphology Poikilocytosis Acanthocytes (Spur) Sodium 133 L Potassium 3.9 D Chloride 104 Carbon Dioxide 17 L BUN 40 H Creatinine 0.83 Estimated GFR > 60 BUN/Creatinine Ratio 48.2 H Glucose 206 H Hemoglobin A1c Lactate 2.0 Calcium 7.1 L Magnesium Total Bilirubin < 0.1 L AST 23 ALT 17 Alkaline Phosphatase 40 Total Protein 5.4 L Albumin 2.9 L Globulin 2.5 Albumin/Globulin Ratio 1.2 Nasal Screen MRSA (PCR) SARS-CoV-2 (PCR) Negative Blood Type Antibody Screen Crossmatch 11/11/22 11/11/22 11/12/22 16:49 21:00 03:39 WBC 4.0 L RBC 2.58 L Hgb 7.9 L Hct 23.6 L MCV 91.5 MCH 30.5 MCHC 33.3 RDW 13.5 Plt Count 273 Neut % (Auto) Not Reportable Lymph % (Auto) Not Reportable [place] % (Auto) Not Reportable Eos % (Auto) Not Reportable Baso % (Auto) Not Reportable Lymph # (Auto) Not Reportable [place] # (Auto) Not Reportable Baso # (Auto) Not Reportable Total Counted 100 Seg Neutrophils % 22.0 L Lymphocytes % (Manual) 54.0 H Atypical Lymphs % 10.0 H Monocytes % (Manual) 14.0 H Eosinophils % (Manual) Neutrophils # (Manual) 880 L Smudge Cells RBC Morphology See below Poikilocytosis 2+ H Acanthocytes (Spur) 2+ H Sodium Potassium Chloride Carbon Dioxide BUN Creatinine Estimated GFR BUN/Creatinine Ratio Glucose Hemoglobin A1c Lactate Calcium Magnesium 2.2 Total Bilirubin AST ALT Alkaline Phosphatase Total Protein Albumin Globulin Albumin/Globulin Ratio Nasal Screen MRSA (PCR) Negative for mrsa SARS-CoV-2 (PCR) Blood Type Antibody Screen Crossmatch 11/12/22 11/12/22 03:39 03:39 WBC 5.8 RBC 3.28 L Hgb 10.0 L Hct 29.1 L MCV 88.6 MCH 30.4 MCHC 34.3 RDW 14.7 Plt Count 244 Neut % (Auto) Not Reportable Lymph % (Auto) Not Reportable [place] % (Auto) Not Reportable Eos % (Auto) Not Reportable Baso % (Auto) Not Reportable Lymph # (Auto) Not Reportable [place] # (Auto) Not Reportable Baso # (Auto) Not Reportable Total Counted 50 Seg Neutrophils % 14.0 L Lymphocytes % (Manual) 70.0 H Atypical Lymphs % 2.0 H Monocytes % (Manual) 8.0 Eosinophils % (Manual) 6.0 H Neutrophils # (Manual) 812 L Smudge Cells 2+ H RBC Morphology Normal morphology Poikilocytosis Acanthocytes (Spur) Sodium 139 Potassium 3.4 Chloride 110 H Carbon Dioxide 22 BUN 21 H Creatinine 0.67 Estimated GFR > 60 BUN/Creatinine Ratio 31.3 H Glucose 113 H Hemoglobin A1c Lactate Calcium 7.5 L Magnesium Total Bilirubin AST ALT Alkaline Phosphatase Total Protein Albumin Globulin Albumin/Globulin Ratio Nasal Screen MRSA (PCR) SARS-CoV-2 (PCR) Blood Type Antibody Screen Crossmatch [facility] Social History household members: family Smoking Status: Never smoker Assessment & Plan Assessment & Plan narrative: # acute upper GI bleed with acute blood loss anemia -patient with 1 episode of hematemesis and melena. CXR and CT abd pelvis unremarkable. -hemoglobin dipped from 12 to 10 in 2 days -elevated BUN to creatinine ratio suggest upper GI source -PPI BID -Dr. Matthews gen surg consulted from ED, will take for EGD/colonoscopy on 11/12 -clear liquid diet for prep today, NPO at midnight -transfuse Hgb <7 # CAD -hold home aspirin, metoprolol, imdur ranolazine and felodipine -continue statin # mild hyponatremia -continue IVF # DM2, chronic -holding home metformin -regular insulin sliding scale while NPO -check A1c # depression, chronic -continue home zoloft Code status is Full code. COVID negative. DVT prophylaxis with SCDs. Proxy is daughter Criss. I have reviewed home meds and used all available resources to reconcile the home meds. This patient will be admitted as inpatient and will require greater than 2 midnights of hospital time to treat upper GI bleed. Time Spent With Patient Critical Care time: I spent a total of [] minutes of critical care time on this patient's care to day; this time is exclusive of procedural time. Quality VTE Deep Vein Thrombosis/Pulmonary Embolism Present on Admission: No
[2022-11-12] MEDS: LORATADINE 10 MG TABLET PO (08:54)
[2022-11-12] MEDS: PRENATAL VIT,CALC/IRON/FOLIC 1 TABLET 1 TAB PO (08:54)
[2022-11-12] MEDS: SERTRALINE 50 MG TABLET PO (08:54)
[2022-11-12] MEDS: PANTOPRAZOLE 40 MG VIAL IV (08:54)
[2022-11-12] MEDS: AMLODIPINE 5 MG TABLET 10 MG PO (10:06)
[2022-11-12] MEDS: METOPROLOL ER 50 MG TABLET 100 MG PO (10:06)
[2022-11-12] MEDS: ISOSORBIDE MONONITRATE ER 30 MG TABLET 60 MG PO (10:06)
[2022-11-12] MEDS: POTASSIUM CHLORIDE 20 MEQ/15 ML UDC 40 MEQ PO (10:07)
[2022-11-12] MEDS: INSULIN REGULAR 100 UNIT/ML 3 ML VIAL SUBCUT (11:38)
--- NOTE | 2022-11-12 12:08 | P.DS_ITS ---
History of Present Illness History of Present Illness Date Patient Seen: 11/12/22 Chief complaint: black vomit/stool abd pain Narrative: Deja Gee is an 81yo F with PMH of who presents with acute coffee-ground emesis and anemia concerning for upper GI bleed. Patient had initially presented to the ED on 11/09 for vertigo and had reassuring workup so was sent home on meclizine. She then developed worsening dizziness and nausea and then vomited dark emesis and had melena earlier the morning of 11/11. She does not take NSAIDs and does not drink alcohol. Has never had black stools or vomiting before. Was due for a colonoscopy in [address] Matthews gen surg consulted from ED and will take for double scope tomorrow. Once on the flood patient had BP of 66/43 after using the commode. She likely vasovagaled as her BP increased quickly to 110's and a 1L bolus was given. She became more conversant and perked up shortly after. She denies any chest pain, abd pain, dysuria or LE edema. Discharge Providers Provider Date of admission: 11/11/22 08:53 Discharge Date: 11/12/22 Primary care physician: Seymour Gale MD Consults: 11/11/22 08:41 Consult to General Surgery Stat Comment: Consulting Provider: Cecelia Matthews Reason for consultation: gi bleed Has provider been notified: Yes Discharge provider: Catrachito Guillen DO Summary Hospital Course Discharge Diagnosis: # acute upper GI bleed with acute blood loss anemia -patient with 1 episode of hematemesis and melena. CXR and CT abd pelvis unremarkable. -hemoglobin dipped from 12 to 10 in 2 days, then dipped to 7.9 so given 1 unit PRBC -elevated BUN to creatinine ratio suggest upper GI source -PPI BID -Dr. Byron cadena surg consulted from ED, took for EGD/colonoscopy which showed non-bleeding ulcer of pylorus. Colonoscopy showed no polyps. -Hgb was stable and no more bleeding or melena noted -discharged on PPI BID x30 days and stopped home aspirin # CAD -hold home metoprolol, imdur ranolazine and felodipine -continue statin -changed home aspirin to plavix given GIB # mild hyponatremia -continue IVF # DM2, chronic -holding home metformin -regular insulin sliding scale while NPO -A1c 7.5% # depression, chronic -continue home [facility] Hospital Course: Admitted for hematemesis and multiple black stools. Hgb dropped from 12 to 7.9 over a few days so given 1 unit of PRBC. She underwent EGD and colonoscopy with Dr. Byron flores who noted a pyloric ulcer which was non-bleeding but likely source of the bleed. Colonoscopy was normal. Her home aspirin was changed to plavix and she was placed on PPI BID for 30 days. She had no further bleeding and Hgb was stable so she was discharged home. Time Spent with Patient Time spent: Greater than 30 minutes Exam Vital Signs (past 8 hours): - 11/12/22 07:15 11/12/22 07:31 11/12/22 08:12 Temperature 97.2 F L 98 F Pulse Rate 71 76 72 Respiratory Rate 24 20 15 Blood Pressure 139/103 H 183/76 H 89/46 L Pulse Oximetry 99 97 Oxygen Delivery Method Room Air Room Air Oxygen Flow Rate 11/12/22 08:17 11/12/22 08:22 11/12/22 08:28 Temperature 98 F Pulse Rate 74 76 77 Respiratory Rate 16 16 15 Blood Pressure 114/51 L 136/52 L 151/63 H Pulse Oximetry 98 96 96 Oxygen Delivery Method Room Air Room Air Room Air Oxygen Flow Rate 11/12/22 09:10 11/12/22 10:16 11/12/22 10:36 Temperature 97.1 F L 97.0 F L Pulse Rate 76 79 79 Respiratory Rate 22 25 H Blood Pressure 184/75 H 177/80 H 177/80 H Pulse Oximetry 100 100 Oxygen Delivery Method Oxygen Flow Rate 0 0 Oxygen Delivery Method Room Air Oxygen Flow Rate 0 Narrative Exam Narrative: GEN: no acute distress, petite HEENT: moist mucous membranes, PERRL NECK: trachea midline, no JVD CV: regular rate and rhythm, no murmurs PULM: clear bilaterally ABD: soft, nontender, nondistended, no organomegaly EXT: warm and well perfused with no edema NEURO: awake, alert, oriented, no focal deficits Objective Labs 11/12/22 03:39 11/12/22 03:39 Labs: Laboratory Results - last 24 hr 11/11/22 11/11/22 11/11/22 07:41 15:38 15:38 WBC RBC Hgb Hct MCV MCH MCHC RDW Plt Count Neut % (Auto) Lymph % (Auto) Hooker % (Auto) Eos % (Auto) Baso % (Auto) Lymph # (Auto) Hooker # (Auto) Baso # (Auto) Total Counted Seg Neutrophils % Lymphocytes % (Manual) Atypical Lymphs % Monocytes % (Manual) Eosinophils % (Manual) Neutrophils # (Manual) Smudge Cells RBC Morphology Poikilocytosis Acanthocytes (Spur) Sodium 133 L Potassium 3.9 D Chloride 104 Carbon Dioxide 17 L BUN 40 H Creatinine 0.83 Estimated GFR > 60 BUN/Creatinine Ratio 48.2 H Glucose 206 H Lactate 2.0 Calcium 7.1 L Magnesium Total Bilirubin < 0.1 L AST 23 ALT 17 Alkaline Phosphatase 40 Total Protein 5.4 L Albumin 2.9 L Globulin 2.5 Albumin/Globulin Ratio 1.2 Nasal Screen MRSA (PCR) Blood Type O Positive Antibody Screen Negative Crossmatch See Detail 11/11/22 11/11/22 11/12/22 16:49 21:00 03:39 WBC 4.0 L RBC 2.58 L Hgb 7.9 L Hct 23.6 L MCV 91.5 MCH 30.5 MCHC 33.3 RDW 13.5 Plt Count 273 Neut % (Auto) Not Reportable Lymph % (Auto) Not Reportable Hooker % (Auto) Not Reportable Eos % (Auto) Not Reportable Baso % (Auto) Not Reportable Lymph # (Auto) Not Reportable Hooker # (Auto) Not Reportable Baso # (Auto) Not Reportable Total Counted 100 Seg Neutrophils % 22.0 L Lymphocytes % (Manual) 54.0 H Atypical Lymphs % 10.0 H Monocytes % (Manual) 14.0 H Eosinophils % (Manual) Neutrophils # (Manual) 880 L Smudge Cells RBC Morphology See below Poikilocytosis 2+ H Acanthocytes (Spur) 2+ H Sodium Potassium Chloride Carbon Dioxide BUN Creatinine Estimated GFR BUN/Creatinine Ratio Glucose Lactate Calcium Magnesium 2.2 Total Bilirubin AST ALT Alkaline Phosphatase Total Protein Albumin Globulin Albumin/Globulin Ratio Nasal Screen MRSA (PCR) Negative for mrsa Blood Type Antibody Screen Crossmatch 11/12/22 11/12/22 03:39 03:39 WBC 5.8 RBC 3.28 L Hgb 10.0 L Hct 29.1 L MCV 88.6 MCH 30.4 MCHC 34.3 RDW 14.7 Plt Count 244 Neut % (Auto) Not Reportable Lymph % (Auto) Not Reportable Hooker % (Auto) Not Reportable Eos % (Auto) Not Reportable Baso % (Auto) Not Reportable Lymph # (Auto) Not Reportable Hooker # (Auto) Not Reportable Baso # (Auto) Not Reportable Total Counted 50 Seg Neutrophils % 14.0 L Lymphocytes % (Manual) 70.0 H Atypical Lymphs % 2.0 H Monocytes % (Manual) 8.0 Eosinophils % (Manual) 6.0 H Neutrophils # (Manual) 812 L Smudge Cells 2+ H RBC Morphology Normal morphology Poikilocytosis Acanthocytes (Spur) Sodium 139 Potassium 3.4 Chloride 110 H Carbon Dioxide 22 BUN 21 H Creatinine 0.67 Estimated GFR > 60 BUN/Creatinine Ratio 31.3 H Glucose 113 H Lactate Calcium 7.5 L Magnesium Total Bilirubin AST ALT Alkaline Phosphatase Total Protein Albumin Globulin Albumin/Globulin Ratio Nasal Screen MRSA (PCR) Blood Type Antibody Screen Crossmatch [facility] Social History household members: family Smoking Status: Never smoker Discharge Plan Discharge Plan Patient Disposition: Home Provider Discharge Comment: You were admitted for a GI bleed. It was found that you have a stomach ulcer on endoscopy. Your colon looked good. You will need to take protonix twice daily for the next month to help that ulcer heal. I'm also switching your aspirin to another antiplatelet drug called plavix which is used if patient's have a GI bleed while on aspirin. I've also sent a vitamin supplement. Discharge orders & Medications Prescriptions: New prenat.vits,angela,[id number] Tablet 1 tab PO DAILY Qty: 90 0RF clopidogrel [Plavix] 75 mg tablet 75 mg PO DAILY Qty: 90 0RF pantoprazole [Protonix] 40 mg tablet,delayed release (DR/EC) 40 mg PO BID Qty: 60 0RF Continued atorvastatin 80 mg tablet 80 mg PO DAILY cetirizine 10 mg Tablet 10 mg PO BID felodipine 5 mg tablet extended release 24 hr 10 mg PO DAILY metformin 850 mg tablet 850 mg PO BID glimepiride 2 mg tablet 2 mg PO DAILY Label Comments: TAKE 1 TABLET BY MOUTH EVERY MORNING. REPLACES GLIPIZIDE isosorbide mononitrate 60 mg tablet extended release 24 hr 60 mg PO DAILY nitroglycerin 0.4 mg Tablet, Sublingual 0.4 mg SUBLINGUAL Q5-15M PRN (Reason: Chest Pain) Rx Instructions: do not exceed 3 doses per episode sertraline 50 mg tablet 50 mg PO DAILY ranolazine [Ranexa] 500 mg tablet extended release 12 hr 500 mg PO BID Label Comments: Take 1 tablet by mouth twice a day meclizine 12.5 mg Tablet 12.5 mg PO TID PRN (Reason: Vertigo) potassium chloride 10 mEq tablet,ER particles/crystals 10 meq PO Q2D Label Comments: Take 1 tablet by mouth every other day metoprolol succinate 100 mg tablet extended release 24 hr 100 mg PO DAILY Label Comments: Take 1 tablet by mouth once a day acetaminophen 325 mg Capsule 650 mg PO TID PRN (Reason: Pain (Scale Score 1-3)) Discontinued sulfamethoxazole-trimethoprim 800-160 mg tablet 1 tab PO BID Label Comments: TAKE 1 TABLET BY MOUTH TWICE DAILY x 7 days, started 11/04 aspirin [Adult Aspirin EC Low Strength] 81 mg Tablet,Delayed Release (Dr/Ec) 81 mg PO DAILY Follow up/Referrals: Seymour Gale MD [Primary Care Provider] - 2 Weeks (Dr Gale's nurse will call you with a 2 week hospital follow appointment please call their office if you do not hear from them by early next week ) Visit Report/Discharge Packet Instructions: DI for Gastric Ulcer Stand Alone Forms: Patient Portal/API, Stroke Signs & Symptoms Discharge Data Primary Care Provider: Seymour Gale Quality VTE Deep Vein Thrombosis/Pulmonary Embolism Present on Admission: No
--- NOTE | 2022-11-12 13:04 | CM.DANOTE ---
DCP: Case received, EMR reviewed and met with patient. Introduced self and role. Was able to obtain information regarding patient's baseline activity level at home, as well as her current living situation. DCP assessment completed with information currently available. Patient is an 81 year old female who admitted yesterday morning to the care of the hospitalist team. PCP: Perry Gale. Payer: confirmed: Medicare/ for Life. Patient came to the hospital via ambulance secondary to having dark hematemesis and dark stool this morning. Patient had indicated she was dizzy and nauseated when this occurred. Notes indicate that patient had been here about 2 days ago for vertigo, and had been discharged after reassuring workup. Patient had also been complaining of right lower quadrant discomfort. Patient was diagnosed with upper GI Bleed. She had her EGD today performed by Dr. Matthews. Met briefly with patient in her room. She is alert and oriented. Confirmed that she resides in [place] with daughterCriss. She drives only short distances, but daughter takes her to appointments, etc, if she is not able to drive. She has cane/FWW for home use. P: Patient has discharge orders for home today. Latia Bellamy RN/Clipping Marker Discharge Planning/Care Management CM Discharge Assessment Start: 11/12/22 13:02 Freq: Status: Active Protocol: Document 11/12/22 13:02 (Rec: 11/12/22 13:04 [id number]) Discharge Planning Assessment Assigned [facility] Latia Bellamy RN/Clipping Marker Advance Directives? No History Provided By Patient,Medical Record Prior Living Arrangements House Household Members family Comment Patient lives with daughter, Criss Childress. Type of transporation used prior to Relies on Others admit Independent with ADL's Yes Is patient alert and oriented? Yes Needs Assistance With Meal Prep,Home Chores / Shopping Caregiver for Another No DME Already Rented / Owned FWW / Walker,Cane Barriers to Discharge No Discharge Plan Home Transportation Arrangement Daughter Referrals Initiated None needed Whiteboard Updated in Patient Room with Yes name and ext. # of [facility] Review Status In Process Next Review Type Continued Stay Review
== END 2022-11-12 13:34 | disposition home or self-care (01) | DRG 378 ==
LOC: ED 08:41 → AC 08:57 → ICU 15:19
PROVIDERS: Surgery; Admitting Provider Student in an Organized Health Care Education/Training Program; Emergency Provider Emergency Medicine; PCP Internal Medicine; Referring Provider Emergency Medicine; Visit Provider Student in an Organized Health Care Education/Training Program
PROC: 0DJ08ZZ Inspection of Upper Intestinal Tract, Via Natural or Artificial Opening Endoscopic (ICD-10-PCS; CPT 43235; principal; 2022-11-12 07:45)
PROC: 0DJD8ZZ Inspection of Lower Intestinal Tract, Via Natural or Artificial Opening Endoscopic (ICD-10-PCS; CPT 45378; 2022-11-12 07:45)
DX: K25.4 Chronic or unspecified gastric ulcer with hemorrhage (principal); D62 Acute posthemorrhagic anemia; E87.1 Hypo-osmolality and hyponatremia; K29.81 Duodenitis with bleeding; I25.10 Atherosclerotic heart disease of native coronary artery without angina pectoris; E11.9 Type 2 diabetes mellitus without complications; F32.A Depression, unspecified; Z20.822 Contact with and (suspected) exposure to COVID-19; Z79.84 Long term (current) use of oral hypoglycemic drugs; Z12.11 Encounter for screening for malignant neoplasm of colon; R51.9 Headache, unspecified
CPT/HCPCS: 36415; 36430; 43235; 45378; 70450; 71045; 72125; 74177; 80048; 80053; 81003; 81015; 82550; 82962; 83036; 83605; 83690; 83735; 83880; 84484; 85007; 85025; 85610; 85730; 86850; 86900; 86901; 87635; 87797; 93005; 93010; 96361; 96374; 96375; 99232; 99284; C9803; P9016; C9113; J1200; J1885; J2704; J2765; J3010; J3475; Q9967

== ENCOUNTER 2023-03-23 08:50 | Emergency (ER) | payer MEDICARE, OTHER, SELFPAY ==
[2022-11-11 10:00] VITALS: BMI 20.8
[2023-03-23] VITALS (12 sets, daily range): BP systolic 157–195; BP diastolic 70–91; PULSE 62–80; RESP 17–18; TEMP 36.7; O2SAT 97–99; BMI 18.3
--- NOTE | 2023-03-23 09:02 | ED_ITS ---
HPI - Nausea/Vomiting/Diarrhea General Chief complaint: Nausea/Vomiting/Diarrhea Stated complaint: N/V/D T-6 Time Seen by Provider: 03/23/23 08:59 History of Present Illness HPI Narrative: Patient is a 82-year-old female who history of CVA, diabetes, upper GI bleed in October presenting today with variety of symptoms. She reports that she is had diarrhea about 5 times a day for the last 5-6 days. She started vomiting today. She thinks he scratched her left eye she was seen by a provider 3 days ago who put her on erythromycin ophthalmic ointment. However today she has surrounding periorbital erythema and gross drainage. She denies fever or chills. She feels weak and dizzy a little lightheaded. Otherwise no other symptoms. She denies any chest pain. Related Data Home Medications Medication Instructions Recorded Confirmed acetaminophen 325 mg capsule 650 mg PO TID PRN Pain (Scale 11/09/22 03/03/23 Score 1-3) atorvastatin 80 mg tablet 80 mg PO DAILY 11/09/22 03/03/23 cetirizine 10 mg tablet 10 mg PO BID 11/09/22 03/03/23 felodipine 5 mg tablet,extended 10 mg PO DAILY 11/09/22 03/03/23 release 24 hr meclizine 12.5 mg tablet 12.5 mg PO TID PRN Vertigo 11/09/22 03/03/23 metformin 850 mg tablet 850 mg PO BID 11/09/22 03/03/23 metoprolol succinate 100 mg 100 mg PO DAILY 11/09/22 03/03/23 tablet,extended release 24 hr nitroglycerin 0.4 mg sublingual 0.4 mg sublingual Q5-15M PRN Chest 11/09/22 03/03/23 tablet Pain potassium chloride 10 mEq 10 meq PO Q2D 11/09/22 03/03/23 tablet,extended release(part/cryst) ranolazine 500 mg tablet,extended 500 mg PO BID 11/09/22 03/03/23 release,12 hr (Ranexa) sertraline 50 mg tablet 50 mg PO DAILY 11/09/22 03/03/23 isosorbide dinitrate 30 mg tablet 90 mg PO ONCE 03/03/23 03/03/23 Previous Rx's Medication Instructions Recorded clopidogrel 75 mg tablet (Plavix) 75 mg PO DAILY #90 tabs 11/12/22 pantoprazole 40 mg tablet,delayed 40 mg PO BID #60 tabs 11/12/22 release (Protonix) prenat.vits,angela,[id number] 1 tab PO DAILY #90 tabs 11/12/22 amoxicillin 875 mg-potassium 1 tab PO BID #20 tabs 03/23/23 clavulanate 125 mg tablet Allergies Allergy/AdvReac Type Severity Reaction Status Date / Time hydrocodone [From Lortab] Allergy Unknown Verified 11/09/22 10:52 paroxetine [From Paxil] Allergy Unknown Verified 11/09/22 10:52 Review of Systems Review of Systems ROS Unobtainable: All systems reviewed & are unremarkable except as noted in HPI and below Patient History Medical History Allergic contact dermatitis Arthritis of both hands Arthritis of right knee Coronary atherosclerosis of [place] coronary artery Depression with anxiety Duodenal diverticulum GERD (gastroesophageal reflux disease) History of CVA (cerebrovascular accident) Hyperlipemia Hypertension Insomnia Latent tuberculosis Tinea corporis Type 2 diabetes mellitus Social History household members: family Smoking Status: Never smoker Smoking Status: Never smoker alcohol intake frequency: other Substance Use Type: does not use Exam Initial Vital Signs Initial Vital Signs: Vital Signs Temperature 98.1 F 03/23/23 08:58 Pulse Rate 80 03/23/23 08:58 Respiratory Rate 18 03/23/23 08:58 Blood Pressure 187/73 H 03/23/23 08:58 Pulse Oximetry 99 03/23/23 08:58 Oxygen Delivery Method Room Air 03/23/23 08:58 GENERAL: Alert week 82-year-old female appears uncomfortable HEENT: Head atraumatic,EOMI, pupils reactive, face symmetric, moist mucous membranes EYES: Extraocular muscles intact left eye periorbital erythema gross drainage. Eyes stained with fluorescein no dye uptake CARDIOVASCULAR: Regular rate and rhythm without murmurs, rubs or gallops. RESPIRATORY: Breath sounds equal bilaterally, no wheezes rales or rhonchi. ABDOMEN: Soft, nontender. Normoactive bowel sounds all 4 quadrants. No guarding or rebound. EXTREMITIES: Normal range of motion, no clubbing or edema. Neurovascularly intact NEUROLOGICAL: Alert and oriented x4.Normal gait and speech. SKIN: Warm, dry, no laceration, no petechiae, no rashes or lesions. Course Orders Ordered: ED Orders 03/23/23 09:00 Complete Blood Count AUTO DIFF Stat Comprehensive Metabolic Panel Stat Lactate (Lactic Acid) Stat Lipase Stat Procalcitonin Stat Troponin & CK Cardiac Panel Stat 03/23/23 09:13 XR chest 1V Stat 03/23/23 09:24 EKG-12 Lead Stat 03/23/23 09:29 Blood Culture Stat 03/23/23 10:00 Blood Culture Stat 03/23/23 11:10 BMP [Basic Metabolic Panel] Stat 03/23/23 11:20 Urinalysis and Microscopic Stat Urine Culture Stat Discontinued Medications Acetaminophen (Acetaminophen 325 Mg Tablet) 975 mg PO NOW ONE Stop: 03/23/23 09:38 Last Admin: 03/23/23 09:44 Dose: 975 mg Documented By: LELIA Fluorescein Sodium (Fluorescein 1 Mg Strip) 1 mg EYE-BOTH NOW ONE Stop: 03/23/23 09:14 Last Admin: 03/23/23 09:19 Dose: 1 mg Documented By: TAQUERIA Sodium Chloride (Normal Saline 0.9%) 1,000 mls @ 1,000 mls/hr IV CONT MADDI Last Infusion: 03/23/23 10:40 Dose: 0 mls/hr Documented By: Admin: 03/23/23 09:20 Dose: 1,000 mls/hr Documented By: TAQUERIA Sodium Chloride (Normal Saline 0.9%) 1,000 mls @ 1,000 mls/hr IV BOLUS ONE Stop: 03/23/23 11:26 Last Infusion: 03/23/23 11:58 Dose: 0 mls/hr Documented By: Admin: 03/23/23 10:43 Dose: 1,000 mls/hr Documented By: LELIA Ampicillin Sodium/Sulbactam (Sodium 3 gm/ Sodium Chloride) 100 mls @ 200 mls/hr IV NOW ONE Stop: 03/23/23 10:28 Last Infusion: 03/23/23 11:29 Dose: 0 mls/hr Documented By: Admin: 03/23/23 10:43 Dose: 200 mls/hr Documented By: LELIA Proparacaine HCl (Proparacaine 0.5% Ophth Vania) 1 drops EYE-BOTH NOW ONE Stop: 03/23/23 09:14 Last Admin: 03/23/23 09:19 Dose: 1 1000units Documented By: TAQUERIA Vital Signs Vital signs: Vital Signs - 8 hr 03/23/23 08:58 03/23/23 08:59 03/23/23 08:59 Temperature 98.1 F 98.0 F Pulse Rate 80 77 76 Respiratory Rate 18 17 Blood Pressure 187/73 H 194/91 H Pulse Oximetry 99 99 98 Oxygen Delivery Method Room Air Room Air 03/23/23 09:00 03/23/23 09:00 03/23/23 09:30 Temperature Pulse Rate 77 78 Respiratory Rate Blood Pressure 187/83 H Pulse Oximetry 98 99 Oxygen Delivery Method 03/23/23 09:35 03/23/23 09:35 03/23/23 10:00 Temperature Pulse Rate 75 71 Respiratory Rate Blood Pressure 195/88 H Pulse Oximetry 99 99 Oxygen Delivery Method 03/23/23 10:01 03/23/23 10:01 03/23/23 10:30 Temperature Pulse Rate 73 Respiratory Rate Blood Pressure 170/77 H 166/72 H Pulse Oximetry 99 Oxygen Delivery Method 03/23/23 10:30 03/23/23 11:00 03/23/23 11:00 Temperature Pulse Rate 68 64 Respiratory Rate Blood Pressure 157/70 H Pulse Oximetry 98 97 Oxygen Delivery Method 03/23/23 11:30 03/23/23 12:00 03/23/23 12:00 Temperature Pulse Rate 64 73 Respiratory Rate Blood Pressure 173/77 H Pulse Oximetry 99 99 Oxygen Delivery Method 03/23/23 12:30 03/23/23 12:30 Temperature Pulse Rate 62 Respiratory Rate Blood Pressure 169/76 H Pulse Oximetry 97 Oxygen Delivery Method MDM - Nausea/Vomiting/Diarrhea Lab Data 03/23/23 09:00 03/23/23 11:10 Labs: Lab Results 03/23/23 03/23/23 03/23/23 Range/Units 09:00 09:00 09:00 WBC 9.8 (4.5-11.0) X10^3/uL RBC 3.88 L (4.0-5.2) X10^6/uL Hgb 12.1 (12.0-16.0) g/dL Hct 35.8 L (36-46) % MCV 92.2 (80-100) fL MCH 31.1 (26-34) PG MCHC 33.7 (30-36) % RDW 14.1 (11.6-14.8) % Plt Count 439 H (150-400) X10^3/uL Neut % (Auto) 75.8 H (50-75) % Lymph % (Auto) 14.1 L (25-40) % [place] % (Auto) 8.8 (3-14) % Eos % (Auto) 0.9 L (2-4) % Baso % (Auto) 0.4 (0-2) % Neut # (Auto) 7400 H (5533-3786) /uL Lymph # (Auto) 1400 (8654-2974) /uL [place] # (Auto) 900 (0-900) /uL Eos # (Auto) 100 (0-450) /uL Baso # (Auto) 0 (0-100) /uL Sodium 134 L (137-145) mmol/L Potassium 3.2 L (3.4-5.1) mmol/L Chloride 99 (98-107) mmol/L Carbon Dioxide 17 L (22-32) mmol/L BUN 16 (7-17) mg/dL Creatinine 0.66 (0.52-1.04) mg/dL Estimated GFR > 60 (>60) mL/min BUN/Creatinine Ratio 24.2 H (6-22) Glucose 196 H (80-110) mg/dL Lactate 2.1 (0.7-2.1) mmol/L Calcium 9.3 (8.4-10.2) mg/dL Total Bilirubin 0.5 (0.2-1.3) mg/dL AST 29 (14-36) IU/L ALT 17 (<35) IU/L Alkaline Phosphatase 58 (38-126) U/L Total Creatine Kinase 29 L (30-135) U/L CK-MB (CK-2) TNP CK-MB (CK-2) Rel Index TNP Troponin I < 0.012 (0.01-0.034) ng/mL Total Protein 7.8 (6.3-8.2) g/dL Albumin 4.5 (3.5-5.0) g/dL Globulin 3.3 (1.7-4.1) g/dL Albumin/Globulin Ratio 1.4 (1.0-2.8) Lipase 112 (23-300) U/L Procalcitonin (<0.5) ng/mL Urine Color Urine Appearance Urine pH (4.5-8.0) Ur Specific Post (1.000-1.035) Urine Protein (Negative) Urine Glucose (UA) (Negative) g/dL Urine Ketones (NEGATIVE) Urine Occult Blood (Negative) Urine Nitrate (Negative) Urine Bilirubin (NEGATIVE) Urine Urobilinogen (0.2) E.U./dL Ur Leukocyte Esterase (NEGATIVE) Urine RBC (0-5/HPF) Urine WBC (0-5/HPF) Ur Squamous Epith Cells (0-5/HPF) Urine Bacteria (None) Ur Culture Indicated? 03/23/23 03/23/23 03/23/23 Range/Units 09:00 11:10 11:20 WBC (4.5-11.0) X10^3/uL RBC (4.0-5.2) X10^6/uL Hgb (12.0-16.0) g/dL Hct (36-46) % MCV (80-100) fL MCH (26-34) PG MCHC (30-36) % RDW (11.6-14.8) % Plt Count (150-400) X10^3/uL Neut % (Auto) (50-75) % Lymph % (Auto) (25-40) % [place] % (Auto) (3-14) % Eos % (Auto) (2-4) % Baso % (Auto) (0-2) % Neut # (Auto) (2221-8309) /uL Lymph # (Auto) (5057-8492) /uL [place] # (Auto) (0-900) /uL Eos # (Auto) (0-450) /uL Baso # (Auto) (0-100) /uL Sodium 136 L (137-145) mmol/L Potassium 3.0 L (3.4-5.1) mmol/L Chloride 103 (98-107) mmol/L Carbon Dioxide 19 L (22-32) mmol/L BUN 14 (7-17) mg/dL Creatinine 0.56 (0.52-1.04) mg/dL Estimated GFR > 60 (>60) mL/min BUN/Creatinine Ratio 25.0 H (6-22) Glucose 111 H (80-110) mg/dL Lactate (0.7-2.1) mmol/L Calcium 8.1 L (8.4-10.2) mg/dL Total Bilirubin (0.2-1.3) mg/dL AST (14-36) IU/L ALT (<35) IU/L Alkaline Phosphatase (38-126) U/L Total Creatine Kinase (30-135) U/L CK-MB (CK-2) CK-MB (CK-2) Rel Index Troponin I (0.01-0.034) ng/mL Total Protein (6.3-8.2) g/dL Albumin (3.5-5.0) g/dL Globulin (1.7-4.1) g/dL Albumin/Globulin Ratio (1.0-2.8) Lipase (23-300) U/L Procalcitonin 0.13 (<0.5) ng/mL Urine Color Yellow Urine Appearance Clear Urine pH 6.0 (4.5-8.0) Ur Specific Post <=1.005 (1.000-1.035) Urine Protein 1+ H (Negative) Urine Glucose (UA) Negative (Negative) g/dL Urine Ketones 1+ H (NEGATIVE) Urine Occult Blood Negative (Negative) Urine Nitrate Positive H (Negative) Urine Bilirubin Negative (NEGATIVE) Urine Urobilinogen 0.2 (0.2) E.U./dL Ur Leukocyte Esterase 1+ H (NEGATIVE) Urine RBC 0-1/hpf (0-5/HPF) Urine WBC 5-10/hpf H (0-5/HPF) Ur Squamous Epith Cells 0-1 /hpf (0-5/HPF) Urine Bacteria Moderate (10-30) H (None) Ur Culture Indicated? Specimen cultured 03/23/23 Range/Units 11:31 WBC (4.5-11.0) X10^3/uL RBC (4.0-5.2) X10^6/uL Hgb (12.0-16.0) g/dL Hct (36-46) % MCV (80-100) fL MCH (26-34) PG MCHC (30-36) % RDW (11.6-14.8) % Plt Count (150-400) X10^3/uL Neut % (Auto) (50-75) % Lymph % (Auto) (25-40) % [place] % (Auto) (3-14) % Eos % (Auto) (2-4) % Baso % (Auto) (0-2) % Neut # (Auto) (6100-8405) /uL Lymph # (Auto) (3403-6562) /uL [place] # (Auto) (0-900) /uL Eos # (Auto) (0-450) /uL Baso # (Auto) (0-100) /uL Sodium (137-145) mmol/L Potassium (3.4-5.1) mmol/L Chloride (98-107) mmol/L Carbon Dioxide (22-32) mmol/L BUN (7-17) mg/dL Creatinine (0.52-1.04) mg/dL Estimated GFR (>60) mL/min BUN/Creatinine Ratio (6-22) Glucose (80-110) mg/dL Lactate 1.1 (0.7-2.1) mmol/L Calcium (8.4-10.2) mg/dL Total Bilirubin (0.2-1.3) mg/dL AST (14-36) IU/L ALT (<35) IU/L Alkaline Phosphatase (38-126) U/L Total Creatine Kinase (30-135) U/L CK-MB (CK-2) CK-MB (CK-2) Rel Index Troponin I (0.01-0.034) ng/mL Total Protein (6.3-8.2) g/dL Albumin (3.5-5.0) g/dL Globulin (1.7-4.1) g/dL Albumin/Globulin Ratio (1.0-2.8) Lipase (23-300) U/L Procalcitonin (<0.5) ng/mL Urine Color Urine Appearance Urine pH (4.5-8.0) Ur Specific Post (1.000-1.035) Urine Protein (Negative) Urine Glucose (UA) (Negative) g/dL Urine Ketones (NEGATIVE) Urine Occult Blood (Negative) Urine Nitrate (Negative) Urine Bilirubin (NEGATIVE) Urine Urobilinogen (0.2) E.U./dL Ur Leukocyte Esterase (NEGATIVE) Urine RBC (0-5/HPF) Urine WBC (0-5/HPF) Ur Squamous Epith Cells (0-5/HPF) Urine Bacteria (None) Ur Culture Indicated? Imaging Data Chest x-ray: Radiologist's Impression: PROCEDURE:? XR CHEST 1V ? INDICATIONS:? chest pain ? TECHNIQUE:? One view of the chest was acquired.? ? COMPARISON:? [facility], CR, XR CHEST 1V, 11/09/2022, 10:52. ? FINDINGS:? ? Surgical changes and devices:? Postsurgical changes in the left lower quadrant. ? Lungs and pleura:? Low lung volumes.? No dense consolidation or pleural effusion. ? Mediastinum:? Mediastinal contours appear normal.? Heart size is normal.? ? Bones and chest wall:? No suspicious bony lesions.? Overlying soft tissues appear unremarkable.? ? IMPRESSION:? No acute radiographic abnormality.? Low lung volumes, limiting evaluation. ? ? Dictated by: Guevara Smith M.D. on 03/23/2023 at 10:10 ? ECG Data Interpretation: Sinus rhythm rate 76 NJ interval 152 QRS 84 QTC 432 T-wave inversion noted in precordial leads Q-waves noted in aVL MDM Narrative Medical decision making narrative: Patient 82-year-old female presenting today with a variety of symptoms. She is been having diarrhea ongoing for 6 days and the last couple days she has some left infection and periorbital edema and cellulitis. No concern today orbital cellulitis she is not any significant eye pain. There is a lot of draining she is got erythema no dye uptake or corneal injury. From the diarrhea she is found to be significantly dehydrated with a bicarb of 17 which improved to 19. She is tolerating Jell-O. Mildly hypokalemic with a potassium of 3.2-3.0. Creatinine is within normal limits no evidence of POLY. Troponin is negative. Abdomen is soft and nontender no need for imaging. Symptoms are consistent with gastroenteritis. She was not able to provide a stool sample in the ED. Found have nitrates in her urine along with leukocytes. Will also treat her for UTI. Augmentin will cover for periorbital cellulitis and UTI. She was given 2 L of IV fluids Unasyn in the ED. She is still slightly weak but able to get up to bedside commode. Daughter feels comfortable taking her home. Discharge Plan Departure Patient Disposition: Home Clinical Impression: Gastroenteritis, Periorbital cellulitis of left eye, Acute UTI Instructions: DI for Orbital Cellulitis, DI for Viral Gastroenteritis -- Adult, DI for Urinary Tract Infection (UTI) Activity Restrictions/Additional Instructions: *You have been diagnosed with eye infection, UTI, gastroenteritis *What to do: At this time increase fluids as tolerated try Pedialyte Gatorade, Jell-O something with sugar and salt *Continue to take medications as directed Augmentin 875 mg twice a day for 10 days--> [facility] Continue erythromycin previously prescribed *Follow up with your primary care provider in 2-3 days or call [phone] *Return to ER if you should have worsening eye redness, not tolerating fluids, dizziness lightheadedness abdominal pain or any new, worsening or concerning symptoms Prescriptions: New amoxicillin-pot clavulanate 875-125 mg tablet 1 tab PO BID Qty: 20 0RF No Action isosorbide dinitrate 30 mg tablet 90 mg PO ONCE atorvastatin 80 mg tablet 80 mg PO DAILY cetirizine 10 mg Tablet 10 mg PO BID felodipine 5 mg tablet extended release 24 hr 10 mg PO DAILY metformin 850 mg tablet 850 mg PO BID nitroglycerin 0.4 mg Tablet, Sublingual 0.4 mg SUBLINGUAL Q5-15M PRN (Reason: Chest Pain) Rx Instructions: do not exceed 3 doses per episode sertraline 50 mg tablet 50 mg PO DAILY ranolazine [Ranexa] 500 mg tablet extended release 12 hr 500 mg PO BID Patient Comments: Take 1 tablet by mouth twice a day meclizine 12.5 mg Tablet 12.5 mg PO TID PRN (Reason: Vertigo) potassium chloride 10 mEq tablet,ER particles/crystals 10 meq PO Q2D Patient Comments: Take 1 tablet by mouth every other day metoprolol succinate 100 mg tablet extended release 24 hr 100 mg PO DAILY Patient Comments: Take 1 tablet by mouth once a day acetaminophen 325 mg Capsule 650 mg PO TID PRN (Reason: Pain (Scale Score 1-3)) prenat.vits,angela,[id number] Tablet 1 tab PO DAILY Qty: 90 0RF clopidogrel [Plavix] 75 mg tablet 75 mg PO DAILY Qty: 90 0RF pantoprazole [Protonix] 40 mg tablet,delayed release (DR/EC) 40 mg PO BID Qty: 60 0RF Referrals: Seymour Gale MD [Primary Care Provider] - Stand Alone Forms: Patient Portal/API
--- NOTE | 2023-03-23 09:13 | DI.RAD.S_ITS ---
PROCEDURE: XR CHEST 1V INDICATIONS: chest pain TECHNIQUE: One view of the chest was acquired. COMPARISON: [facility], CR, XR CHEST 1V, 11/09/2022, 10:52. FINDINGS: Surgical changes and devices: Postsurgical changes in the left lower quadrant. Lungs and pleura: Low lung volumes. No dense consolidation or pleural effusion. Mediastinum: Mediastinal contours appear normal. Heart size is normal. Bones and chest wall: No suspicious bony lesions. Overlying soft tissues appear unremarkable. IMPRESSION: No acute radiographic abnormality. Low lung volumes, limiting evaluation. Dictated by: Guevara Smith M.D. on 03/23/2023 at 10:10 Approved by: Guevara Smith M.D. on 03/23/2023 at 10:11
[2023-03-23] MEDS: FLUORESCEIN 1 MG STRIP EYE-BOTH (09:19)
[2023-03-23] MEDS: PROPARACAINE 0.5% OPHTH SOL 1 DROPS EYE-BOTH (09:19)
[2023-03-23] MEDS: SODIUM CHLORIDE 0.9% 1,000 ML 1000 ML IV ×2 (09:20→10:43)
[2023-03-23 09:27] LABS: Add Manual Diff / Slide Review NO; Basophils Absolute Auto 0 /uL (0-100); Basophils Percent Auto 0.4 % (0-2); Eosinophils Absolute Auto 100 /uL (0-450); Eosinophils Percent Auto 0.9 % (2-4); Hematocrit 35.8 % (36-46); Hemoglobin 12.1 g/dL (12.0-16.0); Lymphocytes Absolute Auto 1400 /uL (1100-4500); Lymphocytes Percent Auto 14.1 % (25-40); Mean Corpuscular HGB Conc 33.7 % (30-36); Mean Corpuscular Hemoglobin 31.1 PG (26-34); Mean Corpuscular Volume 92.2 fL (80-100); Monocytes Absolute Auto 900 /uL (0-900); Monocytes Percent Auto 8.8 % (3-14); Neutrophils Absolute Auto 7400 /uL (1500-7000); Neutrophils Percent Auto 75.8 % (50-75); Platelet Count 439 X10^3/uL (150-400); Red Blood Cell Count 3.88 X10^6/uL (4.0-5.2); Red Cell Distribution Width 14.1 % (11.6-14.8); White Blood Cell Count 9.8 X10^3/uL (4.5-11.0)
[2023-03-23 09:32] LABS: Alanine Aminotransferase 17 IU/L (<35); Albumin 4.5 g/dL (3.5-5.0); Albumin Globulin Ratio 1.4 (1.0-2.8); Alkaline Phosphatase 58 U/L (38-126); Aspartate Aminotransferase 29 IU/L (14-36); BUN Creatinine Ratio 24.2 (6-22); Bilirubin Total 0.5 mg/dL (0.2-1.3); Blood Urea Nitrogen 16 mg/dL (7-17); Calcium 9.3 mg/dL (8.4-10.2); Carbon Dioxide 17 mmol/L (22-32); Chloride 99 mmol/L (98-107); Creatine Kinase 29 U/L (30-135); Estimated Glomerular Filt Rate > 60 mL/min (>60); Globulin 3.3 g/dL (1.7-4.1); Glucose 196 mg/dL (80-110); HEMOLYSIS < 15 (0-50); Lipase 112 U/L (23-300); Potassium 3.2 mmol/L (3.4-5.1); Sodium 134 mmol/L (137-145); Total Protein 7.8 g/dL (6.3-8.2)
[2023-03-23 09:34] LABS: Lactate (Lactic Acid) 2.1 mmol/L (0.7-2.1)
[2023-03-23 09:44] LABS: Troponin I < 0.012 ng/mL (0.01-0.034)
[2023-03-23] MEDS: ACETAMINOPHEN 325 MG TABLET 975 MG PO (09:44)
[2023-03-23 09:50] LABS: Procalcitonin 0.13 ng/mL (<0.5)
[2023-03-23] MEDS: AMPICILLIN/SULBACTAM 3 GM 3 GM in SODIUM CHLORIDE 0.9% 100 ML IV (10:43)
[2023-03-23 11:23] LABS: Reflexed Lactate in 2 Hours Y
[2023-03-23 11:29] LABS: Blood Urea Nitrogen 14 mg/dL (7-17); Calcium 8.1 mg/dL (8.4-10.2); Carbon Dioxide 19 mmol/L (22-32); Chloride 103 mmol/L (98-107); Estimated Glomerular Filt Rate > 60 mL/min (>60); Glucose 111 mg/dL (80-110); HEMOLYSIS < 15 (0-50); Sodium 136 mmol/L (137-145)
[2023-03-23 11:43] LABS: Appearance Urine UA CLEAR; Bilirubin Urine UA NEGATIVE (NEGATIVE); Color Urine UA YELLOW; Glucose Urine UA NEGATIVE (Negative); Ketones Urine UA 1+ (NEGATIVE); Leukocyte Esterase Urine UA 1+ (NEGATIVE); Nitrite Urine UA POSITIVE (Negative); Occult Blood Urine UA NEGATIVE (Negative); Protein Urine UA 1+ (Negative); Specific Gravity Urine UA <=1.005 (1.000-1.035); Urobilinogen Urine UA 0.2 E.U./dL (0.2)
[2023-03-23 11:52] LABS: Bacteria Urine Moderate (10-30); Culture Indicated Urine Specimen Cultured; RBC Urine 0-1/HPF (0-5/HPF); Squamous Epithelial Cell Urine 0-1 /HPF (0-5/HPF); WBC Urine 5-10/HPF (0-5/HPF)
[2023-03-23 11:53] LABS: Lactate 2HR (Lactic Acid Rflx) 1.1 mmol/L (0.7-2.1)
--- NOTE | 2023-03-24 11:01 | PC.NURSE ---
Daughter called asking about antibiotic, entered chart to verify prescription and encouraged her to reach out to primary care regarding further questions.
== END 2023-03-23 12:57 | disposition home or self-care (01) ==
PROVIDERS: Emergency Provider Emergency Medicine; PCP Internal Medicine
DX: K52.9 Noninfective gastroenteritis and colitis, unspecified (principal); L03.213 Periorbital cellulitis; N39.0 Urinary tract infection, site not specified; R11.2 Nausea with vomiting, unspecified; R07.9 Chest pain, unspecified
CPT/HCPCS: 36415; 71045; 80048; 80053; 81001; 82550; 83605; 83690; 84145; 84484; 85025; 87040; 87077; 87086; 87186; 93005; 93010; 96361; 96365; 99284; J0295

== ENCOUNTER 2023-03-24 14:48 | Emergency (ER) | payer MEDICARE, OTHER, SELFPAY ==
[2022-11-11 10:00] VITALS: BMI 20.8
[2023-03-24] VITALS (16 sets, daily range): BP systolic 152–202; BP diastolic 73–121; PULSE 71–93; RESP 18–22; TEMP 36.6; O2SAT 97–98; BMI 17.7
--- NOTE | 2023-03-24 15:09 | ED_ITS ---
HPI - General Adult General Chief complaint: Nausea/Vomiting/Diarrhea Stated complaint: TELLO & nausea T-1 Time Seen by Provider: 03/24/23 14:59 Source: patient Mode of arrival: EMS Limitations: no limitations History of Present Illness HPI narrative: Patient is an 82-year-old female who was recently seen here in the emergency department. Was diagnosed with cellulitis around her left eye. Was started on amoxicillin. This was 2 days ago. She states that since she is been starting the antibiotic she has nausea at home. She is not been able to take her medications. She does not necessarily feel that her left eye symptoms are worsening. She is no vision changes in that left eye. She is no photophobia. She states she has not been able to drink anything or eat anything which is why she is having a headache. She did receive 4 mg of Zofran prior to arrival by EMS. Related Data Home Medications Medication Instructions Recorded Confirmed acetaminophen 325 mg capsule 650 mg PO TID PRN Pain (Scale 11/09/22 03/03/23 Score 1-3) atorvastatin 80 mg tablet 80 mg PO DAILY 11/09/22 03/03/23 cetirizine 10 mg tablet 10 mg PO BID 11/09/22 03/03/23 felodipine 5 mg tablet,extended 10 mg PO DAILY 11/09/22 03/03/23 release 24 hr meclizine 12.5 mg tablet 12.5 mg PO TID PRN Vertigo 11/09/22 03/03/23 metformin 850 mg tablet 850 mg PO BID 11/09/22 03/03/23 metoprolol succinate 100 mg 100 mg PO DAILY 11/09/22 03/03/23 tablet,extended release 24 hr nitroglycerin 0.4 mg sublingual 0.4 mg sublingual Q5-15M PRN Chest 11/09/22 03/03/23 tablet Pain potassium chloride 10 mEq 10 meq PO Q2D 11/09/22 03/03/23 tablet,extended release(part/cryst) ranolazine 500 mg tablet,extended 500 mg PO BID 11/09/22 03/03/23 release,12 hr (Ranexa) sertraline 50 mg tablet 50 mg PO DAILY 11/09/22 03/03/23 isosorbide dinitrate 30 mg tablet 90 mg PO ONCE 03/03/23 03/03/23 Previous Rx's Medication Instructions Recorded clopidogrel 75 mg tablet (Plavix) 75 mg PO DAILY #90 tabs 11/12/22 pantoprazole 40 mg tablet,delayed 40 mg PO BID #60 tabs 11/12/22 release (Protonix) prenat.vits,angela,[id number] 1 tab PO DAILY #90 tabs 11/12/22 amoxicillin 875 mg-potassium 1 tab PO BID #20 tabs 03/23/23 clavulanate 125 mg tablet Allergies Allergy/AdvReac Type Severity Reaction Status Date / Time hydrocodone [From Lortab] Allergy Unknown Verified 11/09/22 10:52 paroxetine [From Paxil] Allergy Unknown Verified 11/09/22 10:52 Review of Systems Constitutional Constitutional: Reports system reviewed and no additional complaints, except as documented Eyes Eyes: Reports system reviewed and no additional complaints, except as documented Gastrointestinal Gastrointestinal: Reports system reviewed and no additional complaints, except as documented Integumentary/Breasts Skin/Breast: Reports system reviewed and no additional complaints, except as documented Neurologic Neurologic: Reports system reviewed and no additional complaints, except as documented Allergic/Immunologic Allergic/Immunologic: Reports system reviewed and no additional complaints, except as documented Patient History Medical History Allergic contact dermatitis Arthritis of both hands Arthritis of right knee Coronary atherosclerosis of [place] coronary artery Depression with anxiety Duodenal diverticulum GERD (gastroesophageal reflux disease) History of CVA (cerebrovascular accident) Hyperlipemia Hypertension Insomnia Latent tuberculosis Tinea corporis Type 2 diabetes mellitus Social History household members: family Smoking Status: Never smoker Smoking Status: Never smoker alcohol intake frequency: other Substance Use Type: does not use Exam Initial Vital Signs Initial Vital Signs: Vital Signs Pulse Rate 93 H 03/24/23 14:52 Pulse Oximetry 97 03/24/23 14:52 Const General: cooperative and comfortable Eyes Other: Patient with erythema around the left eye. Also has chemosis. Pupils are equal. No photophobia. No foreign body noted. Extraocular muscles are intact. Skin Other: Erythema located around the left eye. Neuro General: patient alert, patient awake and moves all extremities Extrem General: normal to inspection and capillary refill normal Course Orders Ordered: ED Orders 03/24/23 14:50 Complete Blood Count AUTO DIFF Stat 03/24/23 15:10 CT orbit BI w con Stat 03/24/23 15:34 Basic Metabolic Panel Stat POTASSIUM CHLORIDE IN WATER (Potassium Cl 10 Meq/100 Ml Vania) 10 meq in 100 mls @ 100 mls/hr IV Q1H MADDI Stop: 03/24/23 20:44 Discontinued Medications Acetaminophen (Acetaminophen 325 Mg Tablet) 650 mg PO NOW ONE Stop: 03/24/23 17:42 Last Admin: 03/24/23 17:49 Dose: 650 mg Documented By: RB POTASSIUM CHLORIDE IN WATER (Potassium Cl 10 Meq/100 Ml Vania) 10 meq in 100 mls @ 100 mls/hr IV Q1H MADDI Stop: 03/24/23 18:14 Last Infusion: 03/24/23 18:29 Dose: 0 mls/hr Documented By: Admin: 03/24/23 17:32 Dose: 100 mls/hr Documented By: TAQUERIA(2) Infusion: 03/24/23 17:24 Dose: 100 mls/hr Documented By: TAQUERIA(2) Admin: 03/24/23 16:24 Dose: 100 mls/hr Documented By: HAFSA Sodium Chloride (Normal Saline 0.9%) 1,000 mls @ 1,000 mls/hr IV BOLUS ONE Stop: 03/24/23 18:40 Last Infusion: 03/24/23 18:32 Dose: 800 mls/hr Documented By: Infusion: 03/24/23 18:00 Dose: 600 mls/hr Documented By: Admin: 03/24/23 17:51 Dose: 800 mls/hr Documented By: HAFSA Metoclopramide HCl (Metoclopramide 10 Mg/2 Ml Inj) 10 mg IV NOW ONE Stop: 03/24/23 16:12 Last Admin: 03/24/23 16:24 Dose: 10 mg Documented By: HAFSA Ondansetron HCl (Ondansetron 4 Mg/2 Ml Inj) 4 mg IV NOW ONE Stop: 03/24/23 15:10 Last Admin: 03/24/23 15:19 Dose: 4 mg Documented By: HAFSA Vital Signs Vital signs: Vital Signs - 8 hr 03/24/23 15:03 03/24/23 14:52 03/24/23 14:53 Temperature 97.9 F Pulse Rate 86 93 H Respiratory Rate 22 Blood Pressure 168/91 H 189/92 H Pulse Oximetry 98 97 Oxygen Delivery Method Room Air 03/24/23 14:53 03/24/23 15:00 03/24/23 15:00 Temperature Pulse Rate 92 H 88 Respiratory Rate Blood Pressure 168/91 H Pulse Oximetry 97 97 Oxygen Delivery Method 03/24/23 15:29 03/24/23 15:29 03/24/23 15:30 Temperature Pulse Rate 82 Respiratory Rate Blood Pressure 194/121 H 202/90 H Pulse Oximetry 98 Oxygen Delivery Method 03/24/23 15:30 03/24/23 16:00 03/24/23 16:00 Temperature Pulse Rate 84 91 H Respiratory Rate Blood Pressure 175/84 H Pulse Oximetry 97 98 Oxygen Delivery Method 03/24/23 16:49 03/24/23 16:49 03/24/23 17:00 Temperature Pulse Rate 89 Respiratory Rate Blood Pressure 157/82 H 155/80 H Pulse Oximetry 98 Oxygen Delivery Method 03/24/23 17:00 03/24/23 17:30 03/24/23 17:30 Temperature Pulse Rate 83 81 Respiratory Rate Blood Pressure 158/78 H Pulse Oximetry 97 97 Oxygen Delivery Method Medical Decision Making Lab Data Lab results reviewed: Yes I reviewed the patient's lab results. 03/24/23 14:50 03/24/23 15:34 Labs: Lab Results 03/24/23 03/24/23 Range/Units 14:50 15:34 WBC 6.2 (4.5-11.0) X10^3/uL RBC 3.98 L (4.0-5.2) X10^6/uL Hgb 12.5 (12.0-16.0) g/dL Hct 36.9 (36-46) % MCV 92.6 (80-100) fL MCH 31.3 (26-34) PG MCHC 33.8 (30-36) % RDW 14.6 (11.6-14.8) % Plt Count 453 H (150-400) X10^3/uL Neut % (Auto) 71.8 (50-75) % Lymph % (Auto) 19.2 L (25-40) % [place] % (Auto) 8.3 (3-14) % Eos % (Auto) 0.1 L (2-4) % Baso % (Auto) 0.6 (0-2) % Neut # (Auto) 4400 (4908-5550) /uL Lymph # (Auto) 1200 (6739-2144) /uL [place] # (Auto) 500 (0-900) /uL Eos # (Auto) 0 (0-450) /uL Baso # (Auto) 0 (0-100) /uL Sodium 133 L (137-145) mmol/L Potassium 2.4 L* (3.4-5.1) mmol/L Chloride 96 L (98-107) mmol/L Carbon Dioxide 20 L (22-32) mmol/L BUN 6 L (7-17) mg/dL Creatinine 0.53 (0.52-1.04) mg/dL Estimated GFR > 60 (>60) mL/min BUN/Creatinine Ratio 11.3 (6-22) Glucose 165 H (80-110) mg/dL Calcium 8.2 L (8.4-10.2) mg/dL Imaging Data CT orbits: Radiologist's Impression: PROCEDURE:? CT ORBIT BI W CON ? INDICATIONS:? L eye cellulitis eval for septal cellulitis ? TECHNIQUE:? After the administration of intravenous contrast, 2.5 mm axial images acquired through the orbits, with coronal and sagittal reformats.? For radiation dose reduction, the following was used:? automated exposure control, adjustment of mA and/or kV according to patient size.? ? COMPARISON:? None. ? FINDINGS:? Image quality:? Excellent.? ? Orbits:? Globes are symmetrical.? The optic nerves are normal in size and enhancement.? No retrobulbar masses or fat abnormalities.? The extra-ocular muscles are normal and symmetrical in appearance.? Lacrimal glands are normal.? Optic chiasm is normal.? Periorbital soft tissues are normal.? ? Intracranial:? The pituitary gland is normal, without sellar or suprasellar masses.? Visualized cerebral hemispheres, brainstem, and spinal cord appear normal.? ? Bones and sinuses:? Visualized calvarium and facial bones appear intact.? Visualized sinuses and mastoids are clear.? ? Other:? Mild left periorbital subcutaneous edema. ? IMPRESSION:? Left periorbital subcutaneous edema, without intraconal or extraconal abnormality. MDM Narrative Medical decision making narrative: Patient's CT scan today does not show any signs of an orbital cellulitis. After medications here in the ER she states that her nausea is improving and she is tolerating some oral intake. Patient is hypokalemic. She takes potassium supplement at home she has not been able to do that because she is been vomiting. She was given IV potassium. Her headache is improving. I have low suspicion for meningitis. Despite treatment here in the ER patient is only slowly responding to treatment. Care turned over to Dr. Richard to continue to follow until disposition. Discharge Plan Departure Prescriptions: No Action isosorbide dinitrate 30 mg tablet 90 mg PO ONCE atorvastatin 80 mg tablet 80 mg PO DAILY cetirizine 10 mg Tablet 10 mg PO BID felodipine 5 mg tablet extended release 24 hr 10 mg PO DAILY metformin 850 mg tablet 850 mg PO BID nitroglycerin 0.4 mg Tablet, Sublingual 0.4 mg SUBLINGUAL Q5-15M PRN (Reason: Chest Pain) Rx Instructions: do not exceed 3 doses per episode sertraline 50 mg tablet 50 mg PO DAILY ranolazine [Ranexa] 500 mg tablet extended release 12 hr 500 mg PO BID Patient Comments: Take 1 tablet by mouth twice a day meclizine 12.5 mg Tablet 12.5 mg PO TID PRN (Reason: Vertigo) potassium chloride 10 mEq tablet,ER particles/crystals 10 meq PO Q2D Patient Comments: Take 1 tablet by mouth every other day metoprolol succinate 100 mg tablet extended release 24 hr 100 mg PO DAILY Patient Comments: Take 1 tablet by mouth once a day acetaminophen 325 mg Capsule 650 mg PO TID PRN (Reason: Pain (Scale Score 1-3)) prenat.vits,angela,[id number] Tablet 1 tab PO DAILY Qty: 90 0RF clopidogrel [Plavix] 75 mg tablet 75 mg PO DAILY Qty: 90 0RF pantoprazole [Protonix] 40 mg tablet,delayed release (DR/EC) 40 mg PO BID Qty: 60 0RF amoxicillin-pot clavulanate 875-125 mg tablet 1 tab PO BID Qty: 20 0RF Referrals: Seymour Gale MD [Primary Care Provider] -
--- NOTE | 2023-03-24 15:10 | DI.CT.S_ITS ---
PROCEDURE: CT ORBIT BI W CON INDICATIONS: L eye cellulitis eval for septal cellulitis TECHNIQUE: After the administration of intravenous contrast, 2.5 mm axial images acquired through the orbits, with coronal and sagittal reformats. For radiation dose reduction, the following was used: automated exposure control, adjustment of mA and/or kV according to patient size. COMPARISON: None. FINDINGS: Image quality: Excellent. Orbits: Globes are symmetrical. The optic nerves are normal in size and enhancement. No retrobulbar masses or fat abnormalities. The extra-ocular muscles are normal and symmetrical in appearance. Lacrimal glands are normal. Optic chiasm is normal. Periorbital soft tissues are normal. Intracranial: The pituitary gland is normal, without sellar or suprasellar masses. Visualized cerebral hemispheres, brainstem, and spinal cord appear normal. Bones and sinuses: Visualized calvarium and facial bones appear intact. Visualized sinuses and mastoids are clear. Other: Mild left periorbital subcutaneous edema. IMPRESSION: Left periorbital subcutaneous edema, without intraconal or extraconal abnormality. Dictated by: Evert Leyva M.D. on 03/24/2023 at 15:48 Approved by: Evert Leyva M.D. on 03/24/2023 at 15:50
[2023-03-24 15:19] LABS: Add Manual Diff / Slide Review NO; Basophils Absolute Auto 0 /uL (0-100); Basophils Percent Auto 0.6 % (0-2); Eosinophils Absolute Auto 0 /uL (0-450); Eosinophils Percent Auto 0.1 % (2-4); Hematocrit 36.9 % (36-46); Hemoglobin 12.5 g/dL (12.0-16.0); Lymphocytes Absolute Auto 1200 /uL (1100-4500); Lymphocytes Percent Auto 19.2 % (25-40); Mean Corpuscular HGB Conc 33.8 % (30-36); Mean Corpuscular Hemoglobin 31.3 PG (26-34); Mean Corpuscular Volume 92.6 fL (80-100); Monocytes Absolute Auto 500 /uL (0-900); Monocytes Percent Auto 8.3 % (3-14); Neutrophils Absolute Auto 4400 /uL (1500-7000); Neutrophils Percent Auto 71.8 % (50-75); Platelet Count 453 X10^3/uL (150-400); Red Blood Cell Count 3.98 X10^6/uL (4.0-5.2); Red Cell Distribution Width 14.6 % (11.6-14.8); White Blood Cell Count 6.2 X10^3/uL (4.5-11.0)
[2023-03-24] MEDS: ONDANSETRON 4 MG/2 ML INJ IV (15:19)
[2023-03-24 15:58] LABS: BUN Creatinine Ratio 11.3 (6-22); Blood Urea Nitrogen 6 mg/dL (7-17); Calcium 8.2 mg/dL (8.4-10.2); Carbon Dioxide 20 mmol/L (22-32); Chloride 96 mmol/L (98-107); Estimated Glomerular Filt Rate > 60 mL/min (>60); Glucose 165 mg/dL (80-110); HEMOLYSIS < 15 (0-50); Sodium 133 mmol/L (137-145)
[2023-03-24 16:06] LABS: Potassium 2.4 mmol/L (3.4-5.1)
[2023-03-24] MEDS: POTASSIUM CHLORIDE IN WATER 10 MEQ/100 ML PIGGYBACK 100 MEQ IV ×4 (16:24→19:35)
[2023-03-24] MEDS: METOCLOPRAMIDE 10 MG/2 ML INJ IV (16:24)
[2023-03-24] MEDS: ACETAMINOPHEN 325 MG TABLET 650 MG PO (17:49)
[2023-03-24] MEDS: SODIUM CHLORIDE 0.9% 1,000 ML 800 ML IV (17:51)
--- NOTE | 2023-03-24 18:04 | PC.NURSE ---
Patient IV was unable to tolerate the 900ml an hour without the pump having an error. Normal saline reduced to 600ml an hour to accommodate. This RN will increase the rate after the potassium is completed.
[2023-03-24] MEDS: POTASSIUM CHLORIDE 20 MEQ TAB 40 MEQ PO (22:34)
[2023-03-24] MEDS: ONDANSETRON 4 MG ODT PREPACK 1 BOTTLE MISC (22:34)
[2023-03-24 22:51] LABS: HEMOLYSIS < 15 (0-50); Potassium 2.8 mmol/L (3.4-5.1)
== END 2023-03-24 23:17 | disposition home or self-care (01) ==
PROVIDERS: Emergency Medicine; Emergency Provider Emergency Medicine; PCP Internal Medicine
DX: R11.10 Vomiting, unspecified (principal); E87.6 Hypokalemia; Z79.899 Other long term (current) drug therapy; Z86.19 Personal history of other infectious and parasitic diseases
CPT/HCPCS: 70481; 80048; 84132; 85025; 96365; 96366; 96375; 99284; J2405; J2765; Q9967

== ENCOUNTER 2023-03-25 23:23 | Emergency (ER) | payer MEDICARE, OTHER, SELFPAY ==
[2022-11-11 10:00] VITALS: BMI 20.8
--- NOTE | 2023-03-25 23:28 | ED_ITS ---
HPI - General Adult General Chief complaint: Eye Problems Stated complaint: eye infection in lt eye spread to rt eye Time Seen by Provider: 03/25/23 23:28 History of Present Illness HPI narrative: 82-year-old female with history of CVA, HTN, DM, hyperlipidemia and a known recent evaluation of periorbital cellulitis is here for her 3rd visit. She now is concerned that the infection has spread from her left eye to the right. She admits that she is been having trouble for the past few days and initially she was started with what sounds like erythromycin drops in her left eye and she subsequently developed some redness and swelling of the left upper eyelid and was seen and evaluated a few days ago and diagnosed with preseptal cellulitis and placed on antibiotics. She did not tolerate the amoxicillin all that well and presented the following day with persistent vomiting. Today she returns in complains that she has some watering from her right eye but also increasing redness and pain of the skin on her left forehead and overlying the temporal and small blisters that have developed on her upper lid as well as the left side of her nose. She denies fever or chills. She denies chest pain, shortness of breath nor nausea or vomiting. Related Data Home Medications Medication Instructions Recorded Confirmed acetaminophen 325 mg capsule 650 mg PO TID PRN Pain (Scale 11/09/22 03/03/23 Score 1-3) atorvastatin 80 mg tablet 80 mg PO DAILY 11/09/22 03/03/23 cetirizine 10 mg tablet 10 mg PO BID 11/09/22 03/03/23 felodipine 5 mg tablet,extended 10 mg PO DAILY 11/09/22 03/03/23 release 24 hr meclizine 12.5 mg tablet 12.5 mg PO TID PRN Vertigo 11/09/22 03/03/23 metformin 850 mg tablet 850 mg PO BID 11/09/22 03/03/23 metoprolol succinate 100 mg 100 mg PO DAILY 11/09/22 03/03/23 tablet,extended release 24 hr nitroglycerin 0.4 mg sublingual 0.4 mg sublingual Q5-15M PRN Chest 11/09/22 03/03/23 tablet Pain potassium chloride 10 mEq 10 meq PO Q2D 11/09/22 03/03/23 tablet,extended release(part/cryst) ranolazine 500 mg tablet,extended 500 mg PO BID 11/09/22 03/03/23 release,12 hr (Ranexa) sertraline 50 mg tablet 50 mg PO DAILY 11/09/22 03/03/23 isosorbide dinitrate 30 mg tablet 90 mg PO ONCE 03/03/23 03/03/23 Previous Rx's Medication Instructions Recorded clopidogrel 75 mg tablet (Plavix) 75 mg PO DAILY #90 tabs 11/12/22 pantoprazole 40 mg tablet,delayed 40 mg PO BID #60 tabs 11/12/22 release (Protonix) prenat.vits,angela,[id number] 1 tab PO DAILY #90 tabs 11/12/22 amoxicillin 875 mg-potassium 1 tab PO BID #20 tabs 03/23/23 clavulanate 125 mg tablet cefpodoxime 200 mg tablet 200 mg PO BID 10 days #20 tabs 03/24/23 valacyclovir 1 gram tablet 1,000 mg PO TID 10 days #30 tabs 03/26/23 Allergies Allergy/AdvReac Type Severity Reaction Status Date / Time hydrocodone [From Lortab] Allergy Unknown Verified 03/25/23 23:35 paroxetine [From Paxil] Allergy Unknown Verified 03/25/23 23:35 Review of Systems Review of Systems Narrative: GENERAL: Denies chills, fatigue, malaise, fever, sweats. HEENT: See HPI RESPIRATORY: Denies dyspnea, cough, wheezing, hemoptysis, sputum. CARDIOVASCULAR: Denies chest pain, palpitations, orthopnea, edema, GASTROINTESTINAL: Denies nausea, vomiting, abdominal pain, diarrhea, constipation, melena. : Denies dysuria, frequency, incontinence, hematuria, urinary retention. MUSCULOSKELETAL: denies weakness, joint pain, or bony pain SKIN: see HPI NEUROLOGIC: Denies weakness, headache, numbness, change in speech, confusion, seizures, incoordination. PSYCHIATRIC: No concerning psychosocial issues. 12 point review of systems is negative except for those stated above Patient History Medical History Allergic contact dermatitis Arthritis of both hands Arthritis of right knee Coronary atherosclerosis of [place] coronary artery Depression with anxiety Duodenal diverticulum GERD (gastroesophageal reflux disease) History of CVA (cerebrovascular accident) Hyperlipemia Hypertension Insomnia Latent tuberculosis Tinea corporis Type 2 diabetes mellitus Social History household members: family Smoking Status: Never smoker Smoking Status: Never smoker alcohol intake frequency: other Substance Use Type: does not use Exam Narrative Exam Narrative: GENERAL: [82] year old patient appears stated age. Well-developed patient, in mild distress. HEAD: Atraumatic. Normocephalic. EYES: Pupils equal round and reactive. Extraocular motions intact. Increasing left periorbital erythema and edema, scleral injection and mild chemosis. Minimal drainage. There is some watering from her right eye and minimal erythema of upper lid. Visual Acuity (uncorrected, she does NOT have her glasses) OS 20/100, OD 20/40, OU 20/40. IOP OS 23mmHg, OD 19mmHg ENT: Scabs and small fluid filled blisters on left side of nose. Nose without bleeding, purulent drainage. Throat without erythema, tonsillar hypertrophy or exudate. Airway patent. NECK: Trachea midline. Non tender CARDIOVASCULAR: Regular rate and rhythm without murmurs, gallops, or rubs. RESPIRATORY: Clear to auscultation. Breath sounds equal bilaterally. No wheezes, rales, or rhonchi. GASTROINTESTINAL: Abdomen soft, non-tender, nondistended. EXTREMITIES: No edema or joint tenderness. BACK: Nontender without deformity or crepitance. No flank tenderness. NEURO: AOx3. SKIN: Small clear fluid filled blisters now noted on left side of nose, forehead and zoroastrianism Initial Vital Signs Initial Vital Signs: Vital Signs Temperature 97.9 F 03/25/23 23:31 Pulse Rate 75 03/25/23 23:31 Respiratory Rate 18 03/25/23 23:31 Blood Pressure 215/96 H 03/25/23 23:31 Pulse Oximetry 98 03/25/23 23:31 Oxygen Delivery Method Room Air 03/25/23 23:31 Course Orders Ordered: Discontinued Medications Fluorescein Sodium (Fluorescein 1 Mg Strip) 1 mg EYE-RIGHT NOW ONE Stop: 03/25/23 23:54 Last Admin: 03/26/23 00:01 Dose: 1 mg Documented By: FANNY Ofloxacin (Ofloxacin 0.3% Ophth Prepack) 1 bottle MISC SEEINSTR ONE Stop: 03/26/23 02:36 Last Admin: 03/26/23 02:41 Dose: 2 drops Documented By: ALEXANDRA Proparacaine HCl (Proparacaine 0.5% Ophth Vania) 1 drops EYE-RIGHT NOW ONE Stop: 03/25/23 23:54 Last Admin: 03/26/23 00:00 Dose: 1 drop Documented By: FANNY Valacyclovir HCl (Valacyclovir 500 Mg Tablet) 1,000 mg PO NOW ONE Stop: 03/26/23 00:59 Last Admin: 03/26/23 01:27 Dose: 1,000 mg Documented By: FANNY Consultations Consultation #1: discussed with tool liaison op[facility]ho at [facility] (Dr. Warren). We have discussed the clinical course and discussed plan at length. He does not believe patient needs transfer to [facility] given her high likelihood of ability to follow up locally today. He agrees with Valacyclovir 1000mg TID, recommends addition of Ofloxacin drops. NO steroids for now. Vital Signs Vital signs: Vital Signs - 8 hr 03/25/23 23:31 03/25/23 23:33 03/26/23 00:00 Temperature 97.9 F Pulse Rate 75 74 Respiratory Rate 18 Blood Pressure 215/96 H 194/91 H Pulse Oximetry 98 99 Oxygen Delivery Method Room Air 03/26/23 00:00 Temperature Pulse Rate 71 Respiratory Rate Blood Pressure Pulse Oximetry 97 Oxygen Delivery Method Medical Decision Making [facility] Narrative Medical decision making narrative: [82] year old patient presents with multiple visits for left eye pain and surrounding redness Multiple etiologies for patient's symptoms considered including, but not limited to: [Periorbital cellulitis versus conjunctivitis versus zoster ophthalmicus] Prior Charts reviewed in our EMR Primary Historian: patient Critical Exam Findings: Patient now has increasing erythema with multiple clear fluid-filled blisters on an erythematous base in the left side of her face extending into the tip of her nose with some scabbing consistent with herpes zoster. She has erythema of her sclera in the left eye with chemosis and increased watering, fluorescein uptake under UV lamp demonstrates dye uptake in a ferning pattern. Decreased visual acuity and increased intra-ocular pressure all consistent with herpes zoster ophthalmicus Consultations: Discussed with Ophthalmology at [facility], see details above Patient's symptoms improved over duration of stay with above-stated therapies. 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 [x ] New medication prescriptions sent to your pharmacy: [ [facility]] [ ] New medication written as a paper prescription [ ] No new medications given *Please follow up with Dr. Cox or Dr. Conner at [facility] TODAY. Please tell them you were seen in the Emergency Department tonight and we need you seen today. Prescriptions: New valacyclovir 1 gram tablet 1,000 mg PO TID 10 Days Qty: 30 0RF No Action isosorbide dinitrate 30 mg tablet 90 mg PO ONCE atorvastatin 80 mg tablet 80 mg PO DAILY cetirizine 10 mg Tablet 10 mg PO BID felodipine 5 mg tablet extended release 24 hr 10 mg PO DAILY metformin 850 mg tablet 850 mg PO BID nitroglycerin 0.4 mg Tablet, Sublingual 0.4 mg SUBLINGUAL Q5-15M PRN (Reason: Chest Pain) Rx Instructions: do not exceed 3 doses per episode sertraline 50 mg tablet 50 mg PO DAILY ranolazine [Ranexa] 500 mg tablet extended release 12 hr 500 mg PO BID Patient Comments: Take 1 tablet by mouth twice a day meclizine 12.5 mg Tablet 12.5 mg PO TID PRN (Reason: Vertigo) potassium chloride 10 mEq tablet,ER particles/crystals 10 meq PO Q2D Patient Comments: Take 1 tablet by mouth every other day metoprolol succinate 100 mg tablet extended release 24 hr 100 mg PO DAILY Patient Comments: Take 1 tablet by mouth once a day acetaminophen 325 mg Capsule 650 mg PO TID PRN (Reason: Pain (Scale Score 1-3)) prenat.vits,angela,[id number] Tablet 1 tab PO DAILY Qty: 90 0RF clopidogrel [Plavix] 75 mg tablet 75 mg PO DAILY Qty: 90 0RF pantoprazole [Protonix] 40 mg tablet,delayed release (DR/EC) 40 mg PO BID Qty: 60 0RF amoxicillin-pot clavulanate 875-125 mg tablet 1 tab PO BID Qty: 20 0RF cefpodoxime 200 mg tablet 200 mg PO BID 10 Days Qty: 20 0RF Rx Instructions: must administer with a meal/food Referrals: Robbie Cox MD [Physician] - Seymour Gale MD [Primary Care Provider] - Stand Alone Forms: Patient Portal/API
[2023-03-25 23:31] VITALS: BP 215/96; PULSE 75; RESP 18; TEMP 36.6; O2SAT 98; BMI 18.3
[2023-03-25 23:33] VITALS: PULSE 74; O2SAT 99
--- NOTE | 2023-03-25 23:45 | PC.NURSE ---
pt was seen a few days ago with periorbital swelling and was given antibiotics for cellulitis today she started having periorbital swelling to the right eye with pain
[2023-03-26] VITALS: BP 194/91; PULSE 71; O2SAT 97
[2023-03-26] MEDS: PROPARACAINE 0.5% OPHTH SOL 1 DROPS EYE-RIGHT
[2023-03-26] MEDS: FLUORESCEIN 1 MG STRIP EYE-RIGHT (00:01)
--- NOTE | 2023-03-26 00:58 | PC.NURSE ---
PODIATRIC ASSISTANT note: Patient wears prescription glasses but does not have it with her. Patient states she needs to get her glasses updated and is due for another eye doctor visit for this. Visual acuity test results have been charted. Left 20/100, Right 20/40, and Bilateral 20/40.
[2023-03-26] MEDS: valACYclovir 500 MG TABLET 1000 MG PO (01:27)
[2023-03-26] MEDS: OFLOXACIN 0.3% OPHTH PREPACK 1 BOTTLE MISC (02:41)
== END 2023-03-26 03:00 | disposition home or self-care (01) ==
PROVIDERS: Emergency Provider Emergency Medicine; PCP Internal Medicine
DX: B02.30 Zoster ocular disease, unspecified (principal)
CPT/HCPCS: 99283

== ENCOUNTER 2023-04-04 10:35 | Emergency (ER) | payer MEDICARE, OTHER, SELFPAY ==
[2022-11-11 10:00] VITALS: BMI 20.8
[2023-04-04] VITALS (19 sets, daily range): BP systolic 141–177; BP diastolic 68–80; PULSE 58–70; RESP 20–31; TEMP 36.1; O2SAT 83–99; BMI 18.7
--- NOTE | 2023-04-04 11:00 | DI.RAD.S_ITS ---
PROCEDURE: XR CHEST 1V INDICATIONS: chest pain TECHNIQUE: One view of the chest was acquired. COMPARISON: [facility], CR, XR CHEST 1V, 03/23/2023, 9:15. FINDINGS: Surgical changes and devices: None. Lungs and pleura: Lungs are clear. No pleural effusions or pneumothorax. Mediastinum: Mediastinal contours appear normal. Heart size is normal. Bones and chest wall: No suspicious bony lesions. Overlying soft tissues appear unremarkable. IMPRESSION: No acute cardiopulmonary abnormality. Dictated by: Chuck Seo M.D. on 04/04/2023 at 10:29 Approved by: Chuck Seo M.D. on 04/04/2023 at 10:31
--- NOTE | 2023-04-04 11:05 | ED_ITS ---
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 Patient presents with complaint of persistent decrease in food intake, nausea and vomiting which is intermittent patient and daughter state that she was having a lot of emesis earlier in the week has been improving. She does have Zofran at home. They states that she is been taking small amounts of food for weeks to months sometimes just a couple oz each time and has a abdomin al pain intermittently. Patient has complained of some chills in the last several days, no fevers. She denies chest pain or pressure, she states occasional shortness of breath none recently. She states abdominal pain in the last couple days has present again today. She describes it as intermittent sometimes more prolonged and sometimes for shorter periods she denies any radiation to back or flank. She states nothing seems to make it better or worse. Food does not seem to cause any change. She is supposed to have an EGD for evaluation but that was deferred secondary to recent illness. Patient states she has been having bowel movements they are infrequent unusually small amounts occasionally diarrhea. She had dark stool about a week ago and has known bleeding ulcer. No bright red blood no persistent melanotic stools. Patient states she is currently on antibiotic for UTI and has had these intermittently but no current urinary symptoms. Describes some mild weakness but has been able to get around. Has had occasional falls but nothing this week. Patient is currently on antiviral for shingles in her eye which has been improving, antibiotic and diabetes, hypertension, cardiac issues meds including Plavix. Patient was also noted to be hypokalemic on her last visit. Patient family states she is had a prior pancreatic tumor removed around 2008. No known drug allergies. No tobacco, alcohol or illicit. Primary care is in [place]. Patient lives with her family. She presents today she is feeling worse which daughter states she requested to be evaluated which is very atypical she is usually very resistant to being seen. Related Data Home Medications Medication Instructions Recorded Confirmed atorvastatin 80 mg tablet 80 mg PO DAILY 11/09/22 04/04/23 felodipine 5 mg tablet,extended 10 mg PO DAILY 11/09/22 04/04/23 release 24 hr meclizine 12.5 mg tablet 12.5 mg PO TID PRN Vertigo 11/09/22 04/04/23 metformin 850 mg tablet 850 mg PO BID 11/09/22 04/04/23 metoprolol succinate 100 mg 100 mg PO DAILY 11/09/22 04/04/23 tablet,extended release 24 hr nitroglycerin 0.4 mg sublingual 0.4 mg sublingual Q5-15M PRN Chest 11/09/22 04/04/23 tablet Pain potassium chloride 10 mEq 10 meq PO DAILY 11/09/22 04/04/23 tablet,extended release(part/cryst) ranolazine 500 mg tablet,extended 500 mg PO BID 11/09/22 04/04/23 release,12 hr (Ranexa) sertraline 50 mg tablet 50 mg PO DAILY 11/09/22 04/04/23 isosorbide dinitrate 30 mg tablet 90 mg PO DAILY 03/03/23 04/04/23 losartan 100 mg tablet 100 mg PO DAILY 04/04/23 04/04/23 nitrofurantoin 100 mg PO BID 04/04/23 04/04/23 monohydrate/macrocrystals 100 mg capsule ondansetron HCl 8 mg tablet 4 mg PO PRN PRN Nausea 04/04/23 04/04/23 pantoprazole 40 mg tablet,delayed 40 mg PO DAILY 04/04/23 04/04/23 release (Protonix) polymyxin B sulfate 10,000 1 drp EYE-LEFT Q6HR 04/04/23 04/04/23 unit-trimethoprim 1 mg/mL eye drops Previous Rx's Medication Instructions Recorded clopidogrel 75 mg tablet (Plavix) 75 mg PO DAILY #90 tabs 11/12/22 valacyclovir 1 gram tablet 1,000 mg PO TID 10 days #30 tabs 03/26/23 Allergies Allergy/AdvReac Type Severity Reaction Status Date / Time hydrocodone [From Lortab] Allergy Unknown Verified 03/25/23 23:35 paroxetine [From Paxil] Allergy Unknown Verified 03/25/23 23:35 Review of Systems Review of Systems ROS Unobtainable: All systems reviewed & are unremarkable except as noted in HPI and below Patient History Medical History Allergic contact dermatitis Arthritis of both hands Arthritis of right knee Coronary atherosclerosis of [place] coronary artery Depression with anxiety Duodenal diverticulum GERD (gastroesophageal reflux disease) History of CVA (cerebrovascular accident) Hyperlipemia Hypertension Insomnia Latent tuberculosis Tinea corporis Type 2 diabetes mellitus Social History household members: family Smoking Status: Never smoker Smoking Status: Never smoker alcohol intake frequency: other Substance Use Type: does not use Exam Narrative Exam Narrative: GENERAL: Alert and oriented x three, thin elderly female in mild distress. HEENT: Head normocephalic, atraumatic, EOMI, pupils reactive, face symmetric, moist mucous membranes NECK: Supple, full range of motion CARDIOVASCULAR: Regular rate and rhythm without murmurs, rubs or gallops. No JVD. No swelling bilateral lower extremities. RESPIRATORY: Breath sounds equal bilaterally, no wheezes rales or rhonchi. No tachypnea or accessory muscle use. ABDOMEN: Soft, nontender. Nondistended. Normoactive bowel sounds all 4 quadrants. No guarding or rebound, rigidity, no mass : No CVA tenderness EXTREMITIES: Normal range of motion, no clubbing or edema. Neurovascularly intact. BACK: No cervical, thoracic or lumbar vertebral point tenderness. Patient has normal range of motion. Muscle strength is 5/5 in upper and lower extremities, 2+ radial pulses bilaterally. Sensation intact in all 4 extremities. NEUROLOGICAL: Cranial nerves II through XII grossly intact. Moving all extremities, normal speech. SKIN: Warm, dry, no petechiae, no rashes or lesions. Initial Vital Signs Initial Vital Signs: Vital Signs Temperature 97 F L 04/04/23 10:46 Pulse Rate 70 04/04/23 10:46 Respiratory Rate 20 04/04/23 10:46 Blood Pressure 165/74 H 04/04/23 10:46 Pulse Oximetry 98 04/04/23 10:46 Oxygen Delivery Method Room Air 04/04/23 10:46 Course Orders Ordered: ED Orders 04/04/23 11:00 XR chest 1V Stat BNP [NT-proBNP (BNP-Adult 18+)] Stat Complete Blood Count AUTO DIFF Stat Comprehensive Metabolic Panel Stat Lactate (Lactic Acid) Stat Lipase Stat Magnesium Stat PTT Partial Thromboplastin [place] Stat Procalcitonin Stat Prothrombin Time INR Stat Troponin & CK Cardiac Panel Stat 04/04/23 11:09 EKG-12 Lead Stat 04/04/23 11:26 CT abdomen pelvis w con Stat 04/04/23 14:47 Urinalysis and Microscopic Stat Discontinued Medications Acetaminophen (Acetaminophen 325 Mg Tablet) 650 mg PO NOW ONE Stop: 04/04/23 11:27 Last Admin: 04/04/23 11:41 Dose: 650 mg Documented By: TAQUERIA Sodium Chloride (Normal Saline 0.9%) 1,000 mls @ 1,000 mls/hr IV BOLUS ONE Stop: 04/04/23 12:25 Last Infusion: 04/04/23 12:51 Dose: 0 mls/hr Documented By: Admin: 04/04/23 11:42 Dose: 1,000 mls/hr Documented By: TAQUERIA Magnesium Sulfate (Magnesium Sulfate) 2 gm in 50 mls @ 25 mls/hr IV NOW ONE Stop: 04/04/23 13:58 Last Infusion: 04/04/23 15:02 Dose: 0 mls/hr Documented By: ARLEEN Co-signed By: HAFSA Admin: 04/04/23 12:46 Dose: 25 mls/hr Documented By: TAQUERIA Co-signed By: HAFSA Ondansetron HCl (Ondansetron 4 Mg/2 Ml Inj) 4 mg IV NOW ONE Stop: 04/04/23 11:27 Last Admin: 04/04/23 11:42 Dose: 4 mg Documented By: TAQUERIA Vital Signs Vital signs: Vital Signs - 8 hr 04/04/23 11:30 04/04/23 11:30 04/04/23 11:52 Pulse Rate 68 67 Respiratory Rate 20 Blood Pressure 142/73 H Pulse Oximetry 99 98 04/04/23 11:52 04/04/23 12:00 04/04/23 12:00 Pulse Rate 67 Respiratory Rate Blood Pressure 177/79 H 160/80 H Pulse Oximetry 98 04/04/23 12:15 04/04/23 12:15 04/04/23 12:30 Pulse Rate 66 Respiratory Rate Blood Pressure 151/75 H 146/71 H Pulse Oximetry 97 04/04/23 12:30 04/04/23 12:45 04/04/23 12:45 Pulse Rate 66 66 Respiratory Rate Blood Pressure 146/79 H Pulse Oximetry 96 96 04/04/23 13:00 04/04/23 13:15 04/04/23 13:15 Pulse Rate 64 63 Respiratory Rate Blood Pressure 167/74 H Pulse Oximetry 83 L 98 04/04/23 13:30 04/04/23 13:30 04/04/23 13:45 Pulse Rate 61 Respiratory Rate Blood Pressure 151/76 H 155/76 H Pulse Oximetry 99 04/04/23 13:45 04/04/23 14:00 04/04/23 14:00 Pulse Rate 61 60 Respiratory Rate Blood Pressure 148/71 H Pulse Oximetry 98 97 04/04/23 14:15 04/04/23 14:15 04/04/23 14:30 Pulse Rate 59 L Respiratory Rate Blood Pressure 143/70 H 141/68 H Pulse Oximetry 98 04/04/23 14:30 04/04/23 14:47 04/04/23 14:47 Pulse Rate 58 L 61 Respiratory Rate Blood Pressure 149/71 H Pulse Oximetry 98 97 04/04/23 15:00 04/04/23 15:00 Pulse Rate 61 Respiratory Rate Blood Pressure 164/78 H Pulse Oximetry 97 MDM - Weakness Lab Data 04/04/23 11:00 04/04/23 11:00 Labs: Lab Results 04/04/23 04/04/23 04/04/23 Range/Units 11:00 11:00 11:00 WBC 5.4 (4.5-11.0) X10^3/uL RBC 3.50 L (4.0-5.2) X10^6/uL Hgb 11.0 L (12.0-16.0) g/dL Hct 32.6 L (36-46) % MCV 93.0 (80-100) fL MCH 31.3 (26-34) PG MCHC 33.7 (30-36) % RDW 14.1 (11.6-14.8) % Plt Count 456 H (150-400) X10^3/uL Neut % (Auto) 45.6 L (50-75) % Lymph % (Auto) 44.3 H (25-40) % [place] % (Auto) 8.5 (3-14) % Eos % (Auto) 0.9 L (2-4) % Baso % (Auto) 0.7 (0-2) % Neut # (Auto) 2500 (8454-2898) /uL Lymph # (Auto) 2400 (7642-7165) /uL [place] # (Auto) 500 (0-900) /uL Eos # (Auto) 0 (0-450) /uL Baso # (Auto) 0 (0-100) /uL PT 12.8 H (10.1-12.7) SECONDS INR 1.1 (0.9-1.3) APTT 35 (26-36) SECONDS Sodium 138 (137-145) mmol/L Potassium 4.3 (3.4-5.1) mmol/L Chloride 107 (98-107) mmol/L Carbon Dioxide 16 L (22-32) mmol/L BUN 13 (7-17) mg/dL Creatinine 0.91 (0.52-1.04) mg/dL Estimated GFR > 60 (>60) mL/min BUN/Creatinine Ratio 14.3 (6-22) Glucose 126 H (80-110) mg/dL Lactate (0.7-2.1) mmol/L Calcium 8.8 (8.4-10.2) mg/dL Magnesium 1.2 L (1.6-2.3) mg/dL Total Bilirubin 0.6 (0.2-1.3) mg/dL AST 25 (14-36) IU/L ALT 17 (<35) IU/L Alkaline Phosphatase 52 (38-126) U/L Total Creatine Kinase < 20 L (30-135) U/L Troponin I < 0.012 (0.01-0.034) ng/mL NT-Pro-B Natriuret Pep (<450) pg/mL Total Protein 7.6 (6.3-8.2) g/dL Albumin 4.2 (3.5-5.0) g/dL Globulin 3.4 (1.7-4.1) g/dL Albumin/Globulin Ratio 1.2 (1.0-2.8) Lipase 251 (23-300) U/L Procalcitonin (<0.5) ng/mL Urine Color Urine Appearance Urine pH (4.5-8.0) Ur Specific [place] (1.000-1.035) Urine Protein (Negative) Urine Glucose (UA) (Negative) g/dL Urine Ketones (NEGATIVE) Urine Occult Blood (Negative) Urine Nitrate (Negative) Urine Bilirubin (NEGATIVE) Urine Urobilinogen (0.2) E.U./dL Ur Leukocyte Esterase (NEGATIVE) Urine RBC (0-5/HPF) Urine WBC (0-5/HPF) Ur Squamous Epith Cells (0-5/HPF) Ur Transition Epith Cell (0-5/HPF) Urine Bacteria (None) Ur Culture Indicated? 04/04/23 04/04/23 04/04/23 Range/Units 11:00 11:00 11:00 WBC (4.5-11.0) X10^3/uL RBC (4.0-5.2) X10^6/uL Hgb (12.0-16.0) g/dL Hct (36-46) % MCV (80-100) fL MCH (26-34) PG MCHC (30-36) % RDW (11.6-14.8) % Plt Count (150-400) X10^3/uL Neut % (Auto) (50-75) % Lymph % (Auto) (25-40) % [place] % (Auto) (3-14) % Eos % (Auto) (2-4) % Baso % (Auto) (0-2) % Neut # (Auto) (5058-8276) /uL Lymph # (Auto) (8043-3191) /uL [place] # (Auto) (0-900) /uL Eos # (Auto) (0-450) /uL Baso # (Auto) (0-100) /uL PT (10.1-12.7) SECONDS INR (0.9-1.3) APTT (26-36) SECONDS Sodium (137-145) mmol/L Potassium (3.4-5.1) mmol/L Chloride (98-107) mmol/L Carbon Dioxide (22-32) mmol/L BUN (7-17) mg/dL Creatinine (0.52-1.04) mg/dL Estimated GFR (>60) mL/min BUN/Creatinine Ratio (6-22) Glucose (80-110) mg/dL Lactate 2.3 H (0.7-2.1) mmol/L Calcium (8.4-10.2) mg/dL Magnesium (1.6-2.3) mg/dL Total Bilirubin (0.2-1.3) mg/dL AST (14-36) IU/L ALT (<35) IU/L Alkaline Phosphatase (38-126) U/L Total Creatine Kinase (30-135) U/L Troponin I (0.01-0.034) ng/mL NT-Pro-B Natriuret Pep 637 H (<450) pg/mL Total Protein (6.3-8.2) g/dL Albumin (3.5-5.0) g/dL Globulin (1.7-4.1) g/dL Albumin/Globulin Ratio (1.0-2.8) Lipase (23-300) U/L Procalcitonin 0.05 (<0.5) ng/mL Urine Color Urine Appearance Urine pH (4.5-8.0) Ur Specific [place] (1.000-1.035) Urine Protein (Negative) Urine Glucose (UA) (Negative) g/dL Urine Ketones (NEGATIVE) Urine Occult Blood (Negative) Urine Nitrate (Negative) Urine Bilirubin (NEGATIVE) Urine Urobilinogen (0.2) E.U./dL Ur Leukocyte Esterase (NEGATIVE) Urine RBC (0-5/HPF) Urine WBC (0-5/HPF) Ur Squamous Epith Cells (0-5/HPF) Ur Transition Epith Cell (0-5/HPF) Urine Bacteria (None) Ur Culture Indicated? 04/04/23 04/04/23 Range/Units 13:30 14:47 WBC (4.5-11.0) X10^3/uL RBC (4.0-5.2) X10^6/uL Hgb (12.0-16.0) g/dL Hct (36-46) % MCV (80-100) fL MCH (26-34) PG MCHC (30-36) % RDW (11.6-14.8) % Plt Count (150-400) X10^3/uL Neut % (Auto) (50-75) % Lymph % (Auto) (25-40) % [place] % (Auto) (3-14) % Eos % (Auto) (2-4) % Baso % (Auto) (0-2) % Neut # (Auto) (9966-4682) /uL Lymph # (Auto) (5240-1316) /uL [place] # (Auto) (0-900) /uL Eos # (Auto) (0-450) /uL Baso # (Auto) (0-100) /uL PT (10.1-12.7) SECONDS INR (0.9-1.3) APTT (26-36) SECONDS Sodium (137-145) mmol/L Potassium (3.4-5.1) mmol/L Chloride (98-107) mmol/L Carbon Dioxide (22-32) mmol/L BUN (7-17) mg/dL Creatinine (0.52-1.04) mg/dL Estimated GFR (>60) mL/min BUN/Creatinine Ratio (6-22) Glucose (80-110) mg/dL Lactate 1.5 (0.7-2.1) mmol/L Calcium (8.4-10.2) mg/dL Magnesium (1.6-2.3) mg/dL Total Bilirubin (0.2-1.3) mg/dL AST (14-36) IU/L ALT (<35) IU/L Alkaline Phosphatase (38-126) U/L Total Creatine Kinase (30-135) U/L Troponin I (0.01-0.034) ng/mL NT-Pro-B Natriuret Pep (<450) pg/mL Total Protein (6.3-8.2) g/dL Albumin (3.5-5.0) g/dL Globulin (1.7-4.1) g/dL Albumin/Globulin Ratio (1.0-2.8) Lipase (23-300) U/L Procalcitonin (<0.5) ng/mL Urine Color Yellow Urine Appearance Clear Urine pH 6.0 (4.5-8.0) Ur Specific [place] <=1.005 (1.000-1.035) Urine Protein Negative (Negative) Urine Glucose (UA) Negative (Negative) g/dL Urine Ketones Trace H (NEGATIVE) Urine Occult Blood Negative (Negative) Urine Nitrate Negative (Negative) Urine Bilirubin Negative (NEGATIVE) Urine Urobilinogen 0.2 (0.2) E.U./dL Ur Leukocyte Esterase Negative (NEGATIVE) Urine RBC None seen (0-5/HPF) Urine WBC 0-1/hpf (0-5/HPF) Ur Squamous Epith Cells 1-5 /hpf (0-5/HPF) Ur Transition Epith Cell 1-5/hpf (0-5/HPF) Urine Bacteria None seen (None) Ur Culture Indicated? Cult not indicated Urine Dip Bedside Urine Glucose Negative Bedside Urine Bilirubin - Negative Bedside Urine Ketone +/- 5 Urine Specific [place] 1.005 Bedside Urine Occult Blood - Negative Bedside Urine pH 6.0 Bedside Urine Protein - Negative Bedside Urine Urobilinogen - Negative Bedside Urine Nitrite - Negative Bedside Urine Leukocytes - Negative Esterase Imaging Data Chest x-ray: Radiologist Impression: [address] [id number] XRay Report Signed Patient: Deja Gee MR#: [id number] : 1940 Acct:[id number] Age/Sex: 82 / F Date of Service: 04/04/23 Loc: ED Accession Number: [id number] ?? Procedure: XR chest 1V Ordering Provider: Gudelia Baltazar D.O. PROCEDURE:? XR CHEST 1V ? INDICATIONS:? chest pain ? TECHNIQUE:? One view of the chest was acquired.? ? COMPARISON:? [facility], CR, XR CHEST 1V, 03/23/2023, 9:15. ? FINDINGS:? ? Surgical changes and devices:? None.? ? Lungs and pleura:? Lungs are clear.? No pleural effusions or pneumothorax.? ? Mediastinum:? Mediastinal contours appear normal.? Heart size is normal.? ? Bones and chest wall:? No suspicious bony lesions.? Overlying soft tissues appear unremarkable.? ? IMPRESSION:? No acute cardiopulmonary abnormality. ? ? ? Dictated by: Chuck Seo M.D. on 04/04/2023 at 10:29 ? ? Approved by: Chuck Seo M.D. on 04/04/2023 at 10:31?? ECG Data Attestation: I personally reviewed and interpreted this ECG as follows: Interpretation: Sinus rhythm rate of 71 TN 166 QRS is 78 QTC 454. Discharge Plan Departure Patient Disposition: Home Clinical Impression: Nausea and vomiting, Abdominal pain Instructions: DI for Nausea -- Adult Activity Restrictions/Additional Instructions: Follow-up with your physician for recheck, and review of your medication list. I would recommend follow up for your EGD, if this is negative you can talk with your physician about whether decreasing some of your medications might be helpful for your persistent nausea. Please return for new or worsening symptoms, increasing abdominal pain, persistent vomiting, fevers, black or bloody stools, new swelling of your extremities, lightheadedness or passing out or other new or concerning changes. Prescriptions: No Action isosorbide dinitrate 30 mg tablet 90 mg PO DAILY atorvastatin 80 mg tablet 80 mg PO DAILY felodipine 5 mg tablet extended release 24 hr 10 mg PO DAILY metformin 850 mg tablet 850 mg PO BID nitroglycerin 0.4 mg Tablet, Sublingual 0.4 mg SUBLINGUAL Q5-15M PRN (Reason: Chest Pain) Rx Instructions: do not exceed 3 doses per episode sertraline 50 mg tablet 50 mg PO DAILY ranolazine [Ranexa] 500 mg tablet extended release 12 hr 500 mg PO BID Patient Comments: Take 1 tablet by mouth twice a day meclizine 12.5 mg Tablet 12.5 mg PO TID PRN (Reason: Vertigo) potassium chloride 10 mEq tablet,ER particles/crystals 10 meq PO DAILY Patient Comments: Take 1 tablet by mouth every other day metoprolol succinate 100 mg tablet extended release 24 hr 100 mg PO DAILY Patient Comments: Take 1 tablet by mouth once a day clopidogrel [Plavix] 75 mg tablet 75 mg PO DAILY Qty: 90 0RF valacyclovir 1 gram tablet 1,000 mg PO TID 10 Days Qty: 30 0RF pantoprazole [Protonix] 40 mg tablet,delayed release (DR/EC) 40 mg PO DAILY nitrofurantoin monohyd/m-cryst 100 mg capsule 100 mg PO BID Patient Comments: TAKE 1 CAPSULE BY MOUTH EVERY 12 HOURS FOR 5 DAYS losartan 100 mg tablet 100 mg PO DAILY ondansetron HCl 8 mg tablet 4 mg PO PRN PRN (Reason: Nausea) Patient Comments: TAKE 1/2 TO 1 TABLET BY MOUTH THREE TIMES DAILY NEEDED FOR NAUSEA polymyxin B sulf-trimethoprim 10,000 unit- 1 mg/mL drops 1 drp EYE-LEFT Q6HR Patient Comments: INSTILL 1 DROP IN LEFT EYE EVERY 6 HOURS FOR 5 DAYS Referrals: Seymour Gale MD [Primary Care Provider] - Stand Alone Forms: Patient Portal/API
[2023-04-04 11:17] LABS: Add Manual Diff / Slide Review NO; Basophils Absolute Auto 0 /uL (0-100); Basophils Percent Auto 0.7 % (0-2); Eosinophils Absolute Auto 0 /uL (0-450); Eosinophils Percent Auto 0.9 % (2-4); Hematocrit 32.6 % (36-46); Lymphocytes Absolute Auto 2400 /uL (1100-4500); Lymphocytes Percent Auto 44.3 % (25-40); Mean Corpuscular HGB Conc 33.7 % (30-36); Mean Corpuscular Hemoglobin 31.3 PG (26-34); Monocytes Absolute Auto 500 /uL (0-900); Monocytes Percent Auto 8.5 % (3-14); Neutrophils Absolute Auto 2500 /uL (1500-7000); Neutrophils Percent Auto 45.6 % (50-75); Platelet Count 456 X10^3/uL (150-400); Red Cell Distribution Width 14.1 % (11.6-14.8); White Blood Cell Count 5.4 X10^3/uL (4.5-11.0)
[2023-04-04 11:24] LABS: INR 1.1 (0.9-1.3); Prothrombin Time 12.8 SECONDS (10.1-12.7)
--- NOTE | 2023-04-04 11:26 | DI.CT.S_ITS ---
PROCEDURE: CT ABDOMEN PELVIS W CON INDICATIONS: epigastric/abd pain, hx pancreatic tumor TECHNIQUE: After the administration of intravenous contrast, axial sections acquired from the lung bases to the pubic symphysis. Coronal and sagittal reformats were performed. For radiation dose reduction, the following was used: automated exposure control, adjustment of mA and/or kV according to patient size. COMPARISON: [facility], CT, CT ABDOMEN PELVIS W CON, 11/11/2022, 7:49. FINDINGS: Image quality: Excellent. Lung bases: Unremarkable. Heart: No significant findings. ABDOMEN: Liver: The liver has low density consistent with hepatic steatosis. Gallbladder: Status post cholecystectomy Biliary ducts: Unremarkable. Pancreas: No pancreatic mass or ductal dilatation. The tail of the pancreas has multiple surgical clips likely due to prior pancreatic tail resection given history of pancreatic tumor. Spleen: Status post splenectomy. Adrenal Glands: Unremarkable. Kidneys and Ureters: Unremarkable. Stomach and Bowel: Stomach, small bowel loops, and colon are unremarkable. Peritoneum: No abnormal intraperitoneal fluid. No free air. Ventral Wall: No hernias. Abdominal Nodes: No retroperitoneal or mesenteric adenopathy by size criteria. Vessels: The aorta has atherosclerosis with no aneurysmal dilatation. PELVIS: Pelvic Organs: Unremarkable. Bladder: Unremarkable. Pelvic Nodes: No enlarged lymph nodes. Miscellaneous: No hernias are seen. Bones: Degenerative changes with no focal abnormality. IMPRESSION: 1. No acute abdominal or pelvic abnormality. 2. Status post splenectomy and hysterectomy. 3. Hepatic steatosis. Dictated by: Chuck Seo M.D. on 04/04/2023 at 11:27 Approved by: Chuck Seo M.D. on 04/04/2023 at 11:35
[2023-04-04 11:27] LABS: PTT Partial Thromboplastin Tim 35 SECONDS (26-36)
[2023-04-04 11:29] LABS: Alanine Aminotransferase 17 IU/L (<35); Albumin 4.2 g/dL (3.5-5.0); Albumin Globulin Ratio 1.2 (1.0-2.8); Alkaline Phosphatase 52 U/L (38-126); Aspartate Aminotransferase 25 IU/L (14-36); BUN Creatinine Ratio 14.3 (6-22); Bilirubin Total 0.6 mg/dL (0.2-1.3); Blood Urea Nitrogen 13 mg/dL (7-17); Calcium 8.8 mg/dL (8.4-10.2); Carbon Dioxide 16 mmol/L (22-32); Chloride 107 mmol/L (98-107); Creatine Kinase < 20 U/L (30-135); Estimated Glomerular Filt Rate > 60 mL/min (>60); Globulin 3.4 g/dL (1.7-4.1); Glucose 126 mg/dL (80-110); HEMOLYSIS < 15 (0-50); Lactate (Lactic Acid) 2.3 mmol/L (0.7-2.1); Lipase 251 U/L (23-300); Magnesium 1.2 mg/dL (1.6-2.3); Potassium 4.3 mmol/L (3.4-5.1); Sodium 138 mmol/L (137-145); Total Protein 7.6 g/dL (6.3-8.2)
[2023-04-04 11:41] LABS: NT-proBNP (BNP-Adult 18+) 637 pg/mL (<450)
[2023-04-04] MEDS: ACETAMINOPHEN 325 MG TABLET 650 MG PO (11:41)
[2023-04-04] MEDS: ONDANSETRON 4 MG/2 ML INJ IV (11:42)
[2023-04-04] MEDS: SODIUM CHLORIDE 0.9% 1,000 ML 1000 ML IV (11:42)
[2023-04-04 11:51] LABS: Procalcitonin 0.05 ng/mL (<0.5)
[2023-04-04 11:52] LABS: Troponin I < 0.012 ng/mL (0.01-0.034)
[2023-04-04] MEDS: MAGNESIUM SULFATE 2 GM/50 ML PIGGYBACK IV (12:46)
[2023-04-04 13:13] LABS: Reflexed Lactate in 2 Hours Y
[2023-04-04 13:50] LABS: Lactate 2HR (Lactic Acid Rflx) 1.5 mmol/L (0.7-2.1)
[2023-04-04 14:54] LABS: Appearance Urine UA CLEAR; Bilirubin Urine UA NEGATIVE (NEGATIVE); Color Urine UA YELLOW; Glucose Urine UA NEGATIVE (Negative); Ketones Urine UA TRACE (NEGATIVE); Leukocyte Esterase Urine UA NEGATIVE (NEGATIVE); Nitrite Urine UA NEGATIVE (Negative); Occult Blood Urine UA NEGATIVE (Negative); Protein Urine UA NEGATIVE (Negative); Specific Gravity Urine UA <=1.005 (1.000-1.035); Urobilinogen Urine UA 0.2 E.U./dL (0.2)
[2023-04-04 15:13] LABS: Bacteria Urine None Seen; Culture Indicated Urine Cult Not Indicated; RBC Urine None Seen (0-5/HPF); Squamous Epithelial Cell Urine 1-5 /HPF (0-5/HPF); Transitional Epi Cells Urine 1-5/HPF (0-5/HPF); WBC Urine 0-1/HPF (0-5/HPF)
== END 2023-04-04 15:10 | disposition home or self-care (01) ==
PROVIDERS: Emergency Provider Emergency Medicine; PCP Internal Medicine
DX: R10.9 Unspecified abdominal pain (principal); R11.2 Nausea with vomiting, unspecified
CPT/HCPCS: 36415; 71045; 74177; 80053; 81001; 81003; 82550; 83605; 83690; 83735; 83880; 84145; 84484; 85025; 85610; 85730; 93005; 96361; 96374; 99284; J2405; J3475; Q9967